=== PATIENT | male | born 1965 | race Caucasian/White ===

== ENCOUNTER 2024-03-26 13:51 | Inpatient (IN) ==
--- NOTE | 2024-03-26 17:56 | EKG ---
Test Reason : HX AFIB Blood Pressure : */* mmHG Vent. Rate : 68 BPM Atrial Rate : * BPM P-R Int : * ms QRS Dur : 140 ms QT Int : 436 ms P-R-T Axes : * 40 37 degrees QTc Int : 463 ms Atrial fibrillation Right bundle branch block T wave abnormality, consider lateral ischemia Abnormal ECG When compared with ECG of 31-JAN-2024 05:46, No significant change was found Confirmed by Lalito Nassar MD ([id number]) on 03/27/2024 7:32:58 AM Referred By: Confirmed By: Lalito Nassar MD
[2024-03-26] MEDS ORDERED: PHARMACY CONSULT - VANCOMYCIN XX SCH (18:00)
[2024-03-26] MEDS: PROTONIX INJ 40 MG VIAL IVP SCH (18:00)
[2024-03-26 18:17] LABS: BASOPHILS # (AUTO) 0.1 X10^3/uL (0.0-0.1); BASOPHILS % (AUTO) 1.1 % (0.2-1.0); EOSINOPHILS # (AUTO) 0.4 x10^3/uL (0.0-0.2); EOSINOPHILS % (AUTO) 6.1 % (0.9-2.9); HEMOGLOBIN 10.7 g/dL (13.5-18.0); LYMPHOCYTES % (AUTO) 33.9 % (21.0-51.0); MEAN CORPUSCULAR HEMOGLOBIN 26.4 pg (27.0-34.0); MEAN CORPUSCULAR HGB CONC 33.4 g/dL (33.0-35.0); MEAN CORPUSCULAR VOLUME 79.1 fL (80.0-100.0); MEAN PLATELET VOLUME 7.3 fL (7.4-11.0); MONOCYTES # (AUTO) 0.3 x10^3/uL (0.3-0.8); MONOCYTES % (AUTO) 5.3 % (0.0-13.0); NEUTROPHILS # (AUTO) 3.2 x10^3/uL (2.2-4.8); NEUTROPHILS % (AUTO) 53.6 % (42.0-75.0); PLATELET COUNT 304 X10^3/uL (150.0-450.0); RED BLOOD COUNT 4.04 X10^6/uL (4.7-6.0); RED CELL DISTRIBUTION WIDTH 17.7 % (11.6-16.5); RETICULOCYTE % 1.32 % (0.8-2.2); WHITE BLOOD COUNT 5.9 X10^3/uL (3.6-10.0)
[2024-03-26 18:29] LABS: ALBUMIN 1.9 g/dL (3.4-5.0); CALCIUM 9.6 mg/dL (8.5-10.1); CARBON DIOXIDE 26.4 mmol/L (21-32); COR CA(FOR HYPOALB) 11.3 mg/dL (8.5-10.1); CREATININE 1.84 mg/dL (0.70-1.30); MAGNESIUM 1.5 mg/dL (2.0-2.9); POTASSIUM 3.8 mmol/L (3.5-5.1); TOTAL PROTEIN 6.5 g/dL (6.4-8.2)
[2024-03-26] MEDS: PERCOCET TAB 5/325 MG PO PRN (20:23)
[2024-03-26 20:45] VITALS: BMI 40.7
[2024-03-26] MEDS: VANCOMYCIN IV *PREMIX 2 G/400 ML BAG 2 G/400 ML PIGGYBACK IV ONE (21:30)
[2024-03-26] MEDS ORDERED: VANCOMYCIN IV *PREMIX 2 G/400 ML BAG 2 G/400 ML PIGGYBACK IV ONE (22:01)
[2024-03-27 05:48] LABS: BASOPHILS # (AUTO) 0.1 X10^3/uL (0.0-0.1); EOSINOPHILS # (AUTO) 0.4 x10^3/uL (0.0-0.2); EOSINOPHILS % (AUTO) 6.2 % (0.9-2.9); HEMATOCRIT 28.5 % (42.0-54.0); HEMOGLOBIN 9.3 g/dL (13.5-18.0); LYMPHOCYTES # (AUTO) 2.2 X10^3/uL (1.3-2.9); LYMPHOCYTES % (AUTO) 32.1 % (21.0-51.0); MEAN CORPUSCULAR HEMOGLOBIN 26.2 pg (27.0-34.0); MEAN CORPUSCULAR HGB CONC 32.5 g/dL (33.0-35.0); MEAN CORPUSCULAR VOLUME 80.6 fL (80.0-100.0); MEAN PLATELET VOLUME 7.9 fL (7.4-11.0); MONOCYTES # (AUTO) 0.5 x10^3/uL (0.3-0.8); MONOCYTES % (AUTO) 7.8 % (0.0-13.0); NEUTROPHILS # (AUTO) 3.6 x10^3/uL (2.2-4.8); NEUTROPHILS % (AUTO) 52.9 % (42.0-75.0); PLATELET COUNT 258 X10^3/uL (150.0-450.0); RED BLOOD COUNT 3.54 X10^6/uL (4.7-6.0); RED CELL DISTRIBUTION WIDTH 17.3 % (11.6-16.5); WHITE BLOOD COUNT 6.9 X10^3/uL (3.6-10.0)
[2024-03-27 06:02] LABS: ALBUMIN 1.6 g/dL (3.4-5.0); CALCIUM 9.1 mg/dL (8.5-10.1); CARBON DIOXIDE 27.8 mmol/L (21-32); CREATININE 2.12 mg/dL (0.70-1.30); MAGNESIUM 1.6 mg/dL (2.0-2.9); TOTAL PROTEIN 5.6 g/dL (6.4-8.2)
--- NOTE | 2024-03-27 07:55 | RAD ---
EXAM:CHEST, 1 VIEWHISTORY:SOB; best images possible, pt would not lie flatCOMPARISON:Prior study or studies were utilized for comparison during interpretation with the most relevant dated 01/30/2024TECHNIQUE:CHEST, 1 VIEWFINDINGS:Chest:Lines and tubes: NoneMediastinum: Cardiomegaly.Pulmonary vessels: No pulmonary vascular congestion.Lung collins: No suspicious airspace opacity.Pleura: No effusion. No pneumothorax.Bones and soft tissues: No acute osseous or soft tissue abnormality.IMPRESSION:1. No acute cardiopulmonary abnormalityTHIS IS AN ELECTRONICALLY VERIFIED FINAL REPORT03/27/2024 7:52 AM - Electronically signed by José Terry MD
--- NOTE | 2024-03-27 08:37 | DR.H&P ---
H&P History & Physical for Day of: H&P Date: 03/26/24 Chief Complaint Chief Complaint: wound to buttocks, abnormal labs, uti, diffuse weakness History of Present Illness History of Present Illness: PT 59 WM, DIRECT ADMIT FROM DR FORRESTER OFFICE WITH INFECTED STAGE IV DECUBITUS, DIFFUSE WEAKNESS, UTI CONFIRMED ON OUTPT URINE C ULTURE, HYPONATREMIA ON OUTPT LABS. PT HAS BEEN BED CONFINED FOLLOWING A TRAUMATIC FALL APPROX 2 MONTHS AGO. PT HAS DIABETES, CRF, BPH, OA AND AFIB. PT IS ON USP ANTICOAGULANT THERAPY. PLAN TO ADMIT AND CONSULT SURGERY FOR DECUBITUS DEBRIDEMENT AND CASE MANAGEMENT FOR REHAB PLACEMENT Past Medical History Past Medical History: Arthritis, Depression, Diabetes, Dyslipidemia and Hypertension Past Surgical History Surgical History: Ortho Surgery Family History Family Medical History: Cancer Social History Does patient currently use any type of tobacco product: Yes Type of Tobacco Use: Smokeless Alcohol Use: None Drug Use: None Medications Home Medications: Home Medications Medication Instructions Recorded Confirmed Type insulin glargine U-300 conc 300 12 unit subcut QA 06/21/22 03/26/24 History unit/mL (3 mL) subcutaneous pen (Toujeo Max U-300 SoloStar) tizanidine 4 mg tablet 8 mg PO TID 06/21/22 03/26/24 History amlodipine 10 mg tablet 10 mg PO QAM 01/30/24 03/26/24 History apixaban 5 mg tablet (Eliquis) 5 mg PO BID 01/30/24 03/26/24 History bupropion HCl 150 mg 24 hr tablet, 150 mg PO QAM 01/30/24 03/26/24 History extended release carvedilol 25 mg tablet 25 mg PO BID 01/30/24 03/26/24 History docusate sodium 100 mg tablet 300 mg PO QDAY 01/30/24 03/26/24 History (Stool Softener) fenofibrate 160 mg tablet 160 mg PO QDAY 01/30/24 03/26/24 History ferrous sulfate 325 mg (65 mg 325 mg PO QDAY 01/30/24 03/26/24 History iron) tablet,delayed release furosemide 40 mg tablet 40 mg PO QAM 01/30/24 03/26/24 History gabapentin 300 mg capsule 300 mg PO QPM 01/30/24 03/26/24 History hydralazine 25 mg tablet 25 mg PO BID 01/30/24 03/26/24 History potassium chloride 10 mEq 10 meq PO QDAY 01/30/24 03/26/24 History tablet,extended release pravastatin 40 mg tablet 40 mg PO QPM 01/30/24 03/26/24 History quetiapine 50 mg tablet 50 mg PO QPM 01/30/24 03/26/24 History tamsulosin 0.4 mg capsule 0.4 mg PO QPM 01/30/24 03/26/24 History blood-glucose transmitter (Dexcom 03/26/24 03/26/24 History G6 Transmitter device) melatonin 10 mg chewable tablet 20 mg PO QPM 03/26/24 03/26/24 History oxybutynin chloride 10 mg 10 mg PO QDAY 03/26/24 03/26/24 History tablet,extended release 24 hr polyethylene glycol 3350 17 gram 17 g PO QAM 03/26/24 03/26/24 History oral powder packet (Miralax) Allergies Allergies Allergy/AdvReac Type Severity Reaction Status Date / Time No Known Drug Allergies Allergy Verified 01/30/24 21:56 Labs 03/27/24 05:10 03/27/24 05:10 Labs: Laboratory WBC 6.9 X10^3/uL (3.6-10.0) 03/27/24 05:10 RBC 3.54 X10^6/uL (4.7-6.0) L 03/27/24 05:10 Hgb 9.3 g/dL (13.5-18.0) L 03/27/24 05:10 Hct 28.5 % (42.0-54.0) L 03/27/24 05:10 MCV 80.6 fL (80.0-100.0) 03/27/24 05:10 MCH 26.2 pg (27.0-34.0) L 03/27/24 05:10 MCHC 32.5 g/dL (33.0-35.0) L 03/27/24 05:10 RDW 17.3 % (11.6-16.5) H 03/27/24 05:10 Plt Count 258 X10^3/uL (150.0-450.0) 03/27/24 05:10 MPV 7.9 fL (7.4-11.0) 03/27/24 05:10 Neut % (Auto) 52.9 % (42.0-75.0) 03/27/24 05:10 Lymph % (Auto) 32.1 % (21.0-51.0) 03/27/24 05:10 [place] % (Auto) 7.8 % (0.0-13.0) 03/27/24 05:10 Eos % (Auto) 6.2 % (0.9-2.9) H 03/27/24 05:10 Baso % (Auto) 1.0 % (0.2-1.0) 03/27/24 05:10 Neut # (Auto) 3.6 x10^3/uL (2.2-4.8) 03/27/24 05:10 Lymph # (Auto) 2.2 X10^3/uL (1.3-2.9) 03/27/24 05:10 [place] # (Auto) 0.5 x10^3/uL (0.3-0.8) 03/27/24 05:10 Eos # (Auto) 0.4 x10^3/uL (0.0-0.2) H 03/27/24 05:10 Baso # (Auto) 0.1 X10^3/uL (0.0-0.1) 03/27/24 05:10 Absolute Nucleated RBC 0.1 /100WBC 03/27/24 05:10 Absolute Retic 0.0534 10^6/uL 03/26/24 17:53 Percent Retic 1.32 % (0.8-2.2) 03/26/24 17:53 Sodium 139 mmol/L (136-145) 03/27/24 05:10 Corrected Sodium 142 mmol/L (136-145) 03/27/24 05:10 Potassium 4.0 mmol/L (3.5-5.1) 03/27/24 05:10 Chloride 105 mmol/L (98-107) 03/27/24 05:10 Carbon Dioxide 27.8 mmol/L (21-32) 03/27/24 05:10 BUN 21 mg/dL (7-18) H 03/27/24 05:10 Creatinine 2.12 mg/dL (0.70-1.30) H 03/27/24 05:10 Est GFR (MDRD) Af Amer 41 (>60) L 03/27/24 05:10 Est GFR (MDRD) Non-Af 34 (>60) L 03/27/24 05:10 Glucose 237 mg/dL (65-99) H 03/27/24 05:10 Lactic Acid 3.1 mmol/L (0.4-2.0) H 03/26/24 17:53 Calcium 9.1 mg/dL (8.5-10.1) 03/27/24 05:10 Corrected Calcium 11.0 mg/dL (8.5-10.1) H 03/27/24 05:10 Magnesium 1.6 mg/dL (2.0-2.9) L 03/27/24 05:10 Iron 33 ug/dL (50-175) L 03/26/24 17:53 TIBC 200 ug/dL (250-450) L 03/26/24 17:53 Transferrin 165 mg/dL (202-364) L 03/26/24 17:53 Ferritin 68 ng/mL (26-388) 03/26/24 17:53 Total Bilirubin 0.30 mg/dL (0.2-1.0) 03/27/24 05:10 AST 14 Units/L (15-37) L 03/27/24 05:10 ALT 6 Units/L (12-78) L 03/27/24 05:10 Alkaline Phosphatase 66 Units/L (46-116) 03/27/24 05:10 Creatine Kinase 12 Units/L (39-308) L 03/26/24 17:53 Troponin I High Sens 8.4 ng/L (4.0-60.0) 03/26/24 17:53 Total Protein 5.6 g/dL (6.4-8.2) L 03/27/24 05:10 Albumin 1.6 g/dL (3.4-5.0) L 03/27/24 05:10 Globulin 4.0 g/dL (2.5-4.5) 03/27/24 05:10 Albumin/Globulin Ratio 0.4 Ratio (1.1-2.1) L 03/27/24 05:10 Vitamin B12 658 pg/mL (193-986) 03/26/24 17:53 Folate 4.0 ng/mL (>8.6) L 03/26/24 17:53 Review of Systems Constitutional: Fever, Sweats and Weakness Eyes: No Symptoms Reported Respiratory: Shortness of Breath Cardiovascular: Palpitations and Edema Gastrointestinal: Nausea Genitourinary: Frequency and Other (INDWELLING [facility]KEON CATH) Musculoskeletal: Arm Pain, Back Pain and Leg Pain Skin: Wound Neurological: Weakness Physical Exam Vital Signs: Vital Signs Temperature 98.2 F Temperature 97.5 F Pulse Rate [Left Brachial] 48 Pulse Rate [Left Brachial] 52 Respiratory Rate 16 Respiratory Rate 18 Blood Pressure [Right Arm] 137/63 Blood Pressure [Right Arm] 98/54 O2 Sat by Pulse Oximetry 99 O2 Sat by Pulse Oximetry 97 Oriented: Normal Eyes: Normal Ear: Normal Nose: Normal Throat: Dry Respiratory: Diminished Throughout Cardiovascular: Irregular and Edema Auscultation: Bowel Sounds: Normal Palpation: Normal Tenderness: Normal Skin: Normal Musculoskeletal: Back:Lumbar Psychiatric: Depression Mood Description: Calm Affect: Depressed Speech Pattern: Delayed Assessment/Plan (1) Sepsis: Narrative Support Text: ADMIT, CONSULT DR BRANHAM FOR WOUND ASSESSMENT CT LSPINE RO OSTEOMYELITIS, BLOOD, URINE AND WOUND CULTURES ON ADMISSION IV VANOCMYCIN BP CONTROL, IV HYDRATION VERIFY HOME MEDICATIONS PRN SUPPLEMENTAL O2 AM LABS, CE AND CARDIAC MONITORING EKG ON ADMISSION Status: Acute (2) Hyponatremia: Status: Acute (3) Decubitus skin ulcer: Status: Acute (4) CRF (chronic renal failure): Status: Acute (5) Urinary tract infection: Status: Acute
[2024-03-27] MEDS: ELIQUIS PO SCH (09:21)
[2024-03-27] MEDS: HEMOCYTE-PLUS PO SCH (09:25)
[2024-03-27] MEDS: TRICOR TAB 160 MG PO SCH (09:25)
[2024-03-27] MEDS: WELLBUTRIN XL 150 MG (DAILY) PO SCH (09:26)
[2024-03-27] MEDS: NS 1,000 ML IV 1,000 ML with MAGNESIUM SULFATE 50% INJ VIAL 1 G IV SCH (09:34)
[2024-03-27] MEDS: NS IRRIGATION* 500 ML IR ONE (09:44)
[2024-03-27] MEDS: NS 250 ML IV 250 ML IV ONE (09:44)
[2024-03-27] MEDS: MORPHINE SULFATE INJ 2 MG INJ IVP PRN (11:51)
[2024-03-27] MEDS: NYSTATIN POWDER TOP SCH (15:49)
--- NOTE | 2024-03-27 17:42 | PCM.PROG ---
Progress Note Progress Note for Day of Date of Exam: 03/27/24 Subjective Subjective: PT 59 WM, DIRECT ADMIT FROM DR FORRESTER OFFICE WITH INFECTED STAGE IV DECUBITUS, DIFFUSE WEAKNESS, UTI CONFIRMED ON OUTPT URINE CULTURE, HYPONATREMIA ON OUTPT LABS. PT HAS BEEN BED CONFINED FOLLOWING A TRAUMATIC FALL APPROX 2 MONTHS AGO. PT HAS DIABETES, CRF, BPH, OA AND AFIB. PT IS ON CAD OPERATOR ANTICOAGULANT THERAPY. PLAN TO ADMIT AND CONSULT SURGERY FOR DECUBITUS DEBRIDEMENT AND CASE MANAGEMENT FOR REHAB PLACEMENT. PT WAS STARTED ON IV VANCOMYCIN ON ADMISION AFTER BLOOD, URINE AND WOUND CULTURES WERE OBTAINED. LSPINE CT AND PELVIS CT ORDERED DUE TO STAGE IV SACRAL DECUBITUS TO RO OS TEOMYELITIS AND EVALUATION OF CELLULITIS TO RO ABSCESS FORMATION TO PERINEAL AREA. PT WAS SEPTIC ON ARRIVAL, REPEAT LACTIC ACID OBTAINED, BP STABLE THIS AM WITH CONTINUED BRADYCARDIA. HOLDING BP MEDICATION AND BB THERAPY. NA UP TO 139 THIS AM, WB 6.9 AND HGB9.3. PLAN TO REPEAT AM LABS AND CONTINUE BP AND CARDIAC MONITORING. Past Medical Family Social History Allergies: Allergies No Known Drug Allergies Allergy (Verified 01/30/24 21:56) Vital Signs and I&O's Vital Signs: Vital Signs Temperature 98.1 F Temperature 98.3 F Pulse Rate [Left Brachial] 75 Pulse Rate [Left Brachial] 65 Respiratory Rate 20 Respiratory Rate 18 Respiratory Rate 20 Respiratory Rate 20 Respiratory Rate 16 Respiratory Rate 20 Respiratory Rate 20 Blood Pressure [Right Arm] 159/74 Blood Pressure [Right Arm] 145/71 O2 Sat by Pulse Oximetry 97 O2 Sat by Pulse Oximetry 96 Intake and Output: Intake & Output 03/25/24 03/26/24 03/27/24 03/28/24 11:59 11:59 11:59 11:59 Intake Total 944 / 944 863 / 863 Output Total 1300 / 1300 Balance -356 / -356 863 / 863 Physical Exam Oriented: Normal Eyes: Normal Ear: Normal Nose: Normal Throat: Dry Cardiovascular: Irregular and Edema Auscultation: Bowel Sounds: Normal Tenderness: Normal Skin: Decreased Turgur and Wound (STAGE IV SACRAL DECUBITUS EXTENDING TO SCROTUM WITH DIFFUSE LOCALZIED REDNESS, MALODOROUS DC) Musculoskeletal: Back:Lumbar Psychiatric: Depression Mood Description: Calm Affect: Depressed Speech Pattern: Delayed Laboratory and Diagnostics 03/27/24 05:10 03/27/24 05:10 Labs: 03/26/24 21:25 Buttock Wound Culture - Preliminary Laboratory WBC 6.9 X10^3/uL (3.6-10.0) 03/27/24 05:10 RBC 3.54 X10^6/uL (4.7-6.0) L 03/27/24 05:10 Hgb 9.3 g/dL (13.5-18.0) L 03/27/24 05:10 Hct 28.5 % (42.0-54.0) L 03/27/24 05:10 MCV 80.6 fL (80.0-100.0) 03/27/24 05:10 MCH 26.2 pg (27.0-34.0) L 03/27/24 05:10 MCHC 32.5 g/dL (33.0-35.0) L 03/27/24 05:10 RDW 17.3 % (11.6-16.5) H 03/27/24 05:10 Plt Count 258 X10^3/uL (150.0-450.0) 03/27/24 05:10 MPV 7.9 fL (7.4-11.0) 03/27/24 05:10 Neut % (Auto) 52.9 % (42.0-75.0) 03/27/24 05:10 Lymph % (Auto) 32.1 % (21.0-51.0) 03/27/24 05:10 [place] % (Auto) 7.8 % (0.0-13.0) 03/27/24 05:10 Eos % (Auto) 6.2 % (0.9-2.9) H 03/27/24 05:10 Baso % (Auto) 1.0 % (0.2-1.0) 03/27/24 05:10 Neut # (Auto) 3.6 x10^3/uL (2.2-4.8) 03/27/24 05:10 Lymph # (Auto) 2.2 X10^3/uL (1.3-2.9) 03/27/24 05:10 [place] # (Auto) 0.5 x10^3/uL (0.3-0.8) 03/27/24 05:10 Eos # (Auto) 0.4 x10^3/uL (0.0-0.2) H 03/27/24 05:10 Baso # (Auto) 0.1 X10^3/uL (0.0-0.1) 03/27/24 05:10 Absolute Nucleated RBC 0.1 /100WBC 03/27/24 05:10 Absolute Retic 0.0534 10^6/uL 03/26/24 17:53 Percent Retic 1.32 % (0.8-2.2) 03/26/24 17:53 Sodium 139 mmol/L (136-145) 03/27/24 05:10 Corrected Sodium 142 mmol/L (136-145) 03/27/24 05:10 Potassium 4.0 mmol/L (3.5-5.1) 03/27/24 05:10 Chloride 105 mmol/L (98-107) 03/27/24 05:10 Carbon Dioxide 27.8 mmol/L (21-32) 03/27/24 05:10 BUN 21 mg/dL (7-18) H 03/27/24 05:10 Creatinine 2.12 mg/dL (0.70-1.30) H 03/27/24 05:10 Est GFR (MDRD) Af Amer 41 (>60) L 03/27/24 05:10 Est GFR (MDRD) Non-Af 34 (>60) L 03/27/24 05:10 Glucose 237 mg/dL (65-99) H 03/27/24 05:10 Lactic Acid 1.5 mmol/L (0.4-2.0) 03/27/24 10:35 Calcium 9.1 mg/dL (8.5-10.1) 03/27/24 05:10 Corrected Calcium 11.0 mg/dL (8.5-10.1) H 03/27/24 05:10 Magnesium 1.6 mg/dL (2.0-2.9) L 03/27/24 05:10 Iron 33 ug/dL (50-175) L 03/26/24 17:53 TIBC 200 ug/dL (250-450) L 03/26/24 17:53 Transferrin 165 mg/dL (202-364) L 03/26/24 17:53 Ferritin 68 ng/mL (26-388) 03/26/24 17:53 Total Bilirubin 0.30 mg/dL (0.2-1.0) 03/27/24 05:10 AST 14 Units/L (15-37) L 03/27/24 05:10 ALT 6 Units/L (12-78) L 03/27/24 05:10 Alkaline Phosphatase 66 Units/L (46-116) 03/27/24 05:10 Creatine Kinase 12 Units/L (39-308) L 03/26/24 17:53 Troponin I High Sens 8.4 ng/L (4.0-60.0) 03/26/24 17:53 Total Protein 5.6 g/dL (6.4-8.2) L 03/27/24 05:10 Albumin 1.6 g/dL (3.4-5.0) L 03/27/24 05:10 Globulin 4.0 g/dL (2.5-4.5) 03/27/24 05:10 Albumin/Globulin Ratio 0.4 Ratio (1.1-2.1) L 03/27/24 05:10 Vitamin B12 658 pg/mL (193-986) 03/26/24 17:53 Folate 4.0 ng/mL (>8.6) L 03/26/24 17:53 Plan (1) Sepsis: Status: Acute Narrative Support Text: BP AND CARDIAC MONITORING, CULTURES OBTAINED ON ADMISSION SURGICAL CONSULT FOR WOUND CARE, IV VANCOMYCIN PAIN CONTROL, MCKEON CATH CARE, STRICT I&OS REPEAT AM CXR (2) Decubitus skin ulcer: Status: Acute (3) Hyponatremia: Status: Acute (4) CRF (chronic renal failure): Status: Acute (5) Urinary tract infection: Status: Acute
[2024-03-27] MEDS: SEROquel TAB 25 mg PO SCH (20:40)
[2024-03-27] MEDS: COLACE CAP 100 MG PO PRN (20:41)
[2024-03-27] MEDS: NEURONTIN CAP 300 MG PO SCH (20:41)
[2024-03-27] MEDS: PRAVACHOL PO SCH (20:41)
[2024-03-27] MEDS: FLOMAX PO SCH (20:42)
[2024-03-27] MEDS: VANCOMYCIN IV *PREMIX 2 G/400 ML BAG 2 G/400 ML PIGGYBACK IV SCH (21:29)
[2024-03-28 06:14] LABS: BASOPHILS # (AUTO) 0.1 X10^3/uL (0.0-0.1); BASOPHILS % (AUTO) 1.3 % (0.2-1.0); EOSINOPHILS # (AUTO) 0.5 x10^3/uL (0.0-0.2); EOSINOPHILS % (AUTO) 6.7 % (0.9-2.9); HEMATOCRIT 30.6 % (42.0-54.0); HEMOGLOBIN 10.2 g/dL (13.5-18.0); LYMPHOCYTES # (AUTO) 2.1 X10^3/uL (1.3-2.9); LYMPHOCYTES % (AUTO) 28.9 % (21.0-51.0); MEAN CORPUSCULAR HEMOGLOBIN 26.4 pg (27.0-34.0); MEAN CORPUSCULAR HGB CONC 33.1 g/dL (33.0-35.0); MEAN CORPUSCULAR VOLUME 79.6 fL (80.0-100.0); MEAN PLATELET VOLUME 7.2 fL (7.4-11.0); MONOCYTES # (AUTO) 0.5 x10^3/uL (0.3-0.8); MONOCYTES % (AUTO) 7.7 % (0.0-13.0); NEUTROPHILS # (AUTO) 3.9 x10^3/uL (2.2-4.8); NEUTROPHILS % (AUTO) 55.4 % (42.0-75.0); PLATELET COUNT 299 X10^3/uL (150.0-450.0); RED BLOOD COUNT 3.85 X10^6/uL (4.7-6.0); RED CELL DISTRIBUTION WIDTH 17.5 % (11.6-16.5); WHITE BLOOD COUNT 7.1 X10^3/uL (3.6-10.0)
[2024-03-28 06:34] LABS: ALBUMIN 1.9 g/dL (3.4-5.0); CALCIUM 9.6 mg/dL (8.5-10.1); CARBON DIOXIDE 27.2 mmol/L (21-32); COR CA(FOR HYPOALB) 11.3 mg/dL (8.5-10.1); CREATININE 1.77 mg/dL (0.70-1.30); MAGNESIUM 1.6 mg/dL (2.0-2.9); POTASSIUM 3.8 mmol/L (3.5-5.1); TOTAL PROTEIN 6.4 g/dL (6.4-8.2)
--- NOTE | 2024-03-28 07:45 | CT ---
EXAMINATION:LUMBAR SPINE W/O CONHISTORY:SACRAL DECUBITIS SORE;COMPARISON:None.TECHNIQUE:Jd diehl noncontrast axial CT images of the lumbar spine. Images reviewed in the axial imaging plane with reformatted sagittal and coronal images.The above CT scan was done with automated exposure control and the mA and kV was adjusted to obtain quality images according to patient size.FINDINGS:5 ksv-lhy-cxiupcu lumbar-type vertebral bodies.The lumbar vertebral bodies maintain normal height. Slight retrolisthesis of L3 on L4 grade 1. Multilevel degenerative changes with fety-wn-hcgflztd disc space narrowing, vertebral endplate osteophytes, facet arthropathy. Nonspecific well-defined oval-shaped radiolucent lesion within the posterior L4 vertebral body measuring 1.7 x 1.3 x 2.5 cm.L1-2 level demonstrates no significant central spinal canal or neural foraminal stenosis. Mild bilateral facet arthropathy.L2-3 level demonstrates no significant central spinal canal or neural foraminal stenosis. Mild bilateral facet arthropathy.L3-4 level demonstrates no significant central spinal canal or neural foraminal stenosis. Moderate bilateral facet arthropathy.L4-5 level demonstrates no significant central spinal canal or neural foraminal stenosis. Severe right-sided facet arthropathy and moderate to severe left-sided facet arthropathy.L5-S1 level demonstrates no significant central spinal canal or neural foraminal stenosis. Severe bilateral facet arthropathy.Arterial vascular calcifications.Dmva-nc-jyhhvqvy degenerative changes SI joints.IMPRESSION:Multilevel spondylosis as described above.Indeterminate oval-shaped radiolucent lesion within the posterior L4 vertebral body. Findings may be followed up with an MRI of the lumbar spine.Recommend follow-up CT of the pelvis without and with IV contrast if there is continued clinical concern for a potential sacral decubitus infectious process.THIS IS AN ELECTRONICALLY VERIFIED FINAL REPORT03/28/2024 7:41 AM - Electronically signed by Ashlie Contreras MD
--- NOTE | 2024-03-28 07:48 | CT ---
EXAMINATION:PELVIS W/O CONHISTORY:R/O OSTEO; .COMPARISON STUDY:None.TECHNIQUE:Contiguous noncontrast axial CT images of the pelvis. Images are reviewed in the axial imaging plane with reformatted sagittal and coronal images. The CT radiation dose was minimize/adjusted to accommodate patient's size.FINDINGS:Details of the soft tissues are limited since intravenous contrast was not used.There is decubitus ulceration of the soft tissues along the posterior aspect of the distal coccyx bones. No obvious bone destructive process. There is soft tissue stranding/edema along the presacral space and along the posterior aspect of the distal sacrum/coccyx region.No pelvic adenopathy.Degenerative changes SI joints, hip joints.Scattered arterial vascular calcifications.IMPRESSION:Decubitus ulcer along the posterior aspect distal coccyx region. Soft tissue stranding/edema presacral space and along the posterior aspect of the distal coccyx. Recommend further evaluation with an MRI to performed without and with IV contrast utilizing fat suppression imaging techniques if there is clinical concern for potential osteomyelitis.THIS IS AN ELECTRONICALLY VERIFIED FINAL REPORT03/28/2024 7:45 AM - Electronically signed by Ashlie Contreras MD
[2024-03-28] MEDS: MAG-OX TAB PO SCH (08:47)
[2024-03-28] MEDS: MILK OF MAGNESIA PO PRN (08:48)
[2024-03-28] MEDS ORDERED: ZOFRAN INJ 4 MG VIAL ONE (09:06)
[2024-03-28] MEDS: ZOFRAN INJ 4 MG VIAL IVP PRN (09:15)
[2024-03-28] MEDS: COLACE CAP 100 MG PO SCH (09:30)
[2024-03-28] MEDS: MIRALAX POWDER (1 DOSE 17 G) PO SCH (10:24)
[2024-03-28] MEDS: ZANAFLEX PO SCH (10:24)
--- NOTE | 2024-03-28 12:56 | PCM.PROG ---
Progress Note Progress Note for Day of Date of Exam: 03/28/24 Subjective Subjective: PT 59 WM, DIRECT ADMIT FROM DR FORRESTER OFFICE WITH INFECTED STAGE IV DECUBITUS, DIFFUSE WEAKNESS, UTI CONFIRMED ON OUTPT URINE CULTURE, HYPONATREMIA ON OUTPT LABS. PT HAS BEEN BED CONFINED FOLLOWING A TRAUMATIC FALL APPROX 2 MONTHS AGO. PT HAS DIABETES, CRF, BPH, OA AND AFIB. PT IS ON [employer] HAND ANTICOAGULANT THERAPY. CONSULTED SURGERY FOR DECUBITUS DEBRIDEMENT AND CASE MANAGEMENT FOR REHAB PLACEMENT. PT WAS STARTED ON IV VANCOMYCIN ON ADMISION AFTER BLOOD, URINE AND WOUND CULTURES WERE OBTAINED. LSPINE CT AND PELVIS CT ORDERED DUE TO STAGE IV SACRAL DECUBITUS TO RO OSTEOMYELITIS AND EVALUATION OF CELLULITIS TO RO ABSCESS FORMATION TO PERINEAL AREA.CT REVEALED MULTI-LEVEL DDD. RECEMMED MRI FOR EVALUATIN OF OSTEO, HOWEVER PT HAS REFUSED DUE TO SEVERE PAIN AND INABILITY TO GO THROUGHT PROCEDURE AT THIS TIME. PT STARTED ON ZOSYN AFTER CULTURE RESULTS. NA UP TO 138. BUN/CREAT .77 PLAN TO REPEAT AM LABS AND CONTINUE BP AND CARDIAC MONITORING. Past Medical Family Social History Allergies: Allergies No Known Drug Allergies Allergy (Verified 01/30/24 21:56) Vital Signs and I&O's Vital Signs: Vital Signs Temperature 98.6 F Pulse Rate [Left Brachial] 78 Respiratory Rate 18 Respiratory Rate 20 Respiratory Rate 18 Blood Pressure [Right Arm] 160/75 O2 Sat by Pulse Oximetry 97 Intake and Output: Intake & Output 03/26/24 03/27/24 03/28/24 03/29/24 11:59 11:59 11:59 11:59 Intake Total 944 / 944 3281 / 3281 Output Total 1300 / 1300 1210 / 1210 Balance -356 / -356 2070 / 2070 Physical Exam Oriented: Normal Eyes: Normal Ear: Normal Nose: Normal Throat: Dry Cardiovascular: Irregular and Edema Auscultation: Bowel Sounds: Normal Tenderness: Normal Skin: Decreased Turgur and Wound (STAGE IV SACRAL DECUBITUS EXTENDING TO SCROTUM WITH DIFFUSE LOCALZIED REDNESS, MALODOROUS DC) Musculoskeletal: Back:Lumbar Psychiatric: Depression Mood Description: Calm Affect: Depressed Speech Pattern: Clear and Appropriate Laboratory and Diagnostics 03/28/24 05:57 03/28/24 05:57 Labs: 03/26/24 17:58 Blood Blood Culture - Preliminary 03/26/24 17:53 Blood Blood Culture - Preliminary 03/27/24 05:03 Urine,Clean Catch Urine Culture - Preliminary 03/26/24 21:25 Buttock Wound Culture - Preliminary Laboratory WBC 7.1 X10^3/uL (3.6-10.0) 03/28/24 05:57 RBC 3.85 X10^6/uL (4.7-6.0) L 03/28/24 05:57 Hgb 10.2 g/dL (13.5-18.0) L 03/28/24 05:57 Hct 30.6 % (42.0-54.0) L 03/28/24 05:57 MCV 79.6 fL (80.0-100.0) L 03/28/24 05:57 MCH 26.4 pg (27.0-34.0) L 03/28/24 05:57 MCHC 33.1 g/dL (33.0-35.0) 03/28/24 05:57 RDW 17.5 % (11.6-16.5) H 03/28/24 05:57 Plt Count 299 X10^3/uL (150.0-450.0) 03/28/24 05:57 MPV 7.2 fL (7.4-11.0) L 03/28/24 05:57 Neut % (Auto) 55.4 % (42.0-75.0) 03/28/24 05:57 Lymph % (Auto) 28.9 % (21.0-51.0) 03/28/24 05:57 [place] % (Auto) 7.7 % (0.0-13.0) 03/28/24 05:57 Eos % (Auto) 6.7 % (0.9-2.9) H 03/28/24 05:57 Baso % (Auto) 1.3 % (0.2-1.0) H 03/28/24 05:57 Neut # (Auto) 3.9 x10^3/uL (2.2-4.8) 03/28/24 05:57 Lymph # (Auto) 2.1 X10^3/uL (1.3-2.9) 03/28/24 05:57 [place] # (Auto) 0.5 x10^3/uL (0.3-0.8) 03/28/24 05:57 Eos # (Auto) 0.5 x10^3/uL (0.0-0.2) H 03/28/24 05:57 Baso # (Auto) 0.1 X10^3/uL (0.0-0.1) 03/28/24 05:57 Absolute Nucleated RBC 0.1 /100WBC 03/28/24 05:57 Absolute Retic 0.0534 10^6/uL 03/26/24 17:53 Percent Retic 1.32 % (0.8-2.2) 03/26/24 17:53 Sodium 138 mmol/L (136-145) 03/28/24 05:57 Corrected Sodium 139 mmol/L (136-145) 03/28/24 05:57 Potassium 3.8 mmol/L (3.5-5.1) 03/28/24 05:57 Chloride 104 mmol/L (98-107) 03/28/24 05:57 Carbon Dioxide 27.2 mmol/L (21-32) 03/28/24 05:57 BUN 17 mg/dL (7-18) 03/28/24 05:57 Creatinine 1.77 mg/dL (0.70-1.30) H 03/28/24 05:57 Est GFR (MDRD) Af Amer 51 (>60) L 03/28/24 05:57 Est GFR (MDRD) Non-Af 42 (>60) L 03/28/24 05:57 Glucose 150 mg/dL (65-99) H 03/28/24 05:57 POC Glucose (mg/dL) 148 mg/dL (65-99) H 03/27/24 19:52 Lactic Acid 1.5 mmol/L (0.4-2.0) 03/27/24 10:35 Calcium 9.6 mg/dL (8.5-10.1) 03/28/24 05:57 Corrected Calcium 11.3 mg/dL (8.5-10.1) H 03/28/24 05:57 Magnesium 1.6 mg/dL (2.0-2.9) L 03/28/24 05:57 Iron 33 ug/dL (50-175) L 03/26/24 17:53 TIBC 200 ug/dL (250-450) L 03/26/24 17:53 Transferrin 165 mg/dL (202-364) L 03/26/24 17:53 Ferritin 68 ng/mL (26-388) 03/26/24 17:53 Total Bilirubin 0.50 mg/dL (0.2-1.0) 03/28/24 05:57 AST 18 Units/L (15-37) 03/28/24 05:57 ALT 9 Units/L (12-78) L 03/28/24 05:57 Alkaline Phosphatase 77 Units/L (46-116) 03/28/24 05:57 Creatine Kinase 12 Units/L (39-308) L 03/26/24 17:53 Troponin I High Sens 8.4 ng/L (4.0-60.0) 03/26/24 17:53 Total Protein 6.4 g/dL (6.4-8.2) 03/28/24 05:57 Albumin 1.9 g/dL (3.4-5.0) L 03/28/24 05:57 Globulin 4.5 g/dL (2.5-4.5) 03/28/24 05:57 Albumin/Globulin Ratio 0.4 Ratio (1.1-2.1) L 03/28/24 05:57 Vitamin B12 658 pg/mL (193-986) 03/26/24 17:53 Folate 4.0 ng/mL (>8.6) L 03/26/24 17:53 Plan (1) Urinary tract infection: Status: Acute Narrative Support Text: IV ATBX, GENTLE IV HYDRATION WOUND CARE, BP CONTROL REPEAT AM LABS, PAIN CONTROL (2) Sepsis: Status: Acute (3) Decubitus skin ulcer: Status: Acute (4) Hyponatremia: Status: Acute (5) CRF (chronic renal failure): Status: Acute (6) Weakness: Status: Acute
[2024-03-28] MEDS: ZOSYN VIAL 3.375 GRAMS 3.375 G in NS 100 ML IV 100 ML IV SCH (13:34)
[2024-03-28] MEDS: DILAUDID INJ IVP PRN (14:32)
[2024-03-29 05:50] LABS: LYMPHOCYTES % (AUTO) 35.1 % (21.0-51.0); MONOCYTES # (AUTO) 0.7 x10^3/uL (0.3-0.8)
[2024-03-29 05:56] LABS: BASOPHILS # (AUTO) 0.1 X10^3/uL (0.0-0.1); BASOPHILS % (AUTO) 0.9 % (0.2-1.0); EOSINOPHILS # (AUTO) 0.5 x10^3/uL (0.0-0.2); EOSINOPHILS % (AUTO) 7.1 % (0.9-2.9); HEMATOCRIT 25.6 % (42.0-54.0); HEMOGLOBIN 8.6 g/dL (13.5-18.0); LYMPHOCYTES # (AUTO) 2.7 X10^3/uL (1.3-2.9); MEAN CORPUSCULAR HEMOGLOBIN 26.9 pg (27.0-34.0); MEAN CORPUSCULAR HGB CONC 33.6 g/dL (33.0-35.0); MEAN CORPUSCULAR VOLUME 80.1 fL (80.0-100.0); MEAN PLATELET VOLUME 7.6 fL (7.4-11.0); MONOCYTES % (AUTO) 9.1 % (0.0-13.0); NEUTROPHILS # (AUTO) 3.6 x10^3/uL (2.2-4.8); NEUTROPHILS % (AUTO) 47.8 % (42.0-75.0); PLATELET COUNT 245 X10^3/uL (150.0-450.0); RED CELL DISTRIBUTION WIDTH 17.1 % (11.6-16.5); WHITE BLOOD COUNT 7.6 X10^3/uL (3.6-10.0)
[2024-03-29 06:03] LABS: ALBUMIN 1.6 g/dL (3.4-5.0); CALCIUM 9.1 mg/dL (8.5-10.1); CARBON DIOXIDE 28.7 mmol/L (21-32); CREATININE 1.68 mg/dL (0.70-1.30); MAGNESIUM 1.9 mg/dL (2.0-2.9); POTASSIUM 4.1 mmol/L (3.5-5.1); TOTAL PROTEIN 5.6 g/dL (6.4-8.2)
[2024-03-29] MEDS: LASIX IVP ONE (12:16)
[2024-03-29] MEDS: K-DUR TAB 20 MEQ PO ONE (12:16)
[2024-03-29 13:09] LABS: BILIRUBIN,URINE NEGATIVE (NEGATIVE); BLOOD/HEMOGLOBIN,URINE 2+ (NEGATIVE); GLUCOSE, URINE NEGATIVE (NEGATIVE); KETONES,URINE NEGATIVE (NEGATIVE); LEUKOCYTE ESTERASE ,URINE 3+ (NEGATIVE); NITRITES,URINE NEGATIVE (NEGATIVE); PROTEIN,URINE 2+ (NEGATIVE); UROBILINOGEN,URINE NORMAL (NORMAL)
[2024-03-29 13:18] LABS: APPEARANCE,URINE CLEAR (CLEAR); COLOR,URINE YELLOW (YELLOW)
[2024-03-29 13:19] LABS: BACTERIA,URINE NEGATIVE /HPF (NEGATIVE); SQUAMOUS EPITHELIAL CELL,UR RARE /HPF (NEGATIVE)
[2024-03-29] MEDS: MERREM VIAL 1 G in NS 100 ML IV 100 ML IV SCH (17:26)
[2024-03-29] MEDS: PHARMACY COMMENT IV ONE (21:37)
[2024-03-29] MEDS: VANCOMYCIN IV *PREMIX 2 G/400 ML BAG 2 G/400 ML PIGGYBACK IV SCH (21:38)
[2024-03-30 05:05] LABS: BASOPHILS # (AUTO) 0.1 X10^3/uL (0.0-0.1); BASOPHILS % (AUTO) 0.9 % (0.2-1.0); EOSINOPHILS # (AUTO) 0.6 x10^3/uL (0.0-0.2); EOSINOPHILS % (AUTO) 8.7 % (0.9-2.9); HEMATOCRIT 26.5 % (42.0-54.0); HEMOGLOBIN 8.8 g/dL (13.5-18.0); LYMPHOCYTES # (AUTO) 2.6 X10^3/uL (1.3-2.9); LYMPHOCYTES % (AUTO) 37.1 % (21.0-51.0); MEAN CORPUSCULAR HEMOGLOBIN 26.6 pg (27.0-34.0); MEAN CORPUSCULAR HGB CONC 33.3 g/dL (33.0-35.0); MEAN CORPUSCULAR VOLUME 79.9 fL (80.0-100.0); MEAN PLATELET VOLUME 7.8 fL (7.4-11.0); MONOCYTES # (AUTO) 0.6 x10^3/uL (0.3-0.8); MONOCYTES % (AUTO) 8.3 % (0.0-13.0); NEUTROPHILS # (AUTO) 3.1 x10^3/uL (2.2-4.8); PLATELET COUNT 248 X10^3/uL (150.0-450.0); RED BLOOD COUNT 3.32 X10^6/uL (4.7-6.0); RED CELL DISTRIBUTION WIDTH 16.9 % (11.6-16.5); WHITE BLOOD COUNT 6.9 X10^3/uL (3.6-10.0)
[2024-03-30 05:22] LABS: ALBUMIN 1.7 g/dL (3.4-5.0); CALCIUM 9.1 mg/dL (8.5-10.1); CARBON DIOXIDE 27.8 mmol/L (21-32); COR CA(FOR HYPOALB) 10.9 mg/dL (8.5-10.1); CREATININE 1.68 mg/dL (0.70-1.30); POTASSIUM 4.1 mmol/L (3.5-5.1); TOTAL PROTEIN 5.7 g/dL (6.4-8.2)
[2024-03-30] MEDS: LASIX PO SCH (09:10)
[2024-03-30] MEDS ORDERED: PERCOCET TAB 5/325 MG PO PRN (12:07)
[2024-03-30] MEDS: PERCOCET TAB 5/325 MG PO PRN (13:31)
[2024-03-30] MEDS: PHARMACY COMMENT IV ONE (21:59)
[2024-03-31 06:43] LABS: BASOPHILS % (AUTO) 0.4 % (0.2-1.0); EOSINOPHILS # (AUTO) 0.6 x10^3/uL (0.0-0.2); EOSINOPHILS % (AUTO) 10.3 % (0.9-2.9); HEMATOCRIT 27.2 % (42.0-54.0); LYMPHOCYTES # (AUTO) 2.1 X10^3/uL (1.3-2.9); LYMPHOCYTES % (AUTO) 33.5 % (21.0-51.0); MEAN CORPUSCULAR HEMOGLOBIN 26.6 pg (27.0-34.0); MEAN CORPUSCULAR HGB CONC 33.2 g/dL (33.0-35.0); MEAN CORPUSCULAR VOLUME 80.2 fL (80.0-100.0); MEAN PLATELET VOLUME 7.9 fL (7.4-11.0); MONOCYTES # (AUTO) 0.6 x10^3/uL (0.3-0.8); MONOCYTES % (AUTO) 9.5 % (0.0-13.0); NEUTROPHILS # (AUTO) 2.8 x10^3/uL (2.2-4.8); NEUTROPHILS % (AUTO) 46.3 % (42.0-75.0); PLATELET COUNT 234 X10^3/uL (150.0-450.0); RED BLOOD COUNT 3.39 X10^6/uL (4.7-6.0); RED CELL DISTRIBUTION WIDTH 17.7 % (11.6-16.5); WHITE BLOOD COUNT 6.1 X10^3/uL (3.6-10.0)
[2024-03-31 06:49] LABS: ALANINE AMINOTRANSFERASE 8 Units/L (12-78); ALBUMIN 1.7 g/dL (3.4-5.0); ALKALINE PHOSPHATASE 62 Units/L (46-116); ASPARTATE AMINO TRANSFERASE 21 Units/L (15-37); BLOOD UREA NITROGEN 16 mg/dL (7-18); CALCIUM 9.1 mg/dL (8.5-10.1); CARBON DIOXIDE 27.4 mmol/L (21-32); CHLORIDE 105 mmol/L (98-107); COR CA(FOR HYPOALB) 10.9 mg/dL (8.5-10.1); COR NA(FOR HYPERGLY) 139 mmol/L (136-145); CREATININE 1.49 mg/dL (0.70-1.30); GLUCOSE 146 mg/dL (65-99); POTASSIUM 4.5 mmol/L (3.5-5.1); SODIUM 138 mmol/L (136-145); TOTAL PROTEIN 5.9 g/dL (6.4-8.2); eGFR NON BLACK RACES 51 (>60)
[2024-03-31] MEDS: MERREM VIAL 1 G in NS 100 ML IV 100 ML IV SCH (09:29)
[2024-03-31] MEDS: DIFLUCAN 200 MG IV PREMIX* 200 MG/100 ML BAG IV SCH (09:29)
[2024-03-31] MEDS: VANCOMYCIN IV *PREMIX 1.5 G/300 ML BAG 1.5 G/300 ML PIGGYBACK IV SCH (09:30)
--- NOTE | 2024-03-31 09:45 | EKG ---
Test Reason : bradycardia Blood Pressure : */* mmHG Vent. Rate : 84 BPM Atrial Rate : * BPM P-R Int : * ms QRS Dur : 142 ms QT Int : 408 ms P-R-T Axes : * 28 27 degrees QTc Int : 482 ms Atrial fibrillation Right bundle branch block Abnormal ECG When compared with ECG of 26-MAR-2024 17:43, No significant change was found Confirmed by Lalito Nassar MD ([id number]) on 04/01/2024 7:30:28 AM Referred By: Confirmed By: Lalito Nassar MD
[2024-03-31] MEDS: PERCOCET TAB 5/325 MG PO SCH (10:58)
[2024-03-31] MEDS ORDERED: ATIVAN INJ 2 MG VIAL ONE (15:12)
[2024-03-31] MEDS: ATIVAN INJ 2 MG VIAL IVP ONE (15:15)
[2024-03-31] MEDS: SEROquel TAB 25 mg PO SCH (20:55)
[2024-03-31] MEDS: NovoLIN R (or HumuLIN R) SC PRN (21:13)
[2024-03-31] MEDS: MAGNESIUM SULFATE 50% INJ VIAL ONE (21:16)
[2024-03-31] MEDS: NS 1,000 ML IV 1,000 ML ONE (21:18)
[2024-04-01 06:38] LABS: BASOPHILS % (AUTO) 0.2 % (0.2-1.0); EOSINOPHILS # (AUTO) 0.5 x10^3/uL (0.0-0.2); EOSINOPHILS % (AUTO) 7.9 % (0.9-2.9); HEMATOCRIT 27.9 % (42.0-54.0); HEMOGLOBIN 9.3 g/dL (13.5-18.0); LYMPHOCYTES % (AUTO) 31.8 % (21.0-51.0); MEAN CORPUSCULAR HEMOGLOBIN 26.4 pg (27.0-34.0); MEAN CORPUSCULAR HGB CONC 33.4 g/dL (33.0-35.0); MEAN CORPUSCULAR VOLUME 78.9 fL (80.0-100.0); MEAN PLATELET VOLUME 7.5 fL (7.4-11.0); MONOCYTES # (AUTO) 0.6 x10^3/uL (0.3-0.8); MONOCYTES % (AUTO) 9.7 % (0.0-13.0); NEUTROPHILS # (AUTO) 3.2 x10^3/uL (2.2-4.8); NEUTROPHILS % (AUTO) 50.4 % (42.0-75.0); PLATELET COUNT 252 X10^3/uL (150.0-450.0); RED BLOOD COUNT 3.54 X10^6/uL (4.7-6.0); RED CELL DISTRIBUTION WIDTH 17.3 % (11.6-16.5); WHITE BLOOD COUNT 6.3 X10^3/uL (3.6-10.0)
[2024-04-01] MEDS: MAGNESIUM SULFATE 50% INJ VIAL ONE ×2 (06:38→22:31)
[2024-04-01] MEDS: NS 1,000 ML IV 1,000 ML ONE ×2 (06:39→22:30)
[2024-04-01 06:53] LABS: ALANINE AMINOTRANSFERASE < 6 Units/L (12-78); ALBUMIN 1.7 g/dL (3.4-5.0); ALKALINE PHOSPHATASE 67 Units/L (46-116); ASPARTATE AMINO TRANSFERASE 17 Units/L (15-37); BLOOD UREA NITROGEN 14 mg/dL (7-18); CALCIUM 9.6 mg/dL (8.5-10.1); CARBON DIOXIDE 26.4 mmol/L (21-32); CHLORIDE 105 mmol/L (98-107); COR CA(FOR HYPOALB) 11.4 mg/dL (8.5-10.1); COR NA(FOR HYPERGLY) 136 mmol/L (136-145); CREATININE 1.29 mg/dL (0.70-1.30); GLUCOSE 120 mg/dL (65-99); POTASSIUM 4.4 mmol/L (3.5-5.1); SODIUM 136 mmol/L (136-145); TOTAL PROTEIN 5.9 g/dL (6.4-8.2); eGFR NON BLACK RACES > 60 (>60)
[2024-04-01] MEDS: NS IRRIGATION* 500 ML IR ONE (15:56)
[2024-04-01] MEDS: SEROquel TAB 25 mg PO SCH (18:20)
[2024-04-01] MEDS: ATIVAN TAB 1 MG PO PRN (21:54)
[2024-04-02] MEDS ORDERED: NS 1,000 ML IV 1,000 ML ONE (06:10)
[2024-04-02 07:09] LABS: BASOPHILS % (AUTO) 0.2 % (0.2-1.0); EOSINOPHILS # (AUTO) 0.5 x10^3/uL (0.0-0.2); EOSINOPHILS % (AUTO) 8.5 % (0.9-2.9); HEMATOCRIT 27.3 % (42.0-54.0); LYMPHOCYTES # (AUTO) 1.8 X10^3/uL (1.3-2.9); LYMPHOCYTES % (AUTO) 33.6 % (21.0-51.0); MEAN CORPUSCULAR HEMOGLOBIN 26.2 pg (27.0-34.0); MEAN CORPUSCULAR HGB CONC 32.7 g/dL (33.0-35.0); MEAN PLATELET VOLUME 8.1 fL (7.4-11.0); MONOCYTES # (AUTO) 0.5 x10^3/uL (0.3-0.8); NEUTROPHILS # (AUTO) 2.6 x10^3/uL (2.2-4.8); NEUTROPHILS % (AUTO) 48.7 % (42.0-75.0); PLATELET COUNT 221 X10^3/uL (150.0-450.0); RED BLOOD COUNT 3.42 X10^6/uL (4.7-6.0); WHITE BLOOD COUNT 5.4 X10^3/uL (3.6-10.0)
[2024-04-02 07:28] LABS: ALANINE AMINOTRANSFERASE 8 Units/L (12-78); ALBUMIN 1.6 g/dL (3.4-5.0); ALKALINE PHOSPHATASE 65 Units/L (46-116); ASPARTATE AMINO TRANSFERASE 14 Units/L (15-37); BLOOD UREA NITROGEN 13 mg/dL (7-18); CALCIUM 9.2 mg/dL (8.5-10.1); CARBON DIOXIDE 27.6 mmol/L (21-32); CHLORIDE 105 mmol/L (98-107); COR CA(FOR HYPOALB) 11.1 mg/dL (8.5-10.1); COR NA(FOR HYPERGLY) 138 mmol/L (136-145); CREATININE 1.28 mg/dL (0.70-1.30); GLUCOSE 171 mg/dL (65-99); MAGNESIUM 1.7 mg/dL (2.0-2.9); POTASSIUM 4.3 mmol/L (3.5-5.1); SODIUM 136 mmol/L (136-145); TOTAL PROTEIN 5.6 g/dL (6.4-8.2); eGFR NON BLACK RACES > 60 (>60)
[2024-04-02] MEDS ORDERED: CONSULT PHARMACY - POTASSIUM & MAGNESIUM XX SCH (08:00)
[2024-04-02] MEDS: NS 1,000 ML IV 1,000 ML IV SCH (09:56)
[2024-04-02] MEDS: MAGNESIUM SULFATE 1 GRAM/100 mL PREMIX 1 G/100 ML BAG IV SCH (09:57)
[2024-04-03 07:02] LABS: BASOPHILS # (AUTO) 0.1 X10^3/uL (0.0-0.1); BASOPHILS % (AUTO) 1.8 % (0.2-1.0); EOSINOPHILS # (AUTO) 0.5 x10^3/uL (0.0-0.2); EOSINOPHILS % (AUTO) 8.8 % (0.9-2.9); HEMATOCRIT 26.9 % (42.0-54.0); HEMOGLOBIN 8.8 g/dL (13.5-18.0); LYMPHOCYTES # (AUTO) 2.1 X10^3/uL (1.3-2.9); LYMPHOCYTES % (AUTO) 36.7 % (21.0-51.0); MEAN CORPUSCULAR HEMOGLOBIN 26.3 pg (27.0-34.0); MEAN CORPUSCULAR HGB CONC 32.8 g/dL (33.0-35.0); MEAN CORPUSCULAR VOLUME 80.1 fL (80.0-100.0); MEAN PLATELET VOLUME 8.2 fL (7.4-11.0); MONOCYTES # (AUTO) 0.4 x10^3/uL (0.3-0.8); MONOCYTES % (AUTO) 7.7 % (0.0-13.0); NEUTROPHILS # (AUTO) 2.5 x10^3/uL (2.2-4.8); PLATELET COUNT 241 X10^3/uL (150.0-450.0); RED BLOOD COUNT 3.35 X10^6/uL (4.7-6.0); RED CELL DISTRIBUTION WIDTH 17.3 % (11.6-16.5); WHITE BLOOD COUNT 5.7 X10^3/uL (3.6-10.0)
[2024-04-03 07:20] LABS: ALANINE AMINOTRANSFERASE 6 Units/L (12-78); ALBUMIN 1.6 g/dL (3.4-5.0); ALKALINE PHOSPHATASE 69 Units/L (46-116); ASPARTATE AMINO TRANSFERASE 15 Units/L (15-37); BLOOD UREA NITROGEN 13 mg/dL (7-18); CALCIUM 9.2 mg/dL (8.5-10.1); CARBON DIOXIDE 26.2 mmol/L (21-32); CHLORIDE 105 mmol/L (98-107); COR CA(FOR HYPOALB) 11.1 mg/dL (8.5-10.1); COR NA(FOR HYPERGLY) 136 mmol/L (136-145); CREATININE 1.19 mg/dL (0.70-1.30); GLUCOSE 151 mg/dL (65-99); MAGNESIUM 1.6 mg/dL (2.0-2.9); POTASSIUM 4.5 mmol/L (3.5-5.1); SODIUM 135 mmol/L (136-145); TOTAL PROTEIN 5.7 g/dL (6.4-8.2); eGFR NON BLACK RACES > 60 (>60)
[2024-04-03] MEDS ORDERED: CONSULT PHARMACY - POTASSIUM & MAGNESIUM XX SCH (08:00)
[2024-04-03] MEDS: PHARMACY COMMENT IV ONE (08:00)
[2024-04-03 08:47] LABS: CREATININE 1.2 mg/dL (0.70-1.30); VANCOMYCIN,TROUGH 17.7 ug/mL (15-20)
[2024-04-03] MEDS: COLACE CAP 100 MG PO SCH (10:14)
[2024-04-03] MEDS: LASIX IVP ONE (10:15)
[2024-04-03] MEDS: K-DUR TAB 20 MEQ PO SCH (10:29)
--- NOTE | 2024-04-03 13:39 | RAD ---
EXAMINATION:CHEST, 1 VIEWHISTORY:sob; hx- bed sore on sacrum .COMPARISON STUDY:Chest x-ray 03/26/2024TECHNIQUE:Single portable AP view chestFINDINGS:Lungs are expanded. Subtle opacity medial right pulmonary base. [id number] cardiac silhouette enlargement. Slight pulmonary vascular congestion. Bones appear intact.IMPRESSION:Subtle opacity medial right pulmonary base.Cardiac silhouette enlargement with slight pulmonary vascular congestion.THIS IS AN ELECTRONICALLY VERIFIED FINAL REPORT04/03/2024 1:36 PM - Electronically signed by Ashlie Contreras MD
[2024-04-04 06:04] LABS: BASOPHILS # (AUTO) 0.1 X10^3/uL (0.0-0.1); BASOPHILS % (AUTO) 1.1 % (0.2-1.0); EOSINOPHILS # (AUTO) 0.5 x10^3/uL (0.0-0.2); EOSINOPHILS % (AUTO) 8.3 % (0.9-2.9); HEMATOCRIT 28.6 % (42.0-54.0); HEMOGLOBIN 9.4 g/dL (13.5-18.0); LYMPHOCYTES % (AUTO) 30.7 % (21.0-51.0); MEAN CORPUSCULAR HGB CONC 32.8 g/dL (33.0-35.0); MEAN CORPUSCULAR VOLUME 79.2 fL (80.0-100.0); MONOCYTES # (AUTO) 0.6 x10^3/uL (0.3-0.8); NEUTROPHILS # (AUTO) 3.2 x10^3/uL (2.2-4.8); NEUTROPHILS % (AUTO) 49.9 % (42.0-75.0); PLATELET COUNT 246 X10^3/uL (150.0-450.0); RED BLOOD COUNT 3.61 X10^6/uL (4.7-6.0); RED CELL DISTRIBUTION WIDTH 16.9 % (11.6-16.5); WHITE BLOOD COUNT 6.4 X10^3/uL (3.6-10.0)
[2024-04-04 06:21] LABS: ALANINE AMINOTRANSFERASE 7 Units/L (12-78); ALBUMIN 1.6 g/dL (3.4-5.0); ALKALINE PHOSPHATASE 74 Units/L (46-116); ASPARTATE AMINO TRANSFERASE 17 Units/L (15-37); BLOOD UREA NITROGEN 12 mg/dL (7-18); CALCIUM 9.5 mg/dL (8.5-10.1); CARBON DIOXIDE 26.4 mmol/L (21-32); CHLORIDE 104 mmol/L (98-107); COR CA(FOR HYPOALB) 11.4 mg/dL (8.5-10.1); COR NA(FOR HYPERGLY) 136 mmol/L (136-145); CREATININE 1.09 mg/dL (0.70-1.30); GLUCOSE 146 mg/dL (65-99); MAGNESIUM 1.3 mg/dL (2.0-2.9); POTASSIUM 4.6 mmol/L (3.5-5.1); SODIUM 135 mmol/L (136-145); TOTAL PROTEIN 5.7 g/dL (6.4-8.2); eGFR NON BLACK RACES > 60 (>60)
[2024-04-04] MEDS ORDERED: CONSULT PHARMACY - POTASSIUM & MAGNESIUM XX SCH (07:00)
[2024-04-04] MEDS: MAG-OX TAB PO SCH (09:36)
--- NOTE | 2024-04-04 10:28 | DR.PROGNOT ---
HOSPITAL PROGRESS NOTE Progress Note for Day of: Progress Note Date: 04/04/24 Chief Complaint Chief Complaint: Patient is complaining of generalized aches and pains, more in the pelvis and lower extremities. Lab work showed white count of 6.4, hemoglobin 9.4, blood sugar 146, albumin low 1.6, BUN/creatinine are normal. All dressings were changed , the sacral ulcer was irrigated and repacked with iodoform packing, no evidence of necrosis, abscess formation or significant cellulitis. Past Medical Family Social History Past Med/Fam/Surg Hx: No changes since H&P Allergies: Allergies No Known Drug Allergies Allergy (Verified 01/30/24 21:56) Vital Signs Vital Signs: Vital Signs Temperature 99.6 F Pulse Rate [Left Brachial] 63 Respiratory Rate 20 Respiratory Rate 20 Respiratory Rate 18 Respiratory Rate 20 Blood Pressure [Right Arm] 138/61 O2 Sat by Pulse Oximetry 98 Physical Exam Oriented: Normal Eyes: Normal Ear: Normal Nose: Normal Throat: Dry Cardiovascular: Irregular and Edema GI:Auscultation: Normal GI:Palpation: Normal GI: Tenderness: Normal Skin: Decreased Turgur and Wound (STAGE IV SACRAL DECUBITUS EXTENDING TO SCROTUM WITH DIFFUSE LOCALZIED REDNESS, MALODOROUS DC) Musculoskeletal: Back:Lumbar Psychiatric: Depression Mood Description: Calm Affect: Depressed Speech Pattern: Clear and Appropriate Laboratory and Diagnostics 04/04/24 05:23 04/04/24 05:23 Labs: 03/29/24 12:55 Urine,Catheterized Urine Culture - Preliminary Esther Krusei 03/26/24 17:58 Blood Blood Culture - Final 03/26/24 17:53 Blood Blood Culture - Final 03/27/24 05:03 Urine,Clean Catch Urine Culture - Final Escherichia Coli Esbl Proteus Vulgaris 03/26/24 21:25 Buttock Wound Culture - Final Escherichia Coli Klebsiella Pneumoniae Proteus Vulgaris Laboratory WBC 6.4 X10^3/uL (3.6-10.0) 04/04/24 05:23 RBC 3.61 X10^6/uL (4.7-6.0) L 04/04/24 05:23 Hgb 9.4 g/dL (13.5-18.0) L 04/04/24 05:23 Hct 28.6 % (42.0-54.0) L 04/04/24 05:23 MCV 79.2 fL (80.0-100.0) L 04/04/24 05:23 MCH 26.0 pg (27.0-34.0) L 04/04/24 05:23 MCHC 32.8 g/dL (33.0-35.0) L 04/04/24 05:23 RDW 16.9 % (11.6-16.5) H 04/04/24 05:23 Plt Count 246 X10^3/uL (150.0-450.0) 04/04/24 05:23 MPV 8.0 fL (7.4-11.0) 04/04/24 05:23 Neut % (Auto) 49.9 % (42.0-75.0) 04/04/24 05:23 Lymph % (Auto) 30.7 % (21.0-51.0) 04/04/24 05:23 Iron % (Auto) 10.0 % (0.0-13.0) 04/04/24 05:23 Eos % (Auto) 8.3 % (0.9-2.9) H 04/04/24 05:23 Baso % (Auto) 1.1 % (0.2-1.0) H 04/04/24 05:23 Neut # (Auto) 3.2 x10^3/uL (2.2-4.8) 04/04/24 05:23 Lymph # (Auto) 2.0 X10^3/uL (1.3-2.9) 04/04/24 05:23 Iron # (Auto) 0.6 x10^3/uL (0.3-0.8) 04/04/24 05:23 Eos # (Auto) 0.5 x10^3/uL (0.0-0.2) H 04/04/24 05:23 Baso # (Auto) 0.1 X10^3/uL (0.0-0.1) 04/04/24 05:23 Absolute Nucleated RBC 0.1 /100WBC 04/04/24 05:23 ESR 25 MM/HOUR (0-15) H 04/02/24 06:22 Absolute Retic 0.0534 10^6/uL 03/26/24 17:53 Percent Retic 1.32 % (0.8-2.2) 03/26/24 17:53 Sodium 135 mmol/L (136-145) L 04/04/24 05:23 Corrected Sodium 136 mmol/L (136-145) 04/04/24 05:23 Potassium 4.6 mmol/L (3.5-5.1) 04/04/24 05:23 Chloride 104 mmol/L (98-107) 04/04/24 05:23 Carbon Dioxide 26.4 mmol/L (21-32) 04/04/24 05:23 BUN 12 mg/dL (7-18) 04/04/24 05:23 Creatinine 1.09 mg/dL (0.70-1.30) 04/04/24 05:23 Est GFR (MDRD) Af Amer > 60 (>60) 04/04/24 05:23 Est GFR (MDRD) Non-Af > 60 (>60) 04/04/24 05:23 Glucose 146 mg/dL (65-99) H 04/04/24 05:23 POC Glucose (mg/dL) 174 mg/dL (65-99) H 04/02/24 12:32 Lactic Acid 1.5 mmol/L (0.4-2.0) 03/27/24 10:35 Calcium 9.5 mg/dL (8.5-10.1) 04/04/24 05:23 Corrected Calcium 11.4 mg/dL (8.5-10.1) H 04/04/24 05:23 Magnesium 1.3 mg/dL (2.0-2.9) L 04/04/24 05:23 Iron 33 ug/dL (50-175) L 03/26/24 17:53 TIBC 200 ug/dL (250-450) L 03/26/24 17:53 Transferrin 165 mg/dL (202-364) L 03/26/24 17:53 Ferritin 68 ng/mL (26-388) 03/26/24 17:53 Total Bilirubin 0.40 mg/dL (0.2-1.0) 04/04/24 05:23 AST 17 Units/L (15-37) 04/04/24 05:23 ALT 7 Units/L (12-78) L 04/04/24 05:23 Alkaline Phosphatase 74 Units/L (46-116) 04/04/24 05:23 Creatine Kinase 12 Units/L (39-308) L 03/26/24 17:53 Troponin I High Sens 8.4 ng/L (4.0-60.0) 03/26/24 17:53 C-Reactive Protein 32.70 mg/L (0-3.0) H 04/02/24 06:22 B-Natriuretic Peptide 384 pg/mL (0-79) H 04/03/24 05:18 Total Protein 5.7 g/dL (6.4-8.2) L 04/04/24 05:23 Albumin 1.6 g/dL (3.4-5.0) L 04/04/24 05:23 Globulin 4.1 g/dL (2.5-4.5) 04/04/24 05:23 Albumin/Globulin Ratio 0.4 Ratio (1.1-2.1) L 04/04/24 05:23 Vitamin B12 658 pg/mL (193-986) 03/26/24 17:53 Folate 4.0 ng/mL (>8.6) L 03/26/24 17:53 Specimen Type Catherized urine 03/29/24 12:55 Urine Color Yellow (YELLOW) 03/29/24 12:55 Urine Appearance Clear (CLEAR) 03/29/24 12:55 Urine pH 5.0 (5.0 - 8.0) 03/29/24 12:55 Ur Specific [place] 1.015 (1.000-1.030) 03/29/24 12:55 Urine Protein 2+ (NEGATIVE) 03/29/24 12:55 Urine Glucose (UA) Negative (NEGATIVE) 03/29/24 12:55 Urine Ketones Negative (NEGATIVE) 03/29/24 12:55 Urine Blood 2+ (NEGATIVE) 03/29/24 12:55 Urine Nitrite Negative (NEGATIVE) 03/29/24 12:55 Urine Bilirubin Negative (NEGATIVE) 03/29/24 12:55 Urine Urobilinogen Normal (NORMAL) 03/29/24 12:55 Ur Leukocyte Esterase 3+ (NEGATIVE) 03/29/24 12:55 Urine RBC 3-5 /HPF (0-3) A 03/29/24 12:55 Urine WBC 10-20 /HPF (0-5) A 03/29/24 12:55 Ur Squamous Epith Cells Rare /HPF (NEGATIVE) 03/29/24 12:55 Urine Bacteria Negative /HPF (NEGATIVE) 03/29/24 12:55 Urine Mucus Rare /HPF (NEGATIVE) 03/29/24 12:55 Ur Culture Indicated? Yes/culture set up 03/29/24 12:55 Vancomycin Trough 17.7 ug/mL (15-20) 04/03/24 08:10 Random Vancomycin 21.6 ug/mL 03/30/24 20:10 Assessment and Plan 1: Large decubitus ulcer of the sacrum extending into the perineum close to the scrotum. Stage III and IV. Same local care and IV antibiotics. 2: Morbid obesity and confinement to bed now.
--- NOTE | 2024-04-04 19:36 | PCM.PROG ---
Progress Note Progress Note for Day of Date of Exam: 04/04/24 Subjective Subjective: Patient remains afebrile and his vital signs are currently stable. This is a 59-year-old white male who has an large stage 4 tunneling sacral decubitus. He has had a colostomy placed following the development of his sacral decubitus to help allow for healing. He also has a gerard catheter and currently has a UTI. His decubitus has been evaluated by Dr. Connors and not recommended for debridement right now. We obtained wound and urine cultures upon admission. Urine cultures showed yeast on day 1. He is on IV Diflucan. He is also currently on Invanz and Vancomycin due to the suspicion of osteomyelitis in the lumbar spine. The patient had a CT of the abdomen and pelvis and lumbar spin e with radiology recommending him have an MRI to rule out osteomyelitis of his lumbar spine as a result of decubitus. However, the patient has refused at this point due to severe pain. He does not think he could lay on the table. We have recommended premedication for pain management, however patient has not been agreeable at this time. He is on long-term anticoagulant therapy with Eliquis, which we have continued since admission. He did require some Lasix over the weekend and had pretty good urine output and some improvement in his lower leg edema, however, it is not resolved so we continued Lasix 40 mg. The patient has been encouraged for increased protein in his diet. He is going to require some extensive prison care. The patient really needs rehab placement, which we talked with Case Management and hopefully we can get him placed at a facility. He is also going to need extensive rehab. The patient is willing to work with Physical Therapy. AM labs: hgb 9.3, wbc 6.3, bun 14/creatinine 1.29 Sunday, 04 April 2024 The patient reports he is doing okay this morning and has no new complaints. I am told by the nurses that he is not doing much in the way of physical therapy right now and most of the time he just lays in bed. I try to encourage him to get up and at least sit on the side of the bed or in a chair to try and move around some as that would be beneficial to him. He tells me that he will try and do that some today. The patient is currently afebrile and his vital signs are stable. Past Medical Family Social History Past Med/Fam/Surg Hx: No changes since H&P Allergies: Allergies No Known Drug Allergies Allergy (Verified 01/30/24 21:56) Review of Systems ROS: No change since H&P Vital Signs and I&O's Vital Signs: Vital Signs Temperature 97.5 F Temperature 97.6 F Pulse Rate [Left Brachial] 73 Pulse Rate [Left Brachial] 70 Respiratory Rate 17 Respiratory Rate 20 Respiratory Rate 20 Respiratory Rate 18 Blood Pressure [Left Arm] 137/63 Blood Pressure [Right Arm] 145/65 O2 Sat by Pulse Oximetry 98 O2 Sat by Pulse Oximetry 98 Intake and Output: Intake & Output 04/02/24 04/03/24 04/04/24 04/05/24 11:59 11:59 11:59 11:59 Intake Total 4304 / 4304 4174 / 4174 3212 / 3212 1414 / 1414 Output Total 2300 / 2300 2300 / 2300 4050 / 4050 800 / 800 Balance 2003 / 2003 1874 / 1874 -838 / -838 614 / 614 Physical Exam Oriented: Normal Eyes: Normal Ear: Normal Nose: Normal Throat: Dry Respiratory: Normal Cardiovascular: Irregular and Edema Auscultation: Bowel Sounds: Normal Tenderness: Normal Skin: Decreased Turgur and Wound (STAGE IV SACRAL DECUBITUS EXTENDING TO SCROTUM WITH DIFFUSE LOCALZIED REDNESS, MALODOROUS DC) Musculoskeletal: Back:Lumbar Psychiatric: Depression Mood Description: Calm Affect: Depressed Speech Pattern: Clear and Appropriate Laboratory and Diagnostics 04/04/24 05:23 04/04/24 05:23 Labs: 03/29/24 12:55 Urine,Catheterized Urine Culture - Preliminary Esther Krusei 03/26/24 17:58 Blood Blood Culture - Final 03/26/24 17:53 Blood Blood Culture - Final 03/27/24 05:03 Urine,Clean Catch Urine Culture - Final Escherichia Coli Esbl Proteus Vulgaris 03/26/24 21:25 Buttock Wound Culture - Final Escherichia Coli Klebsiella Pneumoniae Proteus Vulgaris Laboratory WBC 6.4 X10^3/uL (3.6-10.0) 04/04/24 05:23 RBC 3.61 X10^6/uL (4.7-6.0) L 04/04/24 05:23 Hgb 9.4 g/dL (13.5-18.0) L 04/04/24 05:23 Hct 28.6 % (42.0-54.0) L 04/04/24 05:23 MCV 79.2 fL (80.0-100.0) L 04/04/24 05:23 MCH 26.0 pg (27.0-34.0) L 04/04/24 05:23 MCHC 32.8 g/dL (33.0-35.0) L 04/04/24 05:23 RDW 16.9 % (11.6-16.5) H 04/04/24 05:23 Plt Count 246 X10^3/uL (150.0-450.0) 04/04/24 05:23 MPV 8.0 fL (7.4-11.0) 04/04/24 05:23 Neut % (Auto) 49.9 % (42.0-75.0) 04/04/24 05:23 Lymph % (Auto) 30.7 % (21.0-51.0) 04/04/24 05:23 [place] % (Auto) 10.0 % (0.0-13.0) 04/04/24 05:23 Eos % (Auto) 8.3 % (0.9-2.9) H 04/04/24 05:23 Baso % (Auto) 1.1 % (0.2-1.0) H 04/04/24 05:23 Neut # (Auto) 3.2 x10^3/uL (2.2-4.8) 04/04/24 05:23 Lymph # (Auto) 2.0 X10^3/uL (1.3-2.9) 04/04/24 05:23 [place] # (Auto) 0.6 x10^3/uL (0.3-0.8) 04/04/24 05:23 Eos # (Auto) 0.5 x10^3/uL (0.0-0.2) H 04/04/24 05:23 Baso # (Auto) 0.1 X10^3/uL (0.0-0.1) 04/04/24 05:23 Absolute Nucleated RBC 0.1 /100WBC 04/04/24 05:23 ESR 25 MM/HOUR (0-15) H 04/02/24 06:22 Absolute Retic 0.0534 10^6/uL 03/26/24 17:53 Percent Retic 1.32 % (0.8-2.2) 03/26/24 17:53 Sodium 135 mmol/L (136-145) L 04/04/24 05:23 Corrected Sodium 136 mmol/L (136-145) 04/04/24 05:23 Potassium 4.6 mmol/L (3.5-5.1) 04/04/24 05:23 Chloride 104 mmol/L (98-107) 04/04/24 05:23 Carbon Dioxide 26.4 mmol/L (21-32) 04/04/24 05:23 BUN 12 mg/dL (7-18) 04/04/24 05:23 Creatinine 1.09 mg/dL (0.70-1.30) 04/04/24 05:23 Est GFR (MDRD) Af Amer > 60 (>60) 04/04/24 05:23 Est GFR (MDRD) Non-Af > 60 (>60) 04/04/24 05:23 Glucose 146 mg/dL (65-99) H 04/04/24 05:23 POC Glucose (mg/dL) 174 mg/dL (65-99) H 04/02/24 12:32 Lactic Acid 1.5 mmol/L (0.4-2.0) 03/27/24 10:35 Calcium 9.5 mg/dL (8.5-10.1) 04/04/24 05:23 Corrected Calcium 11.4 mg/dL (8.5-10.1) H 04/04/24 05:23 Magnesium 1.3 mg/dL (2.0-2.9) L 04/04/24 05:23 Iron 33 ug/dL (50-175) L 03/26/24 17:53 TIBC 200 ug/dL (250-450) L 03/26/24 17:53 Transferrin 165 mg/dL (202-364) L 03/26/24 17:53 Ferritin 68 ng/mL (26-388) 03/26/24 17:53 Total Bilirubin 0.40 mg/dL (0.2-1.0) 04/04/24 05:23 AST 17 Units/L (15-37) 04/04/24 05:23 ALT 7 Units/L (12-78) L 04/04/24 05:23 Alkaline Phosphatase 74 Units/L (46-116) 04/04/24 05:23 Creatine Kinase 12 Units/L (39-308) L 03/26/24 17:53 Troponin I High Sens 8.4 ng/L (4.0-60.0) 03/26/24 17:53 C-Reactive Protein 32.70 mg/L (0-3.0) H 04/02/24 06:22 B-Natriuretic Peptide 384 pg/mL (0-79) H 04/03/24 05:18 Total Protein 5.7 g/dL (6.4-8.2) L 04/04/24 05:23 Albumin 1.6 g/dL (3.4-5.0) L 04/04/24 05:23 Globulin 4.1 g/dL (2.5-4.5) 04/04/24 05:23 Albumin/Globulin Ratio 0.4 Ratio (1.1-2.1) L 04/04/24 05:23 Vitamin B12 658 pg/mL (193-986) 03/26/24 17:53 Folate 4.0 ng/mL (>8.6) L 03/26/24 17:53 Specimen Type Catherized urine 03/29/24 12:55 Urine Color Yellow (YELLOW) 03/29/24 12:55 Urine Appearance Clear (CLEAR) 03/29/24 12:55 Urine pH 5.0 (5.0 - 8.0) 03/29/24 12:55 Ur Specific [place] 1.015 (1.000-1.030) 03/29/24 12:55 Urine Protein 2+ (NEGATIVE) 03/29/24 12:55 Urine Glucose (UA) Negative (NEGATIVE) 03/29/24 12:55 Urine Ketones Negative (NEGATIVE) 03/29/24 12:55 Urine Blood 2+ (NEGATIVE) 03/29/24 12:55 Urine Nitrite Negative (NEGATIVE) 03/29/24 12:55 Urine Bilirubin Negative (NEGATIVE) 03/29/24 12:55 Urine Urobilinogen Normal (NORMAL) 03/29/24 12:55 Ur Leukocyte Esterase 3+ (NEGATIVE) 03/29/24 12:55 Urine RBC 3-5 /HPF (0-3) A 03/29/24 12:55 Urine WBC 10-20 /HPF (0-5) A 03/29/24 12:55 Ur Squamous Epith Cells Rare /HPF (NEGATIVE) 03/29/24 12:55 Urine Bacteria Negative /HPF (NEGATIVE) 03/29/24 12:55 Urine Mucus Rare /HPF (NEGATIVE) 03/29/24 12:55 Ur Culture Indicated? Yes/culture set up 03/29/24 12:55 Vancomycin Trough 17.7 ug/mL (15-20) 04/03/24 08:10 Random Vancomycin 21.6 ug/mL 03/30/24 20:10 Plan (1) Urinary tract infection: Status: Acute Plan: Continue IV ABX, IV DIFLUCAN, BP CONTROL, IV HYDRATION, HOME MEDICATIONS PRN SUPPLEMENTAL O2 PLAN FOR REPEAT AM LABS. (2) Sepsis: Status: Acute (3) Decubitus skin ulcer: Status: Acute (4) Hyponatremia: Status: Acute (5) CRF (chronic renal failure): Status: Acute (6) Weakness: Status: Acute (7) Anemia: Status: Acute Narrative Support Text: Hemoglobin is 9.4 g this morning and this is up from 8.8 g yesterday Plan: Improving. Repeat CBC tomorrow morning.
[2024-04-05 06:46] LABS: BASOPHILS # (AUTO) 0.1 X10^3/uL (0.0-0.1); BASOPHILS % (AUTO) 1.2 % (0.2-1.0); EOSINOPHILS # (AUTO) 0.4 x10^3/uL (0.0-0.2); EOSINOPHILS % (AUTO) 6.4 % (0.9-2.9); HEMATOCRIT 27.5 % (42.0-54.0); HEMOGLOBIN 9.1 g/dL (13.5-18.0); LYMPHOCYTES % (AUTO) 34.1 % (21.0-51.0); MEAN CORPUSCULAR HEMOGLOBIN 26.4 pg (27.0-34.0); MEAN CORPUSCULAR HGB CONC 33.3 g/dL (33.0-35.0); MEAN CORPUSCULAR VOLUME 79.2 fL (80.0-100.0); MEAN PLATELET VOLUME 8.2 fL (7.4-11.0); MONOCYTES # (AUTO) 0.6 x10^3/uL (0.3-0.8); MONOCYTES % (AUTO) 9.4 % (0.0-13.0); NEUTROPHILS # (AUTO) 2.9 x10^3/uL (2.2-4.8); NEUTROPHILS % (AUTO) 48.9 % (42.0-75.0); PLATELET COUNT 265 X10^3/uL (150.0-450.0); RED BLOOD COUNT 3.47 X10^6/uL (4.7-6.0); RED CELL DISTRIBUTION WIDTH 16.6 % (11.6-16.5); WHITE BLOOD COUNT 5.9 X10^3/uL (3.6-10.0)
[2024-04-05 06:55] LABS: ALANINE AMINOTRANSFERASE < 6 Units/L (12-78); ALBUMIN 1.7 g/dL (3.4-5.0); ALKALINE PHOSPHATASE 75 Units/L (46-116); ASPARTATE AMINO TRANSFERASE 15 Units/L (15-37); BLOOD UREA NITROGEN 12 mg/dL (7-18); CALCIUM 9.8 mg/dL (8.5-10.1); CARBON DIOXIDE 28.8 mmol/L (21-32); CHLORIDE 105 mmol/L (98-107); COR CA(FOR HYPOALB) 11.6 mg/dL (8.5-10.1); COR NA(FOR HYPERGLY) 139 mmol/L (136-145); CREATININE 1.07 mg/dL (0.70-1.30); GLUCOSE 120 mg/dL (65-99); POTASSIUM 4.3 mmol/L (3.5-5.1); SODIUM 139 mmol/L (136-145); TOTAL PROTEIN 5.8 g/dL (6.4-8.2); eGFR NON BLACK RACES > 60 (>60)
[2024-04-05] MEDS: VORICONAZOLE 400 MG in NS 100 ML IV 100 ML IV SCH (13:27)
[2024-04-05] MEDS: PERCOCET TAB 5/325 MG PO PRN (16:27)
--- NOTE | 2024-04-05 16:41 | DR.PROGNOT ---
HOSPITAL PROGRESS NOTE Progress Note for Day of: Progress Note Date: 04/05/24 Chief Complaint Chief Complaint: Patient is complaining of generalized aches and pains, more in the pelvis and lower extremities. Lab work showed white count of 6.4, hemoglobin 9.4, blood sugar 146, albumin low 1.6, BUN/creatinine are normal. All dressings were changed , the sacral ulcer was irrigated and repacked with iodoform packing, no evidence of necrosis, abscess formation or significant cellulitis. History of Present Illness History of Present Illness: Patient seen for hospital rounds with nursing at bedside. Currently get his colostomy bag replaced due to some leakage. He reports that he is doing fairly well overall. Nursing reports that he continues to not participate in therapy very much. 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 He also is on Diflucan for yeast in his urine which has now grown out Esther Krusei (with a new name) that is resistant to Diflucan. It was discussed with patient that we may have to adjust some of his medications based on pharmacy recommendations on what antifungal medication to use. Patient was agreeable to this.Also some concerns about some oversedation with the patient, so pain medication decreased from 2 tabs every 4 to 2 tabs every 6. Past Medical Family Social History Past Med/Fam/Surg Hx: No changes since H&P Allergies: Allergies No Known Drug Allergies Allergy (Verified 01/30/24 21:56) Review Of Systems ROS: No change since H&P Vital Signs Vital Signs: Vital Signs Temperature 97.3 F Pulse Rate [Left Brachial] 68 Respiratory Rate 20 Respiratory Rate 17 Respiratory Rate 22 Respiratory Rate 22 Blood Pressure [Left Arm] 133/61 O2 Sat by Pulse Oximetry 99 Physical Exam Oriented: Normal Eyes: Normal Ear: Normal Nose: Normal Throat: Dry Respiratory: Normal Cardiovascular: Irregular and Edema GI:Auscultation: Normal GI:Palpation: Normal GI: Tenderness: Normal Skin: Decreased Turgur and Wound (STAGE IV SACRAL DECUBITUS EXTENDING TO SCROTUM WITH DIFFUSE LOCALZIED REDNESS, MALODOROUS DC) Musculoskeletal: Back:Lumbar Psychiatric: Depression Mood Description: Calm Affect: Depressed Speech Pattern: Clear and Appropriate Laboratory and Diagnostics 04/05/24 05:38 04/05/24 05:38 Labs: 03/29/24 12:55 Urine,Catheterized Urine Culture - Final Esther Krusei 03/26/24 17:58 Blood Blood Culture - Final 03/26/24 17:53 Blood Blood Culture - Final 03/27/24 05:03 Urine,Clean Catch Urine Culture - Final Escherichia Coli Esbl Proteus Vulgaris 03/26/24 21:25 Buttock Wound Culture - Final Escherichia Coli Klebsiella Pneumoniae Proteus Vulgaris Laboratory WBC 5.9 X10^3/uL (3.6-10.0) 04/05/24 05:38 RBC 3.47 X10^6/uL (4.7-6.0) L 04/05/24 05:38 Hgb 9.1 g/dL (13.5-18.0) L 04/05/24 05:38 Hct 27.5 % (42.0-54.0) L 04/05/24 05:38 MCV 79.2 fL (80.0-100.0) L 04/05/24 05:38 MCH 26.4 pg (27.0-34.0) L 04/05/24 05:38 MCHC 33.3 g/dL (33.0-35.0) 04/05/24 05:38 RDW 16.6 % (11.6-16.5) H 04/05/24 05:38 Plt Count 265 X10^3/uL (150.0-450.0) 04/05/24 05:38 MPV 8.2 fL (7.4-11.0) 04/05/24 05:38 Neut % (Auto) 48.9 % (42.0-75.0) 04/05/24 05:38 Lymph % (Auto) 34.1 % (21.0-51.0) 04/05/24 05:38 [place] % (Auto) 9.4 % (0.0-13.0) 04/05/24 05:38 Eos % (Auto) 6.4 % (0.9-2.9) H 04/05/24 05:38 Baso % (Auto) 1.2 % (0.2-1.0) H 04/05/24 05:38 Neut # (Auto) 2.9 x10^3/uL (2.2-4.8) 04/05/24 05:38 Lymph # (Auto) 2.0 X10^3/uL (1.3-2.9) 04/05/24 05:38 [place] # (Auto) 0.6 x10^3/uL (0.3-0.8) 04/05/24 05:38 Eos # (Auto) 0.4 x10^3/uL (0.0-0.2) H 04/05/24 05:38 Baso # (Auto) 0.1 X10^3/uL (0.0-0.1) 04/05/24 05:38 Absolute Nucleated RBC 0.1 /100WBC 04/05/24 05:38 ESR 25 MM/HOUR (0-15) H 04/02/24 06:22 Absolute Retic 0.0534 10^6/uL 03/26/24 17:53 Percent Retic 1.32 % (0.8-2.2) 03/26/24 17:53 Sodium 139 mmol/L (136-145) 04/05/24 05:38 Corrected Sodium 139 mmol/L (136-145) 04/05/24 05:38 Potassium 4.3 mmol/L (3.5-5.1) 04/05/24 05:38 Chloride 105 mmol/L (98-107) 04/05/24 05:38 Carbon Dioxide 28.8 mmol/L (21-32) 04/05/24 05:38 BUN 12 mg/dL (7-18) 04/05/24 05:38 Creatinine 1.07 mg/dL (0.70-1.30) 04/05/24 05:38 Est GFR (MDRD) Af Amer > 60 (>60) 04/05/24 05:38 Est GFR (MDRD) Non-Af > 60 (>60) 04/05/24 05:38 Glucose 120 mg/dL (65-99) H 04/05/24 05:38 POC Glucose (mg/dL) 174 mg/dL (65-99) H 04/02/24 12:32 Lactic Acid 1.5 mmol/L (0.4-2.0) 03/27/24 10:35 Calcium 9.8 mg/dL (8.5-10.1) 04/05/24 05:38 Corrected Calcium 11.6 mg/dL (8.5-10.1) H 04/05/24 05:38 Magnesium 1.3 mg/dL (2.0-2.9) L 04/04/24 05:23 Iron 33 ug/dL (50-175) L 03/26/24 17:53 TIBC 200 ug/dL (250-450) L 03/26/24 17:53 Transferrin 165 mg/dL (202-364) L 03/26/24 17:53 Ferritin 68 ng/mL (26-388) 03/26/24 17:53 Total Bilirubin 0.40 mg/dL (0.2-1.0) 04/05/24 05:38 AST 15 Units/L (15-37) 04/05/24 05:38 ALT < 6 Units/L (12-78) L 04/05/24 05:38 Alkaline Phosphatase 75 Units/L (46-116) 04/05/24 05:38 Creatine Kinase 12 Units/L (39-308) L 03/26/24 17:53 Troponin I High Sens 8.4 ng/L (4.0-60.0) 03/26/24 17:53 C-Reactive Protein 32.70 mg/L (0-3.0) H 04/02/24 06:22 B-Natriuretic Peptide 384 pg/mL (0-79) H 04/03/24 05:18 Total Protein 5.8 g/dL (6.4-8.2) L 04/05/24 05:38 Albumin 1.7 g/dL (3.4-5.0) L 04/05/24 05:38 Globulin 4.1 g/dL (2.5-4.5) 04/05/24 05:38 Albumin/Globulin Ratio 0.4 Ratio (1.1-2.1) L 04/05/24 05:38 Vitamin B12 658 pg/mL (193-986) 03/26/24 17:53 Folate 4.0 ng/mL (>8.6) L 03/26/24 17:53 Specimen Type Catherized urine 03/29/24 12:55 Urine Color Yellow (YELLOW) 03/29/24 12:55 Urine Appearance Clear (CLEAR) 03/29/24 12:55 Urine pH 5.0 (5.0 - 8.0) 03/29/24 12:55 Ur Specific [place] 1.015 (1.000-1.030) 03/29/24 12:55 Urine Protein 2+ (NEGATIVE) 03/29/24 12:55 Urine Glucose (UA) Negative (NEGATIVE) 03/29/24 12:55 Urine Ketones Negative (NEGATIVE) 03/29/24 12:55 Urine Blood 2+ (NEGATIVE) 03/29/24 12:55 Urine Nitrite Negative (NEGATIVE) 03/29/24 12:55 Urine Bilirubin Negative (NEGATIVE) 03/29/24 12:55 Urine Urobilinogen Normal (NORMAL) 03/29/24 12:55 Ur Leukocyte Esterase 3+ (NEGATIVE) 03/29/24 12:55 Urine RBC 3-5 /HPF (0-3) A 03/29/24 12:55 Urine WBC 10-20 /HPF (0-5) A 03/29/24 12:55 Ur Squamous Epith Cells Rare /HPF (NEGATIVE) 03/29/24 12:55 Urine Bacteria Negative /HPF (NEGATIVE) 03/29/24 12:55 Urine Mucus Rare /HPF (NEGATIVE) 03/29/24 12:55 Ur Culture Indicated? Yes/culture set up 03/29/24 12:55 Vancomycin Trough 17.7 ug/mL (15-20) 04/03/24 08:10 Random Vancomycin 21.6 ug/mL 03/30/24 20:10 Assessment and Plan 1: Large decubitus ulcer of the sacrum extending into the perineum close to the scrotum. Stage III and IV. Continue wound care. Continue IV antibiotics. Decrease pain medication due to oversedation. 2: Morbid obesity and confinement to bed now. 3: Candidal UTI. Plan to stop Diflucan and proceed with pharmacy recommendations.
[2024-04-06 06:51] LABS: BASOPHILS # (AUTO) 0.1 X10^3/uL (0.0-0.1); BASOPHILS % (AUTO) 1.3 % (0.2-1.0); EOSINOPHILS # (AUTO) 0.4 x10^3/uL (0.0-0.2); EOSINOPHILS % (AUTO) 7.5 % (0.9-2.9); HEMATOCRIT 31.9 % (42.0-54.0); HEMOGLOBIN 10.6 g/dL (13.5-18.0); LYMPHOCYTES # (AUTO) 1.8 X10^3/uL (1.3-2.9); LYMPHOCYTES % (AUTO) 34.3 % (21.0-51.0); MEAN CORPUSCULAR HGB CONC 33.1 g/dL (33.0-35.0); MEAN CORPUSCULAR VOLUME 78.6 fL (80.0-100.0); MEAN PLATELET VOLUME 7.4 fL (7.4-11.0); MONOCYTES # (AUTO) 0.5 x10^3/uL (0.3-0.8); MONOCYTES % (AUTO) 9.7 % (0.0-13.0); NEUTROPHILS # (AUTO) 2.5 x10^3/uL (2.2-4.8); NEUTROPHILS % (AUTO) 47.2 % (42.0-75.0); PLATELET COUNT 259 X10^3/uL (150.0-450.0); RED BLOOD COUNT 4.06 X10^6/uL (4.7-6.0); RED CELL DISTRIBUTION WIDTH 16.7 % (11.6-16.5); WHITE BLOOD COUNT 5.3 X10^3/uL (3.6-10.0)
[2024-04-06 07:05] LABS: ALANINE AMINOTRANSFERASE 7 Units/L (12-78); ALBUMIN 1.8 g/dL (3.4-5.0); ALKALINE PHOSPHATASE 85 Units/L (46-116); ASPARTATE AMINO TRANSFERASE 21 Units/L (15-37); BLOOD UREA NITROGEN 9 mg/dL (7-18); CALCIUM 9.8 mg/dL (8.5-10.1); CARBON DIOXIDE 29.9 mmol/L (21-32); CHLORIDE 105 mmol/L (98-107); COR CA(FOR HYPOALB) 11.6 mg/dL (8.5-10.1); COR NA(FOR HYPERGLY) 139 mmol/L (136-145); CREATININE 1.08 mg/dL (0.70-1.30); GLUCOSE 118 mg/dL (65-99); POTASSIUM 4.3 mmol/L (3.5-5.1); SODIUM 139 mmol/L (136-145); TOTAL PROTEIN 6.5 g/dL (6.4-8.2); eGFR NON BLACK RACES > 60 (>60)
[2024-04-06] MEDS: VORICONAZOLE 200 MG in NS 50 ML IV 50 ML IV SCH (08:34)
[2024-04-06] MEDS: INVanz INJ 1 GRAM VIAL 1 G in NS 100 ML IV 100 ML IV SCH (11:29)
--- NOTE | 2024-04-06 14:10 | DR.PROGNOT ---
HOSPITAL PROGRESS NOTE Progress Note for Day of: Progress Note Date: 04/06/24 Chief Complaint Chief Complaint: swelling History of Present Illness History of Present Illness: Seen with nursing at bedside. No overnight events, but patient concerned about decreased Lasix dose. Tolerating decreased pain meds. Magnesium is staying low, patient agreeable to keep Lasix lower to help with replacement. Voriconazole started for UTI. Pharmacy requesting Merrem to be changed to Invanz due to supply issues. Past Medical Family Social History Past Med/Fam/Surg Hx: No changes since H&P Allergies: Allergies No Known Drug Allergies Allergy (Verified 01/30/24 21:56) Review Of Systems ROS: No change since H&P Vital Signs Vital Signs: Vital Signs Temperature 97.5 F Temperature 97.4 F Pulse Rate [Left Brachial] 88 Pulse Rate [Left Brachial] 106 Respiratory Rate 20 Respiratory Rate 18 Respiratory Rate 20 Respiratory Rate 20 Respiratory Rate 17 Blood Pressure [Left Arm] 127/76 Blood Pressure [Left Arm] 175/78 O2 Sat by Pulse Oximetry 96 O2 Sat by Pulse Oximetry 95 Physical Exam Oriented: Normal Eyes: Normal Ear: Normal Nose: Normal Throat: Dry Respiratory: Normal Cardiovascular: Irregular and Edema GI:Auscultation: Normal GI:Palpation: Normal GI: Tenderness: Normal Skin: Decreased Turgur and Wound (STAGE IV SACRAL DECUBITUS EXTENDING TO SCROTUM WITH DIFFUSE LOCALZIED REDNESS, MALODOROUS DC) Musculoskeletal: Back:Lumbar Psychiatric: Depression Mood Description: Calm Affect: Depressed Speech Pattern: Clear and Appropriate Laboratory and Diagnostics 04/06/24 06:42 04/06/24 06:42 Labs: 03/29/24 12:55 Urine,Catheterized Urine Culture - Final Esther Krusei 03/26/24 17:58 Blood Blood Culture - Final 03/26/24 17:53 Blood Blood Culture - Final 03/27/24 05:03 Urine,Clean Catch Urine Culture - Final Escherichia Coli Esbl Proteus Vulgaris 03/26/24 21:25 Buttock Wound Culture - Final Escherichia Coli Klebsiella Pneumoniae Proteus Vulgaris Laboratory WBC 5.3 X10^3/uL (3.6-10.0) 04/06/24 06:42 RBC 4.06 X10^6/uL (4.7-6.0) L 04/06/24 06:42 Hgb 10.6 g/dL (13.5-18.0) L 04/06/24 06:42 Hct 31.9 % (42.0-54.0) L 04/06/24 06:42 MCV 78.6 fL (80.0-100.0) L 04/06/24 06:42 MCH 26.0 pg (27.0-34.0) L 04/06/24 06:42 MCHC 33.1 g/dL (33.0-35.0) 04/06/24 06:42 RDW 16.7 % (11.6-16.5) H 04/06/24 06:42 Plt Count 259 X10^3/uL (150.0-450.0) 04/06/24 06:42 MPV 7.4 fL (7.4-11.0) 04/06/24 06:42 Neut % (Auto) 47.2 % (42.0-75.0) 04/06/24 06:42 Lymph % (Auto) 34.3 % (21.0-51.0) 04/06/24 06:42 [place]ley % (Auto) 9.7 % (0.0-13.0) 04/06/24 06:42 Eos % (Auto) 7.5 % (0.9-2.9) H 04/06/24 06:42 Baso % (Auto) 1.3 % (0.2-1.0) H 04/06/24 06:42 Neut # (Auto) 2.5 x10^3/uL (2.2-4.8) 04/06/24 06:42 Lymph # (Auto) 1.8 X10^3/uL (1.3-2.9) 04/06/24 06:42 Donley # (Auto) 0.5 x10^3/uL (0.3-0.8) 04/06/24 06:42 Eos # (Auto) 0.4 x10^3/uL (0.0-0.2) H 04/06/24 06:42 Baso # (Auto) 0.1 X10^3/uL (0.0-0.1) 04/06/24 06:42 Absolute Nucleated RBC 0.3 /100WBC 04/06/24 06:42 ESR 25 MM/HOUR (0-15) H 04/02/24 06:22 Absolute Retic 0.0534 10^6/uL 03/26/24 17:53 Percent Retic 1.32 % (0.8-2.2) 03/26/24 17:53 Sodium 139 mmol/L (136-145) 04/06/24 06:42 Corrected Sodium 139 mmol/L (136-145) 04/06/24 06:42 Potassium 4.3 mmol/L (3.5-5.1) 04/06/24 06:42 Chloride 105 mmol/L (98-107) 04/06/24 06:42 Carbon Dioxide 29.9 mmol/L (21-32) 04/06/24 06:42 BUN 9 mg/dL (7-18) 04/06/24 06:42 Creatinine 1.08 mg/dL (0.70-1.30) 04/06/24 06:42 Est GFR (MDRD) Af Amer > 60 (>60) 04/06/24 06:42 Est GFR (MDRD) Non-Af > 60 (>60) 04/06/24 06:42 Glucose 118 mg/dL (65-99) H 04/06/24 06:42 POC Glucose (mg/dL) 174 mg/dL (65-99) H 04/02/24 12:32 Lactic Acid 1.5 mmol/L (0.4-2.0) 03/27/24 10:35 Calcium 9.8 mg/dL (8.5-10.1) 04/06/24 06:42 Corrected Calcium 11.6 mg/dL (8.5-10.1) H 04/06/24 06:42 Magnesium 1.3 mg/dL (2.0-2.9) L 04/06/24 06:42 Iron 33 ug/dL (50-175) L 03/26/24 17:53 TIBC 200 ug/dL (250-450) L 03/26/24 17:53 Transferrin 165 mg/dL (202-364) L 03/26/24 17:53 Ferritin 68 ng/mL (26-388) 03/26/24 17:53 Total Bilirubin 0.40 mg/dL (0.2-1.0) 04/06/24 06:42 AST 21 Units/L (15-37) 04/06/24 06:42 ALT 7 Units/L (12-78) L 04/06/24 06:42 Alkaline Phosphatase 85 Units/L (46-116) 04/06/24 06:42 Creatine Kinase 12 Units/L (39-308) L 03/26/24 17:53 Troponin I High Sens 8.4 ng/L (4.0-60.0) 03/26/24 17:53 C-Reactive Protein 32.70 mg/L (0-3.0) H 04/02/24 06:22 B-Natriuretic Peptide 384 pg/mL (0-79) H 04/03/24 05:18 Total Protein 6.5 g/dL (6.4-8.2) 04/06/24 06:42 Albumin 1.8 g/dL (3.4-5.0) L 04/06/24 06:42 Globulin 4.7 g/dL (2.5-4.5) H 04/06/24 06:42 Albumin/Globulin Ratio 0.4 Ratio (1.1-2.1) L 04/06/24 06:42 Vitamin B12 658 pg/mL (193-986) 03/26/24 17:53 Folate 4.0 ng/mL (>8.6) L 03/26/24 17:53 Specimen Type Catherized urine 03/29/24 12:55 Urine Color Yellow (YELLOW) 03/29/24 12:55 Urine Appearance Clear (CLEAR) 03/29/24 12:55 Urine pH 5.0 (5.0 - 8.0) 03/29/24 12:55 Ur Specific [place] 1.015 (1.000-1.030) 03/29/24 12:55 Urine Protein 2+ (NEGATIVE) 03/29/24 12:55 Urine Glucose (UA) Negative (NEGATIVE) 03/29/24 12:55 Urine Ketones Negative (NEGATIVE) 03/29/24 12:55 Urine Blood 2+ (NEGATIVE) 03/29/24 12:55 Urine Nitrite Negative (NEGATIVE) 03/29/24 12:55 Urine Bilirubin Negative (NEGATIVE) 03/29/24 12:55 Urine Urobilinogen Normal (NORMAL) 03/29/24 12:55 Ur Leukocyte Esterase 3+ (NEGATIVE) 03/29/24 12:55 Urine RBC 3-5 /HPF (0-3) A 03/29/24 12:55 Urine WBC 10-20 /HPF (0-5) A 03/29/24 12:55 Ur Squamous Epith Cells Rare /HPF (NEGATIVE) 03/29/24 12:55 Urine Bacteria Negative /HPF (NEGATIVE) 03/29/24 12:55 Urine Mucus Rare /HPF (NEGATIVE) 03/29/24 12:55 Ur Culture Indicated? Yes/culture set up 03/29/24 12:55 Vancomycin Trough 17.7 ug/mL (15-20) 04/03/24 08:10 Random Vancomycin 21.6 ug/mL 03/30/24 20:10 Assessment and Plan 1: Large decubitus ulcer of the sacrum extending into the perineum close to the scrotum. Stage III and IV. Continue wound care. Continue Levaquin, stop Merrem, start Invanz. 2: Morbid obesity and confinement to bed now. 3: Candidal UTI. Continue voriconazole.
[2024-04-06] MEDS: NS 1,000 ML IV 1,000 ML IV SCH (18:09)
[2024-04-07 06:14] LABS: BASOPHILS # (AUTO) 0.1 X10^3/uL (0.0-0.1); BASOPHILS % (AUTO) 1.2 % (0.2-1.0); EOSINOPHILS # (AUTO) 0.4 x10^3/uL (0.0-0.2); EOSINOPHILS % (AUTO) 7.4 % (0.9-2.9); HEMATOCRIT 28.4 % (42.0-54.0); HEMOGLOBIN 9.6 g/dL (13.5-18.0); LYMPHOCYTES # (AUTO) 1.8 X10^3/uL (1.3-2.9); LYMPHOCYTES % (AUTO) 34.3 % (21.0-51.0); MEAN CORPUSCULAR HEMOGLOBIN 26.3 pg (27.0-34.0); MEAN CORPUSCULAR HGB CONC 33.9 g/dL (33.0-35.0); MEAN CORPUSCULAR VOLUME 77.6 fL (80.0-100.0); MONOCYTES # (AUTO) 0.5 x10^3/uL (0.3-0.8); MONOCYTES % (AUTO) 9.9 % (0.0-13.0); NEUTROPHILS # (AUTO) 2.5 x10^3/uL (2.2-4.8); NEUTROPHILS % (AUTO) 47.2 % (42.0-75.0); PLATELET COUNT 244 X10^3/uL (150.0-450.0); RED BLOOD COUNT 3.66 X10^6/uL (4.7-6.0); RED CELL DISTRIBUTION WIDTH 16.9 % (11.6-16.5); WHITE BLOOD COUNT 5.2 X10^3/uL (3.6-10.0)
[2024-04-07 06:30] LABS: ALANINE AMINOTRANSFERASE 8 Units/L (12-78); ALBUMIN 1.6 g/dL (3.4-5.0); ALKALINE PHOSPHATASE 78 Units/L (46-116); ASPARTATE AMINO TRANSFERASE 16 Units/L (15-37); BLOOD UREA NITROGEN 8 mg/dL (7-18); CALCIUM 9.7 mg/dL (8.5-10.1); CARBON DIOXIDE 30.6 mmol/L (21-32); CHLORIDE 106 mmol/L (98-107); COR CA(FOR HYPOALB) 11.6 mg/dL (8.5-10.1); COR NA(FOR HYPERGLY) 140 mmol/L (136-145); CREATININE 1.02 mg/dL (0.70-1.30); GLUCOSE 112 mg/dL (65-99); MAGNESIUM 1.2 mg/dL (2.0-2.9); POTASSIUM 4.1 mmol/L (3.5-5.1); SODIUM 140 mmol/L (136-145); TOTAL PROTEIN 5.9 g/dL (6.4-8.2); eGFR NON BLACK RACES > 60 (>60)
[2024-04-07] MEDS ORDERED: CONSULT PHARMACY - POTASSIUM & MAGNESIUM XX SCH (08:00)
--- NOTE | 2024-04-07 08:50 | PCM.PROG ---
Progress Note Progress Note for Day of Date of Exam: 04/02/24 Subjective Subjective: This is a 59-year-old white male who has an large stage 4 tunneling sacral decubitus. He has a colostomy, which was placed following the development of his sacral decubitus to help allow for healing. He also has a gerard catheter and currently has a UTI. His decubitus has been evaluated by Dr. Connors and not recommended for debridement right now. We obtained wound and urine cultures upon admission. Urine cultures showed yeast on day 1. He is on IV Diflucan. He is also currently on Invanz and Vancomycin due to the suspicion of osteomyelitis in the lumbar spine. The patient had a CT of the abdomen and pelvis and lumbar spine with radiology recommending him have an MRI to rule out osteomyelitis of his lumbar spine as a result of decubitus. However, the patient has refused at this point due to severe pain. He does not think he could lay on the table. We have recommended premedication for pain management, however patient has not been agreeable at this time. He is on long-term anticoagulant therapy with Eliquis, which we have continued since admission. He has been on lasix for treatment of lower extremity edema with good urine output. The patient has been encouraged for increased protein in his diet. He is going to require some extensive retirement care. The patient really needs rehab placement, which we talked with Case Management and hopefully we can get him placed at a facility. AM labs: HGB 9.0, wbc 5.4, bun 13/creatinine 1.28. He has been afebrile. Past Medical Family Social History Past Med/Fam/Surg Hx: No changes since H&P Allergies: Allergies No Known Drug Allergies Allergy (Verified 01/30/24 21:56) Review of Systems ROS: No change since H&P Vital Signs and I&O's Vital Signs: Vital Signs Temperature 97.4 F Temperature 99.0 F Pulse Rate [Left Brachial] 106 Pulse Rate [Left Brachial] 70 Respiratory Rate 20 Respiratory Rate 20 Respiratory Rate 17 Respiratory Rate 18 Blood Pressure [Left Arm] 175/78 Blood Pressure [Left Arm] 111/72 O2 Sat by Pulse Oximetry 95 O2 Sat by Pulse Oximetry 96 Intake and Output: Intake & Output 04/03/24 04/04/24 04/05/24 04/06/24 11:59 11:59 11:59 11:59 Intake Total 4174 / 4174 3212 / 3212 3123 / 3123 3546 / 3546 Output Total 2300 / 2300 4050 / 4050 3100 / 3100 3325 / 3325 Balance 1874 / 1874 -838 / -838 / Physical Exam Oriented: Normal Eyes: Normal Ear: Normal Nose: Normal Throat: Dry Respiratory: Normal Cardiovascular: Irregular and Edema Auscultation: Bowel Sounds: Normal Tenderness: Normal Skin: Decreased Turgur and Wound (STAGE IV SACRAL DECUBITUS EXTENDING TO SCROTUM WITH DIFFUSE LOCALZIED REDNESS, MALODOROUS DC) Musculoskeletal: Back:Lumbar Psychiatric: Depression Mood Description: Calm Affect: Depressed Speech Pattern: Clear and Appropriate Laboratory and Diagnostics 04/07/24 05:38 04/07/24 05:38 Labs: 03/29/24 12:55 Urine,Catheterized Urine Culture - Final Esther Krusei 03/26/24 17:58 Blood Blood Culture - Final 03/26/24 17:53 Blood Blood Culture - Final 03/27/24 05:03 Urine,Clean Catch Urine Culture - Final Escherichia Coli Esbl Proteus Vulgaris 03/26/24 21:25 Buttock Wound Culture - Final Escherichia Coli Klebsiella Pneumoniae Proteus Vulgaris Laboratory WBC 5.3 X10^3/uL (3.6-10.0) 04/06/24 06:42 RBC 4.06 X10^6/uL (4.7-6.0) L 04/06/24 06:42 Hgb 10.6 g/dL (13.5-18.0) L 04/06/24 06:42 Hct 31.9 % (42.0-54.0) L 04/06/24 06:42 MCV 78.6 fL (80.0-100.0) L 04/06/24 06:42 MCH 26.0 pg (27.0-34.0) L 04/06/24 06:42 MCHC 33.1 g/dL (33.0-35.0) 04/06/24 06:42 RDW 16.7 % (11.6-16.5) H 04/06/24 06:42 Plt Count 259 X10^3/uL (150.0-450.0) 04/06/24 06:42 MPV 7.4 fL (7.4-11.0) 04/06/24 06:42 Neut % (Auto) 47.2 % (42.0-75.0) 04/06/24 06:42 Lymph % (Auto) 34.3 % (21.0-51.0) 04/06/24 06:42 [place] % (Auto) 9.7 % (0.0-13.0) 04/06/24 06:42 Eos % (Auto) 7.5 % (0.9-2.9) H 04/06/24 06:42 Baso % (Auto) 1.3 % (0.2-1.0) H 04/06/24 06:42 Neut # (Auto) 2.5 x10^3/uL (2.2-4.8) 04/06/24 06:42 Lymph # (Auto) 1.8 X10^3/uL (1.3-2.9) 04/06/24 06:42 [place]ates # (Auto) 0.5 x10^3/uL (0.3-0.8) 04/06/24 06:42 Eos # (Auto) 0.4 x10^3/uL (0.0-0.2) H 04/06/24 06:42 Baso # (Auto) 0.1 X10^3/uL (0.0-0.1) 04/06/24 06:42 Absolute Nucleated RBC 0.3 /100WBC 04/06/24 06:42 ESR 25 MM/HOUR (0-15) H 04/02/24 06:22 Absolute Retic 0.0534 10^6/uL 03/26/24 17:53 Percent Retic 1.32 % (0.8-2.2) 03/26/24 17:53 Sodium 139 mmol/L (136-145) 04/06/24 06:42 Corrected Sodium 139 mmol/L (136-145) 04/06/24 06:42 Potassium 4.3 mmol/L (3.5-5.1) 04/06/24 06:42 Chloride 105 mmol/L (98-107) 04/06/24 06:42 Carbon Dioxide 29.9 mmol/L (21-32) 04/06/24 06:42 BUN 9 mg/dL (7-18) 04/06/24 06:42 Creatinine 1.08 mg/dL (0.70-1.30) 04/06/24 06:42 Est GFR (MDRD) Af Amer > 60 (>60) 04/06/24 06:42 Est GFR (MDRD) Non-Af > 60 (>60) 04/06/24 06:42 Glucose 118 mg/dL (65-99) H 04/06/24 06:42 POC Glucose (mg/dL) 174 mg/dL (65-99) H 04/02/24 12:32 Lactic Acid 1.5 mmol/L (0.4-2.0) 03/27/24 10:35 Calcium 9.8 mg/dL (8.5-10.1) 04/06/24 06:42 Corrected Calcium 11.6 mg/dL (8.5-10.1) H 04/06/24 06:42 Magnesium 1.3 mg/dL (2.0-2.9) L 04/06/24 06:42 Iron 33 ug/dL (50-175) L 03/26/24 17:53 TIBC 200 ug/dL (250-450) L 03/26/24 17:53 Transferrin 165 mg/dL (202-364) L 03/26/24 17:53 Ferritin 68 ng/mL (26-388) 03/26/24 17:53 Total Bilirubin 0.40 mg/dL (0.2-1.0) 04/06/24 06:42 AST 21 Units/L (15-37) 04/06/24 06:42 ALT 7 Units/L (12-78) L 04/06/24 06:42 Alkaline Phosphatase 85 Units/L (46-116) 04/06/24 06:42 Creatine Kinase 12 Units/L (39-308) L 03/26/24 17:53 Troponin I High Sens 8.4 ng/L (4.0-60.0) 03/26/24 17:53 C-Reactive Protein 32.70 mg/L (0-3.0) H 04/02/24 06:22 B-Natriuretic Peptide 384 pg/mL (0-79) H 04/03/24 05:18 Total Protein 6.5 g/dL (6.4-8.2) 04/06/24 06:42 Albumin 1.8 g/dL (3.4-5.0) L 04/06/24 06:42 Globulin 4.7 g/dL (2.5-4.5) H 04/06/24 06:42 Albumin/Globulin Ratio 0.4 Ratio (1.1-2.1) L 04/06/24 06:42 Vitamin B12 658 pg/mL (193-986) 03/26/24 17:53 Folate 4.0 ng/mL (>8.6) L 03/26/24 17:53 Specimen Type Catherized urine 03/29/24 12:55 Urine Color Yellow (YELLOW) 03/29/24 12:55 Urine Appearance Clear (CLEAR) 03/29/24 12:55 Urine pH 5.0 (5.0 - 8.0) 03/29/24 12:55 Ur Specific [place] 1.015 (1.000-1.030) 03/29/24 12:55 Urine Protein 2+ (NEGATIVE) 03/29/24 12:55 Urine Glucose (UA) Negative (NEGATIVE) 03/29/24 12:55 Urine Ketones Negative (NEGATIVE) 03/29/24 12:55 Urine Blood 2+ (NEGATIVE) 03/29/24 12:55 Urine Nitrite Negative (NEGATIVE) 03/29/24 12:55 Urine Bilirubin Negative (NEGATIVE) 03/29/24 12:55 Urine Urobilinogen Normal (NORMAL) 03/29/24 12:55 Ur Leukocyte Esterase 3+ (NEGATIVE) 03/29/24 12:55 Urine RBC 3-5 /HPF (0-3) A 03/29/24 12:55 Urine WBC 10-20 /HPF (0-5) A 03/29/24 12:55 Ur Squamous Epith Cells Rare /HPF (NEGATIVE) 03/29/24 12:55 Urine Bacteria Negative /HPF (NEGATIVE) 03/29/24 12:55 Urine Mucus Rare /HPF (NEGATIVE) 03/29/24 12:55 Ur Culture Indicated? Yes/culture set up 03/29/24 12:55 Vancomycin Trough 17.7 ug/mL (15-20) 04/03/24 08:10 Random Vancomycin 21.6 ug/mL 03/30/24 20:10 Plan (1) Urinary tract infection: Status: Acute Plan: Continue IV ABX, IV DIFLUCAN, BP CONTROL, IV HYDRATION, HOME MEDICATIONS PRN SUPPLEMENTAL O2 PLAN FOR REPEAT AM LABS. (2) Sepsis: Status: Acute (3) Decubitus skin ulcer: Status: Acute (4) Hyponatremia: Status: Acute (5) CRF (chronic renal failure): Status: Acute (6) Weakness: Status: Acute
--- NOTE | 2024-04-07 08:50 | PCM.PROG ---
Progress Note Progress Note for Day of Date of Exam: 04/03/24 Subjective Subjective: This is a 59-year-old white male who has an large stage 4 tunneling sacral decubitus. He has a colostomy, which was placed following the development of his sacral decubitus to help allow for healing. He also has a gerard catheter and currently has a UTI. His decubitus has been evaluated by Dr. Connors and not recommended for debridement right now. We obtained wound and urine cultures upon admission. Urine cultures showed yeast on day 1. He is on IV Diflucan. He is also currently on Invanz and Vancomycin due to the suspicion of osteomyelitis in the lumbar spine. The patient had a CT of the abdomen and pelvis and lumbar spine with radiology recommending him have an MRI to rule out osteomyelitis of his lumbar spine as a result of decubitus. However, the patient has refused at this point due to severe pain. He does not think he could lay on the table. We have recommended premedication for pain management, however patient has not been agreeable at this time. He is on long-term anticoagulant therapy with Eliquis, which we have continued since admission. He has been on lasix for treatment of lower extremity edema with good urine output but continued lower extremity edema. The patient has been encouraged for increased protein in his diet. He is going to require some extensive [facility] care. The patient really needs rehab placement, which we talked with Case Management and this with patient and daughter. Patient has declined rehab placement at this time. We will work on setting patient up for outpatient rehab upon discharge. AM labs: HGB 8.8, wbc 5.7, bun 13/creatinine 1.19. He has been afebrile. Past Medical Family Social History Past Med/Fam/Surg Hx: No changes since H&P Allergies: Allergies No Known Drug Allergies Allergy (Verified 01/30/24 21:56) Review of Systems ROS: No change since H&P Vital Signs and I&O's Vital Signs: Vital Signs Temperature 97.4 F Temperature 99.0 F Pulse Rate [Left Brachial] 106 Pulse Rate [Left Brachial] 70 Respiratory Rate 20 Respiratory Rate 20 Respiratory Rate 17 Respiratory Rate 18 Blood Pressure [Left Arm] 175/78 Blood Pressure [Left Arm] 111/72 O2 Sat by Pulse Oximetry 95 O2 Sat by Pulse Oximetry 96 Intake and Output: Intake & Output 04/03/24 04/04/24 04/05/24 04/06/24 11:59 11:59 11:59 11:59 Intake Total 4174 / 4174 3212 / 3212 3123 / 3123 3546 / 3546 Output Total 2300 / 2300 4050 / 4050 3100 / 3100 3325 / 3325 Balance 1874 / 1874 -838 / -838 / 221 Physical Exam Oriented: Normal Eyes: Normal Ear: Normal Nose: Normal Throat: Dry Respiratory: Normal Cardiovascular: Irregular and Edema Auscultation: Bowel Sounds: Normal Tenderness: Normal Skin: Decreased Turgur and Wound (STAGE IV SACRAL DECUBITUS EXTENDING TO SCROTUM WITH DIFFUSE LOCALZIED REDNESS, MALODOROUS DC) Musculoskeletal: Back:Lumbar Psychiatric: Depression Mood Description: Calm Affect: Depressed Speech Pattern: Clear and Appropriate Laboratory and Diagnostics 04/07/24 05:38 04/07/24 05:38 Labs: 03/29/24 12:55 Urine,Catheterized Urine Culture - Final Esther Krusei 03/26/24 17:58 Blood Blood Culture - Final 03/26/24 17:53 Blood Blood Culture - Final 03/27/24 05:03 Urine,Clean Catch Urine Culture - Final Escherichia Coli Esbl Proteus Vulgaris 03/26/24 21:25 Buttock Wound Culture - Final Escherichia Coli Klebsiella Pneumoniae Proteus Vulgaris Laboratory WBC 5.3 X10^3/uL (3.6-10.0) 04/06/24 06:42 RBC 4.06 X10^6/uL (4.7-6.0) L 04/06/24 06:42 Hgb 10.6 g/dL (13.5-18.0) L 04/06/24 06:42 Hct 31.9 % (42.0-54.0) L 04/06/24 06:42 MCV 78.6 fL (80.0-100.0) L 04/06/24 06:42 MCH 26.0 pg (27.0-34.0) L 04/06/24 06:42 MCHC 33.1 g/dL (33.0-35.0) 04/06/24 06:42 RDW 16.7 % (11.6-16.5) H 04/06/24 06:42 Plt Count 259 X10^3/uL (150.0-450.0) 04/06/24 06:42 MPV 7.4 fL (7.4-11.0) 04/06/24 06:42 Neut % (Auto) 47.2 % (42.0-75.0) 04/06/24 06:42 Lymph % (Auto) 34.3 % (21.0-51.0) 04/06/24 06:42 [place] % (Auto) 9.7 % (0.0-13.0) 04/06/24 06:42 Eos % (Auto) 7.5 % (0.9-2.9) H 04/06/24 06:42 Baso % (Auto) 1.3 % (0.2-1.0) H 04/06/24 06:42 Neut # (Auto) 2.5 x10^3/uL (2.2-4.8) 04/06/24 06:42 Lymph # (Auto) 1.8 X10^3/uL (1.3-2.9) 04/06/24 06:42 [place] # (Auto) 0.5 x10^3/uL (0.3-0.8) 04/06/24 06:42 Eos # (Auto) 0.4 x10^3/uL (0.0-0.2) H 04/06/24 06:42 Baso # (Auto) 0.1 X10^3/uL (0.0-0.1) 04/06/24 06:42 Absolute Nucleated RBC 0.3 /100WBC 04/06/24 06:42 ESR 25 MM/HOUR (0-15) H 04/02/24 06:22 Absolute Retic 0.0534 10^6/uL 03/26/24 17:53 Percent Retic 1.32 % (0.8-2.2) 03/26/24 17:53 Sodium 139 mmol/L (136-145) 04/06/24 06:42 Corrected Sodium 139 mmol/L (136-145) 04/06/24 06:42 Potassium 4.3 mmol/L (3.5-5.1) 04/06/24 06:42 Chloride 105 mmol/L (98-107) 04/06/24 06:42 Carbon Dioxide 29.9 mmol/L (21-32) 04/06/24 06:42 BUN 9 mg/dL (7-18) 04/06/24 06:42 Creatinine 1.08 mg/dL (0.70-1.30) 04/06/24 06:42 Est GFR (MDRD) Af Amer > 60 (>60) 04/06/24 06:42 Est GFR (MDRD) Non-Af > 60 (>60) 04/06/24 06:42 Glucose 118 mg/dL (65-99) H 04/06/24 06:42 POC Glucose (mg/dL) 174 mg/dL (65-99) H 04/02/24 12:32 Lactic Acid 1.5 mmol/L (0.4-2.0) 03/27/24 10:35 Calcium 9.8 mg/dL (8.5-10.1) 04/06/24 06:42 Corrected Calcium 11.6 mg/dL (8.5-10.1) H 04/06/24 06:42 Magnesium 1.3 mg/dL (2.0-2.9) L 04/06/24 06:42 Iron 33 ug/dL (50-175) L 03/26/24 17:53 TIBC 200 ug/dL (250-450) L 03/26/24 17:53 Transferrin 165 mg/dL (202-364) L 03/26/24 17:53 Ferritin 68 ng/mL (26-388) 03/26/24 17:53 Total Bilirubin 0.40 mg/dL (0.2-1.0) 04/06/24 06:42 AST 21 Units/L (15-37) 04/06/24 06:42 ALT 7 Units/L (12-78) L 04/06/24 06:42 Alkaline Phosphatase 85 Units/L (46-116) 04/06/24 06:42 Creatine Kinase 12 Units/L (39-308) L 03/26/24 17:53 Troponin I High Sens 8.4 ng/L (4.0-60.0) 03/26/24 17:53 C-Reactive Protein 32.70 mg/L (0-3.0) H 04/02/24 06:22 B-Natriuretic Peptide 384 pg/mL (0-79) H 04/03/24 05:18 Total Protein 6.5 g/dL (6.4-8.2) 04/06/24 06:42 Albumin 1.8 g/dL (3.4-5.0) L 04/06/24 06:42 Globulin 4.7 g/dL (2.5-4.5) H 04/06/24 06:42 Albumin/Globulin Ratio 0.4 Ratio (1.1-2.1) L 04/06/24 06:42 Vitamin B12 658 pg/mL (193-986) 03/26/24 17:53 Folate 4.0 ng/mL (>8.6) L 03/26/24 17:53 Specimen Type Catherized urine 03/29/24 12:55 Urine Color Yellow (YELLOW) 03/29/24 12:55 Urine Appearance Clear (CLEAR) 03/29/24 12:55 Urine pH 5.0 (5.0 - 8.0) 03/29/24 12:55 Ur Specific [place] 1.015 (1.000-1.030) 03/29/24 12:55 Urine Protein 2+ (NEGATIVE) 03/29/24 12:55 Urine Glucose (UA) Negative (NEGATIVE) 03/29/24 12:55 Urine Ketones Negative (NEGATIVE) 03/29/24 12:55 Urine Blood 2+ (NEGATIVE) 03/29/24 12:55 Urine Nitrite Negative (NEGATIVE) 03/29/24 12:55 Urine Bilirubin Negative (NEGATIVE) 03/29/24 12:55 Urine Urobilinogen Normal (NORMAL) 03/29/24 12:55 Ur Leukocyte Esterase 3+ (NEGATIVE) 03/29/24 12:55 Urine RBC 3-5 /HPF (0-3) A 03/29/24 12:55 Urine WBC 10-20 /HPF (0-5) A 03/29/24 12:55 Ur Squamous Epith Cells Rare /HPF (NEGATIVE) 03/29/24 12:55 Urine Bacteria Negative /HPF (NEGATIVE) 03/29/24 12:55 Urine Mucus Rare /HPF (NEGATIVE) 03/29/24 12:55 Ur Culture Indicated? Yes/culture set up 03/29/24 12:55 Vancomycin Trough 17.7 ug/mL (15-20) 04/03/24 08:10 Random Vancomycin 21.6 ug/mL 06/16/24 20:10 Plan (1) Urinary tract infection: Status: Acute Plan: one time dose of lasix IV. Obtain chest xray. Continue IV abx, IV diflucan, bp control, IV hydration, home medications, prn supplemental 02. (2) Sepsis: Status: Acute (3) Decubitus skin ulcer: Status: Acute (4) Hyponatremia: Status: Acute (5) CRF (chronic renal failure): Status: Acute (6) Weakness: Status: Acute
--- NOTE | 2024-04-07 08:50 | PCM.PROG ---
Progress Note Progress Note for Day of Date of Exam: 04/01/24 Subjective Subjective: This is a 59-year-old white male who has an large stage 4 tunneling sacral decubitus. He has had a colostomy placed following the development of his sacral decubitus to help allow for healing. He also has a gerard catheter and currently has a UTI. His decubitus has been evaluated by Dr. Connors and not recommended for debridement right now. We obtained wound and urine cultures upon admission. Urine cultures showed yeast on day 1. He is on IV Diflucan. He is also currently on Invanz and Vancomycin due to the suspicion of osteomyelitis in the lumbar spine. The patient had a CT of the abdomen and pelvis and lumbar spine with radiology recommending him have an MRI to rule out osteomyelitis of his lumbar spine as a result of decubitus. However, the patient has refused at this point due to severe pain. He does not think he could lay on the table. We have recommended premedication for pain management, however patient has not been agreeable at this time. He is on long-term anticoagulant therapy with Eliquis, which we have continued since admission. He did require some Lasix over the weekend and had pretty good urine output and some improvement in his lower leg edema, however, it is not resolved so we continued Lasix 40 mg. The patient has been encouraged for increased protein in his diet. He is going to require some extensive senior care care. The patient really needs rehab placement, which we talked with Case Management and hopefully we can get [facility]. He is also going to need extensive rehab. The patient is willing to work with Physical Therapy. AM labs: hgb 9.3, wbc 6.3, bun 14/creatinine 1.29 Past Medical Family Social History Allergies: Allergies No Known Drug Allergies Allergy (Verified 01/30/24 21:56) Vital Signs and I&O's Vital Signs: Vital Signs Temperature 97.2 F Pulse Rate [Left Brachial] 88 Respiratory Rate 18 Respiratory Rate 18 Respiratory Rate 17 Respiratory Rate 20 Respiratory Rate 20 Blood Pressure [Left Arm] 130/60 O2 Sat by Pulse Oximetry 100 Intake and Output: Intake & Output 03/30/24 03/31/24 04/01/24 04/02/24 11:59 11:59 11:59 11:59 Intake Total 3963 / 3963 3939 / 3939 3395 / 3395 500 / 500 Output Total 2435 / 2435 2610 / 2610 2200 / 2200 1400 / 1400 Balance 1528 / 1528 1329 / 1329 1195 / 1195 -900 / -900 Physical Exam Oriented: Normal Eyes: Normal Ear: Normal Nose: Normal Throat: Dry Cardiovascular: Irregular and Edema Auscultation: Bowel Sounds: Normal Tenderness: Normal Skin: Decreased Turgur and Wound (STAGE IV SACRAL DECUBITUS EXTENDING TO SCROTUM WITH DIFFUSE LOCALZIED REDNESS, MALODOROUS DC) Musculoskeletal: Back:Lumbar Psychiatric: Depression Mood Description: Calm Affect: Depressed Speech Pattern: Clear and Appropriate Laboratory and Diagnostics 04/07/24 05:38 04/07/24 05:38 Labs: 03/26/24 17:58 Blood Blood Culture - Final 03/26/24 17:53 Blood Blood Culture - Final 03/29/24 12:55 Urine,Catheterized Urine Culture - Preliminary 03/27/24 05:03 Urine,Clean Catch Urine Culture - Final Escherichia Coli Esbl Proteus Vulgaris 03/26/24 21:25 Buttock Wound Culture - Final Escherichia Coli Klebsiella Pneumoniae Proteus Vulgaris Laboratory WBC 6.3 X10^3/uL (3.6-10.0) 04/01/24 06:18 RBC 3.54 X10^6/uL (4.7-6.0) L 04/01/24 06:18 Hgb 9.3 g/dL (13.5-18.0) L 04/01/24 06:18 Hct 27.9 % (42.0-54.0) L 04/01/24 06:18 MCV 78.9 fL (80.0-100.0) L 04/01/24 06:18 MCH 26.4 pg (27.0-34.0) L 04/01/24 06:18 MCHC 33.4 g/dL (33.0-35.0) 04/01/24 06:18 RDW 17.3 % (11.6-16.5) H 04/01/24 06:18 Plt Count 252 X10^3/uL (150.0-450.0) 04/01/24 06:18 MPV 7.5 fL (7.4-11.0) 04/01/24 06:18 Neut % (Auto) 50.4 % (42.0-75.0) 04/01/24 06:18 Lymph % (Auto) 31.8 % (21.0-51.0) 04/01/24 06:18 [place] % (Auto) 9.7 % (0.0-13.0) 04/01/24 06:18 Eos % (Auto) 7.9 % (0.9-2.9) H 04/01/24 06:18 Baso % (Auto) 0.2 % (0.2-1.0) 04/01/24 06:18 Neut # (Auto) 3.2 x10^3/uL (2.2-4.8) 04/01/24 06:18 Lymph # (Auto) 2.0 X10^3/uL (1.3-2.9) 04/01/24 06:18 [place] # (Auto) 0.6 x10^3/uL (0.3-0.8) 04/01/24 06:18 Eos # (Auto) 0.5 x10^3/uL (0.0-0.2) H 04/01/24 06:18 Baso # (Auto) 0.0 X10^3/uL (0.0-0.1) 04/01/24 06:18 Absolute Nucleated RBC 0.1 /100WBC 04/01/24 06:18 ESR 30 MM/HOUR (0-15) H 03/29/24 11:50 Absolute Retic 0.0534 10^6/uL 03/26/24 17:53 Percent Retic 1.32 % (0.8-2.2) 03/26/24 17:53 Sodium 136 mmol/L (136-145) 04/01/24 06:18 Corrected Sodium 136 mmol/L (136-145) 04/01/24 06:18 Potassium 4.4 mmol/L (3.5-5.1) 04/01/24 06:18 Chloride 105 mmol/L (98-107) 04/01/24 06:18 Carbon Dioxide 26.4 mmol/L (21-32) 04/01/24 06:18 BUN 14 mg/dL (7-18) 04/01/24 06:18 Creatinine 1.29 mg/dL (0.70-1.30) 04/01/24 06:18 Est GFR (MDRD) Af Amer > 60 (>60) 04/01/24 06:18 Est GFR (MDRD) Non-Af > 60 (>60) 04/01/24 06:18 Glucose 120 mg/dL (65-99) H 04/01/24 06:18 POC Glucose (mg/dL) 178 mg/dL (65-99) H 03/30/24 16:42 Lactic Acid 1.5 mmol/L (0.4-2.0) 03/27/24 10:35 Calcium 9.6 mg/dL (8.5-10.1) 04/01/24 06:18 Corrected Calcium 11.4 mg/dL (8.5-10.1) H 04/01/24 06:18 Magnesium 1.9 mg/dL (2.0-2.9) L 03/29/24 05:27 Iron 33 ug/dL (50-175) L 03/26/24 17:53 TIBC 200 ug/dL (250-450) L 03/26/24 17:53 Transferrin 165 mg/dL (202-364) L 03/26/24 17:53 Ferritin 68 ng/mL (26-388) 03/26/24 17:53 Total Bilirubin 0.40 mg/dL (0.2-1.0) 04/01/24 06:18 AST 17 Units/L (15-37) 04/01/24 06:18 ALT < 6 Units/L (12-78) L 04/01/24 06:18 Alkaline Phosphatase 67 Units/L (46-116) 04/01/24 06:18 Creatine Kinase 12 Units/L (39-308) L 03/26/24 17:53 Troponin I High Sens 8.4 ng/L (4.0-60.0) 03/26/24 17:53 C-Reactive Protein 35.30 mg/L (0-3.0) H 03/29/24 11:50 Total Protein 5.9 g/dL (6.4-8.2) L 04/01/24 06:18 Albumin 1.7 g/dL (3.4-5.0) L 04/01/24 06:18 Globulin 4.2 g/dL (2.5-4.5) 04/01/24 06:18 Albumin/Globulin Ratio 0.4 Ratio (1.1-2.1) L 04/01/24 06:18 Vitamin B12 658 pg/mL (193-986) 03/26/24 17:53 Folate 4.0 ng/mL (>8.6) L 03/26/24 17:53 Specimen Type Catherized urine 03/29/24 12:55 Urine Color Yellow (YELLOW) 03/29/24 12:55 Urine Appearance Clear (CLEAR) 03/29/24 12:55 Urine pH 5.0 (5.0 - 8.0) 03/29/24 12:55 Ur Specific [place] 1.015 (1.000-1.030) 03/29/24 12:55 Urine Protein 2+ (NEGATIVE) 03/29/24 12:55 Urine Glucose (UA) Negative (NEGATIVE) 03/29/24 12:55 Urine Ketones Negative (NEGATIVE) 03/29/24 12:55 Urine Blood 2+ (NEGATIVE) 03/29/24 12:55 Urine Nitrite Negative (NEGATIVE) 03/29/24 12:55 Urine Bilirubin Negative (NEGATIVE) 03/29/24 12:55 Urine Urobilinogen Normal (NORMAL) 03/29/24 12:55 Ur Leukocyte Esterase 3+ (NEGATIVE) 03/29/24 12:55 Urine RBC 3-5 /HPF (0-3) A 03/29/24 12:55 Urine WBC 10-20 /HPF (0-5) A 03/29/24 12:55 Ur Squamous Epith Cells Rare /HPF (NEGATIVE) 03/29/24 12:55 Urine Bacteria Negative /HPF (NEGATIVE) 03/29/24 12:55 Urine Mucus Rare /HPF (NEGATIVE) 03/29/24 12:55 Ur Culture Indicated? Yes/culture set up 03/29/24 12:55 Random Vancomycin 21.6 ug/mL 03/30/24 20:10 Plan (1) Urinary tract infection: Status: Acute Plan: Continue IV ABX, IV DIFLUCAN, BP CONTROL, IV HYDRATION, HOME MEDICATIONS PRN SUPPLEMENTAL O2 PLAN FOR REPEAT AM LABS. (2) Sepsis: Status: Acute (3) Decubitus skin ulcer: Status: Acute (4) Hyponatremia: Status: Acute (5) CRF (chronic renal failure): Status: Acute (6) Weakness: Status: Acute
[2024-04-07] MEDS: MAGNESIUM SULFATE 1 GRAM/100 mL PREMIX 1 G/100 ML BAG IV SCH (09:15)
[2024-04-07] MEDS: LASIX IVP SCH (14:12)
[2024-04-07] MEDS: K-DUR TAB 20 MEQ PO SCH (14:13)
[2024-04-07] MEDS: SILVADENE TOP SCH (14:13)
--- NOTE | 2024-04-07 15:35 | VAS ---
EXAM:LOWER EXT VENOUS, BILATERALHISTORY:R/O DVT, LOWER EXTREMITY EDEMA;COMPARISON:None available.TECHNIQUE:Multiple kumar scale and color flow Doppler images of the deep venous system were obtained of the right and left lower extremity.FINDINGS:The deep venous system of the right and left lower extremities were evaluated from the level of the common femoral vein through the popliteal and posterior tibial vein. Normal color flow and augmentation can be observed. In addition, normal compression is seen throughout the deep venous system. Please note, suboptimal assessment of the superficial femoral veins due to habitus artifact.IMPRESSION:Negative for DVT.THIS IS AN ELECTRONICALLY VERIFIED FINAL REPORT04/07/2024 3:32 PM - Electronically signed by Magen Aguilera MD
--- NOTE | 2024-04-07 17:45 | PCM.PROG ---
Progress Note Progress Note for Day of Date of Exam: 04/07/24 Subjective Subjective: This is a 59-year-old white male who has an large stage 4 tunneling sacral decubitus. He has a colostomy, which was placed following the development of his sacral decubitus to help allow for healing. He also has a gerard catheter and currently has a UTI. His decubitus has been evaluated by Dr. Connors and not recommended for debridement right now. We obtained wound and urine cultures upon admission. Urine cultures showed yeast on day 1. He is on IV Diflucan. He is also currently on Invanz and Vancomycin due to the suspicion of osteomyelitis in the lumbar spine. The patient had a CT of the abdomen and pelvis and lumbar spine with radiology recommending him have an MRI to rule out osteomyelitis of his lumbar spine as a result of decubitus. However, the patient has refused at this point due to severe pain. He does not think he could lay on the table. We have recommended premedication for pain management, however patient has not been agreeable at this time. He is on long-term anticoagulant therapy with Eliquis, which we have continued since admission. He has been on lasix for treatment of lower extremity edema with good urine output but continued lower extremity edema. Pitting bilateral edema +4 with diffuse redness worse to rle with weeping this am. Pt has been on po lasix 20mg daily and had IV lasix on . Pt has been on magnesium replacement The patient has been encouraged for increased protein in his diet. He is going to require some extensive nursing home care. The patient really needs rehab placement, which we talked with Case Management and this with patient and daughter. Patient has declined rehab placement at this time. We will work on setting patient up for outpatient rehab upon discharge. Past Medical Family Social History Past Med/Fam/Surg Hx: No changes since H&P Allergies: Allergies No Known Drug Allergies Allergy (Verified 01/30/24 21:56) Review of Systems ROS: No change since H&P Vital Signs and I&O's Vital Signs: Vital Signs Temperature 98.1 F Temperature 97.7 F Pulse Rate [Left Brachial] 74 Pulse Rate [Left Brachial] 93 Respiratory Rate 18 Respiratory Rate 18 Respiratory Rate 18 Respiratory Rate 18 Respiratory Rate 17 Respiratory Rate 18 Blood Pressure [Left Arm] 139/77 Blood Pressure [Left Arm] 139/77 O2 Sat by Pulse Oximetry 95 O2 Sat by Pulse Oximetry 92 Intake and Output: Intake & Output 04/05/24 04/06/24 04/07/24 04/08/24 11:59 11:59 11:59 11:59 Intake Total 3123 / 3123 3546 / 3546 3071 / 3071 1259 / 1259 Output Total 3100 / 3100 3325 / 3325 2500 / 2500 1950 / 1950 Balance 221 / 221 571 / 571 -691 / -691 Physical Exam Oriented: Normal Eyes: Normal Ear: Normal Nose: Normal Throat: Dry Respiratory: Normal Cardiovascular: Irregular and Edema Auscultation: Bowel Sounds: Normal Tenderness: Normal Skin: Decreased Turgur, Vesicular (weeping blisters to right lower leg), Red and Wound (STAGE IV SACRAL DECUBITUS EXTENDING TO SCROTUM WITH DIFFUSE LOCALZIED REDNESS, MALODOROUS DC) Musculoskeletal: Back:Lumbar Psychiatric: Depression Mood Description: Calm Affect: Depressed Speech Pattern: Clear and Appropriate Laboratory and Diagnostics 04/07/24 05:38 04/07/24 05:38 Labs: 03/29/24 12:55 Urine,Catheterized Urine Culture - Final Esther Krusei 03/26/24 17:58 Blood Blood Culture - Final 03/26/24 17:53 Blood Blood Culture - Final 03/27/24 05:03 Urine,Clean Catch Urine Culture - Final Escherichia Coli Esbl Proteus Vulgaris 03/26/24 21:25 Buttock Wound Culture - Final Escherichia Coli Klebsiella Pneumoniae Proteus Vulgaris Laboratory WBC 5.2 X10^3/uL (3.6-10.0) 04/07/24 05:38 RBC 3.66 X10^6/uL (4.7-6.0) L 04/07/24 05:38 Hgb 9.6 g/dL (13.5-18.0) L 04/07/24 05:38 Hct 28.4 % (42.0-54.0) L 04/07/24 05:38 MCV 77.6 fL (80.0-100.0) L 04/07/24 05:38 MCH 26.3 pg (27.0-34.0) L 04/07/24 05:38 MCHC 33.9 g/dL (33.0-35.0) 04/07/24 05:38 RDW 16.9 % (11.6-16.5) H 04/07/24 05:38 Plt Count 244 X10^3/uL (150.0-450.0) 04/07/24 05:38 MPV 8.0 fL (7.4-11.0) 04/07/24 05:38 Neut % (Auto) 47.2 % (42.0-75.0) 04/07/24 05:38 Lymph % (Auto) 34.3 % (21.0-51.0) 04/07/24 05:38 [place] % (Auto) 9.9 % (0.0-13.0) 04/07/24 05:38 Eos % (Auto) 7.4 % (0.9-2.9) H 04/07/24 05:38 Baso % (Auto) 1.2 % (0.2-1.0) H 04/07/24 05:38 Neut # (Auto) 2.5 x10^3/uL (2.2-4.8) 04/07/24 05:38 Lymph # (Auto) 1.8 X10^3/uL (1.3-2.9) 04/07/24 05:38 [place] # (Auto) 0.5 x10^3/uL (0.3-0.8) 04/07/24 05:38 Eos # (Auto) 0.4 x10^3/uL (0.0-0.2) H 04/07/24 05:38 Baso # (Auto) 0.1 X10^3/uL (0.0-0.1) 04/07/24 05:38 Absolute Nucleated RBC 0.2 /100WBC 04/07/24 05:38 ESR 25 MM/HOUR (0-15) H 04/02/24 06:22 Absolute Retic 0.0534 10^6/uL 03/26/24 17:53 Percent Retic 1.32 % (0.8-2.2) 03/26/24 17:53 Sodium 140 mmol/L (136-145) 04/07/24 05:38 Corrected Sodium 140 mmol/L (136-145) 04/07/24 05:38 Potassium 4.1 mmol/L (3.5-5.1) 04/07/24 05:38 Chloride 106 mmol/L (98-107) 04/07/24 05:38 Carbon Dioxide 30.6 mmol/L (21-32) 04/07/24 05:38 BUN 8 mg/dL (7-18) 04/07/24 05:38 Creatinine 1.02 mg/dL (0.70-1.30) 04/07/24 05:38 Est GFR (MDRD) Af Amer > 60 (>60) 04/07/24 05:38 Est GFR (MDRD) Non-Af > 60 (>60) 04/07/24 05:38 Glucose 112 mg/dL (65-99) H 04/07/24 05:38 POC Glucose (mg/dL) 174 mg/dL (65-99) H 04/02/24 12:32 Lactic Acid 1.5 mmol/L (0.4-2.0) 03/27/24 10:35 Calcium 9.7 mg/dL (8.5-10.1) 04/07/24 05:38 Corrected Calcium 11.6 mg/dL (8.5-10.1) H 04/07/24 05:38 Magnesium 1.2 mg/dL (2.0-2.9) L 04/07/24 05:38 Magnesium 1.2 mg/dL (2.0-2.9) L 04/07/24 05:38 Iron 33 ug/dL (50-175) L 03/26/24 17:53 TIBC 200 ug/dL (250-450) L 03/26/24 17:53 Transferrin 165 mg/dL (202-364) L 03/26/24 17:53 Ferritin 68 ng/mL (26-388) 03/26/24 17:53 Total Bilirubin 0.40 mg/dL (0.2-1.0) 04/07/24 05:38 AST 16 Units/L (15-37) 04/07/24 05:38 ALT 8 Units/L (12-78) L 04/07/24 05:38 Alkaline Phosphatase 78 Units/L (46-116) 04/07/24 05:38 Creatine Kinase 12 Units/L (39-308) L 03/26/24 17:53 Troponin I High Sens 8.4 ng/L (4.0-60.0) 03/26/24 17:53 C-Reactive Protein 32.70 mg/L (0-3.0) H 04/02/24 06:22 B-Natriuretic Peptide 384 pg/mL (0-79) H 04/03/24 05:18 Total Protein 5.9 g/dL (6.4-8.2) L 04/07/24 05:38 Albumin 1.6 g/dL (3.4-5.0) L 04/07/24 05:38 Globulin 4.3 g/dL (2.5-4.5) 04/07/24 05:38 Albumin/Globulin Ratio 0.4 Ratio (1.1-2.1) L 04/07/24 05:38 Vitamin B12 658 pg/mL (193-986) 03/26/24 17:53 Folate 4.0 ng/mL (>8.6) L 03/26/24 17:53 Specimen Type Catherized urine 03/29/24 12:55 Urine Color Yellow (YELLOW) 03/29/24 12:55 Urine Appearance Clear (CLEAR) 03/29/24 12:55 Urine pH 5.0 (5.0 - 8.0) 03/29/24 12:55 Ur Specific [place] 1.015 (1.000-1.030) 03/29/24 12:55 Urine Protein 2+ (NEGATIVE) 03/29/24 12:55 Urine Glucose (UA) Negative (NEGATIVE) 03/29/24 12:55 Urine Ketones Negative (NEGATIVE) 03/29/24 12:55 Urine Blood 2+ (NEGATIVE) 03/29/24 12:55 Urine Nitrite Negative (NEGATIVE) 03/29/24 12:55 Urine Bilirubin Negative (NEGATIVE) 03/29/24 12:55 Urine Urobilinogen Normal (NORMAL) 03/29/24 12:55 Ur Leukocyte Esterase 3+ (NEGATIVE) 03/29/24 12:55 Urine RBC 3-5 /HPF (0-3) A 03/29/24 12:55 Urine WBC 10-20 /HPF (0-5) A 03/29/24 12:55 Ur Squamous Epith Cells Rare /HPF (NEGATIVE) 03/29/24 12:55 Urine Bacteria Negative /HPF (NEGATIVE) 03/29/24 12:55 Urine Mucus Rare /HPF (NEGATIVE) 03/29/24 12:55 Ur Culture Indicated? Yes/culture set up 03/29/24 12:55 Vancomycin Trough 17.7 ug/mL (15-20) 04/03/24 08:10 Random Vancomycin 21.6 ug/mL 03/30/24 20:10 Plan (1) Urinary tract infection: Status: Acute Plan: IV lasix q 12 hrs with strict i &os, mag and potassium replacement. Obtain chest xray. Continue IV abx, IV diflucan, bp control, IV hydration, home medications, prn supplemental 02. (2) Sepsis: Status: Acute (3) Decubitus skin ulcer: Status: Acute (4) Hyponatremia: Status: Acute (5) CRF (chronic renal failure): Status: Acute (6) Weakness: Status: Acute
[2024-04-07] MEDS: MAG-OX TAB PO SCH (21:13)
[2024-04-08 06:14] LABS: BASOPHILS # (AUTO) 0.1 X10^3/uL (0.0-0.1); BASOPHILS % (AUTO) 1.3 % (0.2-1.0); EOSINOPHILS # (AUTO) 0.5 x10^3/uL (0.0-0.2); EOSINOPHILS % (AUTO) 8.8 % (0.9-2.9); HEMOGLOBIN 9.2 g/dL (13.5-18.0); LYMPHOCYTES # (AUTO) 1.9 X10^3/uL (1.3-2.9); MEAN CORPUSCULAR HEMOGLOBIN 25.9 pg (27.0-34.0); MEAN CORPUSCULAR VOLUME 78.3 fL (80.0-100.0); MONOCYTES # (AUTO) 0.5 x10^3/uL (0.3-0.8); MONOCYTES % (AUTO) 9.7 % (0.0-13.0); NEUTROPHILS # (AUTO) 2.7 x10^3/uL (2.2-4.8); NEUTROPHILS % (AUTO) 47.2 % (42.0-75.0); PLATELET COUNT 257 X10^3/uL (150.0-450.0); RED BLOOD COUNT 3.57 X10^6/uL (4.7-6.0); RED CELL DISTRIBUTION WIDTH 16.7 % (11.6-16.5); WHITE BLOOD COUNT 5.6 X10^3/uL (3.6-10.0)
[2024-04-08 06:23] LABS: ALANINE AMINOTRANSFERASE < 6 Units/L (12-78); ALBUMIN 1.6 g/dL (3.4-5.0); ALKALINE PHOSPHATASE 81 Units/L (46-116); ASPARTATE AMINO TRANSFERASE 14 Units/L (15-37); BLOOD UREA NITROGEN 8 mg/dL (7-18); CALCIUM 9.9 mg/dL (8.5-10.1); CARBON DIOXIDE 31.7 mmol/L (21-32); CHLORIDE 104 mmol/L (98-107); COR CA(FOR HYPOALB) 11.8 mg/dL (8.5-10.1); CREATININE 1.03 mg/dL (0.70-1.30); GLUCOSE 109 mg/dL (65-99); MAGNESIUM 1.4 mg/dL (2.0-2.9); POTASSIUM 3.9 mmol/L (3.5-5.1); SODIUM 140 mmol/L (136-145); TOTAL PROTEIN 5.9 g/dL (6.4-8.2); eGFR NON BLACK RACES > 60 (>60)
[2024-04-08] MEDS ORDERED: CONSULT PHARMACY - POTASSIUM & MAGNESIUM XX SCH (07:00)
[2024-04-08 08:28] VITALS: RESP 18
[2024-04-08] MEDS: PHARMACY COMMENT IV ONE (08:30)
[2024-04-08] MEDS ORDERED: LASIX PO SCH (09:00)
[2024-04-08 09:11] LABS: CREATININE 1.11 mg/dL (0.70-1.30); VANCOMYCIN,TROUGH 17.2 ug/mL (15-20)
[2024-04-08] MEDS ORDERED: OMNIPAQUE 350 mg/mL 100 mL BTL 100 ML ONE (09:28)
[2024-04-08] MEDS: ALBUMIN HUMAN 25%- 100 ML 100 ML IV SCH (09:32)
[2024-04-08] MEDS: LASIX IVP ONE (09:33)
[2024-04-08] MEDS: COREG TAB 25 MG PO SCH (09:33)
[2024-04-08] MEDS: K-DUR TAB 20 MEQ PO SCH ×2 (09:33→11:11)
[2024-04-08] MEDS: NS 250 ML IV 250 ML IV ONE (09:35)
[2024-04-08] MEDS: MAG-OX TAB PO SCH (11:11)
--- NOTE | 2024-04-08 11:36 | CT ---
EXAM:PELVIS W&W/O CONHISTORY:INFECTED SACRAL DECUBITUS ULCER STAGE IV;COMPARISON:03/27/2024TECHNIQUE:CT of the pelvis obtained without and with IV contrast. Dose reduction techniques including Automated Exposure Control (AEC) and adjustment of mA and kV were utilized.FINDINGS:Erosive changes in the lower sacrum and coccyx with similar appearance of sacral decubitus ulcer extending to the bone surface.. Mild degenerative changes in the hips.No evidence of bowel obstruction. Partially visualized left inguinal hernia containing loop of sigmoid colon. No evidence of obstruction.The bladder is decompressed with Matthews catheter in place. No free air or fluid. Extensive vascular calcifications. Nonspecific presacral induration.IMPRESSION:Similar appearance of sacral decubitus ulcer with findings suggesting osteomyelitis involving the lower sacrum and coccyx.THIS IS AN ELECTRONICALLY VERIFIED FINAL REPORT04/08/2024 11:33 AM - Electronically signed by Giovanni Joy MD
[2024-04-08 13:12] VITALS: BP 146/72; PULSE 73; TEMP 98.3; O2SAT 96
== END 2024-04-08 16:15 | disposition home or self-care (01) | DRG 593 ==
LOC: MED/SURG → OBSVTOIN 17:17 → INTOOBSV 17:17
PROVIDERS: ADMIT Internal Medicine; ATTEND Internal Medicine
DX: R26.89 Other abnormalities of gait and mobility; I48.91 Unspecified atrial fibrillation; B96.4 Proteus (mirabilis) (morganii) as the cause of diseases classified elsewhere; B37.89 Other sites of candidiasis; Z16.12 Extended spectrum beta lactamase (ESBL) resistance; Z79.01 Long term (current) use of anticoagulants; R70.0 Elevated erythrocyte sedimentation rate; R00.1 Bradycardia, unspecified; N40.0 Benign prostatic hyperplasia without lower urinary tract symptoms; Z93.3 Colostomy status; B96.1 Klebsiella pneumoniae [K. pneumoniae] as the cause of diseases classified elsewhere; E86.0 Dehydration; L89.154 Pressure ulcer of sacral region, stage 4; Z68.41 Body mass index [BMI] 40.0-44.9, adult; N39.0 Urinary tract infection, site not specified; R79.82 Elevated C-reactive protein (CRP); E83.42 Hypomagnesemia; Z59.82 Transportation insecurity; R60.0 Localized edema; E11.65 Type 2 diabetes mellitus with hyperglycemia; R94.31 Abnormal electrocardiogram [ECG] [EKG]; Z59.87 Material hardship due to limited financial resources, not elsewhere classified; R53.1 Weakness; B96.29 Other Escherichia coli [E. coli] as the cause of diseases classified elsewhere; E87.1 Hypo-osmolality and hyponatremia; Z65.8 Other specified problems related to psychosocial circumstances; N18.9 Chronic kidney disease, unspecified; E66.01 Morbid (severe) obesity due to excess calories; N17.8 Other acute kidney failure

== ENCOUNTER 2024-05-24 17:00 | Inpatient (IN) ==
--- NOTE | 2024-05-24 17:29 | DR.GENAD ---
HPI Time Seen Time Seen by Provider: 05/24/24 17:29 HPI Comment HPI Comment: History as below. Complaint/Symptoms Chief Complaint Doctors Comments: Patient is a 59-year-old male in the emergency room via EMS complaining of altered mental status. Patient's daughter is with him in the emergency room and is concerned that patient may have urinary tract infection. Patient have an indwelling Matthews catheter. 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 Patient still have ulcer and drainage in that area. His daughter a nurse change dressing daily. Patient was running fever at home No fever in ER currently. He is noted to be confused in the emergency room. COVID-19 Coronavirus risk:travel/contact w/high risk person: No Has patient experienced Coronavirus symptoms: No Nurses notes reviewed Nurses Notes Review: Yes PMH PMH Past Medical History: Arthritis, Depression, Diabetes, Dyslipidemia and Hypertension Past Surgical History: Yes Surgical History: Ortho Surgery Family History Family Medical History: Cancer Social History Do you use any recreational Drugs:: No ROS Review of Systems Constitutional: No Symptoms Reported; negative Fever Eyes: No Symptoms Reported ENTM: No Symptoms Reported; negative Nose Discharge or Nose Congestion Respiratoy: Short of Breath (On exertion.); negative Moist Cough or Wheezing Cardiovascular: No Symptoms Reported; negative Chest Pain or Palpitations Gastrointestinal/Abdominal: Abdominal Pain; negative Diarrhea, Nausea or Vomiting Genitourinary: No Symptoms Reported and Dysuria Neurological: Weakness and Other (Altered mental status); negative Headache or Dizziness Musculoskeletal: No Symptoms Reported and Back Pain Integumentary: Other (Sacral decubitus ulcer and gangrene in the genital area that is healing.) Hematologic/Lymphatic: No Symptoms Reported Endocrine: No Symptoms Reported; negative Increased Thirst or Increased Urine Psychiatric: Depression and Other (Altered mental status.) All Other Systems: Reviewed and Negative Unable to Obtain Due To: Altered mental status PE Vital Signs Vitals: Vital Signs Blood Pressure 168/92 Blood Pressure 168/92 Blood Pressure 204/95 Blood Pressure 204/95 Blood Pressure 204/95 Blood Pressure 204/95 Blood Pressure 178/96 Blood Pressure 178/96 Blood Pressure 201/89 Blood Pressure 201/89 Blood Pressure 201/89 General Limitations: No Limitations General Appearance: Alert and In Distress Head Head Exam: Normal Inspection and Atraumatic Eyes Eye exam: Normal Appearance; negative Scleral Icterus or Conjunctival Injection ENT ENT Exam: Normal Exam, Normal Oropharynx, Normal External Ear Exam and TM's Normal Bilaterally Throat Exam: Normal Inspection; negative Tonsillar Erythema, Tonsillomegaly or Tonsillar Exudate Neck Neck Exam: Normal Inspection and Trachea Midline; negative Tenderness Chest Chest Inspection: Normal Inspection and Symmetric Chest Wall Rise; negative Tend erness Respiratory Respiratory Exam: Normal Lung Sounds Bilat; negative Accessory Muscle Use, Chest Wall Tenderness or Respiratory Distress Respiratory Exam: Bilateral: Rhonchi Cardiovascular Cardiovascular Exam: Irregular Rhythm; negative Systolic Murmur or Diastolic Murmur Abdominal Exam Abdominal Exam: Normal Inspection, Normal Bowel Sounds, Soft and Tenderness Abdominal Tenderness: Diffuse and Moderate Extremities Extremities Exam: Normal Capillary Refill; negative Tenderness or Edema Back Back Exam: Other (Sacral decubitus and healing also in the genital area.) Neurologic Neurological Exam: Alert and Oriented X3; negative Motor Sensory Deficit Psychiatric Psychiatric Exam: Normal Affect and Anxious Skin Skin Exam: Other (Sacral decubitus ulcer and also in the genital area that is infected.) MDM Differential Diagnosis Differential Diagnosis: Sacral decubitus ulcer, healingfournier gangrene, urinary tract infection, COURSE Treatment Treatment: See orders done while patient was in the emergency room. Labs were discussed. Patient is admitted to hospital for further management under Dr. Vela. Patient was given IV fluids and IV antibiotic and blood culture and lactic acid was obtained while in the ER. Head CT done while patient was in the emergency room did not indicate any acute findings. Education/Counseling Education/Counseling: Patient and Family Educated On: Treatment and Diagnosis ROR Labs Reviewed Laboratory Results Reviewed?: Yes 05/28/24 06:04 05/28/24 06:04 Laboratory: 05/24/24 18:50 Sacral Wound Gram Stain - Final 05/24/24 18:50 Sacral Wound Culture - Final Escherichia Coli Esbl 05/24/24 18:50 Scrotum Wound Gram Stain - Final 05/24/24 18:50 Scrotum Wound Culture - Final Escherichia Coli Esbl 05/24/24 18:00 Blood Blood Culture - Preliminary 05/24/24 17:45 Blood Blood Culture - Preliminary 05/24/24 20:41 Urine,Catheterized Urine Culture - Final Escherichia Coli Esbl WBC 10.4 X10^3/uL (3.6-10.0) H 05/24/24 18:25 RBC 5.12 X10^6/uL (4.7-6.0) 05/24/24 18:25 Hgb 13.3 g/dL (13.5-18.0) L 05/24/24 18:25 Hct 39.1 % (42.0-54.0) L 05/24/24 18:25 MCV 76.3 fL (80.0-100.0) L 05/24/24 18: MCH 26.0 pg (27.0-34.0) L 05/24/24 18: MCHC 34.1 g/dL (33.0-35.0) 05/24/24 18: RDW 17.1 % (11.6-16.5) H 05/24/24 18: Plt Count 281 X10^3/uL (150.0-450.0) 05/24/24 18: MPV 8.9 fL (7.4-11.0) 05/24/24 18: Neut % (Auto) 62.9 % (42.0-75.0) 05/24/24 18: Lymph % (Auto) 25.6 % (21.0-51.0) 05/24/24 18: [place] % (Auto) 9.0 % (0.0-13.0) 05/24/24 18: Eos % (Auto) 1.8 % (0.9-2.9) 05/24/24 18: Baso % (Auto) 0.7 % (0.2-1.0) 05/24/24 18: Neut # (Auto) 6.5 x10^3/uL (2.2-4.8) H 05/24/24 18:25 Lymph # (Auto) 2.7 X10^3/uL (1.3-2.9) 05/24/24 18: [place] # (Auto) 0.9 x10^3/uL (0.3-0.8) H 05/24/24 18:25 Eos # (Auto) 0.2 x10^3/uL (0.0-0.2) 05/24/24 18: Baso # (Auto) 0.1 X10^3/uL (0.0-0.1) 05/24/24 18:25 Absolute Nucleated RBC 0.3 /100WBC 05/24/24 18:25 Sodium 134 mmol/L (136-145) L 05/24/24 18:25 Corrected Sodium 135 mmol/L (136-145) L 05/24/24 18:25 Potassium 3.1 mmol/L (3.5-5.1) L 05/24/24 18:25 Chloride 98 mmol/L (98-107) 05/24/24 18:25 Carbon Dioxide 29.3 mmol/L (21-32) 05/24/24 18:25 BUN 13 mg/dL (7-18) 05/24/24 18:25 Creatinine 1.56 mg/dL (0.70-1.30) H 05/24/24 18:25 Est GFR (MDRD) Af Amer 59 (>60) 05/24/24 18:25 Est GFR (MDRD) Non-Af 49 (>60) L 05/24/24 18:25 Glucose 142 mg/dL (65-99) H 05/24/24 18:25 Lactic Acid 2.0 mmol/L (0.4-2.0) 05/24/24 18:25 Calcium 14.3 mg/dL (8.5-10.1) H* 05/24/24 18:25 Corrected Calcium 15.3 mg/dL (8.5-10.1) H 05/24/24 18:25 Total Bilirubin 1.10 mg/dL (0.2-1.0) H 05/24/24 18:25 AST 21 Units/L (15-37) 05/24/24 18:25 ALT 7 Units/L (12-78) L 05/24/24 18:25 Alkaline Phosphatase 78 Units/L (46-116) 05/24/24 18:25 Total Protein 7.5 g/dL (6.4-8.2) 05/24/24 18:25 Albumin 2.8 g/dL (3.4-5.0) L 05/24/24 18:25 Globulin 4.7 g/dL (2.5-4.5) H 05/24/24 18:25 Albumin/Globulin Ratio 0.6 Ratio (1.1-2.1) L 05/24/24 18:25 Specimen Type Catherized urine 05/24/24 20:41 Urine Color Dark yellow (YELLOW) 05/24/24 20:41 Urine Appearance Cloudy (CLEAR) 05/24/24 20:41 Urine pH 5.0 (5.0 - 8.0) 05/24/24 20:41 Ur Specific [employer] 1.025 (1.000-1.030) 05/24/24 20:41 Urine Protein 3+ (NEGATIVE) 05/24/24 20:41 Urine Glucose (UA) Negative (NEGATIVE) 05/24/24 20:41 Urine Ketones 1+ (NEGATIVE) 05/24/24 20:41 Urine Blood 4+ (NEGATIVE) 05/24/24 20:41 Urine Nitrite Negative (NEGATIVE) 05/24/24 20:41 Urine Bilirubin 1+ (NEGATIVE) 05/24/24 20:41 Urine Urobilinogen Normal (NORMAL) 05/24/24 20:41 Ur Leukocyte Esterase 3+ (NEGATIVE) 05/24/24 20:41 Urine RBC 10-20 /HPF (0-3) A 05/24/24 20: Urine WBC Tntc /HPF (0-5) A 05/24/24 20:41 Ur Squamous Epith Cells Negative /HPF (NEGATIVE) 05/24/24 20:41 Amorphous Sediment 3+ /HPF (NEGATIVE) 05/24/24 20:41 Urine Bacteria 3+ /HPF (NEGATIVE) 05/24/24 20:41 Ur Culture Indicated? Yes/culture set up 05/24/24 20:41 XRAY XRAY Interpreted by: Radiologist (Report noted.) and Self EKG Compared to prior EKG Dated: 01/30/24 Rate: 88 [place]: Normal Rhythm: Afib Block: RBBB Hypertrophy: None ST: Nonsp Opioid Opioid Risk Tool Age (Lance box if 16-45): No History of Preadolescent Sexual Abuse: No Total: 0 Total Score Risk Category: Low Risk Copyright: Raoul STEVE predicting aberrant behaviors Management Risks, benefits, and alternatives of opioids discussed: Yes Discharge Plan Diagnosis Discharge Problem: Sacral decubitus ulcer, Babita gangrene, UTI (urinary tract infection) Altered mental status Qualifiers: Altered mental status type: disorientation Qualified Code(s): R41.0 - Disorientation, unspecified Discharge Plan Patient Disposition: ADMITTED INPATIENT Condition: Stable
[2024-05-24] MEDS: NS 1,000 ML IV 1,000 ML IV SCH (17:56)
--- NOTE | 2024-05-24 18:26 | RAD ---
EXAM:CHEST, 1 VIEWHISTORY:BRHONCHI;COMPARISON:04/03/20 24FINDINGS:The trachea is midline. The cardiac silhouette is unremarkable . The lungs are clear without focal infiltrate or effusion. The bony thorax is unremarkable.IMPRESSION:No acute cardiopulmonary disease.THIS IS AN ELECTRONICALLY VERIFIED FINAL REPORT05/24/2024 6:22 PM - Electronically signed by Job Peres MD
[2024-05-24 18:37] LABS: BASOPHILS # (AUTO) 0.1 X10^3/uL (0.0-0.1); BASOPHILS % (AUTO) 0.7 % (0.2-1.0); EOSINOPHILS # (AUTO) 0.2 x10^3/uL (0.0-0.2); EOSINOPHILS % (AUTO) 1.8 % (0.9-2.9); HEMATOCRIT 39.1 % (42.0-54.0); HEMOGLOBIN 13.3 g/dL (13.5-18.0); LYMPHOCYTES # (AUTO) 2.7 X10^3/uL (1.3-2.9); LYMPHOCYTES % (AUTO) 25.6 % (21.0-51.0); MEAN CORPUSCULAR HGB CONC 34.1 g/dL (33.0-35.0); MEAN CORPUSCULAR VOLUME 76.3 fL (80.0-100.0); MEAN PLATELET VOLUME 8.9 fL (7.4-11.0); MONOCYTES # (AUTO) 0.9 x10^3/uL (0.3-0.8); NEUTROPHILS # (AUTO) 6.5 x10^3/uL (2.2-4.8); NEUTROPHILS % (AUTO) 62.9 % (42.0-75.0); PLATELET COUNT 281 X10^3/uL (150.0-450.0); RED BLOOD COUNT 5.12 X10^6/uL (4.7-6.0); RED CELL DISTRIBUTION WIDTH 17.1 % (11.6-16.5); WHITE BLOOD COUNT 10.4 X10^3/uL (3.6-10.0)
[2024-05-24 18:46] LABS: ALBUMIN 2.8 g/dL (3.4-5.0); CARBON DIOXIDE 29.3 mmol/L (21-32); COR CA(FOR HYPOALB) 15.3 mg/dL (8.5-10.1); CREATININE 1.56 mg/dL (0.70-1.30); POTASSIUM 3.1 mmol/L (3.5-5.1); TOTAL PROTEIN 7.5 g/dL (6.4-8.2)
--- NOTE | 2024-05-24 18:47 | CT ---
EXAM:BRAIN W/O CONHISTORY:AMS;COMPARISON:01/30/2024 .br.br.br the skullbase to the vertex using standard departmental protocol. Sagittal and coronal reformatted images were performed. Dose reduction techniques including Automated Exposure Control (AEC) and adjustment of mA and kV were utilized.FINDINGS:The sulci, cisterns and ventricles are age appropriate. Mild cortical atrophy compatible with patient's age. Decreased attenuation in the periventricular and subcortical white matter consistent with microvascular ischemic white matter changes. There is no evidence of acute territorial infarction, hemorrhage, mass, mass effect or midline shift. There are no abnormal intra-axial or extra-axial fluid collections. The visualized paranasal sinuses and mastoid air cells are predominantly clear.IMPRESSION:Mild cortical atrophy with microvascular ischemic white matter changes.No acute intracranial pathologyTHIS IS AN ELECTRONICALLY VERIFIED FINAL REPORT05/24/2024 6:44 PM - Electronically signed by Job Peres MD
[2024-05-24 18:48] LABS: CALCIUM 14.3 mg/dL (8.5-10.1)
[2024-05-24 19:06] LABS: BILIRUBIN,URINE 1+ (NEGATIVE); BLOOD/HEMOGLOBIN,URINE 4+ (NEGATIVE); GLUCOSE, URINE NEGATIVE (NEGATIVE); KETONES,URINE 2+ (NEGATIVE); LEUKOCYTE ESTERASE ,URINE 3+ (NEGATIVE); NITRITES,URINE NEGATIVE (NEGATIVE); PROTEIN,URINE 3+ (NEGATIVE); UROBILINOGEN,URINE 1+ (NORMAL)
[2024-05-24 19:07] LABS: APPEARANCE,URINE HAZY (CLEAR); COLOR,URINE YELLOW (YELLOW)
[2024-05-24] MEDS: VANCOMYCIN IV *PREMIX 1 G/200 ML BAG 1 G/200 ML PIGGYBACK IV ONE (20:38)
[2024-05-24 20:52] LABS: BILIRUBIN,URINE 1+ (NEGATIVE); BLOOD/HEMOGLOBIN,URINE 4+ (NEGATIVE); GLUCOSE, URINE NEGATIVE (NEGATIVE); KETONES,URINE 1+ (NEGATIVE); LEUKOCYTE ESTERASE ,URINE 3+ (NEGATIVE); NITRITES,URINE NEGATIVE (NEGATIVE); PROTEIN,URINE 3+ (NEGATIVE); UROBILINOGEN,URINE NORMAL (NORMAL)
--- NOTE | 2024-05-24 21:06 | EKG ---
Test Reason : Hypercalcemia Blood Pressure : */* mmHG Vent. Rate : 88 BPM Atrial Rate : * BPM P-R Int : * ms QRS Dur : 158 ms QT Int : 446 ms P-R-T Axes : * 82 19 degrees QTc Int : 539 ms Atrial fibrillation Right bundle branch block Abnormal ECG When compared with ECG of 31-MAR-2024 09:28, QRS voltage has increased QT has lengthened Confirmed by Lalito Nsasar MD ([id number]) on 05/25/2024 7:14:43 AM Referred By: Confirmed By: Lalito Nassar MD
[2024-05-24 21:08] LABS: APPEARANCE,URINE CLOUDY (CLEAR); COLOR,URINE DARK YELLOW (YELLOW)
[2024-05-24 21:09] LABS: BACTERIA,URINE 3+ /HPF (NEGATIVE); SQUAMOUS EPITHELIAL CELL,UR NEGATIVE /HPF (NEGATIVE)
[2024-05-24] MEDS: APRESOLINE INJ 20 MG VIAL IVP ONE (21:43)
[2024-05-24] MEDS ORDERED: PHARMACY CONSULT - VANCOMYCIN XX SCH (23:24)
[2024-05-25 00:18] VITALS: BMI 30.2
[2024-05-25] MEDS: NS 1,000 ML IV 1,000 ML IV SCH (00:37)
[2024-05-25] MEDS: VANCOMYCIN IV *PREMIX 1 G/200 ML BAG 1 G/200 ML PIGGYBACK IV ONE (00:40)
[2024-05-25] MEDS: APRESOLINE INJ 20 MG VIAL ONE (01:38)
[2024-05-25 06:19] LABS: BASOPHILS # (AUTO) 0.1 X10^3/uL (0.0-0.1); BASOPHILS % (AUTO) 0.7 % (0.2-1.0); EOSINOPHILS # (AUTO) 0.1 x10^3/uL (0.0-0.2); EOSINOPHILS % (AUTO) 1.3 % (0.9-2.9); HEMATOCRIT 35.2 % (42.0-54.0); HEMOGLOBIN 12.1 g/dL (13.5-18.0); LYMPHOCYTES # (AUTO) 2.1 X10^3/uL (1.3-2.9); LYMPHOCYTES % (AUTO) 19.7 % (21.0-51.0); MEAN CORPUSCULAR HEMOGLOBIN 26.1 pg (27.0-34.0); MEAN CORPUSCULAR HGB CONC 34.3 g/dL (33.0-35.0); MEAN PLATELET VOLUME 9.2 fL (7.4-11.0); MONOCYTES # (AUTO) 0.9 x10^3/uL (0.3-0.8); MONOCYTES % (AUTO) 8.1 % (0.0-13.0); NEUTROPHILS # (AUTO) 7.4 x10^3/uL (2.2-4.8); NEUTROPHILS % (AUTO) 70.2 % (42.0-75.0); PLATELET COUNT 261 X10^3/uL (150.0-450.0); RED BLOOD COUNT 4.63 X10^6/uL (4.7-6.0); RED CELL DISTRIBUTION WIDTH 17.1 % (11.6-16.5); WHITE BLOOD COUNT 10.5 X10^3/uL (3.6-10.0)
[2024-05-25 06:35] LABS: ALANINE AMINOTRANSFERASE 7 Units/L (12-78); ALBUMIN 2.6 g/dL (3.4-5.0); ALKALINE PHOSPHATASE 70 Units/L (46-116); ASPARTATE AMINO TRANSFERASE 20 Units/L (15-37); BLOOD UREA NITROGEN 15 mg/dL (7-18); CARBON DIOXIDE 28.9 mmol/L (21-32); CHLORIDE 98 mmol/L (98-107); COR CA(FOR HYPOALB) 14.9 mg/dL (8.5-10.1); COR NA(FOR HYPERGLY) 138 mmol/L (136-145); GLUCOSE 172 mg/dL (65-99); SODIUM 136 mmol/L (136-145); eGFR NON BLACK RACES 51 (>60)
[2024-05-25 06:38] LABS: CALCIUM 13.8 mg/dL (8.5-10.1); INR 1.25 (0.8-1.3); POTASSIUM 2.9 mmol/L (3.5-5.1)
[2024-05-25] MEDS ORDERED: CONSULT PHARMACY - POTASSIUM & MAGNESIUM XX SCH (07:00)
[2024-05-25] MEDS ORDERED: CONSULT PHARMACY - GENTAMICIN XX SCH (08:00)
[2024-05-25] MEDS ORDERED: NS IV SCH (09:00)
[2024-05-25] MEDS ORDERED: GENTAMICIN IV SCH (09:00)
[2024-05-25] MEDS: LASIX IVP SCH (09:26)
[2024-05-25] MEDS: K-DUR TAB 20 MEQ PO SCH (09:26)
[2024-05-25] MEDS: MAGNESIUM SULFATE 1 GRAM/100 mL PREMIX 1 G/100 ML BAG IV SCH (09:28)
[2024-05-25] MEDS ORDERED: VANCOMYCIN IV *PREMIX 1.75 G/350 ML BAG 1.75 G/350 ML PIGGYBACK IV SCH ×2 (09:30)
[2024-05-25] MEDS: CIPRO IV 400 MG PREMIX* 400 MG/200 ML IV.SOLN. IV SCH (09:51)
[2024-05-25] MEDS: MIACALCIN INJ SC SCH (10:53)
[2024-05-25] MEDS: VANCOMYCIN IV *PREMIX 1.75 G/350 ML BAG 1.75 G/350 ML PIGGYBACK IV SCH (10:54)
[2024-05-25] MEDS: NS + KCL 40 MEQ/L 1,000 ML with MAGNESIUM SULFATE 50% INJ VIAL 2 G IV SCH (11:12)
[2024-05-25] MEDS: MAGNESIUM SULFATE 50% INJ VIAL ONE ×2 (11:21→11:22)
[2024-05-25] MEDS: NovoLIN R (or HumuLIN R) SUBCUT PRN (11:37)
[2024-05-25] MEDS: GENTAMICIN IV SCH (13:18)
[2024-05-25] MEDS: NS IV SCH (13:18)
--- NOTE | 2024-05-25 20:46 | DR.H&P ---
H&P History & Physical for Day of: H&P Date: 05/25/24 Chief Complaint Chief Complaint: Altered mental status History of Present Illness History of Present Illness: This is a 59-year-old white male patient who arrived at the [facility] emergency room by EMS, accompanied by his daughter, and is experiencing altered mental status. His daughter is concerned that he may have a urinary tract infection. 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 His daughter, who is a nurse, changes the dressing daily. The patient ran a fever at home but does not currently have a fever in the ER. He is noted to be confused in the emergency room. The patient has healing wounds in the sacrum and perineal/groin region. Both of these wounds were cultured, and Gram stains were done. The Gram stain shows gram-negative rods and gram-positive cocci. I reviewed the patient's most recent wound cultures from these areas, and they showed that he had ESBL E. coli, Proteus vulgaris, Klebsiella pneumoniae, and a Esther Krusei species of yeast resistant to Fluconazole. The patient was also found to have a severe urinary tract infection with too numerous to count WBCs. The Gram stain shows gram-negative rods on the urine specimen. Currently, he is covered with IV vancomycin for gram-positive cocci, which could possibly be MRSA, and ciprofloxacin and gentamicin. These antibiotics covered the patient's most recent ESBL E. coli, Proteus vulgaris, and Klebsiella pneumoniae wound infection of his sacrum, scrotum, and perineal region history from March 2024. I reviewed the patient's most recent radiology reports from earlier this year and saw that he has a lesion in the L4 vertebra. He also has multiple small basilar pulmonary nodules. He is not a smoker, nor has he ever been one. His mother was a smoker, and his mother recently from metastatic lung cancer. The patient was exposed to secondhand smoke from her when he was a child growing up. The patient's daughter is with him this morning as the p atient is still confused and has difficulty answering questions. We started him on Nemacolin calcitonin last night for his hypercalcemia, which is slightly improved this morning, just above 14. I did inform the patient's daughter that this was not a good finding, with his calcium so high, and that we have to rule out an underlying malignancy because of this. She tells me that he has lost tremendous weight this year. When I reviewed his weights, I saw that he had lost 119 pounds since January 30, 2024. From June 2022 until January 30, 2024, the patient had lost 54 pounds. His hypercalcemia was first identified on January 30, 2024. It has slowly increased since then. The patient also tells me he has been seeing people who are not there. His daughter reports that he has seen her mother, who recently, and he has also seen her last child, who as an infant. He states that they are not speaking to him, but they do look at him. He states that he sees other people that no one sees but does not know who they are. Past Medical History Past Medical History: Arthritis, Depression, Diabetes, Dyslipidemia and Hyperten ann marie Past Surgical History Surgical History: Ortho Surgery Family History Family Medical History: Cancer and Hypertension Social History Does patient currently use any type of tobacco product: Yes Have you used tobacco products in the last 12 months: No Type of Tobacco Use: Chewing Does any household member use tobacco: Yes Alcohol Use: None Drug Use: None Medications Home Medications: Home Medications Medication Instructions Recorded Confirmed Type tizanidine 4 mg tablet 8 mg PO TID 06/21/22 05/24/24 History amlodipine 10 mg tablet 10 mg PO QAM 01/30/24 05/24/24 History apixaban 5 mg tablet (Eliquis) 5 mg PO BID 01/30/24 05/24/24 History bupropion HCl 150 mg 24 hr tablet, 150 mg PO QAM 01/30/24 05/24/24 History extended release carvedilol 25 mg tablet 12.5 mg PO BID 01/30/24 05/24/24 History fenofibrate 160 mg tablet 160 mg PO QDAY 01/30/24 05/24/24 History ferrous sulfate 325 mg (65 mg 325 mg PO QDAY 01/30/24 05/24/24 History iron) tablet,delayed release furosemide 40 mg tablet 40 mg PO QAM 01/30/24 05/24/24 History gabapentin 300 mg capsule 300 mg PO QPM 01/30/24 05/24/24 History hydralazine 25 mg tablet 25 mg PO BID 01/30/24 05/24/24 History potassium chloride 10 mEq 10 meq PO QDAY 01/30/24 05/24/24 History tablet,extended release pravastatin 40 mg tablet 40 mg PO QPM 01/30/24 05/24/24 History quetiapine 50 mg tablet 50 mg PO QPM 01/30/24 05/24/24 History tamsulosin 0.4 mg capsule 0.4 mg PO QPM 01/30/24 05/24/24 History oxybutynin chloride 10 mg 10 mg PO QDAY 03/26/24 05/24/24 History tablet,extended release 24 hr oxycodone 10 mg tablet 10 mg PO PRN PRN 05/24/24 05/24/24 History Allergies Allergies Allergy/AdvReac Type Severity Reaction Status Date / Time No Known Drug Allergies Allergy Verified 01/30/24 21:56 Labs 05/25/24 05:44 05/25/24 05:44 Labs: 05/24/24 18:50 Sacral Wound Gram Stain - Final 05/24/24 18:50 Sacral Wound Culture - Preliminary 05/24/24 18:50 Scrotum Wound Gram Stain - Final 05/24/24 18:50 Scrotum Wound Culture - Preliminary 05/24/24 20:41 Urine,Catheterized Urine Culture - Preliminary Laboratory WBC 10.5 X10^3/uL (3.6-10.0) H 05/25/24 05:44 RBC 4.63 X10^6/uL (4.7-6.0) L 05/25/24 05:44 Hgb 12.1 g/dL (13.5-18.0) L 05/25/24 05:44 Hct 35.2 % (42.0-54.0) L 05/25/24 05:44 MCV 76.0 fL (80.0-100.0) L 05/25/24 05:44 MCH 26.1 pg (27.0-34.0) L 05/25/24 05:44 MCHC 34.3 g/dL (33.0-35.0) 05/25/24 05:44 RDW 17.1 % (11.6-16.5) H 05/25/24 05:44 Plt Count 261 X10^3/uL (150.0-450.0) 05/25/24 05:44 MPV 9.2 fL (7.4-11.0) 05/25/24 05:44 Neut % (Auto) 70.2 % (42.0-75.0) 05/25/24 05:44 Lymph % (Auto) 19.7 % (21.0-51.0) L 05/25/24 05:44 [place] % (Auto) 8.1 % (0.0-13.0) 05/25/24 05:44 Eos % (Auto) 1.3 % (0.9-2.9) 05/25/24 05:44 Baso % (Auto) 0.7 % (0.2-1.0) 05/25/24 05:44 Neut # (Auto) 7.4 x10^3/uL (2.2-4.8) H 05/25/24 05:44 Lymph # (Auto) 2.1 X10^3/uL (1.3-2.9) 05/25/24 05:44 [place] # (Auto) 0.9 x10^3/uL (0.3-0.8) H 05/25/24 05:44 Eos # (Auto) 0.1 x10^3/uL (0.0-0.2) 05/25/24 05:44 Baso # (Auto) 0.1 X10^3/uL (0.0-0.1) 05/25/24 05:44 Absolute Nucleated RBC 0.2 /100WBC 05/25/24 05:44 PT 15.4 SECONDS (11.8-14.3) 05/25/24 05:44 INR Target Range - 05/25/24 05:44 INR 1.25 (0.8-1.3) 05/25/24 05:44 APTT 28.4 SECONDS (22.9-36.5) 05/25/24 05:44 PTT Comment - 05/25/24 05:44 Sodium 136 mmol/L (136-145) 05/25/24 05:44 Corrected Sodium 138 mmol/L (136-145) 05/25/24 05:44 Potassium 2.9 mmol/L (3.5-5.1) L* 05/25/24 05:44 Chloride 98 mmol/L (98-107) 05/25/24 05:44 Carbon Dioxide 28.9 mmol/L (21-32) 05/25/24 05:44 BUN 15 mg/dL (7-18) 05/25/24 05:44 Creatinine 1.50 mg/dL (0.70-1.30) H 05/25/24 05:44 Est GFR (MDRD) Af Amer > 60 (>60) 05/25/24 05:44 Est GFR (MDRD) Non-Af 51 (>60) L 05/25/24 05:44 Glucose 172 mg/dL (65-99) H 05/25/24 05:44 POC Glucose (mg/dL) 118 mg/dL (65-99) H 05/25/24 19:46 Lactic Acid 2.0 mmol/L (0.4-2.0) 05/24/24 18:25 Calcium 13.8 mg/dL (8.5-10.1) H* 05/25/24 05:44 Corrected Calcium 14.9 mg/dL (8.5-10.1) H 05/25/24 05:44 Magnesium 1.0 mg/dL (2.0-2.9) L 05/25/24 05:44 Total Bilirubin 1.00 mg/dL (0.2-1.0) 05/25/24 05:44 AST 20 Units/L (15-37) 05/25/24 05:44 ALT 7 Units/L (12-78) L 05/25/24 05:44 Alkaline Phosphatase 70 Units/L (46-116) 05/25/24 05:44 Total Protein 7.0 g/dL (6.4-8.2) 05/25/24 05:44 Albumin 2.6 g/dL (3.4-5.0) L 05/25/24 05:44 Globulin 4.4 g/dL (2.5-4.5) 05/25/24 05:44 Albumin/Globulin Ratio 0.6 Ratio (1.1-2.1) L 05/25/24 05:44 Specimen Type Catherized urine 05/24/24 20:41 Urine Color Dark yellow (YELLOW) 05/24/24 20:41 Urine Appearance Cloudy (CLEAR) 05/24/24 20:41 Urine pH 5.0 (5.0 - 8.0) 05/24/24 20:41 Ur Specific [place] 1.025 (1.000-1.030) 05/24/24 20:41 Urine Protein 3+ (NEGATIVE) 05/24/24 20:41 Urine Glucose (UA) Negative (NEGATIVE) 05/24/24 20:41 Urine Ketones 1+ (NEGATIVE) 05/24/24 20:41 Urine Blood 4+ (NEGATIVE) 05/24/24 20:41 Urine Nitrite Negative (NEGATIVE) 05/24/24 20:41 Urine Bilirubin 1+ (NEGATIVE) 05/24/24 20:41 Urine Urobilinogen Normal (NORMAL) 05/24/24 20:41 Ur Leukocyte Esterase 3+ (NEGATIVE) 05/24/24 20:41 Urine RBC 10-20 /HPF (0-3) A 05/24/24 20: Urine WBC Tntc /HPF (0-5) A 05/24/24 20:41 Ur Squamous Epith Cells Negative /HPF (NEGATIVE) 05/24/24 20:41 Amorphous Sediment 3+ /HPF (NEGATIVE) 05/24/24 20:41 Urine Bacteria 3+ /HPF (NEGATIVE) 05/24/24 20:41 Ur Culture Indicated? Yes/culture set up 05/24/24 20:41 Review of Systems Constitutional: Fever, Weakness and Malaise Eyes: No Symptoms Reported ENT: No Symptoms Reported Respiratory: Shortness of Breath Cardiovascular: Palpitations and Light Headedness Gastrointestinal: No Symptoms Reported Genitourinary: No Symptoms Reported Musculoskeletal: No Symptoms Reported Skin: Wound (Healing Cora gangrene wounds over the patient's sacrum, scrotum, perineum with purulent drainage) Neurological: Weakness, Incoordination, Change in Speech and Confusion Physical Exam Vital Signs: Vital Signs Temperature 97.8 F Pulse Rate [Left Radial] 90 Respiratory Rate 20 Blood Pressure [Left Arm] 167/84 O2 Sat by Pulse Oximetry 97 Oriented: Not Oriented and Unable to test Eyes: Normal Ear: Normal Nose: Normal Respiratory: Rhonchi Throughout Cardiovascular: Irregular : Dysuria, Frequency and Other (Purulent, malodorous drainage from chronic healing wounds over sacrum, perineum and scrotum.) Auscultation: Bowel Sounds: Normal Palpation: Normal Tenderness: Diffuse and Moderate Skin: Wound Musculoskeletal: Back:Lumbar, Back:Midline, Pelvis, Tender and Instability; negative Sensory Deficit Psychiatric: Other (Patient reports seeing people who are not speaking to him but no one else sees them. The patient's daughter tells me that he has seen her mother recently who has and also has seen her last baby who also many years ago.) Mood Description: Depressed, Fearful, Suspicious and Anxious; negative Angry, Happy, Hostile or Appropriate Affect: Anxious and Depressed; negative Angry, Flat or Violent Speech Pattern: Unclear and Inappropriate (Patient does not communicate coherent ly on most of his statements.); negative Delayed or Artificially Ventilated Assessment/Plan (1) Altered mental status: Qualifiers: Altered mental status type: disorientation Qualified Code(s): R41.0 - Disorientation, unspecified Status: Acute Plan: Patient's altered mental status is likely caused by his underlying urinary tract infection and wound infections. He may possibly have sepsis and we will follow-up with blood cultures once they are back. The patient's hypercalcemia could also cause his confusion along with all his other multiple medical problems. (2) Hypercalcemia: Status: Acute Plan: Calcitonin-salmon at this time. Patient will need PTH to rule in or out hyperparathyroidism, SHAHEED level to rule out sarcoidosis and need to rule out underlying hypercalcemia of malignancy which will be high on the differential diagnosis list given his weight loss of 119 pounds since January 30, 2024 which he has lost in just under 4 months time. (3) Sacral decubitus ulcer: Status: Acute Plan: Follow-up with wound culture. In the meantime we will continue IV vancomycin, gentamicin and ciprofloxacin. The patient's most recent wound infections from the sacral ulcer showed he grew out ESBL E. coli and Proteus vulgaris both sensitive to the above-mentioned antibiotics. (4) Cora gangrene: Status: Acute Plan: The patient is recovering from a recent bout of Cora gangrene. His wounds are healing but currently, they appear infected and are draining. He is covered with IV antibiotics at this time. We will consult general surgeon Dr. Connors to see if the patient's wounds need any debridement. (5) UTI (urinary tract infection): Narrative Support Text: Gram stain gram-negative rods with greater than 100,000 CFU's Status: Acute Plan: Continue IV vancomycin, gentamicin and ciprofloxacin at this time. Follow-up with urine culture when available. (6) Multiple pulmonary nodules: Status: Acute Plan: The patient was recently found to have multiple basilar pulmonary nodules, which the radiologist recommended routine monitoring per CT scan of the lungs. (7) Lesion of lumbar spine: Status: Acute Plan: The patient had a recent lesion found on CT scan in his L4 vertebra. Repeat CT did not show any significant changes over a short amount of time. At this time it is currently unknown if this is a metastatic/malignant lesion. (8) Hypomagnesemia: Status: Acute Plan: Magnesium replacement. (9) Hypoalbuminemia due to protein-calorie malnutrition: Status: Acute Plan: We will encourage the patient to try to eat more. Patient would be a good candidate for Megace. (10) Anemia: Status: Acute Plan: Check anemia profile. (11) Atrial fibrillation and flutter: Status: Acute Plan: Continue carvedilol and Eliquis at this time. (12) Visual hallucinations: Narrative Support Text: The patient is currently on quetiapine 50 mg p.o. every afternoon. Status: Acute Plan: The patient is currently on a short-acting antipsychotic. He may benefit from twice daily or 3 times daily dosing if his visual hallucinations are causing him significant distress. If they are not causing him any distress, it would be fine to continue him on the evening dose of Seroquel alone. (13) Weakness: Status: Acute
[2024-05-25] MEDS ORDERED: OXYCODONE 10 MG PO PRN (20:48)
[2024-05-25] MEDS: SNACK - Diabetic Appropriate PO SCH (21:27)
[2024-05-25] MEDS: PRAVACHOL PO SCH (22:06)
[2024-05-25] MEDS: NEURONTIN CAP 300 MG PO SCH (22:06)
[2024-05-25] MEDS: FLOMAX PO SCH (22:06)
[2024-05-25] MEDS: COREG TAB 25 MG PO SCH (22:06)
[2024-05-25] MEDS: APRESOLINE TAB 25 MG PO SCH (22:06)
[2024-05-25] MEDS: TRICOR TAB 160 MG PO SCH (22:20)
[2024-05-25 22:40] LABS: CREATININE 1.31 mg/dL (0.70-1.30)
[2024-05-25 22:41] LABS: VANCOMYCIN,TROUGH 24.7 ug/mL (15-20)
[2024-05-26 06:01] LABS: BASOPHILS # (AUTO) 0.1 X10^3/uL (0.0-0.1); BASOPHILS % (AUTO) 0.9 % (0.2-1.0); EOSINOPHILS # (AUTO) 0.2 x10^3/uL (0.0-0.2); EOSINOPHILS % (AUTO) 2.8 % (0.9-2.9); HEMATOCRIT 34.1 % (42.0-54.0); HEMOGLOBIN 11.5 g/dL (13.5-18.0); LYMPHOCYTES # (AUTO) 1.8 X10^3/uL (1.3-2.9); LYMPHOCYTES % (AUTO) 21.8 % (21.0-51.0); MEAN CORPUSCULAR HGB CONC 33.9 g/dL (33.0-35.0); MEAN CORPUSCULAR VOLUME 76.7 fL (80.0-100.0); MONOCYTES # (AUTO) 0.9 x10^3/uL (0.3-0.8); MONOCYTES % (AUTO) 10.6 % (0.0-13.0); NEUTROPHILS # (AUTO) 5.3 x10^3/uL (2.2-4.8); NEUTROPHILS % (AUTO) 63.9 % (42.0-75.0); PLATELET COUNT 222 X10^3/uL (150.0-450.0); RED BLOOD COUNT 4.44 X10^6/uL (4.7-6.0); RED CELL DISTRIBUTION WIDTH 16.9 % (11.6-16.5); WHITE BLOOD COUNT 8.3 X10^3/uL (3.6-10.0)
[2024-05-26 06:21] LABS: ALANINE AMINOTRANSFERASE 9 Units/L (12-78); ALBUMIN 2.4 g/dL (3.4-5.0); ALKALINE PHOSPHATASE 63 Units/L (46-116); ASPARTATE AMINO TRANSFERASE 19 Units/L (15-37); BLOOD UREA NITROGEN 14 mg/dL (7-18); CARBON DIOXIDE 28.6 mmol/L (21-32); CHLORIDE 104 mmol/L (98-107); COR CA(FOR HYPOALB) 13.8 mg/dL (8.5-10.1); COR NA(FOR HYPERGLY) 139 mmol/L (136-145); CREATININE 1.24 mg/dL (0.70-1.30); GLUCOSE 117 mg/dL (65-99); MAGNESIUM 1.3 mg/dL (2.0-2.9); POTASSIUM 3.1 mmol/L (3.5-5.1); SODIUM 139 mmol/L (136-145); TOTAL PROTEIN 6.6 g/dL (6.4-8.2); eGFR NON BLACK RACES > 60 (>60)
[2024-05-26 06:33] LABS: CALCIUM 12.5 mg/dL (8.5-10.1)
[2024-05-26] MEDS ORDERED: CONSULT PHARMACY - POTASSIUM & MAGNESIUM XX SCH (07:00)
[2024-05-26] MEDS: LASIX PO SCH (08:32)
[2024-05-26] MEDS: NORVASC TAB 10 MG PO SCH (08:32)
[2024-05-26] MEDS: OXYBUTYNIN CHLORIDE ER PO SCH (08:33)
[2024-05-26] MEDS: WELLBUTRIN XL 150 MG (DAILY) PO SCH (08:33)
[2024-05-26] MEDS: FERROUS GLUCONATE PO SCH (08:33)
[2024-05-26] MEDS ORDERED: [UNRECOGNIZED DRUG - OTHER] PO SCH (09:00)
[2024-05-26] MEDS ORDERED: KLOR-CON 10 MEQ TAB PO SCH (09:00)
[2024-05-26] MEDS ORDERED: FERROUS SULFATE PO SCH (09:00)
[2024-05-26 09:14] LABS: CREATININE 1.16 mg/dL (0.70-1.30); VANCOMYCIN,TROUGH 18.5 ug/mL (15-20)
[2024-05-26] MEDS ORDERED: VANCOMYCIN IV *PREMIX 1.5 G/300 ML BAG 1.5 G/300 ML PIGGYBACK IV SCH (10:00)
[2024-05-26] MEDS: VANCOMYCIN IV *PREMIX 1 G/200 ML BAG 1 G/200 ML PIGGYBACK IV SCH (10:33)
[2024-05-26] MEDS: MERREM VIAL 1 G in NS 100 ML IV 100 ML IV SCH (13:57)
[2024-05-26] MEDS: ROXICODONE TAB 5 MG PO PRN (14:06)
[2024-05-26] MEDS: PHARMACY COMMENT IV ONE (14:29)
--- NOTE | 2024-05-26 17:02 | PCM.PROG ---
Progress Note Progress Note for Day of Date of Exam: 05/26/24 Subjective Subjective: PT IS 59 WM, ER ADMISSION WITH AMS. PT HAD HYPERCALCEMIA ON ADMISSION. PT HAD A CT OF HEAD WO ACUTE FINDINGS. CULTURES OBTAINED ON ADMISSION. PT HAS BEEN BEDRIDDEN FOR SEVERAL MONTHS WITH A LARGE SACRAL DECUBITUS AND INDWELLING MCKEON. 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 PT HAS BEEN ON CALCITROL AND IV HYDRATION WITH ELECTROLYTE REPLACEMENT THIS AM. PT WBC 8.3, HGB 11.5 THIS AM, BUN/CREAT 14/1.16. POTASSIUM 3.1, CA 12.5 THIS. PT HAS HAD ~50LB WEIGHT LOSS IN THE PAST 6 MONTHS. PT REPORT HE HAS BEEN EATING HANDFULS OF TUMS DUE TO SEVERE INDIGESTION. PT STATES HE HAS POOR APPETITE FOR SEVERAL MONTHS. DR BRANHAM CONSULTED FOR GI EVALUATION AND PLAN TO OBTAIN MRI OF LUMBAR SPINE TO EVALUATE PREVIOUS POSSIBLE LYTIC SPINAL LESIONS. Past Medical Family Social History Allergies: Allergies No Known Drug Allergies Allergy (Verified 01/30/24 21:56) Vital Signs and I&O's Vital Signs: Vital Signs Temperature 98.1 F Pulse Rate [Left Radial] 94 Respiratory Rate 18 Respiratory Rate 20 Respiratory Rate 20 Blood Pressure [Left Arm] 168/84 O2 Sat by Pulse Oximetry 95 Intake and Output: Intake & Output 05/24/24 05/25/24 05/26/24 05/27/24 11:59 11:59 11:59 11:59 Intake Total 222 / 222 2585 / 2585 1639 / 1639 Output Total 200 / 200 1445 / 1445 450 / 450 Balance 1140 / 1140 1189 / 1189 Physical Exam Oriented: Not Oriented and Unable to test Eyes: Normal Ear: Normal Nose: Normal Respiratory: Diminished Cardiovascular: Irregular : Dysuria, Frequency and Other (Purulent, malodorous drainage from chronic healing wounds over sacrum, perineum and scrotum.) Auscultation: Bowel Sounds: Normal Tenderness: Diffuse and Moderate Skin: Wound and Other (COLOSTOMY PRESENT ) Musculoskeletal: Back:Lumbar, Back:Midline, Pelvis, Tender and Instability; negative Sensory Deficit Psychiatric: Other (Patient reports seeing people who are not speaking to him but no one else sees them. The patient's daughter tells me that he has seen her mother recently who has and also has seen her last baby who also many years ago.) Mood Description: Depressed, Fearful, Suspicious and Anxious; negative Angry, Happy, Hostile or Appropriate Affect: Anxious and Depressed; negative Angry, Flat or Violent Speech Pattern: Inappropriate and Excessive Laboratory and Diagnostics 05/26/24 05:20 05/26/24 08:44 Labs: 05/24/24 18:50 Sacral Wound Gram Stain - Final 05/24/24 18:50 Sacral Wound Culture - Preliminary Escherichia Coli Esbl 05/24/24 18:00 Blood Blood Culture - Preliminary 05/24/24 17:45 Blood Blood Culture - Preliminary 05/24/24 18:50 Scrotum Wound Gram Stain - Final 05/24/24 18:50 Scrotum Wound Culture - Preliminary Escherichia Coli Esbl 05/24/24 20:41 Urine,Catheterized Urine Culture - Final Escherichia Coli Esbl Laboratory WBC 8.3 X10^3/uL (3.6-10.0) 05/26/24 05:20 RBC 4.44 X10^6/uL (4.7-6.0) L 05/26/24 05:20 Hgb 11.5 g/dL (13.5-18.0) L 05/26/24 05:20 Hct 34.1 % (42.0-54.0) L 05/26/24 05:20 MCV 76.7 fL (80.0-100.0) L 05/26/24 05:20 MCH 26.0 pg (27.0-34.0) L 05/26/24 05:20 MCHC 33.9 g/dL (33.0-35.0) 05/26/24 05:20 RDW 16.9 % (11.6-16.5) H 05/26/24 05:20 Plt Count 222 X10^3/uL (150.0-450.0) 05/26/24 05:20 MPV 9.0 fL (7.4-11.0) 05/26/24 05:20 Neut % (Auto) 63.9 % (42.0-75.0) 05/26/24 05:20 Lymph % (Auto) 21.8 % (21.0-51.0) 05/26/24 05:20 [place] % (Auto) 10.6 % (0.0-13.0) 05/26/24 05:20 Eos % (Auto) 2.8 % (0.9-2.9) 05/26/24 05:20 Baso % (Auto) 0.9 % (0.2-1.0) 05/26/24 05:20 Neut # (Auto) 5.3 x10^3/uL (2.2-4.8) H 05/26/24 05:20 Lymph # (Auto) 1.8 X10^3/uL (1.3-2.9) 05/26/24 05:20 [place] # (Auto) 0.9 x10^3/uL (0.3-0.8) H 05/26/24 05:20 Eos # (Auto) 0.2 x10^3/uL (0.0-0.2) 05/26/24 05:20 Baso # (Auto) 0.1 X10^3/uL (0.0-0.1) 05/26/24 05:20 Absolute Nucleated RBC 0.2 /100WBC 05/26/24 05:20 PT 15.4 SECONDS (11.8-14.3) 05/25/24 05:44 INR Target Range - 05/25/24 05:44 INR 1.25 (0.8-1.3) 05/25/24 05:44 APTT 28.4 SECONDS (22.9-36.5) 05/25/24 05:44 PTT Comment - 05/25/24 05:44 Sodium 139 mmol/L (136-145) 05/26/24 05:20 Corrected Sodium 139 mmol/L (136-145) 05/26/24 05:20 Potassium 3.1 mmol/L (3.5-5.1) L 05/26/24 05:20 Chloride 104 mmol/L (98-107) 05/26/24 05:20 Carbon Dioxide 28.6 mmol/L (21-32) 05/26/24 05:20 BUN 14 mg/dL (7-18) 05/26/24 05:20 Creatinine 1.16 mg/dL (0.70-1.30) 05/26/24 08:44 Est GFR (MDRD) Af Amer > 60 (>60) 05/26/24 05:20 Est GFR (MDRD) Non-Af > 60 (>60) 05/26/24 05:20 Glucose 117 mg/dL (65-99) H 05/26/24 05:20 POC Glucose (mg/dL) 118 mg/dL (65-99) H 05/26/24 05:31 Lactic Acid 2.0 mmol/L (0.4-2.0) 05/24/24 18:25 Calcium 12.5 mg/dL (8.5-10.1) H* 05/26/24 05:20 Corrected Calcium 13.8 mg/dL (8.5-10.1) H 05/26/24 05:20 Magnesium 1.3 mg/dL (2.0-2.9) L 05/26/24 05:20 Total Bilirubin 0.80 mg/dL (0.2-1.0) 05/26/24 05:20 AST 19 Units/L (15-37) 05/26/24 05:20 ALT 9 Units/L (12-78) L 05/26/24 05:20 Alkaline Phosphatase 63 Units/L (46-116) 05/26/24 05:20 Total Protein 6.6 g/dL (6.4-8.2) 05/26/24 05:20 Albumin 2.4 g/dL (3.4-5.0) L 05/26/24 05:20 Globulin 4.2 g/dL (2.5-4.5) 05/26/24 05:20 Albumin/Globulin Ratio 0.6 Ratio (1.1-2.1) L 05/26/24 05:20 Specimen Type Catherized urine 05/24/24 20:41 Urine Color Dark yellow (YELLOW) 05/24/24 20:41 Urine Appearance Cloudy (CLEAR) 05/24/24 20:41 Urine pH 5.0 (5.0 - 8.0) 05/24/24 20:41 Ur Specific [place] 1.025 (1.000-1.030) 05/24/24 20:41 Urine Protein 3+ (NEGATIVE) 05/24/24 20:41 Urine Glucose (UA) Negative (NEGATIVE) 05/24/24 20:41 Urine Ketones 1+ (NEGATIVE) 05/24/24 20:41 Urine Blood 4+ (NEGATIVE) 05/24/24 20:41 Urine Nitrite Negative (NEGATIVE) 05/24/24 20:41 Urine Bilirubin 1+ (NEGATIVE) 05/24/24 20:41 Urine Urobilinogen Normal (NORMAL) 05/24/24 20:41 Ur Leukocyte Esterase 3+ (NEGATIVE) 05/24/24 20:41 Urine RBC 10-20 /HPF (0-3) A 05/24/24 20:41 Urine WBC Tntc /HPF (0-5) A 05/24/24 20:41 Ur Squamous Epith Cells Negative /HPF (NEGATIVE) 05/24/24 20:41 Amorphous Sediment 3+ /HPF (NEGATIVE) 05/24/24 20:41 Urine Bacteria 3+ /HPF (NEGATIVE) 05/24/24 20:41 Ur Culture Indicated? Yes/culture set up 05/24/24 20:41 Random Gentamicin 7.6 ug/mL 05/25/24 23:55 Vancomycin Trough 18.5 ug/mL (15-20) 05/26/24 08:44 Plan (1) Altered mental status: Status: Acute Qualifiers: Altered mental status type: disorientation Qualified Code(s): R41.0 - Disorientation, unspecified Plan: Patient's altered mental status is likely caused by his underlying urinary tract infection and wound infections. Blood cultures, urine and wound cultures obtained on admission with culture pending. IV hydration, GI consult, (2) Hypercalcemia: Status: Acute Plan: Calcitonin-salmon at this time. Patient will need PTH to rule in or out hyperparathyroidism, SHAHEED level to rule out sarcoidosis and need to rule out underlying hypercalcemia of malignancy which will be high on the differential diagnosis list given his weight loss of 119 pounds since January 30, 2024 which he has lost in just under 4 months time. (3) Sacral decubitus ulcer: Status: Acute (4) UTI (urinary tract infection): Status: Acute Plan: Continue IV vancomycin, gentamicin and ciprofloxacin at this time. Follow-up with urine culture when available. (5) Multiple pulmonary nodules: Status: Acute Plan: The patient was recently found to have multiple basilar pulmonary nodules, which the radiologist recommended routine monitoring per CT scan of the lungs. (6) Lesion of lumbar spine: Status: Acute Plan: The patient had a recent lesion found on CT scan in his L4 vertebra. Repeat CT did not show any significant changes over a short amount of time. At this time it is currently unknown if this is a metastatic/malignant lesion. (7) Hypomagnesemia: Status: Acute Plan: Magnesium replacement. (8) Hypoalbuminemia due to protein-calorie malnutrition: Status: Acute Plan: We will encourage the patient to try to eat more. Patient would be a good candidate for Megace. (9) Anemia: Status: Acute Plan: Check anemia profile. (10) Atrial fibrillation and flutter: Status: Acute Plan: Continue carvedilol and Eliquis at this time. (11) Visual hallucinations: Status: Acute Plan: The patient is currently on a short-acting antipsychotic. He may benefit from twice daily or 3 times daily dosing if his visual hallucinations are causing him significant distress. If they are not causing him any distress, it would be fine to continue him on the evening dose of Seroquel alone. (12) Weakness: Status: Acute
[2024-05-26] MEDS: SEROquel TAB 25 mg PO SCH (21:12)
[2024-05-26] MEDS: PROTONIX INJ 40 MG VIAL IVP SCH (21:12)
[2024-05-26] MEDS ORDERED: GENTAMICIN IV SCH (23:59)
[2024-05-26] MEDS ORDERED: NS IV SCH (23:59)
[2024-05-27 07:08] LABS: BASOPHILS # (AUTO) 0.1 X10^3/uL (0.0-0.1); BASOPHILS % (AUTO) 1.3 % (0.2-1.0); EOSINOPHILS # (AUTO) 0.4 x10^3/uL (0.0-0.2); EOSINOPHILS % (AUTO) 5.9 % (0.9-2.9); HEMATOCRIT 32.6 % (42.0-54.0); HEMOGLOBIN 10.9 g/dL (13.5-18.0); LYMPHOCYTES # (AUTO) 1.9 X10^3/uL (1.3-2.9); LYMPHOCYTES % (AUTO) 29.8 % (21.0-51.0); MEAN CORPUSCULAR HEMOGLOBIN 26.2 pg (27.0-34.0); MEAN CORPUSCULAR HGB CONC 33.6 g/dL (33.0-35.0); MEAN CORPUSCULAR VOLUME 77.8 fL (80.0-100.0); MEAN PLATELET VOLUME 8.8 fL (7.4-11.0); MONOCYTES # (AUTO) 0.7 x10^3/uL (0.3-0.8); MONOCYTES % (AUTO) 10.8 % (0.0-13.0); NEUTROPHILS # (AUTO) 3.4 x10^3/uL (2.2-4.8); NEUTROPHILS % (AUTO) 52.2 % (42.0-75.0); PLATELET COUNT 211 X10^3/uL (150.0-450.0); RED BLOOD COUNT 4.18 X10^6/uL (4.7-6.0); RED CELL DISTRIBUTION WIDTH 16.9 % (11.6-16.5); WHITE BLOOD COUNT 6.5 X10^3/uL (3.6-10.0)
[2024-05-27 07:21] LABS: ALANINE AMINOTRANSFERASE 8 Units/L (12-78); ALBUMIN 2.2 g/dL (3.4-5.0); ALKALINE PHOSPHATASE 59 Units/L (46-116); ASPARTATE AMINO TRANSFERASE 21 Units/L (15-37); BLOOD UREA NITROGEN 16 mg/dL (7-18); CALCIUM 11.6 mg/dL (8.5-10.1); CARBON DIOXIDE 29.3 mmol/L (21-32); CHLORIDE 107 mmol/L (98-107); GLUCOSE 91 mg/dL (65-99); LACTATE DEHYDROGENASE 109 Units/L (85-227); MAGNESIUM 1.4 mg/dL (2.0-2.9); POTASSIUM 3.6 mmol/L (3.5-5.1); SODIUM 140 mmol/L (136-145); TOTAL PROTEIN 6.1 g/dL (6.4-8.2); eGFR NON BLACK RACES > 60 (>60)
[2024-05-27 07:40] LABS: IRON 34 ug/dL (50-175)
[2024-05-27] MEDS ORDERED: MAGNESIUM SULFATE 1 GRAM/100 mL PREMIX 1 G/100 ML BAG IV SCH (08:00)
[2024-05-27] MEDS ORDERED: CONSULT PHARMACY - POTASSIUM & MAGNESIUM XX SCH (08:00)
[2024-05-27] MEDS: HEMOCYTE-PLUS PO SCH (09:27)
[2024-05-27] MEDS: NS IV SCH (09:52)
[2024-05-27] MEDS: KCL IV SCH (09:52)
[2024-05-27] MEDS: MAGNESIUM SULFATE IV SCH (09:52)
[2024-05-27] MEDS ORDERED: PHARMACY COMMENT IV NR (11:30)
[2024-05-27] MEDS: NS 500 ML IV 500 ML IV ONE (12:08)
[2024-05-27] MEDS: DIPRIVAN VIAL 20 ML ONE (12:20)
[2024-05-27 21:53] LABS: CREATININE 1.31 mg/dL (0.70-1.30)
[2024-05-27 21:58] LABS: VANCOMYCIN,TROUGH 25.1 ug/mL (15-20)
[2024-05-27] MEDS: PHARMACY COMMENT IV ONE (22:22)
--- NOTE | 2024-05-28 06:16 | RAD ---
EXAM:CHEST, 1 VIEWHISTORY:SOB; HTN, DM SX: ORTHO, COLOSTOMYCOMPARISON:05/24/2024FINDINGS:T he trachea is midline. The cardiac silhouette is unremarkable . The lungs are clear without focal infiltrate or effusion. The bony thorax is unremarkable.IMPRESSION:No acute cardiopulmonary disease.THIS IS AN ELECTRONICALLY VERIFIED FINAL REPORT05/28/2024 6:13 AM - Electronically signed by Job Peres MD
[2024-05-28 06:27] LABS: BASOPHILS # (AUTO) 0.1 X10^3/uL (0.0-0.1); BASOPHILS % (AUTO) 2.3 % (0.2-1.0); EOSINOPHILS # (AUTO) 0.4 x10^3/uL (0.0-0.2); EOSINOPHILS % (AUTO) 6.3 % (0.9-2.9); HEMATOCRIT 30.9 % (42.0-54.0); HEMOGLOBIN 10.3 g/dL (13.5-18.0); LYMPHOCYTES # (AUTO) 1.7 X10^3/uL (1.3-2.9); LYMPHOCYTES % (AUTO) 28.9 % (21.0-51.0); MEAN CORPUSCULAR HEMOGLOBIN 26.2 pg (27.0-34.0); MEAN CORPUSCULAR HGB CONC 33.4 g/dL (33.0-35.0); MEAN CORPUSCULAR VOLUME 78.4 fL (80.0-100.0); MEAN PLATELET VOLUME 8.7 fL (7.4-11.0); MONOCYTES # (AUTO) 0.6 x10^3/uL (0.3-0.8); MONOCYTES % (AUTO) 10.4 % (0.0-13.0); NEUTROPHILS # (AUTO) 3.1 x10^3/uL (2.2-4.8); NEUTROPHILS % (AUTO) 52.1 % (42.0-75.0); PLATELET COUNT 194 X10^3/uL (150.0-450.0); RED BLOOD COUNT 3.94 X10^6/uL (4.7-6.0); WHITE BLOOD COUNT 5.9 X10^3/uL (3.6-10.0)
--- NOTE | 2024-05-28 06:32 | MRI ---
EXAM: MRI LUMBAR SPINE WITHOUT CONTRAST HISTORY: DDD LUMBAR SPINE; COMPARISON: None. TECHNIQUE: Multiplanar multisequence MRI was obtained through the lumbar spine without contrast. FINDINGS: There are 5 nonrib-bearing lumbar vertebral bodies. 3 mm retrolisthesis of L3 relative to L4 is noted . Alignment appears otherwise within normal limits. Vertebral body heights are within normal limits . Discogenic degenerative marrow changes are present. The conus medullaris terminates normally. Visua lized posterior abdomen and pelvis are within normal limits. L1-2: Posterior annular tear noted. Mild disc bulge. Right neural foramina protrusion. Mild facet joint osteoarthritis. Mild neural foraminal narrowing bilaterally. L2-3: Mild disc bulge. Right neural foramina protrusion. Mild facet joint osteoarthritis. Mild efrain ral foraminal narrowing bilaterally. L3-4: Mild disc bulge. Right neural foramina protrusion. Mild facet joint osteoarthritis. Mild rig ht neural foraminal narrowing. L4-5: Mild disc bulge. Moderate facet joint osteoarthritis. L5-S1: Mild disc bulge. Neural foramina protrusion bilaterally. Mild facet joint osteoarthritis. S evere left and moderate right neural foraminal narrowing. IMPRESSION: Multilevel lumbar spine degenerative changes appear most prominent at L5-S1 where there is severe lef t and moderate right neural foraminal narrowing. THIS IS AN ELECTRONICALLY VERIFIED FINAL REPORT 05/28/2024 6:30 AM - Electronically signed by Lukasz Olivier MD
[2024-05-28 06:46] LABS: ALANINE AMINOTRANSFERASE 7 Units/L (12-78); ALKALINE PHOSPHATASE 59 Units/L (46-116); ASPARTATE AMINO TRANSFERASE 22 Units/L (15-37); BLOOD UREA NITROGEN 18 mg/dL (7-18); CALCIUM 10.6 mg/dL (8.5-10.1); CARBON DIOXIDE 28.1 mmol/L (21-32); CHLORIDE 111 mmol/L (98-107); COR CA(FOR HYPOALB) 12.2 mg/dL (8.5-10.1); CREATININE 1.26 mg/dL (0.70-1.30); GLUCOSE 104 mg/dL (65-99); MAGNESIUM 1.7 mg/dL (2.0-2.9); SODIUM 143 mmol/L (136-145); TOTAL PROTEIN 5.6 g/dL (6.4-8.2); eGFR NON BLACK RACES > 60 (>60)
[2024-05-28] MEDS ORDERED: CONSULT PHARMACY - POTASSIUM & MAGNESIUM XX SCH (07:00)
[2024-05-28] MEDS ORDERED: VANCOMYCIN IV *PREMIX 1 G/200 ML BAG 1 G/200 ML PIGGYBACK IV SCH (09:00)
[2024-05-28] MEDS: NS 100 ML IV 100 ML ONE (11:06)
[2024-05-28] MEDS: OMNIPAQUE 350 mg/mL 100 mL BTL 100 ML ONE (11:07)
--- NOTE | 2024-05-28 16:05 | CT ---
EXAM:CT CHEST WITH IV CONTRASTHISTORY:lung nodules [id number]:CT 01/30/2024TECHNIQUE:Multiple axial images of the chest were obtained from the thoracic inlet to the upper abdomenfollowing the administration of IV contrast. Sagittal and coronal reformations are performed. Dose reduction techniques including Automated Exposure Control (AEC) and adjustment of mA and kV were utilized.FINDINGS:Stable calcified granuloma is seen in the right lung apex. 2 stable noncalcified nodules are seen in the right lung apex measuring up to 3.5 mm. Other calcified granuloma are seen in the mid to lower right lung and in the left lung. Ground-glass nodule in the right middle lobe measures 5.5 mm, unchanged. 2 other subpleural nodules in the right middle lobe are similar in size and are stable.In the mid left upper lobe there is a ground-glass nodule on image 24 of series 5. It is stable. There may be 1 or 2 other tiny noncalcified nodules in the left lung, unchanged. Tiny pleural effusions are seen with mild associated atelectasis, new since prior study.Heart is normal in size. Coronary artery vascular calcifications are seen. Small reactive appearing cervical lymph nodes are similar to prior study. A few of these are slightly hyperdense suggesting calcification. This could be from prior granulomatous infection given the lung findings. The thoracic aorta is normal in size without evidence of dissection.There is splenomegaly. There is fatty infiltration of the liver and probable hepatomegaly.IMPRESSION:Calcified granuloma and other small noncalcified nodules in the lungs are unchanged. If patient has elevated risk factors for malignancy, consider follow-up CT in 1 year's time. However, all of the nodules are probably from prior granulomatous infection.New tiny pleural effusions are seen.THIS IS AN ELECTRONICALLY VERIFIED FINAL REPORT05/28/2024 4:02 PM - Electronically signed by Sean Varma MD
--- NOTE | 2024-05-28 17:33 | PCM.PROG ---
Progress Note Progress Note for Day of Date of Exam: 05/27/24 Subjective Subjective: PT IS 59 WM, ER ADMISSION WITH AMS. PT HAD HYPERCALCEMIA ON ADMISSION. PT HAD A CT OF HEAD WO ACUTE FINDINGS. CULTURES OBTAINED ON ADMISSION. PT HAS BEEN BEDRIDDEN FOR SEVERAL MONTHS WITH A LARGE SACRAL DECUBITUS AND INDWELLING MCKEON. 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 PT HAS BEEN ON CALCITROL AND IV HYDRATION WITH ELECTROLYTE REPLACEMENT THIS AM. PT WBC 4.8, HGB 10.3 THIS AM, BUN/CREAT 16/1.30. POTASSIUM 3.6, CA IMPROVED TO 11.6 THIS AM. PT HAS HAD ~50LB WEIGHT LOSS IN THE PAST 6 MONTHS. PT REPORT HE HAS BEEN EATING HANDFULS OF TUMS DUE TO SEVERE INDIGESTION. PT STATES HE HAS POOR APPETITE FOR SEVERAL MONTHS. DR BRANHAM CONSULTED FOR GI EVALUATION AND PT IS NPO FOR EGD TODAY. WE PLAN TO OBTAIN MRI OF LUMBAR SPINE TO EVALUATE PREVIOUS POSSIBLE LYTIC SPINAL LESIONS. PT HAS HX OF LUNG NODULES AND WE PLAN TO OBTAIN A CT CHEST W CONTRAST IN THE AM. Past Medical Family Social History Allergies: Allergies No Known Drug Allergies Allergy (Verified 01/30/24 21:56) Vital Signs and I&O's Vital Signs: Vital Signs Temperature 98.2 F Pulse Rate [Left Radial] 60 Respiratory Rate 18 Blood Pressure [Left Arm] 145/71 O2 Sat by Pulse Oximetry 96 Intake and Output: Intake & Output 05/25/24 05/26/24 05/27/24 05/28/24 11:59 11:59 11:59 11:59 Intake Total 222 / 222 2585 / 2585 3541 / 3541 2268 / 2268 Output Total 200 / 200 1445 / 1445 850 / 850 1470 / 1470 Balance 1140 / 1140 2691 / 2691 798 / 798 Physical Exam Oriented: Not Oriented and Unable to test Eyes: Normal Ear: Normal Nose: Normal Respiratory: Diminished Cardiovascular: Irregular : Dysuria, Frequency and Other (Purulent, malodorous drainage from chronic healing wounds over sacrum, perineum and scrotum.) Auscultation: Bowel Sounds: Normal Tenderness: Diffuse and Moderate Skin: Wound and Other (COLOSTOMY PRESENT ) Musculoskeletal: Back:Lumbar, Back:Midline, Pelvis, Tender and Instability; negative Sensory Deficit Psychiatric: Other (Patient reports seeing people who are not speaking to him but no one else sees them. The patient's daughter tells me that he has seen her mother recently who has and also has seen her last baby who also many years ago.) Mood Description: Depressed, Fearful, Suspicious and Anxious; negative Angry, Happy, Hostile or Appropriate Affect: Anxious and Depressed; negative Angry, Flat or Violent Speech Pattern: Inappropriate Laboratory and Diagnostics 05/28/24 06:04 05/28/24 06:04 Labs: 05/24/24 18:50 Sacral Wound Gram Stain - Final 05/24/24 18:50 Sacral Wound Culture - Final Escherichia Coli Esbl 05/24/24 18:50 Scrotum Wound Gram Stain - Final 05/24/24 18:50 Scrotum Wound Culture - Final Escherichia Coli Esbl 05/24/24 18:00 Blood Blood Culture - Preliminary 05/24/24 17:45 Blood Blood Culture - Preliminary 05/24/24 20:41 Urine,Catheterized Urine Culture - Final Escherichia Coli Esbl Laboratory WBC 5.9 X10^3/uL (3.6-10.0) 05/28/24 06:04 RBC 3.94 X10^6/uL (4.7-6.0) L 05/28/24 06:04 Hgb 10.3 g/dL (13.5-18.0) L 05/28/24 06:04 Hct 30.9 % (42.0-54.0) L 05/28/24 06:04 MCV 78.4 fL (80.0-100.0) L 05/28/24 06:04 MCH 26.2 pg (27.0-34.0) L 05/28/24 06:04 MCHC 33.4 g/dL (33.0-35.0) 05/28/24 06:04 RDW 17.0 % (11.6-16.5) H 05/28/24 06:04 Plt Count 194 X10^3/uL (150.0-450.0) 05/28/24 06:04 MPV 8.7 fL (7.4-11.0) 05/28/24 06:04 Neut % (Auto) 52.1 % (42.0-75.0) 05/28/24 06:04 Lymph % (Auto) 28.9 % (21.0-51.0) 05/28/24 06:04 [place] % (Auto) 10.4 % (0.0-13.0) 05/28/24 06:04 Eos % (Auto) 6.3 % (0.9-2.9) H 05/28/24 06:04 Baso % (Auto) 2.3 % (0.2-1.0) H 05/28/24 06:04 Neut # (Auto) 3.1 x10^3/uL (2.2-4.8) 05/28/24 06:04 Lymph # (Auto) 1.7 X10^3/uL (1.3-2.9) 05/28/24 06:04 [place] # (Auto) 0.6 x10^3/uL (0.3-0.8) 05/28/24 06:04 Eos # (Auto) 0.4 x10^3/uL (0.0-0.2) H 05/28/24 06:04 Baso # (Auto) 0.1 X10^3/uL (0.0-0.1) 05/28/24 06:04 Absolute Nucleated RBC 0.1 /100WBC 05/28/24 06:04 PT 15.4 SECONDS (11.8-14.3) 05/25/24 05:44 INR Target Range - 05/25/24 05:44 INR 1.25 (0.8-1.3) 05/25/24 05:44 APTT 28.4 SECONDS (22.9-36.5) 05/25/24 05:44 PTT Comment - 05/25/24 05:44 Sodium 143 mmol/L (136-145) 05/28/24 06:04 Corrected Sodium TNP 05/28/24 06:04 Potassium 4.0 mmol/L (3.5-5.1) 05/28/24 06:04 Chloride 111 mmol/L (98-107) H 05/28/24 06:04 Carbon Dioxide 28.1 mmol/L (21-32) 05/28/24 06:04 BUN 18 mg/dL (7-18) 05/28/24 06:04 Creatinine 1.26 mg/dL (0.70-1.30) 05/28/24 06:04 Est GFR (MDRD) Af Amer > 60 (>60) 05/28/24 06:04 Est GFR (MDRD) Non-Af > 60 (>60) 05/28/24 06:04 Glucose 104 mg/dL (65-99) H 05/28/24 06:04 POC Glucose (mg/dL) 118 mg/dL (65-99) H 05/26/24 05:31 Lactic Acid 2.0 mmol/L (0.4-2.0) 05/24/24 18:25 Calcium 10.6 mg/dL (8.5-10.1) H 05/28/24 06:04 Corrected Calcium 12.2 mg/dL (8.5-10.1) H 05/28/24 06:04 Magnesium 1.7 mg/dL (2.0-2.9) L 05/28/24 06:04 Iron 34 ug/dL (50-175) L 05/27/24 06:30 Ferritin 66 ng/mL (26-388) 05/27/24 06:30 Total Bilirubin 0.50 mg/dL (0.2-1.0) 05/28/24 06:04 AST 22 Units/L (15-37) 05/28/24 06:04 ALT 7 Units/L (12-78) L 05/28/24 06:04 Alkaline Phosphatase 59 Units/L (46-116) 05/28/24 06:04 Lactate Dehydrogenase 109 Units/L (85-227) 05/27/24 06:30 Total Protein 5.6 g/dL (6.4-8.2) L 05/28/24 06:04 Albumin 2.0 g/dL (3.4-5.0) L 05/28/24 06:04 Globulin 3.6 g/dL (2.5-4.5) 05/28/24 06:04 Albumin/Globulin Ratio 0.6 Ratio (1.1-2.1) L 05/28/24 06:04 Vitamin B12 391 pg/mL (193-986) 05/27/24 06:30 Folate 4.5 ng/mL (>8.6) L 05/27/24 06:30 Specimen Type Catherized urine 05/24/24 20:41 Urine Color Dark yellow (YELLOW) 05/24/24 20:41 Urine Appearance Cloudy (CLEAR) 05/24/24 20:41 Urine pH 5.0 (5.0 - 8.0) 05/24/24 20:41 Ur Specific [place] 1.025 (1.000-1.030) 05/24/24 20:41 Urine Protein 3+ (NEGATIVE) 05/24/24 20:41 Urine Glucose (UA) Negative (NEGATIVE) 05/24/24 20:41 Urine Ketones 1+ (NEGATIVE) 05/24/24 20:41 Urine Blood 4+ (NEGATIVE) 05/24/24 20:41 Urine Nitrite Negative (NEGATIVE) 05/24/24 20:41 Urine Bilirubin 1+ (NEGATIVE) 05/24/24 20:41 Urine Urobilinogen Normal (NORMAL) 05/24/24 20:41 Ur Leukocyte Esterase 3+ (NEGATIVE) 05/24/24 20:41 Urine RBC 10-20 /HPF (0-3) A 05/24/24 20:41 Urine WBC Tntc /HPF (0-5) A 05/24/24 20:41 Ur Squamous Epith Cells Negative /HPF (NEGATIVE) 05/24/24 20:41 Amorphous Sediment 3+ /HPF (NEGATIVE) 05/24/24 20:41 Urine Bacteria 3+ /HPF (NEGATIVE) 05/24/24 20:41 Ur Culture Indicated? Yes/culture set up 05/24/24 20:41 Random Gentamicin 7.6 ug/mL 05/25/24 23:55 Vancomycin Trough 25.1 ug/mL (15-20) H* 05/27/24 21:15 Plan (1) Altered mental status: Status: Acute Qualifiers: Altered mental status type: disorientation Qualified Code(s): R41.0 - Disorientation, unspecified Plan: Patient's altered mental status is likely caused by his underlying urinary tract infection and wound infections. Blood cultures, urine and wound cultures obtained on admission with culture pending. IV hydration, GI consult, (2) Hypercalcemia: Status: Acute Plan: Calcitonin-salmon at this time. Patient will need PTH to rule in or out hyperparathyroidism, SHAHEED level to rule out sarcoidosis and need to rule out underlying hypercalcemia of malignancy which will be high on the differential diagnosis list given his weight loss of 119 pounds since January 30, 2024 which he has lost in just under 4 months time. (3) Sacral decubitus ulcer: Status: Acute Plan: Follow-up with wound culture. In the meantime we will continue IV vancomycin, gentamicin and ciprofloxacin. The patient's most recent wound infections from the sacral ulcer showed he grew out ESBL E. coli and Proteus vulgaris both sensitive to the above-mentioned antibiotics. (4) UTI (urinary tract infection): Status: Acute Plan: Continue IV vancomycin, gentamicin and ciprofloxacin at this time. Follow-up with urine culture when available. (5) Multiple pulmonary nodules: Status: Acute Plan: The patient was recently found to have multiple basilar pulmonary nodules, which the radiologist recommended routine monitoring per CT scan of the lungs. (6) Lesion of lumbar spine: Status: Acute Plan: The patient had a recent lesion found on CT scan in his L4 vertebra. Repeat CT did not show any significant changes over a short amount of time. At this time it is currently unknown if this is a metastatic/malignant lesion. (7) Hypomagnesemia: Status: Acute Plan: Magnesium replacement. (8) Hypoalbuminemia due to protein-calorie malnutrition: Status: Acute Plan: We will encourage the patient to try to eat more. Patient would be a good candidate for Megace. (9) Anemia: Status: Acute Plan: Check anemia profile. (10) Atrial fibrillation and flutter: Status: Acute Plan: Continue carvedilol and Eliquis at this time. (11) Visual hallucinations: Status: Acute Plan: The patient is currently on a short-acting antipsychotic. He may benefit from twice daily or 3 times daily dosing if his visual hallucinations are causing him significant distress. If they are not causing him any distress, it would be fine to continue him on the evening dose of Seroquel alone. (12) Weakness: Status: Acute
[2024-05-28 19:52] LABS: CRYPTOSPORIDIUM PARVUM ANTIGEN NEGATIVE (NEGATIVE); GIARDIA LAMBLIA ANTIGEN NEGATIVE (NEGATIVE)
[2024-05-29 10:25] VITALS: O2SAT 98
[2024-05-29 12:06] VITALS: BP 152/67; PULSE 74; TEMP 97.7
[2024-05-29 15:37] VITALS: RESP 20
--- NOTE | 2024-05-29 17:19 | PCM.PROG ---
Progress Note Progress Note for Day of Date of Exam: 05/28/24 Subjective Subjective: PT IS 59 WM, ER ADMISSION WITH AMS. PT HAD HYPERCALCEMIA ON ADMISSION. PT HAD A CT OF HEAD WO ACUTE FINDINGS. CULTURES OBTAINED ON ADMISSION. PT HAS BEEN BEDRIDDEN FOR SEVERAL MONTHS WITH A LARGE SACRAL DECUBITUS AND INDWELLING MCKEON. 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 PT HAS BEEN ON CALCITROL AND IV HYDRATION WITH ELECTROLYTE REPLACEMENT THIS AM. PT WBC 5.9, HGB 10.3 THIS AM, BUN/CREAT 18/1.26. CA IMPROVED TO 10.6 THIS AM. PT HAS HAD ~50LB WEIGHT LOSS IN THE PAST 6 MONTHS. PT REPORT HE HAS BEEN EATING HANDFULS OF TUMS DUE TO SEVERE INDIGESTION. PT STATES HE HAS POOR APPETITE FOR SEVERAL MONTHS. DR BRANHAM CONSULTED FOR GI EVALUATION HE HAD AN EGD AND MRI OF LSPINE OBTAINED WITHOUT SIGNS OF OSTEOMYELITIS. CT OF CHEST ORDERD TO EVALUATE PULMONARY NODULES LAST SEEN ON CT 3 MOS AGO. PT IS MORE AWAKE AND ALERT THIS AM, IRRITABLE BUT ORIENTED. FAMILY AT BEDSIDE Past Medical Family Social History Allergies: Allergies No Known Drug Allergies Allergy (Verified 01/30/24 21:56) Vital Signs and I&O's Vital Signs: Vital Signs Temperature 97.7 F Pulse Rate [Left Radial] 74 Respiratory Rate 20 Respiratory Rate 18 Blood Pressure [Left Arm] 152/67 O2 Sat by Pulse Oximetry 98 Intake and Output: Intake & Output 05/27/24 05/28/24 05/29/24 05/30/24 11:59 11:59 11:59 11:59 Intake Total 3541 / 3541 2268 / 2268 195 / 1951 600 / 600 Output Total 850 / 850 1470 / 1470 1600 / 1600 400 / 400 Balance 2691 / 2691 798 / 798 351 / 351 200 / 200 Physical Exam Oriented: Not Oriented and Unable to test Eyes: Normal Ear: Normal Nose: Normal Respiratory: Diminished Cardiovascular: Irregular : Dysuria, Frequency and Other (Purulent, malodorous drainage from chronic hea ling wounds over sacrum, perineum and scrotum.) Auscultation: Bowel Sounds: Normal Tenderness: Diffuse and Moderate Skin: Wound and Other (COLOSTOMY PRESENT ) Musculoskeletal: Back:Lumbar, Back:Midline, Pelvis, Tender and Instability; negative Sensory Deficit Psychiatric: Other (Patient reports seeing people who are not speaking to him but no one else sees them. The patient's daughter tells me that he has seen her mother recently who has and also has seen her last baby who also many years ago.) Mood Description: Depressed, Fearful, Suspicious and Anxious; negative Angry, Happy, Hostile or Appropriate Affect: Anxious and Depressed; negative Angry, Flat or Violent Speech Pattern: Clear and Appropriate Laboratory and Diagnostics 05/28/24 06:04 05/28/24 06:04 Labs: 05/28/24 17:48 Stool - Final 05/24/24 18:50 Sacral Wound Gram Stain - Final 05/24/24 18:50 Sacral Wound Culture - Final Escherichia Coli Esbl 05/24/24 18:50 Scrotum Wound Gram Stain - Final 05/24/24 18:50 Scrotum Wound Culture - Final Escherichia Coli Esbl 05/24/24 18:00 Blood Blood Culture - Preliminary 05/24/24 17:45 Blood Blood Culture - Preliminary 05/24/24 20:41 Urine,Catheterized Urine Culture - Final Escherichia Coli Esbl Laboratory WBC 5.9 X10^3/uL (3.6-10.0) 05/28/24 06:04 RBC 3.94 X10^6/uL (4.7-6.0) L 05/28/24 06:04 Hgb 10.3 g/dL (13.5-18.0) L 05/28/24 06:04 Hct 30.9 % (42.0-54.0) L 05/28/24 06:04 MCV 78.4 fL (80.0-100.0) L 05/28/24 06:04 MCH 26.2 pg (27.0-34.0) L 05/28/24 06:04 MCHC 33.4 g/dL (33.0-35.0) 05/28/24 06:04 RDW 17.0 % (11.6-16.5) H 05/28/24 06:04 Plt Count 194 X10^3/uL (150.0-450.0) 05/28/24 06:04 MPV 8.7 fL (7.4-11.0) 05/28/24 06:04 Neut % (Auto) 52.1 % (42.0-75.0) 05/28/24 06:04 Lymph % (Auto) 28.9 % (21.0-51.0) 05/28/24 06:04 Motley % (Auto) 10.4 % (0.0-13.0) 05/28/24 06:04 Eos % (Auto) 6.3 % (0.9-2.9) H 05/28/24 06:04 Baso % (Auto) 2.3 % (0.2-1.0) H 05/28/24 06:04 Neut # (Auto) 3.1 x10^3/uL (2.2-4.8) 05/28/24 06:04 Lymph # (Auto) 1.7 X10^3/uL (1.3-2.9) 05/28/24 06:04 [place]ley # (Auto) 0.6 x10^3/uL (0.3-0.8) 05/28/24 06:04 Eos # (Auto) 0.4 x10^3/uL (0.0-0.2) H 05/28/24 06:04 Baso # (Auto) 0.1 X10^3/uL (0.0-0.1) 05/28/24 06:04 Absolute Nucleated RBC 0.1 /100WBC 05/28/24 06:04 PT 15.4 SECONDS (11.8-14.3) 05/25/24 05:44 INR Target Range - 05/25/24 05:44 INR 1.25 (0.8-1.3) 05/25/24 05:44 APTT 28.4 SECONDS (22.9-36.5) 05/25/24 05:44 PTT Comment - 05/25/24 05:44 Sodium 143 mmol/L (136-145) 05/28/24 06:04 Corrected Sodium TNP 05/28/24 06:04 Potassium 4.0 mmol/L (3.5-5.1) 05/28/24 06:04 Chloride 111 mmol/L (98-107) H 05/28/24 06:04 Carbon Dioxide 28.1 mmol/L (21-32) 05/28/24 06:04 BUN 18 mg/dL (7-18) 05/28/24 06:04 Creatinine 1.26 mg/dL (0.70-1.30) 05/28/24 06:04 Est GFR (MDRD) Af Amer > 60 (>60) 05/28/24 06:04 Est GFR (MDRD) Non-Af > 60 (>60) 05/28/24 06:04 Glucose 104 mg/dL (65-99) H 05/28/24 06:04 POC Glucose (mg/dL) 123 mg/dL (65-99) H 05/29/24 10:56 Lactic Acid 2.0 mmol/L (0.4-2.0) 05/24/24 18:25 Calcium 10.6 mg/dL (8.5-10.1) H 05/28/24 06:04 Corrected Calcium 12.2 mg/dL (8.5-10.1) H 05/28/24 06:04 Magnesium 1.7 mg/dL (2.0-2.9) L 05/28/24 06:04 Iron 34 ug/dL (50-175) L 05/27/24 06:30 Ferritin 66 ng/mL (26-388) 05/27/24 06:30 Total Bilirubin 0.50 mg/dL (0.2-1.0) 05/28/24 06:04 AST 22 Units/L (15-37) 05/28/24 06:04 ALT 7 Units/L (12-78) L 05/28/24 06:04 Alkaline Phosphatase 59 Units/L (46-116) 05/28/24 06:04 Lactate Dehydrogenase 109 Units/L (85-227) 05/27/24 06:30 Total Protein 5.6 g/dL (6.4-8.2) L 05/28/24 06:04 Albumin 2.0 g/dL (3.4-5.0) L 05/28/24 06:04 Globulin 3.6 g/dL (2.5-4.5) 05/28/24 06:04 Albumin/Globulin Ratio 0.6 Ratio (1.1-2.1) L 05/28/24 06:04 Vitamin B12 391 pg/mL (193-986) 05/27/24 06:30 Folate 4.5 ng/mL (>8.6) L 05/27/24 06:30 Specimen Type Catherized urine 05/24/24 20:41 Urine Color Dark yellow (YELLOW) 05/24/24 20:41 Urine Appearance Cloudy (CLEAR) 05/24/24 20:41 Urine pH 5.0 (5.0 - 8.0) 05/24/24 20:41 Ur Specific [place] 1.025 (1.000-1.030) 05/24/24 20:41 Urine Protein 3+ (NEGATIVE) 05/24/24 20:41 Urine Glucose (UA) Negative (NEGATIVE) 05/24/24 20:41 Urine Ketones 1+ (NEGATIVE) 05/24/24 20:41 Urine Blood 4+ (NEGATIVE) 05/24/24 20:41 Urine Nitrite Negative (NEGATIVE) 05/24/24 20:41 Urine Bilirubin 1+ (NEGATIVE) 05/24/24 20:41 Urine Urobilinogen Normal (NORMAL) 05/24/24 20:41 Ur Leukocyte Esterase 3+ (NEGATIVE) 05/24/24 20:41 Urine RBC 10-20 /HPF (0-3) A 05/24/24 20:41 Urine WBC Tntc /HPF (0-5) A 05/24/24 20:41 Ur Squamous Epith Cells Negative /HPF (NEGATIVE) 05/24/24 20:41 Amorphous Sediment 3+ /HPF (NEGATIVE) 05/24/24 20:41 Urine Bacteria 3+ /HPF (NEGATIVE) 05/24/24 20:41 Ur Culture Indicated? Yes/culture set up 05/24/24 20:41 Stl Occult Blood (IFOB) Positive (NEGATIVE) A 05/28/24 17:48 Stool for White Cells Positive (NEGATIVE) A 05/28/24 17:48 Stl C. diff Tox B Gene Positive (NEGATIVE) A 05/28/24 17:48 Stl C. diff [id number] Presumptive negative (NEGATIVE) 05/28/24 17:48 Random Gentamicin 7.6 ug/mL 05/25/24 23:55 Vancomycin Trough 25.1 ug/mL (15-20) H* 05/27/24 21:15 C. difficile Toxin A&B Negative (NEGATIVE) 05/28/24 17:48 Cryptosporid parvum Ag Negative (NEGATIVE) 05/28/24 17:48 Giardia lamblia Ag Negative (NEGATIVE) 05/28/24 17:48 Plan (1) Altered mental status: Status: Acute Qualifiers: Altered mental status type: disorientation Qualified Code(s): R41.0 - Disorientation, unspecified Plan: Patient's altered mental status is likely caused by his underlying urinary tract infection and wound infections. Blood cultures, urine and wound cultures obtained on admission with culture pending. IV hydration, GI consult, (2) Hypercalcemia: Status: Acute Plan: Calcitonin-salmon at this time. Patient will need PTH to rule in or out hyperparathyroidism, SHAHEED level to rule out sarcoidosis and need to rule out underlying hypercalcemia of malignancy which will be high on the differential diagnosis list given his weight loss of 119 pounds since January 30, 2024 which he has lost in just under 4 months time. (3) Sacral decubitus ulcer: Status: Acute Plan: Follow-up with wound culture. In the meantime we will continue IV vancomycin, gentamicin and ciprofloxacin. The patient's most recent wound infections from the sacral ulcer showed he grew out ESBL E. coli and Proteus vulgaris both sensitive to the above-mentioned antibiotics. (4) UTI (urinary tract infection): Status: Acute Plan: Continue IV vancomycin, gentamicin and ciprofloxacin at this time. Follow-up with urine culture when available. (5) Multiple pulmonary nodules: Status: Acute Plan: The patient was recently found to have multiple basilar pulmonary nodules, which the radiologist recommended routine monitoring per CT scan of the lungs. (6) Lesion of lumbar spine: Status: Acute Plan: The patient had a recent lesion found on CT scan in his L4 vertebra. Repeat CT did not show any significant changes over a short amount of time. At this time it is currently unknown if this is a metastatic/malignant lesion. (7) Hypomagnesemia: Status: Acute Plan: Magnesium replacement. (8) Hypoalbuminemia due to protein-calorie malnutrition: Status: Acute Plan: We will encourage the patient to try to eat more. Patient would be a good candidate for Megace. (9) Anemia: Status: Acute Plan: Check anemia profile. (10) Atrial fibrillation and flutter: Status: Acute Plan: Continue carvedilol and Eliquis at this time. (11) Visual hallucinations: Status: Acute Plan: The patient is currently on a short-acting antipsychotic. He may benefit from twice daily or 3 times daily dosing if his visual hallucinations are causing him significant distress. If they are not causing him any distress, it would be fine to continue him on the evening dose of Seroquel alone. (12) Weakness: Status: Acute
== END 2024-05-29 17:55 | disposition home or self-care (01) | DRG 689 ==
LOC: ER 17:00 → MED/SURG 21:58
PROVIDERS: ADMIT Family Medicine; ATTEND Internal Medicine

== ENCOUNTER 2024-12-31 22:04 | Inpatient (IN) ==
[2024-12-31 22:51] LABS: BASOPHILS # (AUTO) 0.1 X10^3/uL (0.0-0.1); EOSINOPHILS # (AUTO) 0.2 x10^3/uL (0.0-0.2); HEMOGLOBIN 10.8 g/dL (13.5-18.0)
[2024-12-31 22:55] LABS: INR 1.86 (0.8-1.3)
[2024-12-31 22:59] LABS: BASOPHILS % (AUTO) 0.9 % (0.2-1.0); EOSINOPHILS % (AUTO) 2.5 % (0.9-2.9); HEMATOCRIT 31.4 % (42.0-54.0); LYMPHOCYTES # (AUTO) 0.6 X10^3/uL (1.3-2.9); LYMPHOCYTES % (AUTO) 8.5 % (21.0-51.0); MEAN CORPUSCULAR HEMOGLOBIN 26.8 pg (27.0-34.0); MEAN CORPUSCULAR HGB CONC 34.4 g/dL (33.0-35.0); MEAN CORPUSCULAR VOLUME 77.8 fL (80.0-100.0); MEAN PLATELET VOLUME 8.8 fL (7.4-11.0); MONOCYTES # (AUTO) 0.6 x10^3/uL (0.3-0.8); MONOCYTES % (AUTO) 7.6 % (0.0-13.0); NEUTROPHILS # (AUTO) 6.1 x10^3/uL (2.2-4.8); NEUTROPHILS % (AUTO) 80.5 % (42.0-75.0); PLATELET COUNT 197 X10^3/uL (150.0-450.0); RED BLOOD COUNT 4.03 X10^6/uL (4.7-6.0); RED CELL DISTRIBUTION WIDTH 15.5 % (11.6-16.5); WHITE BLOOD COUNT 7.5 X10^3/uL (3.6-10.0)
[2024-12-31 23:00] LABS: ALANINE AMINOTRANSFERASE < 6 Units/L (12-78); ALBUMIN 2.8 g/dL (3.4-5.0); ALKALINE PHOSPHATASE 57 Units/L (46-116); ASPARTATE AMINO TRANSFERASE 13 Units/L (15-37); CHLORIDE 102 mmol/L (98-107); SODIUM 139 mmol/L (136-145); TOTAL PROTEIN 6.8 g/dL (6.4-8.2)
[2024-12-31 23:15] LABS: BILIRUBIN,URINE NEGATIVE (NEGATIVE); BLOOD/HEMOGLOBIN,URINE 4+ (NEGATIVE); GLUCOSE, URINE NEGATIVE (NEGATIVE); KETONES,URINE 1+ (NEGATIVE); LEUKOCYTE ESTERASE ,URINE 2+ (NEGATIVE); NITRITES,URINE NEGATIVE (NEGATIVE); PROTEIN,URINE 4+ (NEGATIVE); UROBILINOGEN,URINE 1+ (NORMAL)
[2024-12-31 23:15] LABS: BLOOD UREA NITROGEN 38 mg/dL (7-18); CALCIUM 10.2 mg/dL (8.5-10.1); CARBON DIOXIDE 28.2 mmol/L (21-32); COR CA(FOR HYPOALB) 11.2 mg/dL (8.5-10.1); COR NA(FOR HYPERGLY) 140 mmol/L (136-145); GLUCOSE 157 mg/dL (65-99); eGFR NON BLACK RACES 44 (>60)
[2024-12-31 23:18] LABS: LIPASE 1676 Units/L (16-77)
[2024-12-31 23:25] LABS: APPEARANCE,URINE CLOUDY (CLEAR); BACTERIA,URINE 4+ /HPF (NEGATIVE); COLOR,URINE YELLOW (YELLOW); SQUAMOUS EPITHELIAL CELL,UR FEW /HPF (NEGATIVE)
--- NOTE | 2024-12-31 23:33 | CT ---
PROCEDURE: CT Abdomen and Pelvis without IV Contrast.HISTORY: Patient in ER via EMS with complaints of mid abdominal pain x3 days. Pt has LLQ colostomy ; HTN, DM, ATRIAL FLUTTER SX: ORTHO, COLOSTOMY .TECHNIQUE: Axial images were performed through the abdomen and pelvis without the administration of IV contrast with multiplanar reformations . Oral contrast was notadministered . Dose reduction techniques including Automated Exposure Control (AEC) and adjustment of mA and kV were utilized ..COMPARISON: 01/31/2024.TECHNICAL QUALITY: Satisfactory.FINDINGS:Moderate bilateral pleural effusions with compressive atelectasis lung bases some mild ground-glass consolidation aerated lung could be related to edema, chronic interstitial disease, or atypical pneumonia. Normal-sized heart. Splenomegaly at 16 cm. Hepatomegaly at 27 cm. Adrenals and pancreas show mild peripancreatic stranding consistent with acute pancreatitis with no pseudocyst. 1 cm left adrenal nodule is unchanged. Multiple gallstones in the gallbladder with minimal pericholecystic stranding could represent cholecystitis normal biliary tree. No ascites or pneumoperitoneum. Mild atherosclerosis aorta. No lymphadenopathy. No bowel obstruction or inflammation and normal appendix. Diverting colostomy left lower quadrant. Pelvis shows no masses or free fluid. Urinary bladder collapsed around a Matthews catheter with some air in the lumen. No acute bony abnormality.IMPRESSION:Unchanged hepatomegaly. Unchanged splenomegaly. Cholelithiasis with possible acute cholecystitis. Mild acute pancreatitis. Unchanged left adrenal adenoma. Diverting colostomy left lower quadrant. Bibasilar ground-glass consolidation and pleural fluid could be related to pneumonia or edema.THIS IS AN ELECTRONICALLY VERIFIED FINAL REPORT12/31/2024 11:22 PM - Electronically signed by Carroll Roger MD
--- NOTE | 2025-01-01 00:19 | DR.ABDMALE ---
HPI Time seen Time Seen by Provider: 12/31/24 22:30 PCP Primary Care Physician: BISHNU Moreno Complaint Chief Complaint Doctors Comments: 59 yo M, hx of HTN, DM, a-flutter on eliquis, c/o mid abd pain/cramping with increasing severity over the past 4d. Pt also c/o multiple episodes of diarrhea hte past couple days. Denies other complaints. Chief Complaint:: Patient in ER via EMS with complaints of abdominal pain x3 days. Patient report that he has decreased appetite and has only eaten breakfast the last 3 days. Daughter reports that last night he had hard stool in his colostomy and today he has had liquid stool. Patient reports pain level 9/10 in his abdomen. Self Treatment fo Chief Complaint: None COVID-19 Coronavirus risk:travel/contact w/high risk person: No Has patient experienced Coronavirus symptoms: No Mode of arrival Mode of Arrival: EMS Timing Onset of Chief Complaint: 12/28/24 PMH PMH Past Medical History: Yes Past Medical History: Arthritis, Depression, Diabetes, Dyslipidemia and Hypertension Past Medical History Comment: Atrial flutter Past Surgical History: Yes Surgical History: Ortho Surgery Family History History of Family Medical Conditions: Yes Family Medical History: Cancer and Hypertension Social History Do you use any recreational Drugs:: No Travel Risk Coronavirus risk:travel/contact w/high risk person: No Has patient experienced Coronavirus symptoms: No Infectious screening In the last 2 months have you had wt loss of >10#?: NO Have you had fever, night sweats or hemotysis?: No Have you traveled outside the country in the last 6 months?: No Isolation: Standard ROS Review of Systems Gastrointestinal/Abdominal: Abdominal Pain, Diarrhea and Nausea All Other Systems: Reviewed and Negative PE Vital Signs Vital Signs: Temp Pulse Resp BP Pulse Ox O2 Del Method 12/31/24 22:20 55 L 21 92 L 12/31/24 22:04 97.6 F 61 18 163/76 91 L Room Air General Limitations: No Limitations General Appearance: Alert and In No Apparent Distress Head Head Exam: Normal Inspection Eyes Eye exam: Normal Appearance ENT ENT Exam: Normal Exam Neck Neck Exam: Normal Inspection Chest Chest Inspection: Normal Inspection Respiratory Respiratory Exam: Normal Lung Sounds Bilat Cardiovascular Cardiovascular Exam: Regular Rate and Normal Rhythm Abdominal Exam Abdominal Exam: Tenderness (mid abd & epi abd tenderness) Rectal Rectal Exam: Deferred Back Back Exam: Normal Inspection Extremeties Extremities Exam: Normal Inspection Exam: Male: Deferred Neurologic Neurological Exam: Alert and Oriented X3 Psychiatric Psychiatric Exam: Normal Affect and Normal Mood Skin Skin Exam: Warm, Dry, Intact and Normal Color ROR Labs Reviewed Laboratory Results Reviewed?: Yes 12/31/24 22:41 12/31/24 22:41 Laboratory: WBC 7.5 X10^3/uL (3.6-10.0) 12/31/24 22:41 RBC 4.03 X10^6/uL (4.7-6.0) L 12/31/24 22:41 Hgb 10.8 g/dL (13.5-18.0) L 12/31/24 22:41 Hct 31.4 % (42.0-54.0) L 12/31/24 22:41 MCV 77.8 fL (80.0-100.0) L 12/31/24 22:41 MCH 26.8 pg (27.0-34.0) L 12/31/24 22:41 MCHC 34.4 g/dL (33.0-35.0) 12/31/24 22:41 RDW 15.5 % (11.6-16.5) 12/31/24 22:41 Plt Count 197 X10^3/uL (150.0-450.0) 12/31/24 22:41 MPV 8.8 fL (7.4-11.0) 12/31/24 22:41 Neut % (Auto) 80.5 % (42.0-75.0) H 12/31/24 22:41 Lymph % (Auto) 8.5 % (21.0-51.0) L 12/31/24 22:41 [place] % (Auto) 7.6 % (0.0-13.0) 12/31/24 22:41 Eos % (Auto) 2.5 % (0.9-2.9) 12/31/24 22:41 Baso % (Auto) 0.9 % (0.2-1.0) 12/31/24 22:41 Neut # (Auto) 6.1 x10^3/uL (2.2-4.8) H 12/31/24 22:41 Lymph # (Auto) 0.6 X10^3/uL (1.3-2.9) L 12/31/24 22:41 [facility] # (Auto) 0.6 x10^3/uL (0.3-0.8) 12/31/24 22:41 Eos # (Auto) 0.2 x10^3/uL (0.0-0.2) 12/31/24 22:41 Baso # (Auto) 0.1 X10^3/uL (0.0-0.1) 12/31/24 22:41 Absolute Nucleated RBC 0.2 /100WBC 12/31/24 22:41 PT 20.8 SECONDS (11.8-14.3) 12/31/24 22:41 INR Target Range - 12/31/24 22:41 INR 1.86 (0.8-1.3) H 12/31/24 22:41 APTT 43.2 SECONDS (22.9-36.5) H 12/31/24 22:41 PTT Comment - 12/31/24 22:41 Sodium 139 mmol/L (136-145) 12/31/24 22:41 Corrected Sodium 140 mmol/L (136-145) 12/31/24 22:41 Potassium 3.0 mmol/L (3.5-5.1) L 12/31/24 22:41 Chloride 102 mmol/L (98-107) 12/31/24 22:41 Carbon Dioxide 28.2 mmol/L (21-32) 12/31/24 22:41 BUN 38 mg/dL (7-18) H 12/31/24 22:41 Creatinine 1.70 mg/dL (0.70-1.30) H 12/31/24 22:41 Est GFR (MDRD) Af Amer 53 (>60) L 12/31/24 22:41 Est GFR (MDRD) Non-Af 44 (>60) L 12/31/24 22:41 Glucose 157 mg/dL (65-99) H 12/31/24 22:41 Calcium 10.2 mg/dL (8.5-10.1) H 12/31/24 22:41 Corrected Calcium 11.2 mg/dL (8.5-10.1) H 12/31/24 22:41 Total Bilirubin 1.50 mg/dL (0.2-1.0) H 12/31/24 22:41 AST 13 Units/L (15-37) L 12/31/24 22:41 ALT < 6 Units/L (12-78) L 12/31/24 22:41 Alkaline Phosphatase 57 Units/L (46-116) 12/31/24 22:41 Total Protein 6.8 g/dL (6.4-8.2) 12/31/24 22:41 Albumin 2.8 g/dL (3.4-5.0) L 12/31/24 22:41 Globulin 4.0 g/dL (2.5-4.5) 12/31/24 22:41 Albumin/Globulin Ratio 0.7 Ratio (1.1-2.1) L 12/31/24 22:41 Lipase 1676 Units/L (16-77) H 12/31/24 22:41 Specimen Type Catherized urine 12/31/24 11:08 Urine Color Yellow (YELLOW) 12/31/24 11:08 Urine Appearance Cloudy (CLEAR) 12/31/24 11:08 Urine pH 5.0 (5.0 - 8.0) 12/31/24 11:08 Ur Specific [place] 1.020 (1.000-1.030) 12/31/24 11:08 Urine Protein 4+ (NEGATIVE) 12/31/24 11:08 Urine Glucose (UA) Negative (NEGATIVE) 12/31/24 11:08 Urine Ketones 1+ (NEGATIVE) 12/31/24 11:08 Urine Blood 4+ (NEGATIVE) 12/31/24 11:08 Urine Nitrite Negative (NEGATIVE) 12/31/24 11:08 Urine Bilirubin Negative (NEGATIVE) 12/31/24 11:08 Urine Urobilinogen 1+ (NORMAL) 12/31/24 11:08 Ur Leukocyte Esterase 2+ (NEGATIVE) 12/31/24 11:08 Urine RBC 5-10 /HPF (0-3) A 12/31/24 11:08 Urine WBC 10-20 /HPF (0-5) A 12/31/24 11:08 Ur Squamous Epith Cells Few /HPF (NEGATIVE) 12/31/24 11:08 Amorphous Sediment 3+ /HPF (NEGATIVE) 12/31/24 11:08 Urine Bacteria 4+ /HPF (NEGATIVE) 12/31/24 11:08 Ur Culture Indicated? Yes/culture set up 12/31/24 11:08 Opioid Opioid Risk Tool Age (Lance box if 16-45): No History of Preadolescent Sexual Abuse: No Total: 0 Total Score Risk Category: Low Risk Copyright: Raoul STEVE predicting aberrant behaviors Discharge Plan Diagnosis Discharge Problem: Acute pancreatitis, Cholelithiasis Discharge Plan Patient Disposition: ADMITTED INPATIENT Condition: Stable Prescriptions: No Action ferrous sulfate 325 mg (65 mg iron) Tablet,Delayed Release (Dr/Ec) 325 mg PO QAM furosemide 40 mg tablet 40 mg PO QAM carvedilol 12.5 mg tablet 12.5 mg PO BID oxybutynin chloride 10 mg tablet extended release 24hr 10 mg PO QPM pravastatin 40 mg tablet 40 mg PO QPM tizanidine 4 mg tablet 4 mg PO TID PRN hydralazine 25 mg tablet 25 mg PO BID potassium chloride 10 mEq tablet extended release 10 meq PO QAM omeprazole 40 mg capsule,delayed release(DR/EC) 40 mg PO QAM tamsulosin 0.4 mg capsule 0.4 mg PO QPM amlodipine 10 mg tablet 10 mg PO QAM gabapentin 300 mg capsule 300 mg PO QPM bupropion HCl 150 mg tablet extended release 24 hr 150 mg PO QAM escitalopram oxalate 5 mg tablet 5 mg PO QPM fenofibrate 160 mg tablet 160 mg PO QAM quetiapine 50 mg tablet 50 mg PO QPM oxycodone 10 mg tablet 10 mg PO TID PRN Eliquis 5 mg tablet 5 mg PO BID Health Concerns: Post Hospitalization: new medications and changes needed to prevent readmission or further decline. Pt educated and given instructions on all concerns. Plan of Treatment: Continue with present treatment and follow up plan. Pt is to keep follow up appointment as instructed and take medications as ordered. Orders to Discharge Patient Discharge Orders: Transfer (Routine); Ordered 01/01/25 Ordered By: Jass Drake Follow ups/Referrals Follow ups/Referrals: [facility],None [Primary Care Provider] - 3 days Instructions Stand Alone Forms: Find Help Web Site, Post Hospital Follow Up Care ADDITIONAL NOTES Additional Notes Additional Notes: spoke with Dr Sidhu who accepts pt at this time.
[2025-01-01] MEDS: NS 1,000 ML IV 1,000 ML IV SCH (02:22)
[2025-01-01] MEDS ORDERED: ROXICODONE TAB 5 MG PO PRN (02:23)
[2025-01-01 04:57] LABS: BASOPHILS # (AUTO) 0.1 X10^3/uL (0.0-0.1); BASOPHILS % (AUTO) 1.2 % (0.2-1.0); EOSINOPHILS # (AUTO) 0.2 x10^3/uL (0.0-0.2); EOSINOPHILS % (AUTO) 2.4 % (0.9-2.9); HEMATOCRIT 30.1 % (42.0-54.0); HEMOGLOBIN 10.5 g/dL (13.5-18.0); LYMPHOCYTES # (AUTO) 0.7 X10^3/uL (1.3-2.9); LYMPHOCYTES % (AUTO) 9.4 % (21.0-51.0); MEAN CORPUSCULAR HEMOGLOBIN 26.9 pg (27.0-34.0); MEAN CORPUSCULAR HGB CONC 34.8 g/dL (33.0-35.0); MEAN CORPUSCULAR VOLUME 77.4 fL (80.0-100.0); MONOCYTES # (AUTO) 0.5 x10^3/uL (0.3-0.8); MONOCYTES % (AUTO) 6.9 % (0.0-13.0); NEUTROPHILS # (AUTO) 6.3 x10^3/uL (2.2-4.8); NEUTROPHILS % (AUTO) 80.1 % (42.0-75.0); PLATELET COUNT 190 X10^3/uL (150.0-450.0); RED BLOOD COUNT 3.89 X10^6/uL (4.7-6.0); RED CELL DISTRIBUTION WIDTH 15.9 % (11.6-16.5); WHITE BLOOD COUNT 7.8 X10^3/uL (3.6-10.0)
[2025-01-01 04:59] LABS: INR 1.85 (0.8-1.3)
[2025-01-01 05:14] LABS: ALBUMIN 2.8 g/dL (3.4-5.0); CALCIUM 10.4 mg/dL (8.5-10.1); CARBON DIOXIDE 30.8 mmol/L (21-32); CHOL/HDL RATIO 5.9 (0.0-5.0); COR CA(FOR HYPOALB) 11.4 mg/dL (8.5-10.1); CREATININE 1.8 mg/dL (0.70-1.30); MAGNESIUM 1.6 mg/dL (2.0-2.9); TOTAL PROTEIN 6.6 g/dL (6.4-8.2)
[2025-01-01] MEDS ORDERED: CONSULT PHARMACY - POTASSIUM & MAGNESIUM XX SCH (06:00)
[2025-01-01] MEDS: MORPHINE SULFATE INJ 2 MG INJ IVP PRN (07:54)
[2025-01-01] MEDS: ZOFRAN INJ 4 MG VIAL IVP PRN (08:01)
[2025-01-01] MEDS: TRICOR TAB 160 MG PO SCH (08:16)
[2025-01-01] MEDS: PriLOSEC PO SCH (08:16)
[2025-01-01] MEDS: LASIX PO SCH (08:17)
[2025-01-01] MEDS: KLOR-CON 10 MEQ TAB PO SCH (08:17)
[2025-01-01] MEDS: FERROUS GLUCONATE PO SCH (08:17)
[2025-01-01] MEDS: APRESOLINE TAB 25 MG PO SCH (08:17)
[2025-01-01] MEDS: NORVASC TAB 10 MG PO SCH (08:17)
[2025-01-01] MEDS: WELLBUTRIN XL 150 MG (DAILY) PO SCH (08:17)
[2025-01-01] MEDS: COREG TAB 12.5 MG PO SCH (08:19)
[2025-01-01 08:56] LABS: AMYLASE 757 Units/L (25-115)
[2025-01-01 08:59] LABS: LIPASE 2651 Units/L (16-77)
[2025-01-01] MEDS ORDERED: PATIENT'S HOME MEDICATION (Omeprazole 40 mg capsule,delayed release(DR/EC)) PO SCH (09:00)
[2025-01-01] MEDS ORDERED: FERROUS SULFATE PO SCH (09:00)
[2025-01-01] MEDS ORDERED: ELIQUIS PO SCH (09:00)
[2025-01-01] MEDS ORDERED: [UNRECOGNIZED DRUG - OTHER] PO SCH (09:00)
--- NOTE | 2025-01-01 09:03 | EKG ---
Test Reason : hx afib, bradycardia Blood Pressure : */* mmHG Vent. Rate : 65 BPM Atrial Rate : * BPM P-R Int : * ms QRS Dur : 142 ms QT Int : 514 ms P-R-T Axes : * 72 36 degrees QTc Int : 534 ms Atrial fibrillation Right bundle branch block Abnormal ECG When compared with ECG of No significant change was found Confirmed by Lalito Nassar MD ([id number]) on 01/01/2025 10:31:48 AM Referred By: Confirmed By: Lalito Nassar MD
[2025-01-01 10:00] LABS: INR 1.71 (0.8-1.3)
[2025-01-01] MEDS ORDERED: MAG-OX TAB PO SCH (10:00)
[2025-01-01] MEDS ORDERED: K-DUR TAB 20 MEQ PO SCH (10:00)
[2025-01-01] MEDS: HEPARIN SODIUM INJ 5000 UNITS SC SCH (10:04)
[2025-01-01] MEDS: NS + KCL 20 MEQ/L 1,000 ML with MAGNESIUM SULFATE 50% INJ VIAL 2 G IV SCH (10:12)
[2025-01-01] MEDS: LEVAQUIN PREMIX IV 750 MG 750 MG/150 ML BAG IV SCH (10:12)
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
[2025-01-01 15:52] LABS: INR 1.61 (0.8-1.3)
[2025-01-01] MEDS: HEPARIN SODIUM INJ 5000 UNITS IVP ONE (17:44)
[2025-01-01] MEDS: HEPARIN SODIUM IN D5W 25,000 UNITS/500 ML BAG IV PRN (17:44)
[2025-01-01] MEDS: HEPARIN SODIUM INJ 5000 UNITS ONE ×2 (18:11→18:12)
[2025-01-01 19:01] VITALS: BMI 33.5
[2025-01-01] MEDS ORDERED: D50W ABBOJECT SYR IV PRN (20:14)
[2025-01-01] MEDS ORDERED: LEXAPRO ONE (20:34)
[2025-01-01] MEDS ORDERED: OXYBUTYNIN CHLORIDE ER PO SCH (21:00)
[2025-01-01] MEDS: LEXAPRO PO SCH (21:09)
[2025-01-01] MEDS: SEROquel TAB 25 mg PO SCH (21:09)
[2025-01-01] MEDS: NEURONTIN CAP 300 MG PO SCH (21:09)
[2025-01-01] MEDS: PRAVACHOL PO SCH (21:09)
[2025-01-01] MEDS: FLOMAX PO SCH (21:09)
[2025-01-02 04:43] LABS: BILIRUBIN,URINE 1+ (NEGATIVE); BLOOD/HEMOGLOBIN,URINE 4+ (NEGATIVE); GLUCOSE, URINE NEGATIVE (NEGATIVE); KETONES,URINE NEGATIVE (NEGATIVE); LEUKOCYTE ESTERASE ,URINE 3+ (NEGATIVE); NITRITES,URINE NEGATIVE (NEGATIVE); PROTEIN,URINE 4+ (NEGATIVE); UROBILINOGEN,URINE 2+ (NORMAL)
[2025-01-02 04:51] LABS: APPEARANCE,URINE SLIGHTLY HAZY (CLEAR); COLOR,URINE DARK YELLOW (YELLOW)
[2025-01-02 04:54] LABS: BACTERIA,URINE 4+ /HPF (NEGATIVE); RENAL EPITHELIAL CELLS,URINE RARE /HPF (NEGATIVE); SQUAMOUS EPITHELIAL CELL,UR RARE /HPF (NEGATIVE); YEAST,URINE FEW /HPF (NEGATIVE)
[2025-01-02 05:03] LABS: EOSINOPHILS # (AUTO) 0.1 x10^3/uL (0.0-0.2); MEAN CORPUSCULAR VOLUME 78.7 fL (80.0-100.0); MEAN PLATELET VOLUME 9.4 fL (7.4-11.0); RED BLOOD COUNT 4.19 X10^6/uL (4.7-6.0)
[2025-01-02 05:07] LABS: BASOPHILS # (AUTO) 0.1 X10^3/uL (0.0-0.1); BASOPHILS % (AUTO) 0.5 % (0.2-1.0); EOSINOPHILS % (AUTO) 0.4 % (0.9-2.9); HEMOGLOBIN 11.1 g/dL (13.5-18.0); LYMPHOCYTES # (AUTO) 0.5 X10^3/uL (1.3-2.9); LYMPHOCYTES % (AUTO) 3.7 % (21.0-51.0); MEAN CORPUSCULAR HEMOGLOBIN 26.4 pg (27.0-34.0); MEAN CORPUSCULAR HGB CONC 33.5 g/dL (33.0-35.0); MONOCYTES # (AUTO) 0.9 x10^3/uL (0.3-0.8); MONOCYTES % (AUTO) 6.2 % (0.0-13.0); NEUTROPHILS # (AUTO) 12.7 x10^3/uL (2.2-4.8); NEUTROPHILS % (AUTO) 89.2 % (42.0-75.0); PLATELET COUNT 210 X10^3/uL (150.0-450.0); RED CELL DISTRIBUTION WIDTH 15.9 % (11.6-16.5); WHITE BLOOD COUNT 14.3 X10^3/uL (3.6-10.0)
[2025-01-02 05:22] LABS: ALANINE AMINOTRANSFERASE 7 Units/L (12-78); ALBUMIN 2.8 g/dL (3.4-5.0); ALKALINE PHOSPHATASE 58 Units/L (46-116); ASPARTATE AMINO TRANSFERASE 15 Units/L (15-37); BLOOD UREA NITROGEN 45 mg/dL (7-18); CALCIUM 10.2 mg/dL (8.5-10.1); CARBON DIOXIDE 31.4 mmol/L (21-32); CHLORIDE 104 mmol/L (98-107); COR CA(FOR HYPOALB) 11.2 mg/dL (8.5-10.1); CREATININE 2.02 mg/dL (0.70-1.30); GLUCOSE 85 mg/dL (65-99); POTASSIUM 3.5 mmol/L (3.5-5.1); SODIUM 140 mmol/L (136-145); TOTAL PROTEIN 6.9 g/dL (6.4-8.2); eGFR NON BLACK RACES 36 (>60)
[2025-01-02 06:38] LABS: LIPASE 1523 Units/L (16-77)
[2025-01-02 06:39] LABS: AMYLASE 796 Units/L (25-115)
--- NOTE | 2025-01-02 07:23 | MRI ---
EXAM:MRI ABDOMEN WITHOUT CONTRAST WITH MRCPHISTORY:POSSIBLE GALLSTONES IN BILE DUCT. BEST IMAGES POSSIBLE DUE TO PATIENT SIZE, COIL WAS TOO SMALL FOR PATIENT AND HE WAS MOVING AROUND ON THE TABLE. PATIENT UNABLE TO HOLD BREATH FOR A LONG PERIOD OF TIME. ; .COMPARISON:None.TECHNIQUE:Using a phased-array coil, MRI of the abdomen was obtained without contrast. In addition to standard imaging, MRCP sequences were acquired including 3D reconstructions.FINDINGS:MRCP:GALLBLADDER: Multiple intraluminal gallstones are apparent. Common bile duct appears relatively small in caliber without clear evidence of choledocholithiasisHEPATOBILIARY: Small caliber common duct.PANCREATIC DUCT: Pancreatic duct is difficult to fully visualize due to the amount of pancreatic edema in keeping with acute pancreatitisMRI:LOWER THORAX: NormalLIVER: The liver shows no focal mass. There are no morphologic changes of cirrhosis. There is no evidence of steatosis on in and out of phase imaging.SPLEEN: NormalPANCREAS: As aboveKIDNEYS: Obscured by artifact. Left lower pole renal cystsADRENAL GLANDS: NormalGI TRACT: Normal course and caliber, though examination not tailored for evaluation of the bowel.LYMPH NODES: No enlarged nodesVESSELS: NormalPERITONEUM / RETROPERITONEUM: Increasing mesenteric edema and trace ascitesBONES: NormalIMPRESSION:Gallstones. Sequela of acute pancreatitis noted with increasing pancreatic edema as well as increasing ascites and mesenteric edema. No contrast is utilized on current study, though there is no clear evidence of pancreatic necrosis. No clear evidence of choledocholithiasis or biliary obstructionTHIS IS AN ELECTRONICALLY VERIFIED FINAL REPORT01/02/2025 7:07 AM - Electronically signed by Lukasz Giles MD
[2025-01-02] MEDS: HEPARIN SODIUM INJ 5000 UNITS IVP ONE (07:49)
[2025-01-02] MEDS ORDERED: NS 250 ML IV 250 ML IV ONE (10:34)
[2025-01-02] MEDS: ZOSYN VIAL 3.375 GRAMS 3.375 G in NS 100 ML IV 100 ML IV SCH (10:42)
[2025-01-02] MEDS: NS 250 ML IV 25 ML IV PRN (10:43)
[2025-01-02] MEDS: DIFLUCAN PO SCH (18:17)
[2025-01-02] MEDS ORDERED: LEXAPRO ONE (19:53)
[2025-01-03 05:07] LABS: BASOPHILS # (AUTO) 0.1 X10^3/uL (0.0-0.1); BASOPHILS % (AUTO) 0.6 % (0.2-1.0); EOSINOPHILS # (AUTO) 0.1 x10^3/uL (0.0-0.2); EOSINOPHILS % (AUTO) 0.4 % (0.9-2.9); HEMATOCRIT 30.7 % (42.0-54.0); HEMOGLOBIN 10.4 g/dL (13.5-18.0); LYMPHOCYTES # (AUTO) 0.7 X10^3/uL (1.3-2.9); LYMPHOCYTES % (AUTO) 4.4 % (21.0-51.0); MEAN CORPUSCULAR HEMOGLOBIN 26.8 pg (27.0-34.0); MEAN CORPUSCULAR HGB CONC 33.7 g/dL (33.0-35.0); MEAN CORPUSCULAR VOLUME 79.4 fL (80.0-100.0); MEAN PLATELET VOLUME 9.2 fL (7.4-11.0); MONOCYTES # (AUTO) 0.8 x10^3/uL (0.3-0.8); MONOCYTES % (AUTO) 5.7 % (0.0-13.0); NEUTROPHILS # (AUTO) 13.3 x10^3/uL (2.2-4.8); NEUTROPHILS % (AUTO) 88.9 % (42.0-75.0); PLATELET COUNT 188 X10^3/uL (150.0-450.0); RED BLOOD COUNT 3.87 X10^6/uL (4.7-6.0); RED CELL DISTRIBUTION WIDTH 16.5 % (11.6-16.5); WHITE BLOOD COUNT 14.9 X10^3/uL (3.6-10.0)
[2025-01-03 05:08] LABS: ALANINE AMINOTRANSFERASE < 6 Units/L (12-78); ALBUMIN 2.5 g/dL (3.4-5.0); ALKALINE PHOSPHATASE 53 Units/L (46-116); ASPARTATE AMINO TRANSFERASE 15 Units/L (15-37); BLOOD UREA NITROGEN 53 mg/dL (7-18); CALCIUM 10.1 mg/dL (8.5-10.1); CARBON DIOXIDE 30.1 mmol/L (21-32); CHLORIDE 104 mmol/L (98-107); COR CA(FOR HYPOALB) 11.3 mg/dL (8.5-10.1); CREATININE 2.24 mg/dL (0.70-1.30); GLUCOSE 76 mg/dL (65-99); POTASSIUM 3.9 mmol/L (3.5-5.1); SODIUM 141 mmol/L (136-145); TOTAL PROTEIN 6.6 g/dL (6.4-8.2); eGFR NON BLACK RACES 32 (>60)
[2025-01-03 05:49] LABS: AMYLASE 344 Units/L (25-115)
[2025-01-03 05:59] LABS: LIPASE 497 Units/L (16-77)
[2025-01-03] MEDS ORDERED: BUTT CREAM (COMPOUND) ONE (10:11)
[2025-01-03] MEDS: NS 1,000 ML IV 500 ML IV ONE (10:48)
--- NOTE | 2025-01-03 11:05 | DR.PROGNOT ---
HOSPITAL PROGRESS NOTE Progress Note for Day of: Progress Note Date: 01/03/25 Chief Complaint Chief Complaint: Feeling somewhat better with less abdominal pain, no nausea or vomiting. WBC is 14.9, hemoglobin 10.4, BUN elevated 53 and creatinine 2.24. Serum amylase and lipase are coming down 344 and 497. Afebrile. Abdomen is soft, obese with diffuse tenderness mainly in the upper abdomen with hypoactive bowel sounds.. Past Medical Family Social History Allergies: Allergies No Known Drug Allergies Allergy (Verified 01/01/25 02:10) Vital Signs Vital Signs: Vital Signs Temperature 98.3 F Temperature 98.2 F Pulse Rate 86 Pulse Rate 90 Pulse Rate 64 Pulse Rate 71 Pulse Rate 74 Pulse Rate 73 Pulse Rate 57 Pulse Rate 62 Pulse Rate 65 Respiratory Rate 22 Respiratory Rate 15 Respiratory Rate 22 Respiratory Rate 22 Respiratory Rate 14 Respiratory Rate 15 Respiratory Rate 21 Respiratory Rate 14 Blood Pressure 144/68 Blood Pressure 131/84 Blood Pressure 131/84 Blood Pressure 140/67 Blood Pressure 143/67 Blood Pressure 139/67 Blood Pressure 141/67 O2 Sat by Pulse Oximetry 95 O2 Sat by Pulse Oximetry 97 O2 Sat by Pulse Oximetry 98 O2 Sat by Pulse Oximetry 96 O2 Sat by Pulse Oximetry 97 O2 Sat by Pulse Oximetry 98 O2 Sat by Pulse Oximetry 97 O2 Sat by Pulse Oximetry 96 Physical Exam Oriented: Normal Eyes: Normal Ear: Normal Nose: Normal Throat: Dry Cardiovascular: Normal : Normal GI:Auscultation: Decreased GI:Palpation: Normal GI: Tenderness: Diffuse Skin: Decreased Turgur Musculoskeletal: Back:Lumbar Psychiatric: Normal Mood Description: Depressed Affect: Depressed Speech Pattern: Clear and Appropriate Laboratory and Diagnostics 01/03/25 04:05 01/03/25 04:05 Labs: 01/01/25 10:50 Buttock Wound Culture - Preliminary Proteus Mirabilis 12/31/24 11:08 Urine,Catheterized Urine Culture - Preliminary Proteus Mirabilis 01/02/25 04:12 Urine,Clean Catch Urine Culture - Preliminary Laboratory WBC 14.9 X10^3/uL (3.6-10.0) H 01/03/25 04:05 RBC 3.87 X10^6/uL (4.7-6.0) L 01/03/25 04:05 Hgb 10.4 g/dL (13.5-18.0) L 01/03/25 04:05 Hct 30.7 % (42.0-54.0) L 01/03/25 04:05 MCV 79.4 fL (80.0-100.0) L 01/03/25 04:05 MCH 26.8 pg (27.0-34.0) L 01/03/25 04:05 MCHC 33.7 g/dL (33.0-35.0) 01/03/25 04:05 RDW 16.5 % (11.6-16.5) 01/03/25 04:05 Plt Count 188 X10^3/uL (150.0-450.0) 01/03/25 04:05 MPV 9.2 fL (7.4-11.0) 01/03/25 04:05 Neut % (Auto) 88.9 % (42.0-75.0) H 01/03/25 04:05 Lymph % (Auto) 4.4 % (21.0-51.0) L 01/03/25 04:05 [place] % (Auto) 5.7 % (0.0-13.0) 01/03/25 04:05 Eos % (Auto) 0.4 % (0.9-2.9) L 01/03/25 04:05 Baso % (Auto) 0.6 % (0.2-1.0) 01/03/25 04:05 Neut # (Auto) 13.3 x10^3/uL (2.2-4.8) H 01/03/25 04:05 Lymph # (Auto) 0.7 X10^3/uL (1.3-2.9) L 01/03/25 04:05 [place] # (Auto) 0.8 x10^3/uL (0.3-0.8) 01/03/25 04:05 Eos # (Auto) 0.1 x10^3/uL (0.0-0.2) 01/03/25 04:05 Baso # (Auto) 0.1 X10^3/uL (0.0-0.1) 01/03/25 04:05 Absolute Nucleated RBC 0.0 /100WBC 01/03/25 04:05 PT 18.7 SECONDS (11.8-14.3) 01/01/25 15:34 INR Target Range - 01/01/25 15:34 INR 1.61 (0.8-1.3) H 01/01/25 15:34 APTT 65.7 SECONDS (22.9-36.5) H 01/03/25 07:24 PTT Comment - 01/03/25 07:24 Sodium 141 mmol/L (136-145) 01/03/25 04:05 Corrected Sodium TNP 01/03/25 04:05 Potassium 3.9 mmol/L (3.5-5.1) 01/03/25 04:05 Chloride 104 mmol/L (98-107) 01/03/25 04:05 Carbon Dioxide 30.1 mmol/L (21-32) 01/03/25 04:05 BUN 53 mg/dL (7-18) H 01/03/25 04:05 Creatinine 2.24 mg/dL (0.70-1.30) H 01/03/25 04:05 Est GFR (MDRD) Af Amer 39 (>60) L 01/03/25 04:05 Est GFR (MDRD) Non-Af 32 (>60) L 01/03/25 04:05 Glucose 76 mg/dL (65-99) 01/03/25 04:05 Lactic Acid 0.3 mmol/L (0.4-2.0) L 01/01/25 09:38 Calcium 10.1 mg/dL (8.5-10.1) 01/03/25 04:05 Corrected Calcium 11.3 mg/dL (8.5-10.1) H 01/03/25 04:05 Magnesium 2.0 mg/dL (2.0-2.9) 01/02/25 04:03 Total Bilirubin 1.00 mg/dL (0.2-1.0) 01/03/25 04:05 AST 15 Units/L (15-37) 01/03/25 04:05 ALT < 6 Units/L (12-78) L 01/03/25 04:05 Alkaline Phosphatase 53 Units/L (46-116) 01/03/25 04:05 Total Protein 6.6 g/dL (6.4-8.2) 01/03/25 04:05 Albumin 2.5 g/dL (3.4-5.0) L 01/03/25 04:05 Globulin 4.1 g/dL (2.5-4.5) 01/03/25 04:05 Albumin/Globulin Ratio 0.6 Ratio (1.1-2.1) L 01/03/25 04:05 Triglycerides 118 mg/dL (0-150) 01/01/25 04:18 Cholesterol 129 mg/dL (0-200) 01/01/25 04:18 LDL Cholesterol, Calc 83 mg/dL (0-100) 01/01/25 04:18 HDL Cholesterol 22 mg/dL (40-60) L 01/01/25 04:18 Cholesterol/HDL Ratio 5.9 (0.0-5.0) H 01/01/25 04:18 Amylase 344 Units/L (25-115) H 01/03/25 04:05 Lipase 497 Units/L (16-77) H 01/03/25 04:05 TSH 3rd Generation 3.473 uIU/mL (0.358-3.74) 01/01/25 04:18 Specimen Type Catherized urine 01/02/25 04:12 Urine Color Dark yellow (YELLOW) 01/02/25 04:12 Urine Appearance Slightly hazy (CLEAR) 01/02/25 04:12 Urine pH 5.0 (5.0 - 8.0) 01/02/25 04:12 Ur Specific [place] 1.025 (1.000-1.030) 01/02/25 04:12 Urine Protein 4+ (NEGATIVE) 01/02/25 04:12 Urine Glucose (UA) Negative (NEGATIVE) 01/02/25 04:12 Urine Ketones Negative (NEGATIVE) 01/02/25 04:12 Urine Blood 4+ (NEGATIVE) 01/02/25 04:12 Urine Nitrite Negative (NEGATIVE) 01/02/25 04:12 Urine Bilirubin 1+ (NEGATIVE) 01/02/25 04:12 Urine Urobilinogen 2+ (NORMAL) 01/02/25 04:12 Ur Leukocyte Esterase 3+ (NEGATIVE) 01/02/25 04:12 Urine RBC 10-20 /HPF (0-3) A 01/02/25 04:12 Urine WBC 20-30 /HPF (0-5) A 01/02/25 04:12 Ur Squamous Epith Cells Rare /HPF (NEGATIVE) 01/02/25 04:12 Ur Renal Epithelial Cell Rare /HPF (NEGATIVE) 01/02/25 04:12 Amorphous Sediment 1+ /HPF (NEGATIVE) 01/02/25 04:12 Urine Bacteria 4+ /HPF (NEGATIVE) 01/02/25 04:12 Urine Yeast Few /HPF (NEGATIVE) 01/02/25 04:12 Ur Culture Indicated? Yes/culture set up 01/02/25 04:12 Acetone, Semi-Quant Negative (NEGATIVE) 01/01/25 09:38 Assessment and Plan 1: Subsiding gallstone pancreatitis. Same treatment plan. 2: Acute kidney injury on top of chronic kidney disease. More hydration and observation. 3: Confinement to bed and morbid obesity. Problem Patient Problems: Patient Problems Acute pancreatitis (Acute) K85.90 Cholelithiasis (Acute) K80.20
[2025-01-03] MEDS: BUTT CREAM (COMPOUND) TOP PRN (12:28)
[2025-01-03] MEDS: NICOTINE PATCH TD SCH (14:22)
[2025-01-03] MEDS ORDERED: LEXAPRO ONE (19:54)
[2025-01-04 04:54] LABS: BASOPHILS % (AUTO) 0.2 % (0.2-1.0); EOSINOPHILS # (AUTO) 0.3 x10^3/uL (0.0-0.2); EOSINOPHILS % (AUTO) 2.1 % (0.9-2.9); HEMATOCRIT 28.1 % (42.0-54.0); HEMOGLOBIN 9.5 g/dL (13.5-18.0); LYMPHOCYTES # (AUTO) 0.7 X10^3/uL (1.3-2.9); MEAN CORPUSCULAR HEMOGLOBIN 26.6 pg (27.0-34.0); MEAN CORPUSCULAR HGB CONC 33.6 g/dL (33.0-35.0); MEAN CORPUSCULAR VOLUME 79.2 fL (80.0-100.0); MEAN PLATELET VOLUME 9.1 fL (7.4-11.0); MONOCYTES # (AUTO) 0.8 x10^3/uL (0.3-0.8); MONOCYTES % (AUTO) 6.7 % (0.0-13.0); NEUTROPHILS # (AUTO) 10.5 x10^3/uL (2.2-4.8); PLATELET COUNT 186 X10^3/uL (150.0-450.0); RED BLOOD COUNT 3.55 X10^6/uL (4.7-6.0); RED CELL DISTRIBUTION WIDTH 16.5 % (11.6-16.5); WHITE BLOOD COUNT 12.4 X10^3/uL (3.6-10.0)
[2025-01-04 05:06] LABS: ALANINE AMINOTRANSFERASE < 6 Units/L (12-78); ALBUMIN 2.2 g/dL (3.4-5.0); ALKALINE PHOSPHATASE 49 Units/L (46-116); AMYLASE 121 Units/L (25-115); ASPARTATE AMINO TRANSFERASE 12 Units/L (15-37); BLOOD UREA NITROGEN 57 mg/dL (7-18); CALCIUM 9.8 mg/dL (8.5-10.1); CARBON DIOXIDE 28.5 mmol/L (21-32); CHLORIDE 103 mmol/L (98-107); COR CA(FOR HYPOALB) 11.2 mg/dL (8.5-10.1); CREATININE 2.35 mg/dL (0.70-1.30); GLUCOSE 101 mg/dL (65-99); LIPASE 236 Units/L (16-77); SODIUM 137 mmol/L (136-145); TOTAL PROTEIN 6.2 g/dL (6.4-8.2); eGFR NON BLACK RACES 30 (>60)
[2025-01-04] MEDS: LR 1,000 ML IV 1,000 ML IV ONE (10:35)
[2025-01-04] MEDS ORDERED: LEXAPRO ONE (20:03)
[2025-01-04] MEDS: DITROPAN TAB 5 MG PO SCH (21:02)
[2025-01-05 05:02] LABS: BASOPHILS # (AUTO) 0.1 X10^3/uL (0.0-0.1); BASOPHILS % (AUTO) 0.8 % (0.2-1.0); EOSINOPHILS # (AUTO) 0.3 x10^3/uL (0.0-0.2); EOSINOPHILS % (AUTO) 2.7 % (0.9-2.9); HEMOGLOBIN 10.3 g/dL (13.5-18.0); LYMPHOCYTES # (AUTO) 0.7 X10^3/uL (1.3-2.9); LYMPHOCYTES % (AUTO) 7.1 % (21.0-51.0); MEAN CORPUSCULAR HEMOGLOBIN 27.3 pg (27.0-34.0); MEAN CORPUSCULAR HGB CONC 34.3 g/dL (33.0-35.0); MEAN CORPUSCULAR VOLUME 79.8 fL (80.0-100.0); MEAN PLATELET VOLUME 8.8 fL (7.4-11.0); MONOCYTES # (AUTO) 0.7 x10^3/uL (0.3-0.8); MONOCYTES % (AUTO) 6.8 % (0.0-13.0); NEUTROPHILS # (AUTO) 8.1 x10^3/uL (2.2-4.8); NEUTROPHILS % (AUTO) 82.6 % (42.0-75.0); PLATELET COUNT 178 X10^3/uL (150.0-450.0); RED BLOOD COUNT 3.76 X10^6/uL (4.7-6.0); RED CELL DISTRIBUTION WIDTH 16.2 % (11.6-16.5); WHITE BLOOD COUNT 9.9 X10^3/uL (3.6-10.0)
[2025-01-05 05:10] LABS: ALANINE AMINOTRANSFERASE < 6 Units/L (12-78); ALKALINE PHOSPHATASE 45 Units/L (46-116); AMYLASE 116 Units/L (25-115); ASPARTATE AMINO TRANSFERASE 10 Units/L (15-37); BLOOD UREA NITROGEN 58 mg/dL (7-18); CALCIUM 9.6 mg/dL (8.5-10.1); CARBON DIOXIDE 27.9 mmol/L (21-32); CHLORIDE 104 mmol/L (98-107); COR CA(FOR HYPOALB) 11.2 mg/dL (8.5-10.1); CREATININE 2.34 mg/dL (0.70-1.30); GLUCOSE 106 mg/dL (65-99); LIPASE 223 Units/L (16-77); MAGNESIUM 2.6 mg/dL (2.0-2.9); POTASSIUM 4.5 mmol/L (3.5-5.1); SODIUM 138 mmol/L (136-145); TOTAL PROTEIN 5.9 g/dL (6.4-8.2); eGFR NON BLACK RACES 30 (>60)
[2025-01-05] MEDS: HEPARIN SODIUM INJ 5000 UNITS IVP ONE (06:21)
[2025-01-05] MEDS: LASIX IVP ONE (08:45)
[2025-01-05] MEDS ORDERED: LASIX IVP ONE (08:54)
--- NOTE | 2025-01-05 15:02 | RAD ---
EXAM: CHEST, 1 VIEW HISTORY: SOB; COMPARISON: 05/28/2024 FINDINGS: The cardiomediastinal silhouette is stable. Scattered bilateral airspace opacities. No pneumothorax or effusion. No acute osseous abnormality. IMPRESSION: Bilateral opacities which may be due to edema or pneumonia. Recommend follow-up to resolution. THIS IS AN ELECTRONICALLY VERIFIED FINAL REPORT 01/05/2025 2:55 PM - Electronically signed by Giovanni Joy MD
[2025-01-05 19:17] VITALS: PULSE 78
[2025-01-05] MEDS ORDERED: LEXAPRO ONE (20:14)
[2025-01-05 20:17] VITALS: O2SAT 98
[2025-01-05 20:39] VITALS: BP 160/77; RESP 16; TEMP 98.8
== END 2025-01-05 20:36 | disposition short-term general hospital (02) | DRG 438 ==
LOC: ER 22:04 → ICU 01-01 00:14
PROVIDERS: ADMIT Internal Medicine; ATTEND Internal Medicine
DX: K85.10 Biliary acute pancreatitis without necrosis or infection; R60.0 Localized edema; R44.1 Visual hallucinations; K80.00 Calculus of gallbladder with acute cholecystitis without obstruction; F32.89 Other specified depressive episodes; R94.31 Abnormal electrocardiogram [ECG] [EKG]; R06.02 Shortness of breath; N18.9 Chronic kidney disease, unspecified; M62.81 Muscle weakness (generalized); Z97.8 Presence of other specified devices; S71.111A Laceration without foreign body, right thigh, initial encounter; B37.41 Candidal cystitis and urethritis; E87.6 Hypokalemia; I12.9 Hypertensive chronic kidney disease with stage 1 through stage 4 chronic kidney disease, or unspecified chronic kidney disease; I48.91 Unspecified atrial fibrillation; E11.65 Type 2 diabetes mellitus with hyperglycemia; R41.82 Altered mental status, unspecified; B96.4 Proteus (mirabilis) (morganii) as the cause of diseases classified elsewhere; L89.154 Pressure ulcer of sacral region, stage 4; N17.8 Other acute kidney failure; Z16.23 Resistance to quinolones and fluoroquinolones; Z16.12 Extended spectrum beta lactamase (ESBL) resistance; Z91.81 History of falling; E78.5 Hyperlipidemia, unspecified; Z59.86 Financial insecurity; R79.1 Abnormal coagulation profile; Z93.3 Colostomy status; B96.29 Other Escherichia coli [E. coli] as the cause of diseases classified elsewhere; E66.01 Morbid (severe) obesity due to excess calories; Z68.33 Body mass index [BMI] 33.0-33.9, adult; R10.84 Generalized abdominal pain; E80.6 Other disorders of bilirubin metabolism; E83.42 Hypomagnesemia; R26.81 Unsteadiness on feet; Z16.29 Resistance to other single specified antibiotic

== ENCOUNTER 2025-01-26 15:52 | Observation (INO) ==
--- NOTE | 2025-01-26 16:29 | DR.GENAD ---
HPI Time Seen Time Seen by Provider: 01/26/25 16:28 PCP Primary Care Physician: BISHNU Moreno Complaint/Symptoms Chief Complaint:: Patient reports that he was sent from here to [facility] to have his gallbladder removed (01/09/25), he was sent home on Sunday and since then the area where the ELIUD drain was removed has been leaking profusely. shiv duvall placed a colostomy bag over area and states that it has been changed at least 2 times a day. mid incision holly removed today and area is open now. Self Treatment fo Chief Complaint: notified BISHNU Nation and she wanted labs but home health was unable to obtain. home O2 at 3L [place] at home PRN. COVID-19 Coronavirus risk:travel/contact w/high risk person: No Has patient experienced Coronavirus symptoms: No Nurses notes reviewed Nurses Notes Review: Yes Source History Provided: Patient and EMS Mode of Arrival Mode of Arrival: EMS Timing Onset of Chief Complaint: 01/20/25 PMH PMH Past Medical History: Yes Past Medical History: Anemia, Arthritis, CHF, Depression, Diabetes, Dyslipidemia, GERD and Hypertension Past Medical History Comment: LAKESH[place] Past Surgical History: Yes Surgical History: Abdominal Surgery, Bowel Resection, Cholecystectomy and Ortho Surgery Family History History of Family Medical Conditions: Yes Family Medical History: Diabetes Mellitus, Cancer, Sudden Cardiac and Hypertension Social History Type of Tobacco Use: None Alcohol Use: None Do you use any recreational Drugs:: No Lives With: Family Lives Where: Home Travel Risk Coronavirus risk:travel/contact w/high risk person: No Has patient experienced Coronavirus symptoms: No Infectious screening Have you traveled outside the country in the last 6 months?: No Isolation: Standard PE Vital Signs Vitals: Vital Signs Temperature 98.1 F Pulse Rate 42 Pulse Rate 50 Pulse Rate 53 Pulse Rate 49 Pulse Rate 64 Pulse Rate 48 Pulse Rate 48 Pulse Rate 46 Pulse Rate 45 Pulse Rate 53 Pulse Rate 47 Pulse Rate 50 Pulse Rate 70 Pulse Rate 66 Pulse Rate 50 Pulse Rate 50 Pulse Rate 49 Pulse Rate 44 Pulse Rate 63 Pulse Rate 46 Pulse Rate 59 Respiratory Rate 14 Respiratory Rate 12 Respiratory Rate 15 Respiratory Rate 16 Respiratory Rate 29 Respiratory Rate 24 Respiratory Rate 23 Respiratory Rate 22 Respiratory Rate 14 Respiratory Rate 16 Respiratory Rate 19 Respiratory Rate 22 Respiratory Rate 20 Respiratory Rate 21 Respiratory Rate 21 Respiratory Rate 31 Respiratory Rate 25 Respiratory Rate 20 Blood Pressure 90/55 Blood Pressure 90/55 Blood Pressure 103/66 Blood Pressure 103/66 Blood Pressure 103/66 Blood Pressure 108/53 Blood Pressure 104/55 Blood Pressure 104/55 Blood Pressure 109/57 Blood Pressure 109/53 Blood Pressure 121/58 O2 Sat by Pulse Oximetry 100 O2 Sat by Pulse Oximetry 100 O2 Sat by Pulse Oximetry 100 O2 Sat by Pulse Oximetry 100 O2 Sat by Pulse Oximetry 99 O2 Sat by Pulse Oximetry 98 O2 Sat by Pulse Oximetry 98 O2 Sat by Pulse Oximetry 100 O2 Sat by Pulse Oximetry 100 O2 Sat by Pulse Oximetry 96 O2 Sat by Pulse Oximetry 100 O2 Sat by Pulse Oximetry 99 O2 Sat by Pulse Oximetry 96 O2 Sat by Pulse Oximetry 92 O2 Sat by Pulse Oximetry 94 O2 Sat by Pulse Oximetry 95 O2 Sat by Pulse Oximetry 96 ROR Labs Reviewed 01/26/25 15:58 01/26/25 15:58 Laboratory: WBC 7.6 X10^3/uL (3.6-10.0) 01/26/25 15:58 RBC 3.74 X10^6/uL (4.7-6.0) L 01/26/25 15:58 Hgb 9.6 g/dL (13.5-18.0) L 01/26/25 15:58 Hct 28.9 % (42.0-54.0) L 01/26/25 15:58 MCV 77.2 fL (80.0-100.0) L 01/26/25 15:58 MCH 25.5 pg (27.0-34.0) L 01/26/25 15:58 MCHC 33.1 g/dL (33.0-35.0) 01/26/25 15:58 RDW 18.6 % (11.6-16.5) H 01/26/25 15:58 Plt Count 246 X10^3/uL (150.0-450.0) 01/26/25 15:58 MPV 9.2 fL (7.4-11.0) 01/26/25 15:58 Neut % (Auto) 71.2 % (42.0-75.0) 01/26/25 15:58 Lymph % (Auto) 14.9 % (21.0-51.0) L 01/26/25 15:58 [place] % (Auto) 6.1 % (0.0-13.0) 01/26/25 15:58 Eos % (Auto) 7.1 % (0.9-2.9) H 01/26/25 15:58 Baso % (Auto) 0.7 % (0.2-1.0) 01/26/25 15:58 Neut # (Auto) 5.4 x10^3/uL (2.2-4.8) H 01/26/25 15:58 Lymph # (Auto) 1.1 X10^3/uL (1.3-2.9) L 01/26/25 15:58 [place] # (Auto) 0.5 x10^3/uL (0.3-0.8) 01/26/25 15:58 Eos # (Auto) 0.5 x10^3/uL (0.0-0.2) H 01/26/25 15:58 Baso # (Auto) 0.1 X10^3/uL (0.0-0.1) 01/26/25 15:58 Absolute Nucleated RBC 0.1 /100WBC 01/26/25 15:58 Sodium 139 mmol/L (136-145) 01/26/25 15:58 Corrected Sodium 140 mmol/L (136-145) 01/26/25 15:58 Potassium 5.7 mmol/L (3.5-5.1) H 01/26/25 15:58 Chloride 102 mmol/L (98-107) 01/26/25 15:58 Carbon Dioxide 34.6 mmol/L (21-32) H 01/26/25 15:58 BUN 42 mg/dL (7-18) H 01/26/25 15:58 Creatinine 3.31 mg/dL (0.70-1.30) H 01/26/25 15:58 Est GFR (MDRD) Af Amer 25 (>60) L 01/26/25 15:58 Est GFR (MDRD) Non-Af 20 (>60) L 01/26/25 15:58 Glucose 145 mg/dL (65-99) H 01/26/25 15:58 Calcium 8.9 mg/dL (8.5-10.1) 01/26/25 15:58 Corrected Calcium 10.7 mg/dL (8.5-10.1) H 01/26/25 15:58 Total Bilirubin 0.40 mg/dL (0.2-1.0) 01/26/25 15:58 AST 24 Units/L (15-37) 01/26/25 15:58 ALT < 6 Units/L (12-78) L 01/26/25 15:58 Alkaline Phosphatase 87 Units/L (46-116) 01/26/25 15:58 B-Natriuretic Peptide 241 pg/mL (0-79) H 01/26/25 15:58 Total Protein 5.6 g/dL (6.4-8.2) L 01/26/25 15:58 Albumin 1.7 g/dL (3.4-5.0) L 01/26/25 15:58 Globulin 3.9 g/dL (2.5-4.5) 01/26/25 15:58 Albumin/Globulin Ratio 0.4 Ratio (1.1-2.1) L 01/26/25 15:58 Amylase 23 Units/L (25-115) L 01/26/25 15:58 Lipase 73 Units/L (16-77) 01/26/25 15:58 Specimen Type Catherized urine 01/26/25 20:25 Urine Color Yellow (YELLOW) 01/26/25 20:25 Urine Appearance Hazy (CLEAR) 01/26/25 20:25 Urine pH 6.0 (5.0 - 8.0) 01/26/25 20:25 Ur Specific [place] 1.025 (1.000-1.030) 01/26/25 20:25 Urine Protein 2+ (NEGATIVE) 01/26/25 20:25 Urine Glucose (UA) Negative (NEGATIVE) 01/26/25 20:25 Urine Ketones Negative (NEGATIVE) 01/26/25 20:25 Urine Blood 4+ (NEGATIVE) 01/26/25 20:25 Urine Nitrite Negative (NEGATIVE) 01/26/25 20:25 Urine Bilirubin Negative (NEGATIVE) 01/26/25 20:25 Urine Urobilinogen Normal (NORMAL) 01/26/25 20:25 Ur Leukocyte Esterase 3+ (NEGATIVE) 01/26/25 20:25 Urine RBC 10-20 /HPF (0-3) A 01/26/25 20:25 Urine WBC Tntc /HPF (0-5) A 01/26/25 20:25 Ur Squamous Epith Cells Negative /HPF (NEGATIVE) 01/26/25 20:25 Urine Bacteria Trace /HPF (NEGATIVE) 01/26/25 20:25 Urine Yeast Numerous /HPF (NEGATIVE) 01/26/25 20:25 Ur Culture Indicated? Yes/culture set up 01/26/25 20:25 Opioid Opioid Risk Tool Age (Lance box if 16-45): No History of Preadolescent Sexual Abuse: No Total: 0 Total Score Risk Category: Low Risk Copyright: Raoul STEVE predicting aberrant behaviors Discharge Plan Diagnosis Discharge Problem: Status post laparoscopic cholecystectomy Acute pancreatitis Qualifiers: Pancreatitis type: unspecified pancreatitis type Acute pancreatitis complication: no infection or necrosis Qualified Code(s): K85.90 - Acute pancreatitis without necrosis or infection, unspecified Abdominal pain Qualifiers: Abdominal location: generalized Qualified Code(s): R10.84 - Generalized abdominal pain Draining postoperative wound Qualifiers: Encounter type: initial encounter Qualified Code(s): T81.89XA - Other complications of procedures, not elsewhere classified, initial encounter Discharge Plan Patient Disposition: 09 ADMITTED INPATIENT Condition: Stable Orders to Discharge Patient Discharge Orders: Transfer (Routine); Ordered 01/26/25 Ordered By: TRISTON CANTU
[2025-01-26 16:42] LABS: BASOPHILS # (AUTO) 0.1 X10^3/uL (0.0-0.1); BASOPHILS % (AUTO) 0.7 % (0.2-1.0); EOSINOPHILS # (AUTO) 0.5 x10^3/uL (0.0-0.2); EOSINOPHILS % (AUTO) 7.1 % (0.9-2.9); HEMATOCRIT 28.9 % (42.0-54.0); HEMOGLOBIN 9.6 g/dL (13.5-18.0); LYMPHOCYTES # (AUTO) 1.1 X10^3/uL (1.3-2.9); LYMPHOCYTES % (AUTO) 14.9 % (21.0-51.0); MEAN CORPUSCULAR HEMOGLOBIN 25.5 pg (27.0-34.0); MEAN CORPUSCULAR HGB CONC 33.1 g/dL (33.0-35.0); MEAN CORPUSCULAR VOLUME 77.2 fL (80.0-100.0); MEAN PLATELET VOLUME 9.2 fL (7.4-11.0); MONOCYTES # (AUTO) 0.5 x10^3/uL (0.3-0.8); MONOCYTES % (AUTO) 6.1 % (0.0-13.0); NEUTROPHILS # (AUTO) 5.4 x10^3/uL (2.2-4.8); NEUTROPHILS % (AUTO) 71.2 % (42.0-75.0); PLATELET COUNT 246 X10^3/uL (150.0-450.0); RED BLOOD COUNT 3.74 X10^6/uL (4.7-6.0); RED CELL DISTRIBUTION WIDTH 18.6 % (11.6-16.5); WHITE BLOOD COUNT 7.6 X10^3/uL (3.6-10.0)
[2025-01-26] MEDS: NS 1,000 ML IV 1,000 ML IV SCH (16:47)
[2025-01-26 16:55] LABS: ALANINE AMINOTRANSFERASE < 6 Units/L (12-78); ALBUMIN 1.7 g/dL (3.4-5.0); ALKALINE PHOSPHATASE 87 Units/L (46-116); AMYLASE 23 Units/L (25-115); ASPARTATE AMINO TRANSFERASE 24 Units/L (15-37); BLOOD UREA NITROGEN 42 mg/dL (7-18); CALCIUM 8.9 mg/dL (8.5-10.1); CARBON DIOXIDE 34.6 mmol/L (21-32); CHLORIDE 102 mmol/L (98-107); COR CA(FOR HYPOALB) 10.7 mg/dL (8.5-10.1); COR NA(FOR HYPERGLY) 140 mmol/L (136-145); CREATININE 3.31 mg/dL (0.70-1.30); GLUCOSE 145 mg/dL (65-99); LIPASE 73 Units/L (16-77); SODIUM 139 mmol/L (136-145); TOTAL PROTEIN 5.6 g/dL (6.4-8.2); eGFR NON BLACK RACES 20 (>60)
[2025-01-26 16:56] LABS: POTASSIUM 5.7 mmol/L (3.5-5.1)
--- NOTE | 2025-01-26 18:19 | CT ---
EXAM:ABDOMEN/PELVIS W/O CONHISTORY:the area where the ELIUD drain was removed has been leaking profusely. daughter placed a colostomy bag over area and states that it has been changed at least 2 times a day.;COMPARISON:MRCP from January 01, 2025TECHNIQUE:Non-contrasted axial CT images of the abdomen and pelvis were obtained and reformatted into coronal and sagittal planes for further evaluation.Radiation dose: 1037.01 mGy-cm total DLPFINDINGS:Small to moderate bilateral partially imaged layering pleural effusions adjacent atelectasis.Stomach appears normal.Edema adjacent to the margins of the pancreas.Liver, spleen and adrenal glands are unremarkable.Status post cholecystectomy.No intra or extrahepatic biliary dilatation.Unremarkable appearance of the kidneys.No hydronephrosis, hydroureter or ureteral calculus.Urinary bladder is decompressed with Matthews catheter in place.Ostomy in the left anterior abdominal wall.Unremarkable appearance of the remaining bowel.Reproductive structures are unremarkable.No evidence of acute appendicitis.No pneumoperitoneum.No significant fluid collection.No adenopathy.No acute osseous abnormality.IMPRESSION:1. Findings are consistent with acute pancreatitis.2. Small to moderate bilateral partially imaged layering pleural effusion; nonspecific.THIS IS AN ELECTRONICALLY VERIFIED FINAL REPORT01/26/2025 6:15 PM - Electronically signed by Simon Bell MD
--- NOTE | 2025-01-26 18:44 | CT ---
EXAM: CHEST W/O CON HISTORY: dyspnea; COMPARISON: 05/28/2024, CT abdomen and pelvis same day TECHNIQUE: CT of the chest obtained without IV contrast. Evaluation of the solid organs is limited due to lack o f IV contrast. 3D MIPS images obtained and reviewed. Dose reduction techniques including Automated Ex posure Control (AEC) and adjustment of mA and kV were utilized. FINDINGS: No pneumothorax. Moderate right and small left pleural effusions. Dependent consolidation versus at electasis in the lungs. The heart is normal in size. No evidence of pericardial disease. Coronary and aortic calcifications. No mediastinal adenopathy. Calcified mediastinal lymph nodes. No acute osseous abnormality. Multilevel degenerative changes in the visualized spine. The limited visualized portions of the upper abdomen demonstrate no acute process. Prior cholecystect nam. IMPRESSION: Bilateral pleural effusions, [id number]-left with dependent consolidation versus atelectasis in the lungs. Likely sequela of prior granulomatous disease. THIS IS AN ELECTRONICALLY VERIFIED FINAL REPORT 01/26/2025 6:40 PM - Electronically signed by Giovanni Joy MD
[2025-01-26 20:31] LABS: BILIRUBIN,URINE NEGATIVE (NEGATIVE); BLOOD/HEMOGLOBIN,URINE 4+ (NEGATIVE); GLUCOSE, URINE NEGATIVE (NEGATIVE); KETONES,URINE NEGATIVE (NEGATIVE); LEUKOCYTE ESTERASE ,URINE 3+ (NEGATIVE); NITRITES,URINE NEGATIVE (NEGATIVE); PROTEIN,URINE 2+ (NEGATIVE); UROBILINOGEN,URINE NORMAL (NORMAL)
[2025-01-26 20:32] LABS: APPEARANCE,URINE HAZY (CLEAR); COLOR,URINE YELLOW (YELLOW)
[2025-01-26 20:46] LABS: BACTERIA,URINE TRACE /HPF (NEGATIVE); SQUAMOUS EPITHELIAL CELL,UR NEGATIVE /HPF (NEGATIVE)
[2025-01-26 20:47] LABS: YEAST,URINE NUMEROUS /HPF (NEGATIVE)
--- NOTE | 2025-01-26 21:52 | EKG ---
Test Reason : BRADYCARDIA Blood Pressure : */* mmHG Vent. Rate : 51 BPM Atrial Rate : * BPM P-R Int : * ms QRS Dur : 150 ms QT Int : 474 ms P-R-T Axes : * 88 40 degrees QTc Int : 436 ms Atrial fibrillation with slow ventricular response Right bundle branch block Abnormal ECG When compared with ECG of 01-JAN-2025 08:40, Criteria for Septal infarct are no longer present T wave inversion no longer evident in Anterior leads QT has shortened Confirmed by Lalito Nassar MD ([id number]) on 01/27/2025 5:48:24 AM Referred By: Confirmed By: Lalito Nassar MD
[2025-01-26 22:45] VITALS: BMI 34.8
[2025-01-27] MEDS: AMBIEN PO PRN (00:12)
[2025-01-27] MEDS ORDERED: NovoLIN R (or HumuLIN R) SUBCUT PRN (04:22)
--- NOTE | 2025-01-27 05:22 | EKG ---
Test Reason : Bradycardia Blood Pressure : */* mmHG Vent. Rate : 68 BPM Atrial Rate : * BPM P-R Int : * ms QRS Dur : 138 ms QT Int : 414 ms P-R-T Axes : * 73 39 degrees QTc Int : 440 ms Atrial fibrillation Right bundle branch block Abnormal ECG When compared with ECG of 26-JAN-2025 21:48, (Unconfirmed) No significant change was found Confirmed by Lalito Nassar MD ([id number]) on 01/27/2025 5:46:57 AM Referred By: Confirmed By: Lalito Nassar MD
[2025-01-27 06:18] LABS: BASOPHILS # (AUTO) 0.1 X10^3/uL (0.0-0.1); BASOPHILS % (AUTO) 0.8 % (0.2-1.0); EOSINOPHILS # (AUTO) 0.5 x10^3/uL (0.0-0.2); EOSINOPHILS % (AUTO) 6.8 % (0.9-2.9); HEMOGLOBIN 8.6 g/dL (13.5-18.0); LYMPHOCYTES # (AUTO) 1.3 X10^3/uL (1.3-2.9); MEAN CORPUSCULAR HEMOGLOBIN 25.5 pg (27.0-34.0); MEAN CORPUSCULAR HGB CONC 33.2 g/dL (33.0-35.0); MEAN CORPUSCULAR VOLUME 76.9 fL (80.0-100.0); MEAN PLATELET VOLUME 8.7 fL (7.4-11.0); MONOCYTES # (AUTO) 0.4 x10^3/uL (0.3-0.8); NEUTROPHILS # (AUTO) 5.1 x10^3/uL (2.2-4.8); NEUTROPHILS % (AUTO) 69.4 % (42.0-75.0); PLATELET COUNT 281 X10^3/uL (150.0-450.0); RED BLOOD COUNT 3.38 X10^6/uL (4.7-6.0); RED CELL DISTRIBUTION WIDTH 18.5 % (11.6-16.5); WHITE BLOOD COUNT 7.4 X10^3/uL (3.6-10.0)
[2025-01-27 06:29] LABS: ALANINE AMINOTRANSFERASE < 6 Units/L (12-78); ALBUMIN 1.7 g/dL (3.4-5.0); ALKALINE PHOSPHATASE 77 Units/L (46-116); AMYLASE 23 Units/L (25-115); ASPARTATE AMINO TRANSFERASE 13 Units/L (15-37); BLOOD UREA NITROGEN 44 mg/dL (7-18); CALCIUM 8.6 mg/dL (8.5-10.1); CARBON DIOXIDE 32.4 mmol/L (21-32); CHLORIDE 103 mmol/L (98-107); COR CA(FOR HYPOALB) 10.4 mg/dL (8.5-10.1); CREATININE 3.21 mg/dL (0.70-1.30); GLUCOSE 94 mg/dL (65-99); LIPASE 61 Units/L (16-77); MAGNESIUM 1.5 mg/dL (2.0-2.9); SODIUM 139 mmol/L (136-145); TOTAL PROTEIN 5.4 g/dL (6.4-8.2); eGFR NON BLACK RACES 21 (>60)
[2025-01-27 06:37] LABS: POTASSIUM 5.4 mmol/L (3.5-5.1)
[2025-01-27] MEDS ORDERED: CONSULT PHARMACY - POTASSIUM & MAGNESIUM XX SCH (07:00)
[2025-01-27] MEDS ORDERED: NS 250 ML IV 250 ML IV ONE (12:04)
[2025-01-27] MEDS: ZOSYN VIAL 3.375 GRAMS 3.375 G in NS 100 ML IV 100 ML IV SCH (12:16)
[2025-01-27] MEDS: NS 1,000 ML IV 1,000 ML with MAGNESIUM SULFATE 50% INJ VIAL 1 G IV SCH (12:19)
[2025-01-27] MEDS: LASIX IVP ONE ×2 (12:22)
[2025-01-27] MEDS: NS 250 ML IV 25 ML IV PRN (12:26)
[2025-01-27] MEDS: NS 1,000 ML IV 1,000 ML IV SCH (12:26)
[2025-01-27] MEDS: MORPHINE SULFATE INJ 2 MG INJ IVP PRN (15:34)
--- NOTE | 2025-01-27 17:37 | DR.H&P ---
H&P History & Physical for Day of: H&P Date: 01/26/25 Chief Complaint Chief Complaint: weakness and low blood pressure, surgical wound leaking fluid, History of Present Illness History of Present Illness: PT IS 60 WM, ER ADMISSION AFTER HOME HEALTH ASSESSED PT WITH HYPOTENSION AND DIFFUSE PALLOR. PT HAS HAD DECREASED URINE OUTPT IN THE PAST WEEK. PT HAS [facility] MIA IN [place] ON JANUARY 09. PT WAS DC HOME ONE WEEK AGO AND RUQ ELIUD DRAIN SITE HAS LEAKED A LARGE AMOUNT OF FLUID DAILY SINCE D/C. PT HAS CONTINUED WITH WEAKNESS AND POOR PO INTAKE. PT HAD OP LABS REVEALING ANEMIA, RENAL FAILURE AND PT WAS HYPOTENSIVE. PT ADMITTED FOR TREATMENT AND EVALUATION OF ACUTE ILLNESS. Past Medical History Past Medical History: Anemia, Arthritis, CHF, Depression, Diabetes, Dyslipidemia, GERD and Hypertension Past Surgical History Surgical History: Abdominal Surgery, Bowel Resection, Cholecystectomy, Ortho Surgery and Other Family History Family Medical History: Cancer and Hypertension Social History Does patient currently use any type of tobacco product: Yes Type of Tobacco Use: Smokeless Alcohol Use: None Drug Use: None Medications Home Medications: Home Medications Medication Instructions Recorded Confirmed Type ferrous sulfate 325 mg (65 mg 325 mg PO QAM 01/30/24 01/26/25 History iron) tablet,delayed release amlodipine 10 mg tablet 10 mg PO QAM 12/31/24 01/26/25 History apixaban 5 mg tablet (Eliquis) 5 mg PO BID 12/31/24 01/26/25 History bupropion HCl 150 mg 24 hr tablet, 150 mg PO QAM 12/31/24 01/26/25 History extended release carvedilol 12.5 mg tablet 12.5 mg PO BID 12/31/24 01/26/25 History escitalopram oxalate 5 mg tablet 5 mg PO QPM 12/31/24 01/26/25 History fenofibrate 160 mg tablet 160 mg PO QAM 12/31/24 01/26/25 History furosemide 40 mg tablet 40 mg PO QAM 12/31/24 01/26/25 History gabapentin 300 mg capsule 300 mg PO QPM 12/31/24 01/26/25 History hydralazine 25 mg tablet 25 mg PO BID 12/31/24 01/26/25 History omeprazole 40 mg capsule,delayed 40 mg PO QAM 12/31/24 01/26/25 History release oxybutynin chloride 10 mg 10 mg PO QPM 12/31/24 01/26/25 History tablet,extended release 24 hr oxycodone 10 mg tablet 10 mg PO TID PRN 12/31/24 01/26/25 History potassium chloride 10 mEq 10 meq PO QAM 12/31/24 01/26/25 History tablet,extended release pravastatin 40 mg tablet 40 mg PO QPM 12/31/24 01/26/25 History quetiapine 50 mg tablet 50 mg PO QPM 12/31/24 01/26/25 History tamsulosin 0.4 mg capsule 0.4 mg PO QPM 12/31/24 01/26/25 History tizanidine 4 mg tablet 4 mg PO TID PRN 12/31/24 01/26/25 History melatonin 10 mg tablet 10 mg PO HS 01/01/25 01/26/25 History Allergies Allergies Allergy/AdvReac Type Severity Reaction Status Date / Time No Known Drug Allergies Allergy Verified 01/26/25 16:09 Labs 01/27/25 05:30 01/27/25 05:30 Labs: 01/26/25 20:25 Urine,Catheterized Urine Culture - Preliminary Laboratory WBC 7.4 X10^3/uL (3.6-10.0) 01/27/25 05:30 RBC 3.38 X10^6/uL (4.7-6.0) L 01/27/25 05:30 Hgb 8.6 g/dL (13.5-18.0) L 01/27/25 05:30 Hct 26.0 % (42.0-54.0) L 01/27/25 05:30 MCV 76.9 fL (80.0-100.0) L 01/27/25 05:30 MCH 25.5 pg (27.0-34.0) L 01/27/25 05:30 MCHC 33.2 g/dL (33.0-35.0) 01/27/25 05:30 RDW 18.5 % (11.6-16.5) H 01/27/25 05:30 Plt Count 281 X10^3/uL (150.0-450.0) 01/27/25 05:30 MPV 8.7 fL (7.4-11.0) 01/27/25 05:30 Neut % (Auto) 69.4 % (42.0-75.0) 01/27/25 05:30 Lymph % (Auto) 17.0 % (21.0-51.0) L 01/27/25 05:30 [place] % (Auto) 6.0 % (0.0-13.0) 01/27/25 05:30 Eos % (Auto) 6.8 % (0.9-2.9) H 01/27/25 05:30 Baso % (Auto) 0.8 % (0.2-1.0) 01/27/25 05:30 Neut # (Auto) 5.1 x10^3/uL (2.2-4.8) H 01/27/25 05:30 Lymph # (Auto) 1.3 X10^3/uL (1.3-2.9) 01/27/25 05:30 [place] # (Auto) 0.4 x10^3/uL (0.3-0.8) 01/27/25 05:30 Eos # (Auto) 0.5 x10^3/uL (0.0-0.2) H 01/27/25 05:30 Baso # (Auto) 0.1 X10^3/uL (0.0-0.1) 01/27/25 05:30 Absolute Nucleated RBC 0.1 /100WBC 01/27/25 05:30 Sodium 139 mmol/L (136-145) 01/27/25 05:30 Corrected Sodium TNP 01/27/25 05:30 Potassium 5.4 mmol/L (3.5-5.1) H 01/27/25 05:30 Chloride 103 mmol/L (98-107) 01/27/25 05:30 Carbon Dioxide 32.4 mmol/L (21-32) H 01/27/25 05:30 BUN 44 mg/dL (7-18) H 01/27/25 05:30 Creatinine 3.21 mg/dL (0.70-1.30) H 01/27/25 05:30 Est GFR (MDRD) Af Amer 26 (>60) L 01/27/25 05:30 Est GFR (MDRD) Non-Af 21 (>60) L 01/27/25 05:30 Glucose 94 mg/dL (65-99) 01/27/25 05:30 POC Glucose (mg/dL) 143 mg/dL (65-99) H 01/27/25 11:00 Calcium 8.6 mg/dL (8.5-10.1) 01/27/25 05:30 Corrected Calcium 10.4 mg/dL (8.5-10.1) H 01/27/25 05:30 Magnesium 1.5 mg/dL (2.0-2.9) L 01/27/25 05:30 Total Bilirubin 0.40 mg/dL (0.2-1.0) 01/27/25 05:30 AST 13 Units/L (15-37) L 01/27/25 05:30 ALT < 6 Units/L (12-78) L 01/27/25 05:30 Alkaline Phosphatase 77 Units/L (46-116) 01/27/25 05:30 B-Natriuretic Peptide 241 pg/mL (0-79) H 01/26/25 15:58 Total Protein 5.4 g/dL (6.4-8.2) L 01/27/25 05:30 Albumin 1.7 g/dL (3.4-5.0) L 01/27/25 05:30 Globulin 3.7 g/dL (2.5-4.5) 01/27/25 05:30 Albumin/Globulin Ratio 0.5 Ratio (1.1-2.1) L 01/27/25 05:30 Amylase 23 Units/L (25-115) L 01/27/25 05:30 Lipase 61 Units/L (16-77) 01/27/25 05:30 Specimen Type Catherized urine 01/26/25 20:25 Urine Color Yellow (YELLOW) 01/26/25 20:25 Urine Appearance Hazy (CLEAR) 01/26/25 20:25 Urine pH 6.0 (5.0 - 8.0) 01/26/25 20:25 Ur Specific [place] 1.025 (1.000-1.030) 01/26/25 20:25 Urine Protein 2+ (NEGATIVE) 01/26/25 20:25 Urine Glucose (UA) Negative (NEGATIVE) 01/26/25 20:25 Urine Ketones Negative (NEGATIVE) 01/26/25 20: Urine Blood 4+ (NEGATIVE) 01/26/25 20:25 Urine Nitrite Negative (NEGATIVE) 01/26/25 20:25 Urine Bilirubin Negative (NEGATIVE) 01/26/25 20:25 Urine Urobilinogen Normal (NORMAL) 01/26/25 20:25 Ur Leukocyte Esterase 3+ (NEGATIVE) 01/26/25 20:25 Urine RBC 10-20 /HPF (0-3) A 01/26/25 20:25 Urine WBC Tntc /HPF (0-5) A 01/26/25 20:25 Ur Squamous Epith Cells Negative /HPF (NEGATIVE) 01/26/25 20:25 Urine Bacteria Trace /HPF (NEGATIVE) 01/26/25 20:25 Urine Yeast Numerous /HPF (NEGATIVE) 01/26/25 20:25 Ur Culture Indicated? Yes/culture set up 01/26/25 20:25 Review of Systems Constitutional: Weakness Eyes: No Symptoms Reported ENT: No Symptoms Reported Respiratory: Shortness of Breath Cardiovascular: Palpitations and Edema Gastrointestinal: Nausea, Vomiting and Abdominal Pain Genitourinary: Retention Musculoskeletal: Back Pain Skin: Wound Neurological: Weakness and Confusion Physical Exam Vital Signs: Vital Signs Temperature 98.6 F Pulse Rate [Left Radial] 70 Respiratory Rate 19 Respiratory Rate 19 Blood Pressure [Left Arm] 126/60 O2 Sat by Pulse Oximetry 98 Oriented: Normal Eyes: Normal Nose: Normal Throat: Dry Respiratory: Diminished Throughout Cardiovascular: Bradycardia : Normal Auscultation: Bowel Sounds: Decreased Palpation: Other (MILD DIFFUSE DISTENTION) Skin: Decreased [place], Wound (STAGE IV SACRAL DECUBITUS) and Other (LAP MIA POST OPERATIVE INCISIONS) Musculoskeletal: Back:Lumbar, Motor Deficit and Sensory Deficit Psychiatric: Depression Mood Description: Depressed Affect: Depressed Speech Pattern: Clear and Appropriate Assessment/Plan (1) Acute pancreatitis: Qualifiers: Acute pancreatitis complication: no infection or necrosis Pancreatitis type: unspecified pancreatitis type Qualified Code(s): K85.90 - Acute pancreatitis without necrosis or infection, unspecified Status: Acute Plan: ADMIT, NPO IV ATBX, IV HYDRATION BP CONTROL, CARDIAC MONITORING STRICT I&OS PAIN CONTROL, WOUND CONSULT (2) Draining postoperative wound: Qualifiers: Encounter type: initial encounter Qualified Code(s): T81.89XA - Other complications of procedures, not elsewhere classified, initial encounter Status: Acute (3) Status post laparoscopic cholecystectomy: Status: Acute (4) Abdominal pain: Qualifiers: Abdominal location: generalized Qualified Code(s): R10.84 - Generalized abdominal pain Status: Acute (5) Anemia: Status: Acute (6) Weakness: Status: Acute (7) Hypotension: Status: Acute (8) Renal failure: Status: Acute
[2025-01-27] MEDS: SNACK - Diabetic Appropriate PO SCH (22:49)
[2025-01-28] MEDS: ZOFRAN INJ 4 MG VIAL IVP PRN (00:43)
--- NOTE | 2025-01-28 05:31 | EKG ---
Test Reason : bradycardia Blood Pressure : */* mmHG Vent. Rate : 68 BPM Atrial Rate : * BPM P-R Int : * ms QRS Dur : 126 ms QT Int : 404 ms P-R-T Axes : * 67 17 degrees QTc Int : 429 ms Atrial fibrillation Right bundle branch block Abnormal ECG When compared with ECG of 27-JAN-2025 04:59, T wave inversion now evident in Anterior leads Confirmed by Lalito Nassar MD ([id number]) on 01/28/2025 7:33:25 AM Referred By: Confirmed By: Lalito Nassar MD
[2025-01-28 05:57] LABS: BASOPHILS % (AUTO) 0.3 % (0.2-1.0); EOSINOPHILS # (AUTO) 0.5 x10^3/uL (0.0-0.2); EOSINOPHILS % (AUTO) 6.3 % (0.9-2.9); HEMATOCRIT 27.1 % (42.0-54.0); HEMOGLOBIN 9.1 g/dL (13.5-18.0); LYMPHOCYTES # (AUTO) 1.1 X10^3/uL (1.3-2.9); LYMPHOCYTES % (AUTO) 14.6 % (21.0-51.0); MEAN CORPUSCULAR HGB CONC 33.7 g/dL (33.0-35.0); MEAN CORPUSCULAR VOLUME 77.4 fL (80.0-100.0); MEAN PLATELET VOLUME 8.2 fL (7.4-11.0); MONOCYTES # (AUTO) 0.5 x10^3/uL (0.3-0.8); MONOCYTES % (AUTO) 6.5 % (0.0-13.0); NEUTROPHILS # (AUTO) 5.6 x10^3/uL (2.2-4.8); NEUTROPHILS % (AUTO) 72.3 % (42.0-75.0); PLATELET COUNT 287 X10^3/uL (150.0-450.0); RED CELL DISTRIBUTION WIDTH 18.6 % (11.6-16.5); WHITE BLOOD COUNT 7.8 X10^3/uL (3.6-10.0)
[2025-01-28 06:14] LABS: ALANINE AMINOTRANSFERASE < 6 Units/L (12-78); ALBUMIN 1.8 g/dL (3.4-5.0); ALKALINE PHOSPHATASE 78 Units/L (46-116); ASPARTATE AMINO TRANSFERASE 15 Units/L (15-37); BLOOD UREA NITROGEN 38 mg/dL (7-18); CALCIUM 8.7 mg/dL (8.5-10.1); CHLORIDE 102 mmol/L (98-107); COR CA(FOR HYPOALB) 10.5 mg/dL (8.5-10.1); COR NA(FOR HYPERGLY) 138 mmol/L (136-145); CREATININE 3.01 mg/dL (0.70-1.30); GLUCOSE 134 mg/dL (65-99); MAGNESIUM 1.7 mg/dL (2.0-2.9); SODIUM 137 mmol/L (136-145); TOTAL PROTEIN 5.7 g/dL (6.4-8.2); eGFR NON BLACK RACES 23 (>60)
[2025-01-28 06:16] LABS: POTASSIUM 5.4 mmol/L (3.5-5.1)
[2025-01-28] MEDS ORDERED: CONSULT PHARMACY - POTASSIUM & MAGNESIUM XX SCH (08:00)
[2025-01-28] MEDS: NS 1,000 ML IV 1,000 ML with MAGNESIUM SULFATE 50% INJ VIAL 2 G IV SCH (11:48)
[2025-01-28] MEDS: SEROquel TAB 25 mg PO ONE (11:56)
[2025-01-28] MEDS: ALBUMIN HUMAN 25%- 100 ML 100 ML IV ONE (11:59)
[2025-01-28] MEDS ORDERED: LASIX IVP ONE (14:43)
[2025-01-28] MEDS ORDERED: SANTYL ONE (14:45)
[2025-01-28] MEDS: LASIX IVP ONE (14:57)
[2025-01-28] MEDS: SANTYL EXT SCH (14:59)
--- NOTE | 2025-01-29 04:55 | EKG ---
Test Reason : BRADYCARDIA Blood Pressure : */* mmHG Vent. Rate : 71 BPM Atrial Rate : * BPM P-R Int : * ms QRS Dur : 118 ms QT Int : 400 ms P-R-T Axes : * 84 29 degrees QTc Int : 434 ms Poor data quality, interpretation may be adversely affected Atrial fibrillation Low voltage QRS Right bundle branch block Septal infarct , age undetermined Abnormal ECG When compared with ECG of 28-JAN-2025 05:07, Septal infarct is now present Confirmed by Lalito Nassar MD ([id number]) on 01/29/2025 5:56:47 AM Referred By: Confirmed By: Lalito Nassar MD
[2025-01-29 05:53] LABS: BASOPHILS # (AUTO) 0.1 X10^3/uL (0.0-0.1); BASOPHILS % (AUTO) 1.4 % (0.2-1.0); EOSINOPHILS # (AUTO) 0.6 x10^3/uL (0.0-0.2); EOSINOPHILS % (AUTO) 8.2 % (0.9-2.9); HEMATOCRIT 26.7 % (42.0-54.0); HEMOGLOBIN 9.1 g/dL (13.5-18.0); LYMPHOCYTES # (AUTO) 1.2 X10^3/uL (1.3-2.9); LYMPHOCYTES % (AUTO) 16.9 % (21.0-51.0); MEAN CORPUSCULAR HGB CONC 34.1 g/dL (33.0-35.0); MEAN CORPUSCULAR VOLUME 76.2 fL (80.0-100.0); MEAN PLATELET VOLUME 7.9 fL (7.4-11.0); MONOCYTES # (AUTO) 0.6 x10^3/uL (0.3-0.8); MONOCYTES % (AUTO) 8.5 % (0.0-13.0); NEUTROPHILS # (AUTO) 4.7 x10^3/uL (2.2-4.8); PLATELET COUNT 281 X10^3/uL (150.0-450.0); RED CELL DISTRIBUTION WIDTH 18.2 % (11.6-16.5); WHITE BLOOD COUNT 7.2 X10^3/uL (3.6-10.0)
[2025-01-29 06:06] LABS: ALANINE AMINOTRANSFERASE < 6 Units/L (12-78); ALBUMIN 1.9 g/dL (3.4-5.0); ALKALINE PHOSPHATASE 74 Units/L (46-116); ASPARTATE AMINO TRANSFERASE 14 Units/L (15-37); BLOOD UREA NITROGEN 33 mg/dL (7-18); CALCIUM 9.2 mg/dL (8.5-10.1); CHLORIDE 102 mmol/L (98-107); COR CA(FOR HYPOALB) 10.9 mg/dL (8.5-10.1); CREATININE 2.81 mg/dL (0.70-1.30); GLUCOSE 89 mg/dL (65-99); SODIUM 139 mmol/L (136-145); TOTAL PROTEIN 5.7 g/dL (6.4-8.2); eGFR NON BLACK RACES 25 (>60)
[2025-01-29] MEDS: LASIX IVP SCH (08:41)
[2025-01-29] MEDS: ALBUMIN HUMAN 25%- 100 ML 100 ML IV ONE (08:42)
[2025-01-29 09:30] VITALS: TEMP 98.7
--- NOTE | 2025-01-29 10:13 | RAD ---
EXAM:CHEST, 1 VIEWHISTORY:sob;COMPARISON:No relevant prior studies were available for comparison at the time of interpretation.TECHNIQUE:CHEST, 1 VIEWFINDINGS:Chest:Lines and tubes: Cardiac leads overlie the chest.Mediastinum: Borderline cardiomegaly.Pulmonary vessels: Pulmonary vasculature is prominent.Lung collins: Patchy opacities are seenPleura: No effusion. No pneumothorax.Bones and soft tissues: No acute osseous or soft tissue abnormality.IMPRESSION:1. Findings suggest heart failureTHIS IS AN ELECTRONICALLY VERIFIED FINAL REPORT01/29/2025 10:10 AM - Electronically signed by José Terry MD
[2025-01-29 13:32] VITALS: BP 140/81; PULSE 81; RESP 20; O2SAT 97
== END 2025-01-29 13:00 | disposition hospice, home (50) ==
LOC: ER 15:52 → MED/SURG 15:52
PROVIDERS: ADMIT Internal Medicine; ATTEND Internal Medicine
DX: I45.10 Unspecified right bundle-branch block; T81.89XA Other complications of procedures, not elsewhere classified, initial encounter; E83.42 Hypomagnesemia; I48.91 Unspecified atrial fibrillation; B37.41 Candidal cystitis and urethritis; Z90.49 Acquired absence of other specified parts of digestive tract; K85.90 Acute pancreatitis without necrosis or infection, unspecified; M62.81 Muscle weakness (generalized); N18.9 Chronic kidney disease, unspecified; Z59.86 Financial insecurity; E87.5 Hyperkalemia; Z79.01 Long term (current) use of anticoagulants; R23.1 Pallor; N17.8 Other acute kidney failure; R94.31 Abnormal electrocardiogram [ECG] [EKG]; I95.89 Other hypotension; E11.65 Type 2 diabetes mellitus with hyperglycemia; R62.7 Adult failure to thrive; E78.5 Hyperlipidemia, unspecified; K21.9 Gastro-esophageal reflux disease without esophagitis; R06.02 Shortness of breath; E11.622 Type 2 diabetes mellitus with other skin ulcer; D64.89 Other specified anemias; L89.154 Pressure ulcer of sacral region, stage 4; R00.1 Bradycardia, unspecified; J90 Pleural effusion, not elsewhere classified; R10.84 Generalized abdominal pain; I12.9 Hypertensive chronic kidney disease with stage 1 through stage 4 chronic kidney disease, or unspecified chronic kidney disease; Z93.3 Colostomy status; L97.318 Non-pressure chronic ulcer of right ankle with other specified severity

== ENCOUNTER 2025-06-03 12:56 | Inpatient (IN) ==
--- NOTE | 2025-06-03 13:40 | DR.AMS ---
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 States he has grunted a few times as if he is in pain, but otherwise has not complained of anything in particular. Chief Complaint:: Pt's daughter reports that for the past three days pt has had lethargy and decreased responsiveness. Pt will respond to painful stimuli by groaning but does not respond verbally. Pt's daughter reports that he has had increased drainage from his sacral wound over the past two days. Pt has also had increased swelling in his lower extremities for the past two days. Self Treatment fo Chief Complaint: Pt does have an indwelling gerard catheter which was changed yesterday. Urine specimen was taken to his pcp's office for testing but hasn't resulted yet. Pt was started on Cefdinir yesterday. COVID-19 Coronavirus risk:travel/contact w/high risk person: No Has patient experienced Coronavirus symptoms: No Source History Provided: Family Member Mode of Arrival Mode of Arrival: EMS Timing Onset of Chief Complaint: 06/01/25 PMH PMH Past Medical History: Yes Past Medical History: Anemia, Arthritis, CHF, Depression, Diabetes, Dyslipidemia, GERD, Hypertension and Renal Disease Past Medical History Comment: afib, babita gangrene Past Surgical History: Yes Surgical History: Bowel Resection, Cholecystectomy and Ortho Surgery Past Surgical History Comment: colostomy Family History History of Family Medical Conditions: Yes Family Medical History: Cancer and Hypertension Social History Does patient currently use any type of tobacco product: No Have you used tobacco products in the last 12 months: No Type of Tobacco Use: None Does any household member use tobacco: No Alcohol Use: None Do you use any recreational Drugs:: No Lives With: Alone Lives Where: Home Travel Risk Coronavirus risk:travel/contact w/high risk person: No Has patient experienced Coronavirus symptoms: No Infectious screening In the last 2 months have you had wt loss of >10#?: NO Have you had fever, night sweats or hemotysis?: No Have you traveled outside the country in the last 6 months?: No Isolation: Standard ROS Review of Systems Unable to Obtain Due To: Altered mental status PE Vitals Vital Signs: Temp Pulse Resp BP Pulse Ox O2 Del Method 06/03/25 18:00 50 L 15 100 06/03/25 18:00 133/63 06/03/25 17:45 55 L 23 99 06/03/25 17:30 49 L 18 100 06/03/25 17:30 126/60 06/03/25 17:15 50 L 21 100 06/03/25 17:00 138/64 06/03/25 17:00 52 L 23 100 06/03/25 16:45 52 L 24 100 06/03/25 16:30 132/66 06/03/25 16:30 132/66 06/03/25 16:30 51 L 16 100 06/03/25 16:15 48 L 29 H 100 06/03/25 16:00 133/64 06/03/25 16:00 49 L 16 99 06/03/25 15:46 53 L 15 100 06/03/25 15:31 51 L 15 100 06/03/25 15:31 133/63 06/03/25 15:30 46 L 13 100 06/03/25 15:15 50 L 15 100 06/03/25 15:00 53 L 15 100 06/03/25 15:00 141/64 06/03/25 14:45 51 L 16 99 06/03/25 14:33 55 L 20 97 06/03/25 14:33 131/62 06/03/25 14:30 55 L 16 98 06/03/25 14:15 52 L 95 06/03/25 13:30 51 L 15 96 06/03/25 13:30 125/59 06/03/25 13:24 98.2 F 61 14 120/57 96 Nasal Cannula 06/03/25 13:22 54 L 16 95 General Limitations: Language Barrier General Appearance: Alert and Other (non-verbal, not engaging, responding to painful stim.) Head Head Exam: Normal Inspection Eyes Eye exam: Normal Appearance ENT ENT Exam: Normal Exam External Ear Exam: Normal External Inspection Nose Exam: Normal Nose Exam Mouth Exam: Normal Inspection Throat Exam: Normal Inspection Neck Neck Exam: Normal Inspection Chest Chest Inspection: Normal Inspection Respiratory Respiratory Exam: Normal Lung Sounds Bilat Cardiovascular Cardiovascular Exam: Regular Rate and Normal Rhythm Abdominal Exam Abdominal Exam: Normal Inspection, Normal Bowel Sounds and Soft Extremities Extremities Exam: Normal Inspection Back Back Exam: Other (Stage IV sacral decub ulcer, see nursing photos) Neurological Neurological Exam: Other (not following commands. Moves all 4 ext spont) Skin Skin Exam: Warm, Dry, Intact and Normal Color ROR Labs Reviewed Laboratory Results Reviewed?: Yes 06/03/25 14:23 06/03/25 14:23 Laboratory: WBC 6.3 X10^3/uL (3.6-10.0) 06/03/25 14:23 RBC 3.32 X10^6/uL (4.7-6.0) L 06/03/25 14:23 Hgb 8.9 g/dL (13.5-18.0) L 06/03/25 14:23 Hct 26.4 % (42.0-54.0) L 06/03/25 14:23 MCV 79.5 fL (80.0-100.0) L 06/03/25 14:23 MCH 26.8 pg (27.0-34.0) L 06/03/25 14:23 MCHC 33.7 g/dL (33.0-35.0) 06/03/25 14:23 RDW 17.0 % (11.6-16.5) H 06/03/25 14:23 Plt Count 165 X10^3/uL (150.0-450.0) 06/03/25 14:23 MPV 8.2 fL (7.4-11.0) 06/03/25 14:23 Neut % (Auto) 88.4 % (42.0-75.0) H 06/03/25 14:23 Lymph % (Auto) 5.9 % (21.0-51.0) L 06/03/25 14:23 Tate % (Auto) 4.4 % (0.0-13.0) 06/03/25 14:23 Eos % (Auto) 0.1 % (0.9-2.9) L 06/03/25 14:23 Baso % (Auto) 1.2 % (0.2-1.0) H 06/03/25 14:23 Neut # (Auto) 5.6 x10^3/uL (2.2-4.8) H 06/03/25 14:23 Lymph # (Auto) 0.4 X10^3/uL (1.3-2.9) L 06/03/25 14:23 Tate # (Auto) 0.3 x10^3/uL (0.3-0.8) 06/03/25 14:23 Eos # (Auto) 0.0 x10^3/uL (0.0-0.2) 06/03/25 14:23 Baso # (Auto) 0.1 X10^3/uL (0.0-0.1) 06/03/25 14:23 Absolute Nucleated RBC 0.1 /100WBC 06/03/25 14:23 PT 18.8 SECONDS (11.8-14.3) 06/03/25 14:23 INR Target Range - 06/03/25 14:23 INR 1.55 (0.8-1.3) H 06/03/25 14:23 APTT 37.1 SECONDS (22.9-36.5) H 06/03/25 14:23 PTT Comment - 06/03/25 14:23 Sample Site Rrad 06/03/25 14:15 ABG pH 7.440 (7.35-7.45) 06/03/25 14:15 ABG pCO2 44.0 mmHg (35.0-45.0) 06/03/25 14:15 ABG pO2 66.0 mmHg (80.0-100.0) L 06/03/25 14:15 ABG HCO3 29.9 mmol/L (22-26) H 06/03/25 14:15 ABG O2 Saturation 93.0 % (90-100) 06/03/25 14:15 ABG Base Excess 5.1 mmol/L (-2.0-2.0) H 06/03/25 14:15 Dane Test Pos 06/03/25 14:15 A-a Gradient 79.0 mmHg 06/03/25 14:15 FiO2 28.0 06/03/25 14:15 Blood Gas Comments Perico well ms 06/03/25 14:15 Sodium 136 mmol/L (136-145) 06/03/25 14:23 Corrected Sodium 137 mmol/L (136-145) 06/03/25 14:23 Potassium 3.8 mmol/L (3.5-5.1) 06/03/25 14:23 Chloride 100 mmol/L (98-107) 06/03/25 14:23 Carbon Dioxide 30.3 mmol/L (21-32) 06/03/25 14:23 BUN 36 mg/dL (7-18) H 06/03/25 14:23 Creatinine 2.14 mg/dL (0.70-1.30) H 06/03/25 14:23 Est GFR (MDRD) Af Amer 41 (>60) L 06/03/25 14:23 Est GFR (MDRD) Non-Af 34 (>60) L 06/03/25 14:23 Glucose 121 mg/dL (65-99) H 06/03/25 14:23 Lactic Acid 0.8 mmol/L (0.4-2.0) 06/03/25 14:23 Calcium 9.8 mg/dL (8.5-10.1) 06/03/25 14:23 Corrected Calcium 11.2 mg/dL (8.5-10.1) H 06/03/25 14:23 Magnesium 1.6 mg/dL (2.0-2.9) L 06/03/25 16:14 Total Bilirubin 1.50 mg/dL (0.2-1.0) H 06/03/25 14:23 AST 22 Units/L (15-37) 06/03/25 14:23 ALT < 6 Units/L (12-78) L 06/03/25 14:23 Alkaline Phosphatase 48 Units/L (46-116) 06/03/25 14:23 Creatine Kinase 20 Units/L (39-308) L 06/03/25 14:23 Troponin I High Sens 21.9 ng/L (4.0-60.0) 06/03/25 14:23 Total Protein 6.4 g/dL (6.4-8.2) 06/03/25 14:23 Albumin 2.3 g/dL (3.4-5.0) L 06/03/25 14:23 Globulin 4.1 g/dL (2.5-4.5) 06/03/25 14:23 Albumin/Globulin Ratio 0.6 Ratio (1.1-2.1) L 06/03/25 14:23 Specimen Type Catherized urine 06/03/25 14:30 Urine Color Seble (YELLOW) 06/03/25 14:30 Urine Appearance Cloudy (CLEAR) 06/03/25 14:30 Urine pH 5.0 (5.0 - 8.0) 06/03/25 14:30 Ur Specific [place] 1.025 (1.000-1.030) 06/03/25 14:30 Urine Protein 3+ (NEGATIVE) 06/03/25 14:30 Urine Glucose (UA) Negative (NEGATIVE) 06/03/25 14:30 Urine Ketones Negative (NEGATIVE) 06/03/25 14: Urine Blood 4+ (NEGATIVE) 06/03/25 14: Urine Nitrite Positive (NEGATIVE) 06/03/25 14:30 Urine Bilirubin 1+ (NEGATIVE) 06/03/25 14: Urine Urobilinogen 2+ (NORMAL) 06/03/25 14:30 Ur Leukocyte Esterase 3+ (NEGATIVE) 06/03/25 14:30 Urine RBC 3-5 /HPF (0-3) A 06/03/25 14:30 Urine WBC Tntc /HPF (0-5) A 06/03/25 14:30 Ur Squamous Epith Cells Negative /HPF (NEGATIVE) 06/03/25 14:30 Amorphous Sediment 1+ /HPF (NEGATIVE) 06/03/25 14:30 Urine Bacteria 4+ /HPF (NEGATIVE) 06/03/25 14:30 Hyaline Casts Rare /LPF (NEGATIVE) 06/03/25 14:30 Ur Culture Indicated? Yes/culture set up 06/03/25 14:30 Acetone, Semi-Quant Negative (NEGATIVE) 06/03/25 14:23 SARS-CoV-2 (PCR) Negative (NEGATIVE) 06/03/25 14:25 Influenza Type A (PCR) Negative (NEGATIVE) 06/03/25 14:25 Influenza Type B (PCR) Negative (NEGATIVE) 06/03/25 14:25 RSV (PCR) Negative (NEGATIVE) 06/03/25 14:25 Opioid Opioid Risk Tool Age (Lance box if 16-45): No History of Preadolescent Sexual Abuse: No Total: 0 Total Score Risk Category: Low Risk Copyright: Raoul STEVE predicting aberrant behaviors Discharge Plan Diagnosis Discharge Problem: CAP (community acquired pneumonia), Hypoxia, CKD (chronic kidney disease), Acute UTI, Decubitus ulcer of sacral region, stage 4, Hypomagnesemia Discharge Plan Patient Disposition: 09 ADMITTED INPATIENT Condition: Stable Prescriptions: No Action cefdinir 300 mg Capsule 300 mg PO BID Qty: 20 0RF morphine concentrate [Roxanol Concentrate] 100 mg/5 mL (20 mg/mL) Solution 10 mg PO Q2H PRN Rx Instructions: Take 0.5 ML by mouth every two hours for shortness of breath lorazepam 1 mg Tablet 1 mg PO Q4H PRN Rx Instructions: Give one to two tablets by mouth every 4 hours as needed for anxiety/restlessnes ferrous sulfate 325 mg (65 mg iron) Tablet,Delayed Release (Dr/Ec) 325 mg PO QAM furosemide 40 mg tablet 40 mg PO QAM carvedilol 12.5 mg tablet 12.5 mg PO BID oxybutynin chloride 10 mg tablet extended release 24hr 10 mg PO QPM pravastatin 40 mg tablet 40 mg PO QPM tizanidine 4 mg tablet 4 mg PO TID PRN Patient Comments: Patient states he take 4mg in the morning and 8mg at night. hydralazine 25 mg tablet 25 mg PO BID potassium chloride 10 mEq tablet extended release 10 meq PO QAM omeprazole 40 mg capsule,delayed release(DR/EC) 40 mg PO QAM tamsulosin 0.4 mg capsule 0.4 mg PO QPM amlodipine 10 mg tablet 10 mg PO QAM gabapentin 300 mg capsule 300 mg PO QPM bupropion HCl 150 mg tablet extended release 24 hr 150 mg PO QAM escitalopram oxalate 5 mg tablet 5 mg PO QPM fenofibrate 160 mg tablet 160 mg PO QAM quetiapine 50 mg tablet 50 mg PO QPM Health Concerns: Post Hospitalization: new medications and changes needed to prevent readmission or further decline. Pt educated and given instructions on all concerns. Plan of Treatment: Continue with present treatment and follow up plan. Pt is to keep follow up appointment as instructed and take medications as ordered. Orders to Discharge Patient Discharge Orders: Transfer (Routine); Ordered 06/03/25 Ordered By: Jass Drake Follow ups/Referrals Follow ups/Referrals: [facility] [Primary Care Provider, MEDICAL] - 3 days Instructions Stand Alone Forms: Find Help Web Site, Post Hospital Follow Up Care Print Language: BRITISH ADDITIONAL NOTES Additional Notes Additional Notes: Admit to Dr Toth
[2025-06-03] MEDS: ROCEPHIN VIAL 2 GRAMS 2 G in NS 100 ML IV 100 ML IV SCH (13:51)
[2025-06-03 14:18] LABS: ABG ALLEN TEST POS; ABG BASE EXCESS 5.1 mmol/L (-2.0-2.0); ABG HCO3 29.9 mmol/L (22-26); ABG OXYGEN SATURATION 93.0 % (90-100); ABG PCO2 44.0 mmHg (35.0-45.0); ABG PH 7.440 (7.35-7.45); ABG PO2 66.0 mmHg (80.0-100.0)
--- NOTE | 2025-06-03 14:26 | EKG ---
Test Reason : AMS Blood Pressure : */* mmHG Vent. Rate : 53 BPM Atrial Rate : * BPM P-R Int : * ms QRS Dur : 160 ms QT Int : 478 ms P-R-T Axes : * 77 22 degrees QTc Int : 448 ms Atrial fibrillation with slow ventricular response Right bundle branch block Abnormal ECG When compared with ECG of 29-JAN-2025 04:31, QRS duration has increased Criteria for Septal infarct are no longer present Confirmed by Lalito Nassar MD ([id number]) on 06/04/2025 5:33:13 AM Referred By: Confirmed By: Lalito Nassar MD
[2025-06-03] MEDS: VANCOMYCIN IV *PREMIX 1 G/200 ML BAG 1 G/200 ML PIGGYBACK IV ONE (14:27)
[2025-06-03] MEDS: ROCEPHIN VIAL 2 GRAMS IV ONE (14:28)
--- NOTE | 2025-06-03 14:51 | CT ---
EXAM: BRAIN W/O CON HISTORY: ams ; altered mental status COMPARISON: Head CT examination dated May 24, 2024 TECHNIQUE: Multiple axial images of the head were obtained from the skull base to the vertex without administration of IV contrast. Sagittal and coronal reformatted images were performed. Automated exposure control (AEC) was utilized to adjust the MA and/or kV. FINDINGS: Several subcentimeter chronic appearing, stable, right basal ganglial lacunar ischemic events are identified. Overall, the examination is stable compared to the prior study. There is moderate sulcal and cisternal prominence as well as atherosclerotic change in the proximal intracranial carotid and vertebral arteries, which is not out of proportion to the patient's stated age. There is diffuse CT density alteration seen in the periventricular white matter of the high and mid-convexity, which is likely in the setting of small vessel disease and not out of proportion to the patient's stated age. There is mild bilateral ex vacuo ventricular dilatation without evidence for hydrocephalus or herniation syndrome. No midline shift is evident. No acute intraparenchymal hemorrhage or mass can be identified. If there remains a strong concern for any intra-cranial neoplasm, then follow-up with CT or MR imaging of the brain would be more sensitive to exclude any intra-cranial mass lesion. No extra-axial fluid collections are seen. No alteration in the attenuation of the brain parenchyma can be identified to suggest acute or subacute ischemic change. Also, if clinical symptoms are concerning for an acute CVA, then follow-up MRI with DWI sequencing is recommended. The extracranial structures are unremarkable. The paranasal sinuses and mastoid air cells are relatively clear. IMPRESSION: 1. No acute intracranial changes or acute bleed identified. Overall, the examination is stable compared to the prior study. Chronic appearing, age-appropriate, cerebral senescent changes and chronic appearing periventricular white matter microvascular disease is noted within the high and mid convexity of the centrum semiovale bilaterally. If there remains strong clinical concern for an acute CVA/ischemic event in this setting, then follow-up brain MRI with diffusion-weighted sequencing should be considered to definitively exclude acute cerebral ischemia, based on medical history and neurological assessment. THIS IS AN ELECTRONICALLY VERIFIED FINAL REPORT 06/03/2025 2:48 PM - Electronically signed by Carlos Strong MD
[2025-06-03 14:56] LABS: MEAN PLATELET VOLUME 8.2 fL (7.4-11.0); RED CELL DISTRIBUTION WIDTH 17.0 % (11.6-16.5)
[2025-06-03 14:57] LABS: BLOOD/HEMOGLOBIN,URINE 4+ (NEGATIVE); LEUKOCYTE ESTERASE ,URINE 3+ (NEGATIVE); NITRITES,URINE POSITIVE (NEGATIVE)
[2025-06-03 15:00] LABS: INR 1.55 (0.8-1.3)
--- NOTE | 2025-06-03 15:04 | CT ---
EXAMINATION: ABDOMEN/PELVIS W/O CON HISTORY: abd pain; COMPARISON: CT abdomen 01/31/2024 TECHNIQUE: Contiguous noncontrast axial CT images of the abdomen and pelvis. Images reviewed in the axial imaging plane with reformatted sagittal and coronal images.The above CT scan was done with automated exposure control and the mA and kV was adjusted to obtain quality images according to patient size. FINDINGS: Details of the organs are limited since intravenous and oral contrast were not used. The liver is enlarged measuring 18 by 26 by 20 cm. Cholecystectomy. No bile duct dilatation. Pancreas is normal size. No pancreatic duct dilatation. Nonspecific subtle stranding/potential edema of the fat surrounding portions of the pancreas. The spleen is enlarged measuring 16 by 14.5 by 7.6 cm. Adrenal glands are not enlarged. Kidneys normal size and position. No hydronephrosis. Scattered arterial vascular calcifications of the abdominal aorta and branch vessels. Details of the GI tract are limited since oral contrast was not used. Occasional colonic diverticuli. No evidence bowel obstruction. No evidence of acute appendicitis. Stomach is empty. Generalized stranding/edema of the mesentery and subcutaneous adipose tissues. Moderate amount of low-density ascites collecting in the abdomen and pelvis. There is a Matthews catheter within the urinary bladder which is decompressed. Seminal vesicles and prostate appear intact. Images through lower chest demonstrate mild low-density bilateral pleural effusions and patchy interstitial alveolar infiltrates in the imaged lower lung collins. Cardiac calcifications. Spondylosis. 1.4 x 1.2 x 2.3 cm oval-shaped radiolucent lesion posterior L4 vertebral body as previously described. The bones are diffusely osteopenic. IMPRESSION: Nonspecific moderate amount of low-density ascites within the abdomen and pelvis. Hepatomegaly. Splenomegaly. Cholecystectomy. .br.br subcutaneous adipose tissues. Scattered arterial vascular calcifications. Occasional colonic diverticuli. Oval-shaped radiolucent lesion within the posterior L4 vertebral body as previously described. Images through lower chest demonstrate mild low-density bilateral pleural effusions and patchy interstitial alveolar infiltrates in the pulmonary bases. THIS IS AN ELECTRONICALLY VERIFIED FINAL REPORT 06/03/2025 3:01 PM - Electronically signed by Ashlie Contreras MD
--- NOTE | 2025-06-03 15:06 | CT ---
EXAMINATION: CHEST W/O CON HISTORY: short of breath ; COMPARISON: None. TECHNIQUE: Contiguous noncontrast axial CT images of the thorax. Images reviewed in the axial imaging plane with reformatted sagittal and coronal images.The above CT scan was done with automated exposure control and the mA and kV was adjusted to obtain quality images according to patient size. FINDINGS: The lungs are expanded. Patchy interstitial alveolar opacities scattered in both lungs. Mild low-density bilateral pleural effusions. Central airways are patent. Details of the mediastinum/vascular structures are limited since intravenous contrast was not used. Moderate multichamber cardiac enlargement. Coronary artery calcifications. Enlarged main pulmonary outflow trunk measuring 4 cm diameter consistent with pulmonary arterial hypertension. Mild fusiform shaped ectasia ascending thoracic aorta 3.8 cm diameter. No pericardial effusion. No mediastinal or hilar adenopathy. Mild thoracic spondylosis. IMPRESSION: Mild bilateral pleural effusions. Patchy interstitial alveolar opacities scattered in both lungs. Moderate multichamber cardiac enlargement, coronary artery calcifications. Enlarged main pulmonary outflow trunk consistent with pulmonary arterial hypertension. Mild fusiform shaped ectasia ascending thoracic aorta 3.8 cm diameter. THIS IS AN ELECTRONICALLY VERIFIED FINAL REPORT 06/03/2025 3:03 PM - Electronically signed by Ashlie Contreras MD
[2025-06-03 15:07] LABS: COR CA(FOR HYPOALB) 11.2 mg/dL (8.5-10.1); COR NA(FOR HYPERGLY) 137 mmol/L (136-145); CREATININE 2.14 mg/dL (0.70-1.30); eGFR NON BLACK RACES 34 (>60)
[2025-06-03 15:22] LABS: APPEARANCE,URINE CLOUDY (CLEAR); SQUAMOUS EPITHELIAL CELL,UR NEGATIVE /HPF (NEGATIVE)
[2025-06-03 15:23] LABS: HYALINE CASTS, URINE RARE /LPF (NEGATIVE)
[2025-06-03] MEDS: MAGNESIUM SULFATE 1 GRAM/100 mL PREMIX 1 G/100 ML BAG IV SCH (16:32)
--- NOTE | 2025-06-03 16:58 | RAD ---
EXAM: CHEST, 1 VIEW HISTORY: short of breath ; COMPARISON: January 29, 2025 TECHNIQUE: Portable chest radiograph FINDINGS: Enlargement of the cardiac silhouette. Enlarged central pulmonary arteries with vascular congestion. Low lung volumes with generalized interstitial prominence, peribronchial cuffing, and bilateral perihilar ground-glass attenuation altogether favoring early perihilar edema. Marginal attenuation of the costophrenic sulci for which trace pleural effusions may be considered. No radiographic evidence of pneumothorax. Anatomic detail of the right apex is limited by chin position. No acute osseous abnormalities. IMPRESSION: Cardiomegaly with central vascular congestion, and perihilar edema. Trace bibasilar effusions also questioned. Routine radiographic follow-up recommended THIS IS AN ELECTRONICALLY VERIFIED FINAL REPORT 06/03/2025 4:55 PM - Electronically signed by Kan Daigle MD
[2025-06-03] MEDS ORDERED: TYLENOL 325 MG TAB PO PRN (19:55)
[2025-06-03] MEDS ORDERED: ZOFRAN TAB 4 MG PO PRN (19:55)
[2025-06-03] MEDS ORDERED: ULTRAM PO PRN (19:55)
[2025-06-03] MEDS ORDERED: CONSULT PHARMACY - POTASSIUM & MAGNESIUM XX SCH (19:55)
[2025-06-03] MEDS ORDERED: ZOFRAN INJ 4 MG VIAL IVP PRN (19:55)
[2025-06-03] MEDS ORDERED: MORPHINE SULFATE INJ 2 MG INJ IVP PRN (19:55)
[2025-06-03 20:10] VITALS: BMI 37.6
--- NOTE | 2025-06-03 20:32 | EKG ---
Test Reason : AMS Blood Pressure : */* mmHG Vent. Rate : 52 BPM Atrial Rate : * BPM P-R Int : * ms QRS Dur : 162 ms QT Int : 504 ms P-R-T Axes : * 75 31 degrees QTc Int : 468 ms Atrial fibrillation with slow ventricular response Right bundle branch block Abnormal ECG When compared with ECG of 03-JUN-2025 14:18, (Unconfirmed) No significant change was found Confirmed by Lalito Nassar MD ([id number]) on 06/04/2025 5:30:07 AM Referred By: Confirmed By: Lalito Nassar MD
[2025-06-03] MEDS: PULMICORT NEB TX 0.5 MG NEB SCH (20:34)
[2025-06-03] MEDS: DUONEB 0.5 MG/3 MG (3 mL) NEB SCH (20:34)
[2025-06-03] MEDS ORDERED: NovoLIN R (or HumuLIN R) SUBCUT PRN (20:53)
[2025-06-03] MEDS: NEURONTIN CAP 300 MG PO SCH (21:16)
[2025-06-03] MEDS: FLOMAX PO SCH (21:17)
[2025-06-03] MEDS: PRAVACHOL PO SCH (21:17)
[2025-06-03] MEDS: COREG TAB 12.5 MG PO SCH (21:18)
[2025-06-03] MEDS: NS 1,000 ML IV 1,000 ML IV SCH (21:18)
[2025-06-03] MEDS: APRESOLINE TAB 25 MG PO SCH (21:18)
[2025-06-03] MEDS: COLACE CAP 100 MG PO SCH (21:38)
[2025-06-03] MEDS: OXYBUTYNIN CHLORIDE ER PO SCH (21:38)
[2025-06-03] MEDS: ATIVAN TAB 1 MG PO PRN (21:38)
[2025-06-03] MEDS: MAG-OX TAB PO SCH (22:39)
[2025-06-03] MEDS: K-DUR TAB 20 MEQ PO SCH (22:39)
[2025-06-03] MEDS: NS 250 ML IV 25 ML IV PRN (22:40)
[2025-06-03] MEDS: ZOSYN VIAL 3.375 GRAMS 3.375 G in NS 100 ML IV 100 ML IV SCH (22:40)
[2025-06-03] MEDS: NORCO 5/325 MG TAB PO PRN (23:33)
[2025-06-04 05:07] LABS: MEAN PLATELET VOLUME 8.4 fL (7.4-11.0); RED CELL DISTRIBUTION WIDTH 17.6 % (11.6-16.5)
[2025-06-04 05:37] LABS: COR CA(FOR HYPOALB) 11.0 mg/dL (8.5-10.1); CREATININE 2.23 mg/dL (0.70-1.30); eGFR NON BLACK RACES 32 (>60)
--- NOTE | 2025-06-04 07:01 | RAD ---
EXAM: Portable chest HISTORY: Hypoxia COMPARISON: chest x-ray and CT chest FINDINGS: The heart is markedly enlarged. Pulmonary venous congestion is present. No definite interstitial or alveolar edema identified. No definite alveolar infiltrates or areas of consolidation identified. There may be some subtle ground-glass infiltrates in the left upper lobe. There is mild volume loss in the right upper lobe as evidenced by upward bowing of the minor fissure. New abnormal density in the right cardiophrenic angle could represent subsegmental atelectasis or early infiltrate. No definite visible pleural effusions bony thorax is unremarkable. IMPRESSION: Cardiomegaly with pulmonary venous congestion but no definite interstitial or alveolar edema Mild right upper lobe volume loss as evidenced by upward bowing of the minor fissure Question subtle ground-glass infiltrate left upper lobe New abnormal density in the right cardiophrenic angle which could represent subsegmental atelectasis or early infiltrate. THIS IS AN ELECTRONICALLY VERIFIED FINAL REPORT 06/04/2025 6:58 AM - Electronically signed by Giovanni Joy MD
[2025-06-04] MEDS: ROCEPHIN VIAL 2 GRAMS ONE (08:16)
[2025-06-04] MEDS ORDERED: LEXAPRO ONE (08:35)
--- NOTE | 2025-06-04 08:46 | DR.H&P ---
H&P History & Physical for Day of: H&P Date: 06/03/25 Chief Complaint Chief Complaint: SOB, AMS, UTI History of Present Illness History of Present Illness: PT IS 60WM, ER ADMISSION AFTER PRESENTING WITH EMS WITH FAMILY REPORTS PT HAS SOB, RESPIRATORY DISTRESS WITH DIFFUSE WEAKNESS AND AMS. PT HAS HX OF BED CONFINEMENT AND CHRONIC SACRAL DECUBITUS WITH INCREASED MALODOROUS DRAINAGE. PT HAD LABS WITH UC ON OUTPT BASIS AT ONSET OF CONFUSION THIS PAST WEEK. PT WAS STARTED ON PO ATBX AND CONDITION WORSENED. PT HAS COMPLICATED PMH WITH UNCONTROLLED DIABETES, RENAL FAILURE, ATRIAL FIB, HTN, NEUROPATHY AND DIFFUSE MUSCLE ATROPHY WITH BED CONFINEMENT. PT HAD HYPOXIA AND PNEUMONIA ON CT CHEST OBTAINED IN THE ER. PT ADMITTED FOR TREATMENT AND EVALUATION OF ACUTE ILLNES. Past Medical History Past Medical History: Anemia, Arthritis, CHF, Depression, Diabetes, Dyslipidemia, GERD, Hypertension and Renal Disease Past Surgical History Surgical History: Abdominal Surgery, Bowel Resection, Cholecystectomy, Ortho Surgery and Other Family History Family Medical History: Cancer and Hypertension Social History Does patient currently use any type of tobacco product: Yes Have you used tobacco products in the last 12 months: No Type of Tobacco Use: Smokeless Does any household member use tobacco: No Alcohol Use: None Drug Use: None Medications Home Medications: Home Medications Medication Instructions Recorded Confirmed Type ferrous sulfate 325 mg (65 mg 325 mg PO QAM 01/30/24 0 06/03/25 History iron) tablet,delayed release amlodipine 10 mg tablet 10 mg PO QAM 12/31/24 History bupropion HCl 150 mg 24 hr tablet, 150 mg PO QAM 12/3106/03/25 History extended release carvedilol 12.5 mg tablet 12.5 mg PO BID 12/31/24/ History escitalopram oxalate 5 mg tablet 5 mg PO QPM 12/31/24 06/03/25 History fenofibrate 160 mg tablet 160 mg PO QAM 12/31/2406/03 History furosemide 40 mg tablet 40 mg PO QAM 12/31/24 History gabapentin 300 mg capsule 300 mg PO QPM 12/31/2406/03 History hydralazine 25 mg tablet 25 mg PO BID 12/31/24 History omeprazole 40 mg capsule,delayed 40 mg PO QAM 12/31/24 06/03/25 History release oxybutynin chloride 10 mg 10 mg PO QPM 12/31/24 History tablet,extended release 24 hr potassium chloride 10 mEq 10 meq PO QAM 12/31/2406/03 History tablet,extended release pravastatin 40 mg tablet 40 mg PO QPM 12/31/24 History quetiapine 50 mg tablet 50 mg PO QPM 12/31/24 History tamsulosin 0.4 mg capsule 0.4 mg PO QPM 12/31/2406/03 History tizanidine 4 mg tablet 4 mg PO TID PRN 12/31/24 History lorazepam 1 mg tablet 1 mg PO Q4H PRN 06/03/25 History morphine concentrate 100 mg/5 mL 10 mg PO Q2H PRN 05/1606/03/25 History (20 mg/mL) oral solution Allergies Allergies Allergy/AdvReac Type Severity Reaction Status Date / Time No Known Drug Allergies Allergy Verified 01/26/25 16:09 Labs 06/04/25 04:15 06/04/25 04:15 Labs: 06/03/25 13:23 Sacral Wound Gram Stain - Final Laboratory WBC 4.5 X10^3/uL (3.6-10.0) 06/04/25 04:15 RBC 3.35 X10^6/uL (4.7-6.0) L 06/04/25 04:15 Hgb 9.1 g/dL (13.5-18.0) L 06/04/25 04:15 Hct 26.4 % (42.0-54.0) L 06/04/25 04:15 MCV 78.7 fL (80.0-100.0) L 06/04/25 04:15 MCH 27.0 pg (27.0-34.0) 06/04/25 04:15 MCHC 34.3 g/dL (33.0-35.0) 06/04/25 04:15 RDW 17.6 % (11.6-16.5) H 06/04/25 04:15 Plt Count 144 X10^3/uL (150.0-450.0) L 06/04/25 04:15 MPV 8.4 fL (7.4-11.0) 06/04/25 04:15 Neut % (Auto) 80.5 % (42.0-75.0) H 06/04/25 04:15 Lymph % (Auto) 10.8 % (21.0-51.0) L 06/04/25 04:15 [place] % (Auto) 6.6 % (0.0-13.0) 06/04/25 04:15 Eos % (Auto) 0.9 % (0.9-2.9) 06/04/25 04:15 Baso % (Auto) 1.2 % (0.2-1.0) H 06/04/25 04:15 Neut # (Auto) 3.6 x10^3/uL (2.2-4.8) 06/04/25 04:15 Lymph # (Auto) 0.5 X10^3/uL (1.3-2.9) L 06/04/25 04:15 [place] # (Auto) 0.3 x10^3/uL (0.3-0.8) 06/04/25 04:15 Eos # (Auto) 0.0 x10^3/uL (0.0-0.2) 06/04/25 04:15 Baso # (Auto) 0.1 X10^3/uL (0.0-0.1) 06/04/25 04:15 Absolute Nucleated RBC 0.1 /100WBC 06/04/25 04:15 PT 18.8 SECONDS (11.8-14.3) 06/03/25 14:23 INR Target Range - 06/03/25 14:23 INR 1.55 (0.8-1.3) H 06/03/25 14:23 APTT 37.1 SECONDS (22.9-36.5) H 06/03/25 14:23 PTT Comment - 06/03/25 14:23 Sample Site Rrad 06/03/25 14:15 ABG pH 7.440 (7.35-7.45) 06/03/25 14:15 ABG pCO2 44.0 mmHg (35.0-45.0) 06/03/25 14:15 ABG pO2 66.0 mmHg (80.0-100.0) L 06/03/25 14:15 ABG HCO3 29.9 mmol/L (22-26) H 06/03/25 14:15 ABG O2 Saturation 93.0 % (90-100) 06/03/25 14:15 ABG Base Excess 5.1 mmol/L (-2.0-2.0) H 06/03/25 14:15 Dane Test Pos 06/03/25 14:15 A-a Gradient 79.0 mmHg 06/03/25 14:15 FiO2 28.0 06/03/25 14:15 Blood Gas Comments Perico well ms 06/03/25 14:15 Sodium 135 mmol/L (136-145) L 06/04/25 04:15 Corrected Sodium TNP 06/04/25 04:15 Potassium 3.8 mmol/L (3.5-5.1) 06/04/25 04:15 Chloride 100 mmol/L (98-107) 06/04/25 04:15 Carbon Dioxide 30.8 mmol/L (21-32) 06/04/25 04:15 BUN 39 mg/dL (7-18) H 06/04/25 04:15 Creatinine 2.23 mg/dL (0.70-1.30) H 06/04/25 04:15 Est GFR (MDRD) Af Amer 39 (>60) L 06/04/25 04:15 Est GFR (MDRD) Non-Af 32 (>60) L 06/04/25 04:15 Glucose 106 mg/dL (65-99) H 06/04/25 04:15 POC Glucose (mg/dL) 107 mg/dL (65-99) H 06/04/25 05:41 Lactic Acid 0.8 mmol/L (0.4-2.0) 06/03/25 14:23 Calcium 9.5 mg/dL (8.5-10.1) 06/04/25 04:15 Corrected Calcium 11.0 mg/dL (8.5-10.1) H 06/04/25 04:15 Magnesium 1.6 mg/dL (2.0-2.9) L 06/03/25 16:14 Total Bilirubin 1.20 mg/dL (0.2-1.0) H 06/04/25 04:15 AST 35 Units/L (15-37) 06/04/25 04:15 ALT < 6 Units/L (12-78) L 06/04/25 04:15 Alkaline Phosphatase 48 Units/L (46-116) 06/04/25 04:15 Creatine Kinase 20 Units/L (39-308) L 06/03/25 14:23 Troponin I High Sens 21.9 ng/L (4.0-60.0) 06/03/25 14:23 Total Protein 6.2 g/dL (6.4-8.2) L 06/04/25 04:15 Albumin 2.1 g/dL (3.4-5.0) L 06/04/25 04:15 Globulin 4.1 g/dL (2.5-4.5) 06/04/25 04:15 Albumin/Globulin Ratio 0.5 Ratio (1.1-2.1) L 06/04/25 04:15 Specimen Type Catherized urine 06/03/25 14:30 Urine Color [place] (YELLOW) 06/03/25 14:30 Urine Appearance Cloudy (CLEAR) 06/03/25 14:30 Urine pH 5.0 (5.0 - 8.0) 06/03/25 14:30 Ur Specific [place] 1.025 (1.000-1.030) 06/03/25 14:30 Urine Protein 3+ (NEGATIVE) 06/03/25 14:30 Urine Glucose (UA) Negative (NEGATIVE) 06/03/25 14:30 Urine Ketones Negative (NEGATIVE) 06/03/25 14:30 Urine Blood 4+ (NEGATIVE) 06/03/25 14:30 Urine Nitrite Positive (NEGATIVE) 06/03/25 14:30 Urine Bilirubin 1+ (NEGATIVE) 06/03/25 14:30 Urine Urobilinogen 2+ (NORMAL) 06/03/25 14:30 Ur Leukocyte Esterase 3+ (NEGATIVE) 06/03/25 14:30 Urine RBC 3-5 /HPF (0-3) A 06/03/25 14:30 Urine WBC Tntc /HPF (0-5) A 06/03/25 14:30 Ur Squamous Epith Cells Negative /HPF (NEGATIVE) 06/03/25 14:30 Amorphous Sediment 1+ /HPF (NEGATIVE) 06/03/25 14:30 Urine Bacteria 4+ /HPF (NEGATIVE) 06/03/25 14:30 Hyaline Casts Rare /LPF (NEGATIVE) 06/03/25 14:30 Ur Culture Indicated? Yes/culture set up 06/03/25 14:30 Acetone, Semi-Quant Negative (NEGATIVE) 06/03/25 14:23 SARS-CoV-2 (PCR) Negative (NEGATIVE) 06/03/25 14:25 Influenza Type A (PCR) Negative (NEGATIVE) 06/03/25 14:25 Influenza Type B (PCR) Negative (NEGATIVE) 06/03/25 14:25 RSV (PCR) Negative (NEGATIVE) 06/03/25 14:25 Review of Systems Constitutional: Fever, Sweats, Weakness and Malaise Eyes: Vision Change Respiratory: Cough, Shortness of Breath, Sputum and Wheezing Cardiovascular: Palpitations and Edema Gastrointestinal: Nausea Genitourinary: Dysuria, Incontinence and Hematuria Musculoskeletal: Back Pain and Foot Pain Skin: Wound Neurological: Weakness and Confusion Physical Exam Vital Signs: Vital Signs Temperature 97.4 F Temperature 98.1 F Pulse Rate 49 Pulse Rate 50 Respiratory Rate 22 Respiratory Rate 15 Blood Pressure 115/57 Blood Pressure 111/67 O2 Sat by Pulse Oximetry 98 O2 Sat by Pulse Oximetry 99 Oriented: Person; negative Time or Place Eyes: Normal Ear: Normal Nose: Normal Throat: Dry Respiratory: Wheezes Throughout, RLL Diminished and LLL Diminished Cardiovascular: Bradycardia and Edema Auscultation: Bowel Sounds: Decreased Palpation: Normal Tenderness: Diffuse Skin: Decreased Turgur and Wound Psychiatric: Depression Mood Description: Depressed Affect: Depressed Speech Pattern: Delayed Assessment/Plan (1) Pneumonia: Status: Acute Plan: ADMIT, SEPTIC WORK UP CT CHEST WO OBTAINED IN ER OBTAIN ROOM AIR ABG, SUPPLEMENTAL O2, SPUTUM CULTURE AND AGRESSIVE RESP THERAPY CE AND EKG MONITORING, IV HDYRATION WITH STRICT I&OS VIRAL RESP SWAB, VERIFY HOME MEDICATIONS BS CONTROL, IV ATBX THERAPY, WOUND CARE WITH WOUND CULTURES ON ADMISSION (2) Hypoxemia: Status: Acute (3) CHF (congestive heart failure): Status: Acute (4) Acute UTI: Status: Acute (5) Decubitus ulcer of sacral region, stage 4: Status: Acute (6) Afib: Status: Acute (7) Diabetes: Status: Acute (8) Altered mental status: Qualifiers: Altered mental status type: disorientation Qualified Code(s): R41.0 - Disorientation, unspecified Status: Acute (9) CRF (chronic renal failure): Status: Acute
[2025-06-04] MEDS ORDERED: [UNRECOGNIZED DRUG - OTHER] PO SCH (09:00)
[2025-06-04] MEDS ORDERED: PATIENT'S HOME MEDICATION (Omeprazole 40 mg capsule,delayed release(DR/EC)) PO SCH (09:00)
[2025-06-04] MEDS ORDERED: PHARMACY CONSULT XX SCH (09:00)
[2025-06-04] MEDS ORDERED: FERROUS SULFATE PO SCH (09:00)
[2025-06-04] MEDS: WELLBUTRIN XL 150 MG (DAILY) PO SCH (09:04)
[2025-06-04] MEDS: MILK OF MAGNESIA PO SCH (09:04)
[2025-06-04] MEDS: NORVASC TAB 10 MG PO SCH (09:04)
[2025-06-04] MEDS: LEXAPRO PO SCH (09:04)
[2025-06-04] MEDS: LASIX PO SCH (09:05)
[2025-06-04] MEDS: FERROUS GLUCONATE PO SCH (09:05)
[2025-06-04] MEDS: TRICOR TAB 160 MG PO SCH (09:05)
[2025-06-04] MEDS: KLOR-CON 10 MEQ TAB PO SCH (09:05)
[2025-06-04] MEDS: NS 1,000 ML IV 1,000 ML with MAGNESIUM SULFATE 50% INJ VIAL 1 G IV SCH (09:20)
[2025-06-04] MEDS: PERCOCET TAB 5/325 MG PO PRN (09:20)
[2025-06-04 09:28] LABS: ABG ALLEN TEST POS; ABG BASE EXCESS 2.5 mmol/L (-2.0-2.0); ABG HCO3 26.3 mmol/L (22-26); ABG OXYGEN SATURATION 90.0 % (90-100); ABG PCO2 37.0 mmHg (35.0-45.0); ABG PH 7.460 (7.35-7.45); ABG PO2 56.0 mmHg (80.0-100.0)
[2025-06-04] MEDS: SNACK - Diabetic Appropriate PO SCH (22:00)
[2025-06-04] MEDS: NICOTINE PATCH TD SCH (22:02)
[2025-06-04] MEDS: LASIX IVP ONE (22:04)
[2025-06-05 05:29] LABS: MEAN PLATELET VOLUME 8.9 fL (7.4-11.0); RED CELL DISTRIBUTION WIDTH 17.8 % (11.6-16.5)
[2025-06-05 05:41] LABS: COR CA(FOR HYPOALB) 10.9 mg/dL (8.5-10.1); CREATININE 2.51 mg/dL (0.70-1.30); eGFR NON BLACK RACES 28 (>60)
--- NOTE | 2025-06-05 07:41 | RAD ---
EXAM: Portable chest HISTORY: Shortness of breath COMPARISON: 06/04/2025 FINDINGS: The heart is enlarged. Pulmonary venous congestion is present. No interstitial or alveolar edema identified. Upper lobe volume loss as evidenced by upward bowing of the minor fissure unchanged. Visualized right lung including the right cardiophrenic angle now clear of infiltrates. There is some subsegmental atelectasis in the right cardiophrenic angle. Subtle left upper lobe infiltrate is unchanged. Remainder of the left lung is clear. No pleural effusions or pneumothoraces identified. Bony thorax is unremarkable. IMPRESSION: Continued cardiomegaly with pulmonary venous congestion No change right upper lobe volume loss No right basilar lung infiltrate however there is some subsegmental atelectasis in the right cardiophrenic angle Subtle ground-glass infiltrate left upper lobe unchanged THIS IS AN ELECTRONICALLY VERIFIED FINAL REPORT 06/05/2025 7:38 AM - Electronically signed by Giovanni Joy MD
[2025-06-05] MEDS ORDERED: NS 1,000 ML IV 1,000 ML IV SCH (09:00)
[2025-06-05] MEDS: COREG TAB 3.125 MG PO SCH (09:01)
[2025-06-05] MEDS: LEXAPRO ONE (10:53)
[2025-06-05] MEDS: DILAUDID INJ IVP PRN (11:11)
[2025-06-05] MEDS: TYGACIL 50 MG VIAL 100 MG in NS 100 ML IV 100 ML IV ONE (17:39)
[2025-06-06] MEDS: TYGACIL 50 MG VIAL 50 MG in NS 100 ML IV 100 ML IV SCH (05:23)
[2025-06-06 05:36] LABS: MEAN PLATELET VOLUME 9.2 fL (7.4-11.0); RED CELL DISTRIBUTION WIDTH 17.8 % (11.6-16.5)
[2025-06-06 06:03] LABS: COR CA(FOR HYPOALB) 10.8 mg/dL (8.5-10.1); COR NA(FOR HYPERGLY) 136 mmol/L (136-145); CREATININE 2.54 mg/dL (0.70-1.30); eGFR NON BLACK RACES 28 (>60)
[2025-06-06] MEDS ORDERED: LEXAPRO ONE (08:33)
[2025-06-06] MEDS: PHARMACY CONSULT - LOVENOX XX SCH (09:05)
--- NOTE | 2025-06-06 10:01 | RAD ---
EXAM: Portable AP chest HISTORY: Pneumonia COMPARISON: 06/05/2025 FINDINGS: Similar cardiomegaly. Increasing vascular congestion. Airspace density is slightly increased in the right upper lobe with no change in appearance of lungs or pleural spaces otherwise. IMPRESSION: Similar cardiac prominence and pulmonary vascular congestion. Suspect mild increase in right upper lobe infiltrate/atelectasis since 1 day prior. THIS IS AN ELECTRONICALLY VERIFIED FINAL REPORT 06/06/2025 9:57 AM - Electronically signed by Dany Larson MD
[2025-06-06] MEDS: LOVENOX INJ 30 MG SYR SC SCH (12:47)
[2025-06-07 05:23] LABS: MEAN PLATELET VOLUME 8.9 fL (7.4-11.0); RED CELL DISTRIBUTION WIDTH 17.1 % (11.6-16.5)
[2025-06-07 05:38] LABS: COR CA(FOR HYPOALB) 10.7 mg/dL (8.5-10.1); CREATININE 2.69 mg/dL (0.70-1.30); eGFR NON BLACK RACES 26 (>60)
[2025-06-07] MEDS: LEXAPRO ONE (08:37)
[2025-06-07] MEDS: NS 1,000 ML IV 500 ML IV ONE (11:01)
[2025-06-07] MEDS: BUTT CREAM (COMPOUND) TOP PRN (21:08)
[2025-06-08 05:49] LABS: MEAN PLATELET VOLUME 8.9 fL (7.4-11.0); RED CELL DISTRIBUTION WIDTH 17.0 % (11.6-16.5)
[2025-06-08 06:08] LABS: COR CA(FOR HYPOALB) 10.7 mg/dL (8.5-10.1); CREATININE 2.24 mg/dL (0.70-1.30); eGFR NON BLACK RACES 32 (>60)
--- NOTE | 2025-06-08 08:12 | RAD ---
EXAM: CHEST, 1 VIEW HISTORY: pneumonia; COMPARISON: 06/06/2025 TECHNIQUE: AP portable FINDINGS: Stable cardiac silhouette. Mild decreased perihilar opacities. Increased right peripheral lower lobe opacity. No large pleural effusion or visible pneumothorax. IMPRESSION: Mild decreased perihilar opacities. Increased peripheral right lower lobe atelectasis/infiltrate. THIS IS AN ELECTRONICALLY VERIFIED FINAL REPORT 06/08/2025 8:09 AM - Electronically signed by Lukasz Moser MD
[2025-06-08] MEDS ORDERED: PHARMACY CONSULT - MEROPENEM XX SCH (08:15)
[2025-06-08] MEDS ORDERED: LEXAPRO ONE (09:21)
[2025-06-08] MEDS: MERREM VIAL 1 G in NS 100 ML IV 100 ML IV SCH (09:30)
[2025-06-08] MEDS: TRICOR TAB 48 MG PO SCH (09:31)
[2025-06-08] MEDS: LASIX IVP SCH (09:32)
[2025-06-08] MEDS: KLOR-CON 10 MEQ TAB PO SCH (09:32)
[2025-06-09 05:52] LABS: MEAN PLATELET VOLUME 9.1 fL (7.4-11.0); RED CELL DISTRIBUTION WIDTH 17.0 % (11.6-16.5)
[2025-06-09 06:09] LABS: COR CA(FOR HYPOALB) 10.8 mg/dL (8.5-10.1); CREATININE 2.29 mg/dL (0.70-1.30); eGFR NON BLACK RACES 31 (>60)
[2025-06-09] MEDS: ALBUMIN HUMAN 25%- 100 ML 100 ML IV ONE (09:40)
[2025-06-09] MEDS: K-DUR TAB 20 MEQ PO SCH (09:42)
[2025-06-09] MEDS: LEXAPRO ONE (09:52)
[2025-06-09 09:53] LABS: ABG ALLEN TEST POS; ABG BASE EXCESS 2.3 mmol/L (-2.0-2.0); ABG HCO3 28.3 mmol/L (22-26); ABG OXYGEN SATURATION 97.0 % (90-100); ABG PCO2 49.0 mmHg (35.0-45.0); ABG PH 7.370 (7.35-7.45); ABG PO2 95.0 mmHg (80.0-100.0)
[2025-06-09] MEDS: LASIX IVP SCH (11:39)
[2025-06-10 05:43] LABS: MEAN PLATELET VOLUME 8.1 fL (7.4-11.0); RED CELL DISTRIBUTION WIDTH 16.9 % (11.6-16.5)
[2025-06-10 06:09] LABS: COR CA(FOR HYPOALB) 10.8 mg/dL (8.5-10.1); CREATININE 2.19 mg/dL (0.70-1.30); eGFR NON BLACK RACES 33 (>60)
[2025-06-10] MEDS ORDERED: LEXAPRO ONE (10:04)
[2025-06-10] MEDS: ALBUMIN HUMAN 25%- 100 ML 100 ML IV ONE (10:33)
[2025-06-10] MEDS: VISTARIL PO PRN (21:35)
[2025-06-11 05:55] LABS: MEAN PLATELET VOLUME 8.6 fL (7.4-11.0); RED CELL DISTRIBUTION WIDTH 16.9 % (11.6-16.5)
[2025-06-11 06:15] LABS: COR CA(FOR HYPOALB) 10.8 mg/dL (8.5-10.1); CREATININE 2.02 mg/dL (0.70-1.30); eGFR NON BLACK RACES 36 (>60)
[2025-06-11] MEDS ORDERED: LEXAPRO ONE (08:41)
[2025-06-11] MEDS: ALBUMIN HUMAN 25%- 100 ML 100 ML IV ONE (09:25)
[2025-06-11] MEDS: INVanz INJ 1 GRAM VIAL 1 G in NS 100 ML IV 100 ML IV ONE (11:02)
--- NOTE | 2025-06-11 14:13 | DR.UPDATE ---
H&P Update Prescription drug monitoring program results: PDMP was not reviewed H&P Reviewed: Yes Any changes to H&P?: No Patient was examined?: Yes Vital Signs: Temp Pulse Resp BP Pulse Ox O2 Del Method O2 Flow Rate 06/11/25 09:08 53 L 96 06/11/25 09:08 Room Air 06/11/25 04:00 98.4 F 75 21 147/69 95 Room Air 06/11/25 00:00 98.1 F 74 19 135/64 95 Room Air 06/10/25 23:33 17 06/10/25 23:03 22 06/10/25 22:47 21 06/10/25 21:47 20 06/10/25 21:18 65 98 06/10/25 21:15 Room Air 06/10/25 20:00 98.4 F 74 20 140/66 96 Room Air 06/10/25 19:00 Nasal Cannula 2 06/10/25 16:00 98.6 F 67 19 141/62 95 Room Air 06/10/25 15:21 20 06/10/25 14:21 18 06/10/25 12:00 97.9 F 64 19 144/67 98 Nasal Cannula 2 06/10/25 11:05 Room Air 06/10/25 08:15 67 96 06/10/25 08:15 Nasal Cannula 2 06/10/25 08:00 98.6 F 67 19 123/67 95 Nasal Cannula 2 06/10/25 07:00 Nasal Cannula 2 06/10/25 04:00 98.1 F 58 L 18 141/65 97 Nasal Cannula 2 06/09/25 23:58 98.1 F 53 L 19 115/59 94 L Nasal Cannula 2 06/09/25 20:30 61 99 06/09/25 20:10 Nasal Cannula 2 06/09/25 20:00 97.9 F 59 L 18 130/61 96 Nasal Cannula 2 06/09/25 19:00 Nasal Cannula 2 06/09/25 17:54 16 06/09/25 16:54 16 06/09/25 16:00 97.8 F 76 18 138/65 100 Nasal Cannula 2 06/09/25 12:00 98.2 F 55 L 16 146/64 97 Nasal Cannula 2 06/09/25 10:42 24 06/09/25 09:42 24 06/09/25 09:22 59 L 99 06/09/25 09:21 Nasal Cannula 2 06/09/25 08:00 98.2 F 59 L 24 152/71 99 Nasal Cannula 2 06/09/25 07:00 Nasal Cannula 2 06/09/25 03:51 97.9 F 59 L 19 124/63 96 Nasal Cannula 2 06/09/25 00:22 Nasal Cannula 2 06/09/25 00:00 97.6 F 54 L 19 128/62 96 2 06/08/25 20:04 72 100 06/08/25 20:04 Nasal Cannula 2 06/08/25 20:00 97.9 F 55 L 18 137/70 99 2 06/08/25 19:06 19 06/08/25 19:00 Nasal Cannula 2 06/08/25 18:06 19 06/08/25 16:00 97.6 F 64 19 131/65 100 2 FiO2 06/11/25 09:08 06/11/25 09:08 06/11/25 04:00 06/11/25 00:00 06/10/25 23:33 06/10/25 23:03 06/10/25 22:47 06/10/25 21:47 06/10/25 21:18 06/10/25 21:15 06/10/25 20:00 06/10/25 19:00 06/10/25 16:00 06/10/25 15:21 06/10/25 14:21 06/10/25 12:00 06/10/25 11:05 06/10/25 08:15 06/10/25 08:15 28 06/10/25 08:00 06/10/25 07:00 06/10/25 04:00 06/09/25 23:58 06/09/25 20:30 06/09/25 20:10 28 06/09/25 20:00 06/09/25 19:00 06/09/25 17:54 06/09/25 16:54 06/09/25 16:00 06/09/25 12:00 06/09/25 10:42 06/09/25 09:42 06/09/25 09:22 06/09/25 09:21 28 06/09/25 08:00 06/09/25 07:00 06/09/25 03:51 06/09/25 00:22 28 06/09/25 00:00 06/08/25 20:04 06/08/25 20:04 28 06/08/25 20:00 06/08/25 19:06 06/08/25 19:00 06/08/25 18:06 06/08/25 16:00 Procedures (ALL) - Central Line Placement PCM.CLCO: written consent Time out performed: Yes Patient placed pm monitor/pulse ox: Yes MD prep: mask, gown, gloves, other Centrial line prep: chlorhexidine scrub, sterile drapes applied Local anesthsia used: lidocane 1% Ultrasound used for placement: Yes (left basilic id'd via u/s and cannulation vis) Central line lumen ininserted: double (5.5fr arrowgard. trimmed to 50 cm with 0cm exposed) Post procedure: good blood return, all ports aspirated, flushed,capped, sterile dressing applied Post procedure xray: tip oc catheter in good position (appears distal svc, radiology report pending) Patient tolerated procedure: Yes Complications: none
--- NOTE | 2025-06-11 14:15 | RAD ---
EXAM: CHEST, 1 VIEW HISTORY: PICC line placement; COMPARISON: No relevant prior studies were available for comparison at the time of interpretation. TECHNIQUE: CHEST, 1 VIEW FINDINGS: Chest: Lines and tubes: There is a left PICC in satisfactory position Mediastinum: Cardiomegaly. Pulmonary vessels: There is pulmonary vascular congestion. Lung collins: Patchy opacities are seen Pleura: No effusion. No pneumothorax. Bones and soft tissues: No acute osseous or soft tissue abnormality. IMPRESSION: 1. Findings suggest heart failure exacerbation 2. PICC is in satisfactory position THIS IS AN ELECTRONICALLY VERIFIED FINAL REPORT 06/11/2025 2:12 PM - Electronically signed by José Terry MD
[2025-06-11 14:54] VITALS: RESP 18
[2025-06-11] MEDS: HIBICLENS WASH EXT ONE (14:54)
[2025-06-11] MEDS: SANTYL EXT SCH (14:55)
[2025-06-11 16:02] VITALS: TEMP 97.4
[2025-06-11 16:10] VITALS: BP 156/65; PULSE 75; O2SAT 94
== END 2025-06-11 15:15 | disposition home or self-care (01) | DRG 177 ==
LOC: ER 12:56 → ICU 18:23 → MED/SURG 06-06 18:36
PROVIDERS: ADMIT Family Medicine; ATTEND Internal Medicine

== ENCOUNTER 2025-07-26 15:52 | Inpatient (IN) ==
[2025-07-26 17:00] LABS: MEAN PLATELET VOLUME 7.2 fL (7.4-11.0); RED CELL DISTRIBUTION WIDTH 18.0 % (11.6-16.5)
--- NOTE | 2025-07-26 17:15 | DR.EXTPAIN ---
HPI Time seen Time Seen by Provider: 07/26/25 15:58 HPI Comment HPI Comment: According to family patient has hx of colostomy .Has been bedbound for at least 1 year .Has had colostomy output .However this is the first time family noticed liquid mucus containing material per rectum. Concerned called EMS and brought patient for evaluation .Pt has also complained of abdominal discomfort mild to moderate intensity without nausea or vomiting has decreased appetite over the past few weeks gradual in onset hx of gerard catheter in place usually replaced once a month but has not had it replaced this month . bruising over the arms ,present for sometime intermittent Complaint/Symptoms Chief Complaint Doctor Comments: liquid stools with colostomy in place abdominal discomfort Nurses notes reviewed Nurses Notes Review: Yes Source History Provided: Family Member and EMS Mode of arrival Mode of Arrival: EMS Context History of: None Associated signs and symptoms Associated Signs and Symptoms: Abdominal Pain PMH PMH Past Medical History: Anemia, Arthritis, CHF, Depression, Diabetes, Dyslipidemia, GERD, Hypertension and Renal Disease Past Surgical History: Yes Surgical History: Abdominal Surgery, , Cholecystectomy, Ortho Surgery and Other Family History Family Medical History: Cancer and Hypertension Social History Do you use any recreational Drugs:: No ROS Review of Systems Constitutional: Malaise, Weakness and Loss of Appetite Eyes: No Symptoms Reported ENTM: No Symptoms Reported Respiratoy: No Symptoms Reported Cardiovascular: No Symptoms Reported Gastrointestinal/Abdominal: Abdominal Pain, Diarrhea and Other (colostomy in place) Genitourinary: No Symptoms Reported Neurological: No Symptoms Reported Musculoskeletal: No Symptoms Reported Integumentary: Dryness and Other (pale ) Hematologic/Lymphatic: Easy Bruising Endocrine: No Symptoms Reported Psychiatric: No Symptoms Reported PE Vital Signs Vitals: Vital Signs Temperature 97.7 F Pulse Rate 55 Pulse Rate 61 Pulse Rate 58 Pulse Rate 59 Pulse Rate 57 Pulse Rate 62 Pulse Rate 63 Pulse Rate 62 Pulse Rate 63 Pulse Rate 66 Pulse Rate 66 Pulse Rate 59 Pulse Rate 64 Pulse Rate 62 Pulse Rate 60 Pulse Rate 65 Pulse Rate 65 Pulse Rate 64 Pulse Rate 64 Pulse Rate 62 Pulse Rate 69 Respiratory Rate 18 Blood Pressure 105/58 Blood Pressure 109/59 Blood Pressure 119/61 Blood Pressure 108/75 Blood Pressure 133/60 Blood Pressure 124/71 Blood Pressure 130/60 Blood Pressure 127/67 O2 Sat by Pulse Oximetry 97 O2 Sat by Pulse Oximetry 99 O2 Sat by Pulse Oximetry 98 O2 Sat by Pulse Oximetry 97 O2 Sat by Pulse Oximetry 99 O2 Sat by Pulse Oximetry 98 O2 Sat by Pulse Oximetry 99 O2 Sat by Pulse Oximetry 97 O2 Sat by Pulse Oximetry 99 O2 Sat by Pulse Oximetry 98 O2 Sat by Pulse Oximetry 98 O2 Sat by Pulse Oximetry 99 O2 Sat by Pulse Oximetry 100 O2 Sat by Pulse Oximetry 91 O2 Sat by Pulse Oximetry 98 O2 Sat by Pulse Oximetry 92 O2 Sat by Pulse Oximetry 92 O2 Sat by Pulse Oximetry 91 O2 Sat by Pulse Oximetry 92 O2 Sat by Pulse Oximetry 93 O2 Sat by Pulse Oximetry 92 General Limitations: No Limitations General Appearance: Alert, In No Apparent Distress and Anxious Head Head Exam: Normal Inspection, Atraumatic and Normocephalic Eyes Eye exam: Normal Appearance, PERRL and EOMI ENT ENT Exam: Mucous Membranes Dry Neck Neck Exam: Normal Inspection Chest Chest Inspection: Normal Inspection and Symmetric Chest Wall Rise Respiratory Respiratory Exam: Normal Lung Sounds Bilat Respiratory Exam: Bilateral: Clear to Auscultation Cardiovascular Cardiovascular Exam: +S1 and +S2 Abdominal Exam Abdominal Exam: Soft, Distention and Other (dull to percuss over the right ascending colon ) Extremities Extremities Exam: Other (pos dry skin and pallor with ecchymoses intermittent ) Neurological Neurological Exam: Alert MDM Differential Diagnosis Differential Diagnosis: Other (pallor ,dehydration ,abdominal pain .s/p colostomy ,bedbound. ecchymoses,s/p Gerard ) COURSE Treatment Treatment: labs ,ct abdomen /plevis ,IV fluids ROR Labs Reviewed Laboratory Results Reviewed?: Yes 07/26/25 16:49 07/26/25 20:41 Laboratory: WBC 5.9 X10^3/uL (3.6-10.0) 07/26/25 16:49 RBC 3.30 X10^6/uL (4.7-6.0) L 07/26/25 16:49 Hgb 8.8 g/dL (13.5-18.0) L 07/26/25 16:49 Hct 26.1 % (42.0-54.0) L 07/26/25 16:49 MCV 79.0 fL (80.0-100.0) L 07/26/25 16:49 MCH 26.7 pg (27.0-34.0) L 07/26/25 16:49 MCHC 33.7 g/dL (33.0-35.0) 07/26/25 16:49 RDW 18.0 % (11.6-16.5) H 07/26/25 16:49 Plt Count 103 X10^3/uL (150.0-450.0) L 07/26/25 16:49 MPV 7.2 fL (7.4-11.0) L 07/26/25 16:49 Neut % (Auto) 71.0 % (42.0-75.0) 07/26/25 16:49 Lymph % (Auto) 16.9 % (21.0-51.0) L 07/26/25 16:49 [place] % (Auto) 6.7 % (0.0-13.0) 07/26/25 16:49 Eos % (Auto) 4.1 % (0.9-2.9) H 07/26/25 16:49 Baso % (Auto) 1.3 % (0.2-1.0) H 07/26/25 16:49 Neut # (Auto) 4.2 x10^3/uL (2.2-4.8) 07/26/25 16:49 Lymph # (Auto) 1.0 X10^3/uL (1.3-2.9) L 07/26/25 16:49 [place] # (Auto) 0.4 x10^3/uL (0.3-0.8) 07/26/25 16:49 Eos # (Auto) 0.2 x10^3/uL (0.0-0.2) 07/26/25 16:49 Baso # (Auto) 0.1 X10^3/uL (0.0-0.1) 07/26/25 16:49 Absolute Nucleated RBC 0.0 /100WBC 07/26/25 16:49 PT 16.7 SECONDS (11.8-14.3) 07/26/25 16:49 INR Target Range - 07/26/25 16:49 INR 1.34 (0.8-1.3) H 07/26/25 16:49 APTT 40.3 SECONDS (22.9-36.5) H 07/26/25 16:49 PTT Comment - 07/26/25 16:49 Sodium 140 mmol/L (136-145) 07/26/25 20:41 Corrected Sodium 141 mmol/L (136-145) 07/26/25 20:41 Potassium 4.7 mmol/L (3.5-5.1) 07/26/25 20:41 Chloride 104 mmol/L (98-107) 07/26/25 20:41 Carbon Dioxide 31.5 mmol/L (21-32) 07/26/25 20:41 BUN 67 mg/dL (7-18) H 07/26/25 20:41 Creatinine 4.93 mg/dL (0.70-1.30) H 07/26/25 20:41 Est GFR (MDRD) Af Amer 16 (>60) L 07/26/25 20:41 Est GFR (MDRD) Non-Af 13 (>60) L 07/26/25 20:41 Glucose 144 mg/dL (65-99) H 07/26/25 20:41 POC Glucose (mg/dL) 96 mg/dL (65-99) 07/26/25 19:11 Calcium 9.0 mg/dL (8.5-10.1) 07/26/25 20:41 Corrected Calcium 10.5 mg/dL (8.5-10.1) H 07/26/25 20:41 Magnesium 1.7 mg/dL (2.0-2.9) L 07/26/25 16:49 Total Bilirubin 1.10 mg/dL (0.2-1.0) H 07/26/25 20:41 Direct Bilirubin 0.70 mg/dL (0-0.2) H 07/26/25 16:49 AST 13 Units/L (15-37) L 07/26/25 20:41 ALT < 6 Units/L (12-78) L 07/26/25 20:41 Alkaline Phosphatase 46 Units/L (46-116) 07/26/25 20:41 B-Natriuretic Peptide 450 pg/mL (0-79) H 07/26/25 16:49 Total Protein 6.0 g/dL (6.4-8.2) L 07/26/25 20:41 Albumin 2.1 g/dL (3.4-5.0) L 07/26/25 20:41 Globulin 3.9 g/dL (2.5-4.5) 07/26/25 20:41 Albumin/Globulin Ratio 0.5 Ratio (1.1-2.1) L 07/26/25 20:41 Vitamin B12 1116 pg/mL (193-986) H 07/26/25 16:49 Folate 2.3 ng/mL (>8.6) L 07/26/25 16:49 Free T4 0.99 ng/dL (0.76-1.46) 07/26/25 16:49 TSH 3rd Generation 6.812 uIU/mL (0.358-3.74) H 07/26/25 16:49 Specimen Type Catherized urine 07/26/25 17:25 Urine Color Pale yellow (YELLOW) 07/26/25 17:25 Urine Appearance Hazy (CLEAR) 07/26/25 17:25 Urine pH 6.0 (5.0 - 8.0) 07/26/25 17:25 Ur Specific [place] 1.015 (1.000-1.030) 07/26/25 17:25 Urine Protein 2+ (NEGATIVE) 07/26/25 17:25 Urine Glucose (UA) Negative (NEGATIVE) 07/26/25 17:25 Urine Ketones Negative (NEGATIVE) 07/26/25 17:25 Urine Blood 5+ (NEGATIVE) 07/26/25 17:25 Urine Nitrite Negative (NEGATIVE) 07/26/25 17:25 Urine Bilirubin Negative (NEGATIVE) 07/26/25 17:25 Urine Urobilinogen Normal (NORMAL) 07/26/25 17:25 Ur Leukocyte Esterase 2+ (NEGATIVE) 07/26/25 17:25 Opioid Opioid Risk Tool Age (Lance box if 16-45): No History of Preadolescent Sexual Abuse: No Total: 0 Total Score Risk Category: Low Risk Copyright: Raoul STEVE predicting aberrant behaviors Discharge Plan Diagnosis Discharge Problem: Acute dehydration, Acute on chronic kidney failure, Anasarca associated with disorder of kidney, Bedbound, Colostomy in place, Deficiency of folic acid, Abnormal bilirubin test Discharge Plan Patient Disposition: 09 ADMITTED INPATIENT Condition: Stable Prescriptions: Continued carvedilol 12.5 mg tablet 3.125 mg PO BID pravastatin 40 mg tablet 40 mg PO QPM hydralazine 25 mg tablet 25 mg PO BID amlodipine 10 mg tablet 10 mg PO QAM bupropion HCl 150 mg tablet extended release 24 hr 150 mg PO QAM escitalopram oxalate 5 mg tablet 5 mg PO QPM doxycycline hyclate 100 mg capsule 100 mg PO BID Rx Instructions: 100 mg bid for 10 days - started on07/22/25 Discontinued morphine concentrate 100 mg/5 mL (20 mg/mL) Solution 10 mg PO Q2H PRN Rx Instructions: Take 0.5 ML by mouth every two hours for shortness of breath lorazepam 1 mg Tablet 1 mg PO Q4H PRN Rx Instructions: Give one to two tablets by mouth every 4 hours as needed for anxiety/restlessnes ferrous sulfate 325 mg (65 mg iron) Tablet,Delayed Release (Dr/Ec) 325 mg PO QAM furosemide 40 mg tablet 40 mg PO QAM oxybutynin chloride 10 mg tablet extended release 24hr 10 mg PO QPM potassium chloride 10 mEq tablet extended release 10 meq PO QAM omeprazole 40 mg capsule,delayed release(DR/EC) 40 mg PO QAM tamsulosin 0.4 mg capsule 0.4 mg PO QPM fenofibrate 160 mg tablet 160 mg PO QAM tizanidine 4 mg tablet 4 mg PO TID Rx Instructions: pt takes 1 tab in am and 2 tabs in pm ondansetron 8 mg tablet,disintegrating 8 mg PO Q8H PRN oxycodone 10 mg tablet 10 mg PO TID PRN Health Concerns: Post Hospitalization: new medications and changes needed to prevent readmission or further decline. Pt educated and given instructions on all concerns. Plan of Treatment: Continue with present treatment and follow up plan. Pt is to keep follow up appointment as instructed and take medications as ordered. Orders to Discharge Patient Discharge Orders: Transfer (Routine); Ordered 07/26/25 Ordered By: Sarthak Beltre Follow ups/Referrals Follow ups/Referrals: ORIANA CUEVAS [Primary Care Provider, MEDICAL] - 3 days Instructions Stand Alone Forms: Find Help Web Site, Post Hospital Follow Up Care Print Language: FAROESE Provider Note Additional Notes labs and scan reviewed and discussed with daughters .given d5ns repeat ser cr has improved slightly. Elevated tsh but free t4 normal .folic acid low but b12 high.t bili elevated but slight improvement with IV fluids. CT chest ,abdomen and pelvis without contrast pleural effusion mild with anasarca. Gerard catheter changed in the ER today .Spoke with Dr Sidhu ,agreed to have patient admitted for gentle hydration .Daughter contemplating hospice and palliative care
[2025-07-26 17:19] LABS: COR CA(FOR HYPOALB) 10.9 mg/dL (8.5-10.1); CREATININE 5.13 mg/dL (0.70-1.30); TSH (3RD GENERATION) 6.812 uIU/mL (0.358-3.74); eGFR NON BLACK RACES 12 (>60)
[2025-07-26 17:36] LABS: BLOOD/HEMOGLOBIN,URINE 5+ (NEGATIVE); LEUKOCYTE ESTERASE ,URINE 2+ (NEGATIVE); NITRITES,URINE NEGATIVE (NEGATIVE)
[2025-07-26 17:39] LABS: APPEARANCE,URINE HAZY (CLEAR)
[2025-07-26] MEDS: NS 1,000 ML IV 1,000 ML IV SCH (18:23)
[2025-07-26] MEDS: D50W ABBOJECT SYR IV ONE (18:35)
[2025-07-26] MEDS: NS 1,000 ML IV 1,000 ML IV ONE (18:46)
[2025-07-26] MEDS: D5 NS 1,000 ML IV 1,000 ML IV ONE (19:39)
[2025-07-26 19:45] LABS: INR 1.34 (0.8-1.3)
--- NOTE | 2025-07-26 20:34 | CT ---
EXAM: CT ABDOMEN AND PELVIS WITHOUT CONTRAST HISTORY: abdominal pain, colostomy in place; Patient's daughter states that the patient has a colostomy that has been present for over a year now. She states that today he had a bowl movement from his rectum however, and would like to make sure that nothing is wrong. COMPARISON: CT from June 03, 2025. TECHNIQUE: Axial CT images were obtained through the abdomen and pelvis without contrast. Coronal reformatted images were included. All CT scans at this facility use dose modulation, iterative reconstruction, and/or weight based dosing when appropriate to reduce radiation dose to as low as reasonably achievable. FINDINGS: Technical note: Without the use of intravenous contrast, evaluation of solid abdominal viscera, vascular structures, urinary structures, and bowel is limited. LOWER THORAX: See the separate CT chest report from same date. ABDOMEN: LIVER: There appears to be subtle undulating surface contour of the liver which may suggest cirrhosis, correlate clinically. Liver measures 16 cm longitudinal. GALLBLADDER: Status post cholecystectomy. SPLEEN: Unremarkable. PANCREAS: Unremarkable. KIDNEYS: No obstructive uropathy. ADRENAL GLANDS: Unremarkable. ABDOMINAL AORTA: Calcifications without aneurysm. LYMPH NODES: No evidence of enlarged nodes. GI TRACT: No evidence for intestinal obstruction. Redemonstrated is the left abdominal colostomy which is unchanged in appearance from the prior exam. As best as I can determine, this appears to be a loop colostomy, correlate with surgical record. ASCITES: Moderate to perhaps large amount of water density ascites throughout the abdomen extending into the pelvis is similar to the prior CT exam. PNEUMOPERITONEUM: None. Subcutaneous soft tissue edema about the abdomen and pelvis suggesting anasarca, similar to prior exam. PELVIS: APPENDIX: Appendix is visualized and appears unremarkable. RECTOSIGMOID COLON: Small amount of formed stool within the rectum. No rectal fecal impaction. BLADDER: [place] catheter within a completely decompressed urinary bladder. GENITALS: Prostate does not appear to be enlarged. ASCITES: Large amount of water density ascites, similar to prior CT. LYMPH NODES: No evidence for enlarged nodes. INGUINAL HERNIA: None. BONES: No evidence for acute osseous findings. IMPRESSION: No appreciable interval change from the prior CT. Stable appearance of the [id number] amount of water density ascites within the abdomen extending into the pelvis. The presence of this fluid could obscure detection of inflammatory processes or other pathology. Left abdominal loop colostomy is unchanged in appearance compared to prior exam. Small amount of formed stool within the rectum. No rectal fecal impaction. Subcutaneous soft tissue edema about the abdomen and pelvis suggesting anasarca, similar to prior exam. Other findings as above. See above for details. THIS IS AN ELECTRONICALLY VERIFIED FINAL REPORT 07/26/2025 8:25 PM - Electronically signed by José Villafuerte DO
--- NOTE | 2025-07-26 20:34 | CT ---
EXAM: CT CHEST WITHOUT CONTRAST HISTORY: SOB ; COMPARISON: CT chest dated June 25, 2025. TECHNIQUE: Axial CT images were obtained through the chest without intravenous administration of contrast. Coronal reformatted images were included. All CT scans at this facility use dose modulation, iterative reconstruction, and/or weight based dosing when appropriate to reduce radiation dose to as low as reasonably achievable. FINDINGS: Technical note: Without IV contrast evaluation of the vascular structures and mediastinal/hilar structures will be limited. CARDIOVASCULAR: Thoracic aorta has normal caliber. Coronary artery calcifications. Pulmonary artery trunk diameter measures within normal limits. PERICARDIAL EFFUSION:None. LYMPH NODES: No evidence for mediastinal adenopathy. Unable to evaluate for hilar adenopathy due to lack of IV contrast. PLEURAL SPACES: Mild bilateral water density pleural effusions, greater on the right, are similar to the prior CT exam. No pneumothorax. LUNGS: The above-noted pleural effusions producing compressive atelectasis of adjacent posterior aspect of the lower lobes and right upper lobe. Stable appearance of the hazy infiltrates within the bilateral upper lobes suggesting interstitial pneumonitis or interstitial edema. CENTRAL AIRWAYS: The visualized large central airways appear patent. UPPER ABDOMEN: See the separate CT abdomen and pelvis report from the same date. BONES: No acute findings. IMPRESSION: Mild bilateral water density pleural effusions, greater on the right, are similar to the prior CT exam. The above-noted pleural effusions produce compressive atelectasis of adjacent posterior aspects of the lower lobes and right upper lobe. Stable appearance of the hazy infiltrates within the bilateral upper lobes suggesting interstitial pneumonitis or interstitial edema. Coronary artery calcifications. THIS IS AN ELECTRONICALLY VERIFIED FINAL REPORT 07/26/2025 8:30 PM - Electronically signed by José Villafuerte DO
[2025-07-26 21:01] LABS: COR CA(FOR HYPOALB) 10.5 mg/dL (8.5-10.1); COR NA(FOR HYPERGLY) 141 mmol/L (136-145); CREATININE 4.93 mg/dL (0.70-1.30); eGFR NON BLACK RACES 13 (>60)
[2025-07-26] MEDS ORDERED: LEXAPRO ONE (23:38)
[2025-07-26] MEDS: FOLIC ACID TAB 1 MG PO SCH (23:51)
[2025-07-26] MEDS: PRAVACHOL PO SCH (23:51)
[2025-07-26] MEDS: APRESOLINE TAB 25 MG PO SCH (23:51)
[2025-07-26] MEDS: LEXAPRO PO SCH (23:52)
[2025-07-26] MEDS: D5 NS 1,000 ML IV 1,000 ML IV SCH (23:52)
[2025-07-27] MEDS: NS 500 ML IV 500 ML IV ONE (02:52)
[2025-07-27] MEDS: OMNIPAQUE 350 mg/mL 100 mL BTL 100 ML ONE (02:53)
[2025-07-27] MEDS ORDERED: NovoLIN R (or HumuLIN R) SUBCUT PRN (03:41)
[2025-07-27 05:51] LABS: COR CA(FOR HYPOALB) 10.5 mg/dL (8.5-10.1); CREATININE 5.05 mg/dL (0.70-1.30); eGFR NON BLACK RACES 13 (>60)
[2025-07-27] MEDS: WELLBUTRIN XL 150 MG (DAILY) PO SCH (08:59)
[2025-07-27] MEDS: NORVASC TAB 10 MG PO SCH (09:00)
[2025-07-27] MEDS: COREG TAB 12.5 MG PO SCH (09:06)
[2025-07-27 09:18] LABS: MEAN PLATELET VOLUME 7.5 fL (7.4-11.0); RED CELL DISTRIBUTION WIDTH 18.1 % (11.6-16.5)
[2025-07-27] MEDS: NYSTATIN POWDER TOP SCH (13:07)
[2025-07-27] MEDS: VIBRAMYCIN 100 MG in D5W 250 ML IV 250 ML IV SCH (13:42)
--- NOTE | 2025-07-27 13:43 | DR.H&P ---
H&P History & Physical for Day of: H&P Date: 07/26/25 History of Present Illness History of Present Illness: According to family patient has hx of colostomy. Has been bedbound for at least 1 year. Has had colostomy output. However this is the first time family noticed liquid mucus containing material per rectum. Concerned called EMS and brought patient for evaluation. Pt has also complained of abdominal discomfort mild to moderate intensity without nausea or vomiting has decreased appetite over the past few weeks gradual in onset, hx of gerard catheter in place usually replaced once a month but has not had it replaced this month . Bruising over the arms. Family reports pt has neen very confused, poor po intake Past Medical History Past Medical History: Anemia, Arthritis, CHF, Depression, Diabetes, Dyslipidemia, GERD, Hypertension and Renal Disease Past Surgical History Surgical History: Abdominal Surgery, Cholecystectomy, Ortho Surgery and Other Family History Family Medical History: Cancer and Hypertension Social History Does patient currently use any type of tobacco product: Yes Have you used tobacco products in the last 12 months: No Type of Tobacco Use: Smokeless Does any household member use tobacco: No Alcohol Use: None Drug Use: None Medications Home Medications: Home Medications Medication Instructions Recorded Confirmed Type ferrous sulfate 325 mg (65 mg 325 mg PO QAM 01/30/24 1 History iron) tablet,delayed release amlodipine 10 mg tablet 10 mg PO QAM 12/31/24 History bupropion HCl 150 mg 24 hr tablet, 150 mg PO QAM 12/3107/26/25 History extended release carvedilol 12.5 mg tablet 3.125 mg PO BID 12/31/2410/08 History escitalopram oxalate 5 mg tablet 5 mg PO QPM 12/31/24 07/26/25 History fenofibrate 160 mg tablet 160 mg PO QAM 12/31/2407/26 History furosemide 40 mg tablet 40 mg PO QAM 12/31/24 History hydralazine 25 mg tablet 25 mg PO BID 12/31/24 History omeprazole 40 mg capsule,delayed 40 mg PO QAM 12/31/24 07/26/25 History release oxybutynin chloride 10 mg 10 mg PO QPM 12/31/24 History tablet,extended release 24 hr potassium chloride 10 mEq 10 meq PO QAM 12/31/2407/26 History tablet,extended release pravastatin 40 mg tablet 40 mg PO QPM 12/31/24 History tamsulosin 0.4 mg capsule 0.4 mg PO QPM 12/31/2407/26 History lorazepam 1 mg tablet 1 mg PO Q4H PRN 06/03/2510/08 History morphine concentrate 100 mg/5 mL 10 mg PO Q2H PRN 05/1607/26/25 History (20 mg/mL) oral solution doxycycline hyclate 100 mg capsule 100 mg PO BID 07/2607/26/25 History ondansetron 8 mg disintegrating 8 mg PO Q8H PRN 07/26/25 History tablet oxycodone 10 mg tablet 10 mg PO TID PRN 07/26/25 History tizanidine 4 mg tablet 4 mg PO TID 07/26/25 5 History Allergies Allergies Allergy/AdvReac Type Severity Reaction Status Date / Time No Known Drug Allergies Allergy Verified 06/25/25 16:17 Labs 07/27/25 09:00 07/27/25 05:08 Labs: Laboratory WBC 5.9 X10^3/uL (3.6-10.0) 07/26/25 16:49 RBC 3.30 X10^6/uL (4.7-6.0) L 07/26/25 16:49 Hgb 8.8 g/dL (13.5-18.0) L 07/26/25 16:49 Hct 26.1 % (42.0-54.0) L 07/26/25 16:49 MCV 79.0 fL (80.0-100.0) L 07/26/25 16:49 MCH 26.7 pg (27.0-34.0) L 07/26/25 16:49 MCHC 33.7 g/dL (33.0-35.0) 07/26/25 16:49 RDW 18.0 % (11.6-16.5) H 07/26/25 16:49 Plt Count 103 X10^3/uL (150.0-450.0) L 07/26/25 16:49 MPV 7.2 fL (7.4-11.0) L 07/26/25 16:49 Neut % (Auto) 71.0 % (42.0-75.0) 07/26/25 16:49 Lymph % (Auto) 16.9 % (21.0-51.0) L 07/26/25 16:49 [place] % (Auto) 6.7 % (0.0-13.0) 07/26/25 16:49 Eos % (Auto) 4.1 % (0.9-2.9) H 07/26/25 16:49 Baso % (Auto) 1.3 % (0.2-1.0) H 07/26/25 16:49 Neut # (Auto) 4.2 x10^3/uL (2.2-4.8) 07/26/25 16:49 Lymph # (Auto) 1.0 X10^3/uL (1.3-2.9) L 07/26/25 16:49 [place] # (Auto) 0.4 x10^3/uL (0.3-0.8) 07/26/25 16:49 Eos # (Auto) 0.2 x10^3/uL (0.0-0.2) 07/26/25 16:49 Baso # (Auto) 0.1 X10^3/uL (0.0-0.1) 07/26/25 16:49 Absolute Nucleated RBC 0.0 /100WBC 07/26/25 16:49 PT 16.7 SECONDS (11.8-14.3) 07/26/25 16:49 INR Target Range - 07/26/25 16:49 INR 1.34 (0.8-1.3) H 07/26/25 16:49 APTT 40.3 SECONDS (22.9-36.5) H 07/26/25 16:49 PTT Comment - 07/26/25 16:49 Sodium 138 mmol/L (136-145) 07/27/25 05:08 Corrected Sodium TNP 07/27/25 05:08 Potassium 4.9 mmol/L (3.5-5.1) 07/27/25 05:08 Chloride 103 mmol/L (98-107) 07/27/25 05:08 Carbon Dioxide 29.3 mmol/L (21-32) 07/27/25 05:08 BUN 67 mg/dL (7-18) H 07/27/25 05:08 Creatinine 5.05 mg/dL (0.70-1.30) H 07/27/25 05:08 Est GFR (MDRD) Af Amer 15 (>60) L 07/27/25 05:08 Est GFR (MDRD) Non-Af 13 (>60) L 07/27/25 05:08 Glucose 101 mg/dL (65-99) H 07/27/25 05:08 POC Glucose (mg/dL) 85 mg/dL (65-99) 07/27/25 05:20 Calcium 9.1 mg/dL (8.5-10.1) 07/27/25 05:08 Corrected Calcium 10.5 mg/dL (8.5-10.1) H 07/27/25 05:08 Magnesium 1.7 mg/dL (2.0-2.9) L 07/26/25 16:49 Total Bilirubin 1.00 mg/dL (0.2-1.0) 07/27/25 05:08 Direct Bilirubin 0.70 mg/dL (0-0.2) H 07/26/25 16:49 AST 15 Units/L (15-37) 07/27/25 05:08 ALT < 6 Units/L (12-78) L 07/27/25 05:08 Alkaline Phosphatase 53 Units/L (46-116) 07/27/25 05:08 B-Natriuretic Peptide 450 pg/mL (0-79) H 07/26/25 16:49 Total Protein 6.3 g/dL (6.4-8.2) L 07/27/25 05:08 Albumin 2.2 g/dL (3.4-5.0) L 07/27/25 05:08 Globulin 4.1 g/dL (2.5-4.5) 07/27/25 05:08 Albumin/Globulin Ratio 0.5 Ratio (1.1-2.1) L 07/27/25 05:08 Vitamin B12 1116 pg/mL (193-986) H 07/26/25 16:49 Folate 2.3 ng/mL (>8.6) L 07/26/25 16:49 Free T4 0.99 ng/dL (0.76-1.46) 07/26/25 16:49 TSH 3rd Generation 6.812 uIU/mL (0.358-3.74) H 07/26/25 16:49 Specimen Type Catherized urine 07/26/25 17:25 Urine Color Pale yellow (YELLOW) 07/26/25 17:25 Urine Appearance Hazy (CLEAR) 07/26/25 17: Urine pH 6.0 (5.0 - 8.0) 07/26/25 17:25 Ur Specific [place] 1.015 (1.000-1.030) 07/26/25 17: Urine Protein 2+ (NEGATIVE) 07/26/25 17: Urine Glucose (UA) Negative (NEGATIVE) 07/26/25 17: Urine Ketones Negative (NEGATIVE) 07/26/25 17: Urine Blood 5+ (NEGATIVE) 07/26/25 17: Urine Nitrite Negative (NEGATIVE) 07/26/25 17: Urine Bilirubin Negative (NEGATIVE) 07/26/25 17: Urine Urobilinogen Normal (NORMAL) 07/26/25 17:25 Ur Leukocyte Esterase 2+ (NEGATIVE) 07/26/25 17:25 Review of Systems Constitutional: Weakness Eyes: Vision Change (chronic) ENT: No Symptoms Reported Respiratory: Shortness of Breath Cardiovascular: Edema Gastrointestinal: Constipation and Other (loss of appetite) Genitourinary: Frequency Musculoskeletal: Back Pain and Leg Pain Skin: Wound Neurological: Weakness and Confusion Physical Exam Vital Signs: Vital Signs Temperature 97.5 F Temperature 97.4 F Pulse Rate [Brachial] 80 Pulse Rate [Brachial] 61 Respiratory Rate 16 Respiratory Rate 17 Blood Pressure [Left Arm] 119/64 Blood Pressure [Left Arm] 119/57 O2 Sat by Pulse Oximetry 95 O2 Sat by Pulse Oximetry 96 Oriented: Person Eyes: Blurred Vision (chronic) Nose: Normal Throat: Dry Respiratory: Diminished Throughout Cardiovascular: Edema Auscultation: Bowel Sounds: Decreased Palpation: Liver Enlarged and Other (diffuse abdominal distention) Tenderness: Diffuse Skin: Decreased Turg[place], Wound and Bruising Musculoskeletal: Back:Lumbar and Swelling Psychiatric: Depression Mood Description: Depressed Affect: Depressed Speech Pattern: Delayed Assessment/Plan (1) Acute on chronic kidney failure: Status: Acute Plan: admit, iv hydration with I&Os bp control, bs control abd ct on admission, replace gerard repeat am labs (2) Colostomy in place: Status: Acute (3) Bedbound: Status: Acute (4) Acute exacerbation of CHF (congestive heart failure): Status: Acute (5) Acute dehydration: Status: Acute (6) Decubitus ulcer of sacral region, stage 4: Status: Acute
[2025-07-27] MEDS: D5 NS IV SCH (14:33)
[2025-07-27] MEDS: MAGNESIUM SULFATE IV SCH (14:33)
[2025-07-27] MEDS: LASIX IVP SCH (19:23)
[2025-07-27] MEDS: SNACK - Diabetic Appropriate PO SCH (19:37)
[2025-07-27] MEDS ORDERED: COREG TAB 3.125 MG PO SCH (21:00)
[2025-07-27] MEDS: RESTORIL CAP 15 MG PO PRN (21:30)
[2025-07-27] MEDS: ULTRAM PO PRN (21:30)
[2025-07-28 04:57] LABS: MEAN PLATELET VOLUME 7.2 fL (7.4-11.0); RED CELL DISTRIBUTION WIDTH 17.8 % (11.6-16.5)
[2025-07-28 05:16] LABS: COR CA(FOR HYPOALB) 10.2 mg/dL (8.5-10.1); CREATININE 4.79 mg/dL (0.70-1.30); eGFR NON BLACK RACES 13 (>60)
[2025-07-28] MEDS ORDERED: PHARMACY CONSULT XX SCH (09:00)
--- NOTE | 2025-07-28 11:10 | RAD ---
EXAM: CHEST, 1 VIEW HISTORY: CHF; COMPARISON: No relevant prior studies were available for comparison at the time of interpretation. TECHNIQUE: CHEST, 1 VIEW FINDINGS: Chest: Lines and tubes: None Mediastinum: Cardiomegaly. Pulmonary vessels: There is pulmonary vascular congestion. Lung collins: Patchy opacities are seen Pleura: No effusion. No pneumothorax. Bones and soft tissues: No acute osseous or soft tissue abnormality. IMPRESSION: 1. Heart failure exacerbation THIS IS AN ELECTRONICALLY VERIFIED FINAL REPORT 07/28/2025 10:56 AM - Electronically signed by José Terry MD
--- NOTE | 2025-07-28 11:34 | RAD ---
EXAM: CHEST, 1 VIEW HISTORY: shortness of breath; COMPARISON: No relevant prior studies were available for comparison at the time of interpretation. TECHNIQUE: CHEST, 1 VIEW FINDINGS: Chest: Lines and tubes: None Mediastinum: Cardiomegaly. Pulmonary vessels: There is pulmonary vascular congestion. Lung collins: Patchy opacities are seen Pleura: No effusion. No pneumothorax. Bones and soft tissues: No acute osseous or soft tissue abnormality. IMPRESSION: 1. Heart failure exacerbation THIS IS AN ELECTRONICALLY VERIFIED FINAL REPORT 07/28/2025 11:30 AM - Electronically signed by José Terry MD
[2025-07-28] MEDS: ERAXIS 200 MG in NS 250 ML IV 200 ML IV NR (13:33)
[2025-07-28] MEDS ORDERED: D5 NS 1,000 ML IV 1,000 ML IV SCH (18:00)
[2025-07-28] MEDS: MAGNESIUM SULFATE IV SCH (18:04)
[2025-07-28] MEDS: D5 NS IV SCH (18:04)
[2025-07-28] MEDS: LASIX IVP SCH (20:37)
[2025-07-29 04:50] LABS: MEAN PLATELET VOLUME 7.3 fL (7.4-11.0); RED CELL DISTRIBUTION WIDTH 18.4 % (11.6-16.5)
[2025-07-29 04:58] LABS: COR CA(FOR HYPOALB) 10.1 mg/dL (8.5-10.1); CREATININE 4.69 mg/dL (0.70-1.30); eGFR NON BLACK RACES 14 (>60)
[2025-07-29] MEDS: D50W ABBOJECT SYR IV ONE (05:35)
[2025-07-29] MEDS: LEXAPRO ONE ×2 (08:55→08:56)
[2025-07-29] MEDS: D50W ABBOJECT SYR ONE (08:56)
[2025-07-29] MEDS ORDERED: NS 250 ML IV 250 ML IV ONE (09:20)
[2025-07-29 09:33] LABS: RETICULOCYTE % 1.7 % (0.8-2.2)
[2025-07-29] MEDS: ERAXIS 100 MG in NS 100 ML IV 100 ML IV SCH (09:55)
--- NOTE | 2025-07-29 10:40 | RAD ---
EXAM: CHEST, 1 VIEW HISTORY: PULMONARY EDEMA; HTN, DM, RENAL DISEASE, ANEMIA, GERD, CHF SX: ABD SURG, MIA, ORTHO, COLOSTOMY COMPARISON: 07/28/2025 FINDINGS: The trachea is midline. The cardiac silhouette is enlarged with a tortuous thoracic aorta . Increased interstitial changes with prominent vascular markings are observed consistent with underlying CHF.. The bony thorax is unremarkable. IMPRESSION: Increased interstitial changes with prominent vascular markings are observed consistent with underlying CHF. THIS IS AN ELECTRONICALLY VERIFIED FINAL REPORT 07/29/2025 10:37 AM - Electronically signed by Juan Elliott MD
[2025-07-29] MEDS ORDERED: PHARMACY CONSULT XX SCH (12:00)
[2025-07-29] MEDS: BACTROBAN TOPICAL OINT TOP SCH (15:00)
[2025-07-29] MEDS: HIBICLENS WASH EXT SCH (15:34)
[2025-07-29] MEDS: NS 100 ML IV 100 ML with VENOFER 400 MG IV ONE (15:43)
[2025-07-29] MEDS: VENOFER IV ONE (16:56)
[2025-07-29] MEDS: HIBICLENS WASH ONE (17:06)
[2025-07-29 19:29] VITALS: BMI 51.0
[2025-07-29] MEDS ORDERED: LEXAPRO ONE (20:00)
[2025-07-30 05:38] LABS: MEAN PLATELET VOLUME 7.0 fL (7.4-11.0); RED CELL DISTRIBUTION WIDTH 18.7 % (11.6-16.5)
[2025-07-30 06:03] LABS: COR CA(FOR HYPOALB) 10.2 mg/dL (8.5-10.1); CREATININE 4.60 mg/dL (0.70-1.30); eGFR NON BLACK RACES 14 (>60)
[2025-07-30] MEDS: ALBUMIN HUMAN 25%- 100 ML 100 ML IV ONE (08:46)
--- NOTE | 2025-07-30 15:09 | RAD ---
EXAM: KUB HISTORY: Abdominal distention, constipation; best images possible COMPARISON: CT dated 07/26/2025 TECHNIQUE: AP abdomen, supine FINDINGS: No abnormally distended bowel loops. Moderate amount of formed stool in the colon. No visualized abnormal calcifications. IMPRESSION: Nonobstructive bowel gas pattern. Moderate colonic stool burden. THIS IS AN ELECTRONICALLY VERIFIED FINAL REPORT 07/30/2025 3:06 PM - Electronically signed by Lukasz Moser MD
[2025-07-30] MEDS: PERCOCET TAB 5/325 MG PO PRN (17:59)
[2025-07-30] MEDS: MIRALAX POWDER (255 GRAMS BTL) PO SCH (18:03)
[2025-07-30] MEDS ORDERED: LEXAPRO ONE (19:55)
[2025-07-31 05:21] LABS: MEAN PLATELET VOLUME 7.0 fL (7.4-11.0); RED CELL DISTRIBUTION WIDTH 18.2 % (11.6-16.5)
[2025-07-31 05:32] LABS: COR CA(FOR HYPOALB) 10.2 mg/dL (8.5-10.1); CREATININE 4.48 mg/dL (0.70-1.30); eGFR NON BLACK RACES 14 (>60)
--- NOTE | 2025-07-31 09:04 | RAD ---
EXAM: CHEST, 1 VIEW HISTORY: ACUTE DEHYDRATION/ ACUTE ONSET CHRONIC RENAL FAILURE; COMPARISON: No relevant prior studies were available for comparison at the time of interpretation. TECHNIQUE: CHEST, 1 VIEW FINDINGS: Chest: Lines and tubes: None Mediastinum: Cardiomegaly. Pulmonary vessels: There is pulmonary vascular congestion. Lung collins: Patchy opacities are seen Pleura: No effusion. No pneumothorax. Bones and soft tissues: No acute osseous or soft tissue abnormality. IMPRESSION: 1. Findings suggest heart failure THIS IS AN ELECTRONICALLY VERIFIED FINAL REPORT 07/31/2025 9:01 AM - Electronically signed by José Terry MD
[2025-07-31] MEDS: D5 NS 1,000 ML IV 1,000 ML with MAGNESIUM SULFATE 50% INJ VIAL 1 G IV SCH (10:31)
[2025-07-31 12:21] VITALS: RESP 18
[2025-07-31 12:39] VITALS: BP 127/73; PULSE 61; TEMP 97.1; O2SAT 100
== END 2025-07-31 13:15 | disposition hospice, home (50) | DRG 682 ==
LOC: ER 15:52 → MED/SURG 21:46
PROVIDERS: ADMIT Internal Medicine; ATTEND Internal Medicine
DX: J90 Pleural effusion, not elsewhere classified; R79.1 Abnormal coagulation profile; K59.09 Other constipation; Z68.43 Body mass index [BMI] 50.0-59.9, adult; Z16.24 Resistance to multiple antibiotics; D63.1 Anemia in chronic kidney disease; I13.0 Hypertensive heart and chronic kidney disease with heart failure and stage 1 through stage 4 chronic kidney disease, or unspecified chronic kidney disease; Z74.01 Bed confinement status; R53.1 Weakness; N18.9 Chronic kidney disease, unspecified; K21.9 Gastro-esophageal reflux disease without esophagitis; M19.90 Unspecified osteoarthritis, unspecified site; N17.8 Other acute kidney failure; I50.89 Other heart failure; Z87.438 Personal history of other diseases of male genital organs; J44.1 Chronic obstructive pulmonary disease with (acute) exacerbation; E83.42 Hypomagnesemia; N39.0 Urinary tract infection, site not specified; M62.59 Muscle wasting and atrophy, not elsewhere classified, multiple sites; E11.65 Type 2 diabetes mellitus with hyperglycemia; Z93.3 Colostomy status; R62.7 Adult failure to thrive; Z66 Do not resuscitate; I48.20 Chronic atrial fibrillation, unspecified; E86.0 Dehydration; E66.01 Morbid (severe) obesity due to excess calories; Z59.868 Other specified financial insecurity; E11.22 Type 2 diabetes mellitus with diabetic chronic kidney disease; E78.5 Hyperlipidemia, unspecified; R06.02 Shortness of breath; L89.154 Pressure ulcer of sacral region, stage 4; B37.89 Other sites of candidiasis; E80.6 Other disorders of bilirubin metabolism